=== PATIENT | male | born 1945 | race Caucasian/White ===

== ENCOUNTER → 2017-08-09 08:41 | Outpatient (CLI) | payer MEDICARE, OTHER, SELFPAY ==
[2017-08-09 12:20] LABS: Absolute Lymphocyte Count 1.43 X10^3/ul (0.83-4.51); Basophil# 0.01 X10^3/uL; Basophil% 0.2 % (0-1); Eosinophil# 0.16 X10^3/uL; Eosinophils% 2.6 % (0-5); Hematocrit 49.6 % (40-54); Hemoglobin 16.1 g/dl (13.0-16.5); Lymphocyte # 1.43 X10^3/ul (4.0); Lymphocyte % 23.4 % (19-41); Mean Corp Hgb Conc 32.5 g/gl (32-36); Mean Corpuscular Hgb 30.1 pg (27.0-32.0); Mean Corpuscular Volume 92.9 fL (80-94); Mean Platelet Vol. 11.2 fl (6.2-12.0); Monocyte# 0.47 X10^3/uL; Monocyte% 7.7 % (0-10); Neutrophil # 4.03 X10^3/uL (2.7-7.7); Neutrophil % 65.9 % (47-70); Platelet Count 231 K/mm3 (150-450); RBC Distribution Width CV 13.8 % (11.6-14.6); RBC Distribution Width SD 46.8 fl (35.1-43.9); Red Blood Count 5.34 M/mm3 (4.6-6.2); White Blood Count 6.1 K/mm3 (4.4-11.0)
[2017-08-09 12:31] LABS: POSITIVE DIFFERENTIAL NO; POSITIVE MORPHOLOGY NO
[2017-08-09 12:32] LABS: POSITIVE COUNT NO
[2017-08-09 12:39] LABS: Vitamin B12 350 pg/mL (211-911)
[2017-08-09 12:57] LABS: ALB/GLOB Ratio 0.8 RATIO (0.9-2.4); AST(SGOT) 15 U/L (15-37); Alanine Aminotransfer ALT/SGPT 20 U/L (16-61); Albumin, Serum 3.5 g/dL (3.2-5.0); Alkaline Phosphatase 84 U/L (45-117); Anion Gap 7 (5-15); BUN 10 mg/dL (7-18); BUN/Creat Ratio 9.5 RATIO (10-20); Calcium,Total 8.6 mg/dL (8.5-10.1); Chloride 103 mmol/L (98-107); Cholesterol 194 mg/dL (200); Creatinine, Serum 1.05 mg/dL (0.70-1.30); EST Glomerular Filtration Rate 74 mL/min (>60); Est Glom Filt Rate - Afr Amer 90 mL/min (>60); Globulin 4.2 g/dL (2.2-4.2); Glucose 94 mg/dL (74-106); High Density Lipoprotein 56 mg/dL; Potassium 4.1 mmol/L (3.5-5.1); Protein, Total 7.7 g/dL (6.4-8.2); Sodium Level 137 mmol/L (136-145); T4 Free Direct 1.16 ng/dL (0.76-1.46); Thyroid Stim Hormone (TSH) 2.73 uIU/mL (0.358-3.74); Triglycerides 107 mg/dL; Very Low Density Lipoprotein 21 mg/dL (5-40)
[2017-08-11 14:33] LABS: Acetylcholine Receptor Binding < 0.03 nmol/L (0.00-0.24)
== END ==
PROVIDERS: Visit Provider Family Medicine
DX: H53.2 Diplopia (principal); N40.0 Benign prostatic hyperplasia without lower urinary tract symptoms; E78.5 Hyperlipidemia, unspecified; E01.0 Iodine-deficiency related diffuse (endemic) goiter; R53.83 Other fatigue; R20.2 Paresthesia of skin; Z12.5 Encounter for screening for malignant neoplasm of prostate; Z51.81 Encounter for therapeutic drug level monitoring
CPT/HCPCS: 36415; 80053; 80061; 82607; 84153; 84238; 84439; 84443; 85025; G0103

== ENCOUNTER → 2018-09-27 07:58 | Outpatient (CLI) | payer MEDICARE, OTHER, SELFPAY ==
[2018-09-27 12:35] LABS: Absolute Lymphocyte Count 1.95 X10^3/ul (0.83-4.51); Absolute Neutrophil Count 3.5 X10^3/uL (2.0-7.7); Basophil# 0.02 X10^3/uL; Basophil% 0.3 % (0-1); Eosinophil# 0.17 X10^3/uL; Eosinophils% 2.7 % (0-5); Hematocrit 48.3 % (40-54); Hemoglobin 15.8 g/dl (13.0-16.5); Lymphocyte # 1.95 X10^3/ul (4.0); Lymphocyte % 31.4 % (19-41); Mean Corp Hgb Conc 32.7 g/gl (32-36); Mean Corpuscular Hgb 29.6 pg (27.0-32.0); Mean Corpuscular Volume 90.6 fL (80-94); Mean Platelet Vol. 10.3 fl (6.2-12.0); Monocyte# 0.53 X10^3/uL; Monocyte% 8.5 % (0-10); Neutrophil # 3.54 X10^3/uL (2.7-7.7); Neutrophil % 56.9 % (47-70); Platelet Count 274 K/mm3 (150-450); RBC Distribution Width SD 46.3 fl (35.1-43.9); Red Blood Count 5.33 M/mm3 (4.6-6.2); White Blood Count 6.2 K/mm3 (4.4-11.0)
[2018-09-27 12:42] LABS: POSITIVE COUNT NO; POSITIVE DIFFERENTIAL NO; POSITIVE MORPHOLOGY NO
[2018-09-27 13:08] LABS: Vitamin B12 1328 pg/mL (211-911)
[2018-09-27 13:13] LABS: ALB/GLOB Ratio 0.8 RATIO (0.9-2.4); AST(SGOT) 21 U/L (15-37); Alanine Aminotransfer ALT/SGPT 22 U/L (16-61); Albumin, Serum 3.6 g/dL (3.2-5.0); Alkaline Phosphatase 67 U/L (45-117); Anion Gap 5 (5-15); BUN 13 mg/dL (7-18); BUN/Creat Ratio 11.3 RATIO (10-20); Calcium,Total 8.6 mg/dL (8.5-10.1); Chloride 92 mmol/L (98-107); Cholesterol 173 mg/dL (200); Creatinine, Serum 1.15 mg/dL (0.70-1.30); EST Glomerular Filtration Rate 67 mL/min (>60); Est Glom Filt Rate - Afr Amer 81 mL/min (>60); Globulin 4.3 g/dL (2.2-4.2); Glucose 88 mg/dL (74-106); High Density Lipoprotein 60 mg/dL; PSA,Total - Annual Screen 3.62 ng/mL (0.00-4.00); Potassium 3.9 mmol/L (3.5-5.1); Protein, Total 7.9 g/dL (6.4-8.2); Sodium Level 128 mmol/L (136-145); Thyroid Stim Hormone (TSH) 2.17 uIU/mL (0.358-3.74); Triglycerides 85 mg/dL; Very Low Density Lipoprotein 17 mg/dL (5-40)
== END ==
PROVIDERS: Family Provider Family Medicine; PCP Family Medicine; Visit Provider Family Medicine
DX: I10 Essential (primary) hypertension (principal); Z12.5 Encounter for screening for malignant neoplasm of prostate; Z51.81 Encounter for therapeutic drug level monitoring; R53.83 Other fatigue; E78.5 Hyperlipidemia, unspecified
CPT/HCPCS: 36415; 80053; 80061; 82607; 84153; 84443; 85025; G0103

== ENCOUNTER → 2019-01-05 09:41 | Outpatient (CLI) | payer MEDICARE, OTHER, SELFPAY ==
[2019-01-05 09:05] VITALS: BMI 48.5
[2019-01-05 10:34] LABS: Anion Gap 6 (5-15); BUN 10 mg/dL (7-18); BUN/Creat Ratio 9.9 RATIO (10-20); Calcium,Total 9.1 mg/dL (8.5-10.1); Chloride 97 mmol/L (98-107); Creatinine, Serum 1.01 mg/dL (0.70-1.30); EST Glomerular Filtration Rate 77 mL/min (>60); Est Glom Filt Rate - Afr Amer 94 mL/min (>60); Glucose 92 mg/dL (74-106); Potassium 3.8 mmol/L (3.5-5.1); Sodium Level 134 mmol/L (136-145)
== END ==
PROVIDERS: Family Provider Family Medicine; PCP Family Medicine; Referring Provider Surgery; Visit Provider Surgery
DX: R89.9 Unspecified abnormal finding in specimens from other organs, systems and tissues (principal)
CPT/HCPCS: 36415; 80048

== ENCOUNTER → 2019-01-10 08:50 | Outpatient (CLI) | payer MEDICARE, OTHER, SELFPAY ==
[2019-01-05 09:05] VITALS: BMI 48.5
--- NOTE | 2019-01-10 08:52 | US_ITS ---
STUDY: ABDOMINAL ULTRASOUND - RIGHT UPPER QUADRANT REASON FOR VISIT: Male, 73 years old. Generalized abdominal pain TECHNIQUE: Ultrasound evaluation of the right upper quadrant was performed with real-time and static gay-scale imaging. TECHNICAL QUALITY: Limited. Examination limited due to obesity. COMPARISON: None. FINDINGS: Liver: The liver measures 19.5 cm. There is a heterogeneous echogenicity of the liver. The bile ducts are within normal limits. There is hepatic color flow. The direction of portal flow is hepatopetal. There is no demonstrated mass lesion. Gallbladder: Normal distended gallbladder. The gallbladder wall measures 1.6 mm. There is a negative sonographic Zapata's sign. There is no pericholecystic fluid. There are no gallstones. Common Bile Duct (C.B.D.): The common bile duct measures 3.8 mm. Pancreas: Normal size of the head, body and tail of the pancreas. There is increased echogenicity of the pancreas. There is no demonstrated pancreatic mass or cyst. Right Kidney: Normal size of the right kidney. The right kidney measures 12.8 x 5.3 x 5.6 cm. Normal renal cortex. The right cortex measures 2.1 cm. There is no demonstrated renal mass or cyst. There is no right hydronephrosis. US/Gallbladder IMPRESSION: Fatty liver, no discrete lesion Electronically Signed: Nguyễn Sharpe MD at 17:36 EDT , Service support ,
== END ==
PROVIDERS: Family Provider Family Medicine; PCP Family Medicine; Referring Provider Surgery; Visit Provider Surgery
DX: R10.9 Unspecified abdominal pain (principal)
CPT/HCPCS: 76705

== ENCOUNTER 2019-01-31 06:12 | Day surgery (SDC) | payer MEDICARE, OTHER, SELFPAY ==
[2019-01-05 09:05] VITALS: BMI 48.5
[2019-01-31] VITALS (13 sets, daily range): BP systolic 127–200; BP diastolic 79–173; PULSE 68–80; RESP 16; TEMP 36.2–36.6; O2SAT 93–100; BMI 48.7
--- NOTE | 2019-01-31 06:59 | PCM.HP.BLA ---
Problem List (1) Personal history of colonic polyps Status: Chronic (2) Abdominal pain Status: Acute Qualifiers: Abdominal location: epigastric History and Physical Date of Admission: 01/31/19 ADDENDUM by Td Kaur MD on 01/11/19 at 0905 Addendum entered and electronically signed by Td Kaur MD 01/11/19 09:05: GB U/S 01/10/19. No acute findings: [facility] [address] [address] Gallbladder MR#: [id number] Name: UMU CARDOZA CRep #:[id number] : 1945M 73 From: Al Sharpe MD PCP:Mariluz Sahu DO Status:REG CLI Study:Gallbladder Date of Exam:01/10/19 Exam#[id number] Ordering Dr: Td Kaur MD STUDY: ABDOMINAL ULTRASOUND - RIGHT UPPER QUADRANT REASON FOR VISIT: Male, 73 years old. Generalized abdominal pain TECHNIQUE: Ultrasound evaluation of the right upper quadrant was performed with real-time and static gay-scale imaging. TECHNICAL QUALITY: Limited. Examination limited due to obesity. COMPARISON: None. FINDINGS: Liver: The liver measures 19.5 cm. There is a heterogeneous echogenicity of the liver. The bile ducts are within normal limits. There is hepatic color flow. The direction of portal flow is hepatopetal. There is no demonstrated mass lesion. Gallbladder: Normal distended gallbladder. The gallbladder wall measures 1.6 mm. There is a negative sonographic Zapata's sign. There is no pericholecystic fluid. There are no gallstones. Common Bile Duct (C.B.D.): The common bile duct measures 3.8 mm. Pancreas: Normal size of the head, body and tail of the pancreas. There is increased echogenicity of the pancreas. There is no demonstrated pancreatic mass or cyst. Right Kidney: Normal size of the right kidney. The right kidney measures 12.8 x 5.3 x 5.6 cm. Normal renal cortex. The right cortex measures 2.1 cm. There is no demonstrated renal mass or cyst. There is no right hydronephrosis. US/Gallbladder IMPRESSION: Fatty liver, no discrete lesion Electronically Signed: Nguyễn Sharpe MD at 17:36 EDT , Service support , CC: Mariluz Sahu DO; Td Kaur MD ~ Vocal Music Instructor: Signed Intake Chief Complaint: abd pain, hx polyps Allergies Penicillins Allergy (Mild, Verified 01/05/19 09:06) rash Medications aspirin 81 mg tablet,delayed release 81 mg PO DAILY 01/05/19 [History Confirmed 01/05/19] losartan 50 mg-hydrochlorothiazide 12.5 mg tablet 1 tab PO DAILY 01/05/19 [History Confirmed 01/05/19] mecobalamin (vitamin B12) 1,000 mcg disintegrating tablet,sublingual 1,000 mcg SUBLINGUAL DAILY 01/05/19 [History Confirmed 01/05/19] Assessment & Plan Problems 1. Epigastric pain R10.13 2. Personal history of colonic polyps Z86.010 Plan - Td Kaur MD 73-year-old gentleman. Nondescript generalized epigastric pain with some radiation to his back. Etiology not clear. I recommend a gallbladder ultrasound and a esophagogastroduodenoscopy with possible biopsy or polypectomy. Personal history of colon polyps. Generalized epigastric abdominal pain. I recommend a colonoscopy with possible biopsy or polypectomy as indicated. The patient recently had laboratory September 2018 demonstrating hyponatremia and hypochloremia. I recommend a repeat BMP. This was obtained today and that laboratory is improved. The patient has had an opportunity to ask and have questions answered. I very much appreciate the kind opportunity of continue to assist with this medical care. We will schedule and proceed at his discretion. CC: Dr. Mariluz Kaur M.D., F.A.C.S. Orders Orders: Colonoscopy 01/05/19 Z86.010 EGD 01/05/19 R10.13 Basic Metabolic Profile (BMP) 01/05/19 R89.9 Gallbladder 01/10/19 R10.9 01/11/19 0905 <Electronically signed by Td Kaur MD> Date Td Kaur MD cc: Mariluz Sahu DO ~* Signed Intake Vital Signs 01/05/19 Height 5 ft 7 in 01/05/19 Weight: 310 lb 2 oz 01/05/19 Body Mass Index (BMI) 48.5 01/05/19 Blood Pressure 159/91 H 01/05/19 Blood Pressure Location Rt brachial 01/05/19 Respiratory Rate 18 01/05/19 Pulse Rate 81 01/05/19 Pulse Ox 96 Intake Visit Reasons: abd pain, change in bowel habits Chief Complaint: abd pain, hx polyps Shuttle Final Inspector Required: No Is patient in pain?: No Allergies Penicillins Allergy (Mild, Verified 01/05/19 09:06) rash Medications aspirin 81 mg tablet,delayed release 81 mg PO DAILY 01/05/19 [History Confirmed 01/05/19] losartan 50 mg-hydrochlorothiazide 12.5 mg tablet 1 tab PO DAILY 01/05/19 [History Confirmed 01/05/19] mecobalamin (vitamin B12) 1,000 mcg disintegrating tablet,sublingual 1,000 mcg SUBLINGUAL DAILY 01/05/19 [History Confirmed 01/05/19] [facility] Medical History (Updated 01/05/19 @ 18:00 by Td Kaur MD) Personal history of colonic polyps (Chronic) Abdominal pain (Acute) Cough (Acute) History of colon polyps (Acute) History of diverticulitis (Acute) History of diverticulosis (Acute) HTN (hypertension) (Chronic) Surgical History (Updated 01/05/19 @ 09:04 by Barby Baldwin) History of cataract extraction (Acute) History of colonoscopy (Acute ~2013) History of partial colectomy (Acute) Family History (Updated 01/05/19 @ 09:05 by Barby Baldwin) Father Hypertension Mother Hypertension Social History (Updated 01/05/19 @ 18:04 by Td Kaur MD) Smoking Status: Former smoker HPI HPI HPI: UMU CARDOZA, is a 73 M who presents to the office today for surgical consultation regarding epigastric generalized abdominal pain. A secondary problem includes a personal history of colon polyps. The patient is referred by Dr. Sahu and a written copy of my surgical consult recommendations will be returned to her. Patient has a personal history May 13, 2007 of my perform a sigmoid colectomy for him for diverticular disease and a villous adenoma. On November 23, 2008 I performed a follow-up colonoscopy demonstrating fragments of a tubular adenoma at the splenic flexure. His most recent colonoscopy was performed by myself on February 09, 2014. A sessile polyp was identified in the rectum. On resection this was a hyperplastic polyp. As of September 27, 2018 his sodium was 128 potassium 3.9 CO2 combining power is 92. TSH was 2.17. PSA was 3.62. BUN is 13 creatinine 1.15. Liver function tests normal except for total bilirubin of 1.1. White count 6.2 with a hemoglobin 15.8 hematocrit 48.3 and platelet count 2 74,000. Of the past 6 months he has had generalized epigastric abdominal pain that radiates to his back. He does not particularly associated with foods. It does not associate with any particular physical activity. He has not noticed any bright red blood per rectum or melena. He denies any known family history of colon cancer. He denies fever or chills or sweats or nausea or vomiting. The etiology to the epigastric generalized dull aching pain undetermined. He has not noted acute change in bowel habit occasion his stools are smaller in caliber. HPI HPI HPI: UMU CARDOZA, is a 73 M who presents to the office today for ROS General General: Yes fatigue; no weight change, appetite, colon cancer, breast cancer or weakness HEENT HEENT: No difficulty swallowing, eye injury, eye surgery, swollen glands or hoarseness Endo Endocrine: No thyroid disease, diabetes mellitus, thyroid cancer, Hair loss, heat intolerance or cold intolerance Cardio Cardiovascular: Yes high blood pressure; no murmur, pacemaker, heart disease, atrial fibrillation, heart attack, heart stent, palpitations, shortness of breat with exertion or chest pain Resp Respiratory: Yes shortness of breath, No sleep apnea, Yes cough, No COPD, No asthma, No emphysema, No wheezing Gastro Gastrointestinal: Yes abdominal pain, No nausea or vomiting, No diarrhea, No constipation, No blood in stool, No acid reflux, No hemorrhoids, No ulcers, No gallbladder problem, No black,tarry stools Jerry Hematologic: Yes blood thinners, No blood disorders, No bleeding, No anemia, No blood clots Neuro Neurologic: No weakness Exam Const General: cooperative, comfortable, no acute distress Nutritional Appearance: obese Orientation: alert, awake, oriented x3 HENMT Head: normal to inspection Chest Chest palpation & inspection: normal inspection of the chest Resp Effort & Inspection: normal respiratory effort Auscultation: clear to auscultation bilaterally Cardio Rate: regular rate Rhythm: regular rhythm Heart Sounds: no murmurs GI Palpation: soft Other: Normal bowel sounds. I am not able to detect any internal organs secondary to body habitus. He has a well-healed infraumbilical midline incision which is solid no evidence of any hernia. Large overhanging pannus. Other: No gross inguinal defects but difficult to examine Musc Cervical Spine: normal cervical lordosis Neuro Cognition: normal cognition Extrem General: no calf tenderness bilaterally Psych Affect: normal affect Assessment & Plan Problems 1. Epigastric pain R10.13 2. Personal history of colonic polyps Z86.010 Plan 73-year-old gentleman. Nondescript generalized epigastric pain with some radiation to his back. Etiology not clear. I recommend a gallbladder ultrasound and a esophagogastroduodenoscopy with possible biopsy or polypectomy. Personal history of colon polyps. Generalized epigastric abdominal pain. I recommend a colonoscopy with possible biopsy or polypectomy as indicated. The patient recently had laboratory September 2018 demonstrating hyponatremia and hypochloremia. I recommend a repeat BMP. This was obtained today and that laboratory is improved. The patient has had an opportunity to ask and have questions answered. I very much appreciate the kind opportunity of continue to assist with this medical care. We will schedule and proceed at his discretion. CC: Dr. Mariluz Kaur M.D., F.A.C.S. Orders Orders: Colonoscopy Today Z86.010 EGD Today R10.13 Basic Metabolic Profile (BMP) Today R89.9 Gallbladder Today R10.9 Coding Level of Care Code 01828 Diagnoses Epigastric pain R10.13 ??Abdominal location: epigastric Personal history of colonic polyps Z86.010 I have re-examined the patient. There are no clinical changes since date of exam.
[2019-01-31] MEDS: Lactated Ringers 1,000 ML 100 ML IV (07:05)
--- NOTE | 2019-01-31 07:30 | EGD_PTH ---
PATIENT: UMU CARDOZA LOC: EN U#:[id number] AGE/SX: 73/M ROOM: RE01/31/[address]: Dr. Td Kaur MD : 1945 BED: DIS: 01/31/2019 SPEC #: [id number] RECD: 01/31/19 09:30 STATUS: JANNY RICHA #: [id number] PAXTON: 01/31/19 07:[address]: Td Kaur DEPT: SURGICAL PATHOLOGY RECD BY: Luz Langford ENTERED: 01/31/19 10:43 SP TYPE: EGD BIOPSY OT DR: Dr. Mariluz Sahu, DO Tissues: A - Duodenum, NOS B - Gastric mucous membrane C - Esophagus, NOS D - COLON BIOPSY Procedures: Surgery Specimen Level IV HEADER OPERATION: Colonoscopy, EGD (MOD) PRE-OP DIAGNOSIS: Abdominal pain, history of polyps TISSUE SUBMITTED: A. Duodenal biopsy, B. Antrum biopsy for H. pylori and path, C. Distal esophagus biopsy, D. Random colon biopsies MICROSCOPIC DIAGNOSIS A. Duodenum, biopsy: Focal gastric metaplasia. B. Gastric antrum, biopsy: Mild chronic gastritis. Focal reactive fibrosis of lamina propria. See comment. C. Distal esophagus, biopsy: Gastroesophageal junctional mucosa with mild chronic and focal acute inflammation. Focal changes of reflux. D. Colon, random biopsy: No pathologic change. AM:linnette 02/01/19 COMMENT B. The results of immunohistochemistry for Helicobacter pylori will be reported separately ([id number]). Clinical correlation is suggested. MICROSCOPIC DESCRIPTION Slides are reviewed. GROSS DESCRIPTION A - Received in fixative is one container labeled with the patient's name and designated duodenal biopsy. The specimen consists of two irregular fragments of light lerner soft tissue that in aggregate measure 0.6 x 0.3 x 0.1 cm. The specimen is totally submitted in one cassette. B - Received in fixative is one container labeled with the patient's name and designated gastric antrum. The specimen consists of multiple irregular fragments of light lerner soft tissue that in aggregate measure 1 x 0.5 x 0.1 cm. The specimen is totally submitted in one cassette. C - Received in fixative is one container labeled with the patient's name and designated distal esophagus biopsy. The specimen consists of one irregular fragment of light lerner soft tissue that measures 0.3 x 0.2 x 0.1 cm. The specimen is totally submitted in one cassette. D - Received in fixative is one container labeled with the patient's name and designated random colon biopsy. The specimen consists of multiple irregular fragments of light lerner soft tissue that in aggregate measure 1.5 x 1 x 0.1 cm. The specimen is totally submitted in one cassette. / AM:linnette 01/31/19 TC:3 CPT: 31956 x4
--- NOTE | 2019-01-31 07:30 | IMM_PTH ---
PATIENT: UMU CARDOZA LOC: EN U#:[id number] AGE/SX: 73/M ROOM: RE01/31/[address]: Dr. Td Kaur MD : 1945 BED: DIS: 01/31/2019 SPEC #: [id number] RECD: 01/31/19 10:14 STATUS: JANNY REMahin #: [id number] PAXTON: 01/31/19 07:[address]: Td Kaur DEPT: IMMUNOHISTOCHEMISTRY RECD BY: Jeannette Hector ENTERED: 01/31/19 10:14 SP TYPE: IMMUNO OTHR DR: Dr. Mairluz Sahu, Tissues: B - Stomach, NOS Procedures: H Pylori (initial) PHYSICIAN & INSTITUTION [place] [id number] SPECIMEN INFORMATION: Tissue Source: B - Antrum biopsy Clinical Info: Abdomen pain, polyp history Specimen Number: [id number] CPT code: 14955 METHODOLOGY: Deparaffinized sections of prefer/formalin-fixed tissue or PAP/DQ stained slides are incubated with monoclonal/polyclonal antibodies/oligonucleotide probes. Localization is made via biotin free immunoperoxidase method. Appropriate controls are performed and reacted as expected. Results on target cell population are indicated in the following table: RESULTS: ANTIBODY / CLONE RESULT Block B H Pylori (polyclonal) negative These tests were developed and their performance characteristics determined by [facility]. They may not have been cleared or approved by the U.S. Food and Drug Administration. The FDA has determined that such clearance or approval is not necessary. INTERPRETATION: B. Antrum biopsy: Negative for Helicobacter pylori organisms. AM:linnette 02/01/19
--- NOTE | 2019-01-31 08:20 | OP.ENDO_ITS ---
01/31/2019 Mariluz Sahu [address] [facility] [place] [address] [place] [address] Re : Upper GI endoscopy procedure for Kody Pollardlure Dear Dr. Sahu This procedure was performed on Thursday, January 31, 2019. My impressions and recommendations are as follows: Impressions : - LA Grade A reflux esophagitis. Biopsied. - Z-line irregular, 41 cm from the incisors. - 1 cm hiatal hernia. - Gastritis. Biopsied. - Erythematous duodenopathy. Biopsied. Recommendations : - Discharge patient to home. - Resume previous diet. - Continue present medications. - Use Prilosec (omeprazole) 40 mg PO daily. I suspect the gastritis identified correlates with patient's complaint of pain and will treat with proton pump inhibitor My findings are described in the full procedure note, which is enclosed. If I can be of further assistance, please feel free to contact me at Doctor phone number(s): Work: . Sincerely, Td Kaur MD 01/31/2019 8:19:54 AM This report has been signed electronically.
--- NOTE | 2019-01-31 08:23 | OP.ENDO_ITS ---
01/31/2019 Mariluz Sahu [address] [place] [address] Re : Colonoscopy procedure for Kody Pollardlure Dear Dr. Sahu This procedure was performed on Thursday, January 31, 2019. My impressions and recommendations are as follows: Impressions : - Hemorrhoids found on perianal exam. - Diverticulosis in the sigmoid colon. Biopsied. - The examination was otherwise normal. Recommendations : - Discharge patient to home. - Resume previous diet. - Continue present medications. - Repeat colonoscopy in 5 years for surveillance. - Telephone my office for pathology results in 1 week. My findings are described in the full procedure note, which is enclosed. If I can be of further assistance, please feel free to contact me at Doctor phone number(s): Work: . Sincerely, Td Kaur MD 01/31/2019 8:22:41 AM This report has been signed electronically.
== END 2019-01-31 09:03 | disposition home or self-care (01) ==
LOC: EN 06:13 → AC 06:14
PROVIDERS: Family Provider Family Medicine; PCP Family Medicine; Referring Provider Family Medicine; Visit Provider Surgery
PROC: 0DJD8ZZ Inspection of Lower Intestinal Tract, Via Natural or Artificial Opening Endoscopic (ICD-10-PCS; CPT 45378; principal; 2019-01-31 07:25)
DX: K21.0 Gastro-esophageal reflux disease with esophagitis (principal); K29.50 Unspecified chronic gastritis without bleeding; K44.9 Diaphragmatic hernia without obstruction or gangrene; K22.8 Other specified diseases of esophagus; K31.89 Other diseases of stomach and duodenum; K64.9 Unspecified hemorrhoids; K57.30 Diverticulosis of large intestine without perforation or abscess without bleeding; R10.13 Epigastric pain; Z86.010 Personal history of colon polyps; E87.1 Hypo-osmolality and hyponatremia; I10 Essential (primary) hypertension; E87.8 Other disorders of electrolyte and fluid balance, not elsewhere classified; E66.9 Obesity, unspecified; Z68.42 Body mass index [BMI] 45.0-49.9, adult; Z79.82 Long term (current) use of aspirin; Z79.899 Other long term (current) drug therapy; Z87.891 Personal history of nicotine dependence
CPT/HCPCS: 43239; 45380; 88305; 88342; 99152; 99153; J7120

== ENCOUNTER → 2019-05-03 08:46 | Outpatient (CLI) | payer MEDICARE, OTHER, SELFPAY ==
[2019-01-31 06:50] VITALS: BMI 48.7
[2019-05-03 12:34] LABS: ALB/GLOB Ratio 0.8 RATIO (0.9-2.4); AST(SGOT) 19 U/L (15-37); Alanine Aminotransfer ALT/SGPT 24 U/L (16-61); Albumin, Serum 3.8 g/dL (3.2-5.0); Alkaline Phosphatase 83 U/L (45-117); Anion Gap 5 (5-15); BUN 13 mg/dL (7-18); BUN/Creat Ratio 11.3 RATIO (10-20); Calcium,Total 9.4 mg/dL (8.5-10.1); Chloride 99 mmol/L (98-107); Creatinine, Serum 1.15 mg/dL (0.70-1.30); EST Glomerular Filtration Rate 67 mL/min (>60); Est Glom Filt Rate - Afr Amer 80 mL/min (>60); Globulin 4.5 g/dL (2.2-4.2); Glucose 103 mg/dL (74-106); Potassium 4.4 mmol/L (3.5-5.1); Protein, Total 8.3 g/dL (6.4-8.2); Sodium Level 133 mmol/L (136-145)
== END ==
PROVIDERS: Family Provider Family Medicine; PCP Family Medicine; Referring Provider Family Medicine; Visit Provider Family Medicine
DX: Z51.81 Encounter for therapeutic drug level monitoring (principal)
CPT/HCPCS: 36415; 80053

== ENCOUNTER → 2019-07-04 08:21 | Outpatient (CLI) | payer MEDICARE, OTHER, SELFPAY ==
[2019-01-31 06:50] VITALS: BMI 48.7
[2019-07-04 13:21] LABS: BUN 19 mg/dL (7-18); BUN/Creat Ratio 13.4 RATIO (10-20); Calcium,Total 9.2 mg/dL (8.5-10.1); Chloride 101 mmol/L (98-107); Creatinine, Serum 1.42 mg/dL (0.70-1.30); EST Glomerular Filtration Rate 52 mL/min (>60); Est Glom Filt Rate - Afr Amer 63 mL/min (>60); Glucose 110 mg/dL (74-106); Potassium 4.8 mmol/L (3.5-5.1); Sodium Level 133 mmol/L (136-145)
[2019-07-04 13:22] LABS: Anion Gap 6 (5-15)
== END ==
PROVIDERS: PCP Family Medicine; Visit Provider Family Medicine
DX: I10 Essential (primary) hypertension (principal)
CPT/HCPCS: 80048

== ENCOUNTER → 2019-07-27 09:02 | Outpatient (CLI) | payer MEDICARE, OTHER, SELFPAY ==
[2019-01-31 06:50] VITALS: BMI 48.7
--- NOTE | 2019-07-27 09:05 | US_ITS ---
STUDY: RENAL ULTRASOUND - COMPLETE REASON FOR EXAM: Male, 74 years old. Chronic renal failure STAGE 3 TECHNIQUE: Ultrasound evaluation of the kidneys was performed with real-time and static sheehan-scale imaging. COMPARISON: None. FINDINGS: RIGHT KIDNEY: Normal location of the right kidney, which is normal in size. The right kidney measures 12.9 x 5.0 x 5.2 cm. There is a normal cortex of the right kidney. The renal cortex measures 1.5 cm. There is no right renal mass or cyst. There are no right renal calculi. There is no right hydronephrosis. DISTAL RIGHT URETER: There is non-visualization of the distal right ureter. There is no demonstrated right ureterovesical junction calculus. There is a visualized right ureteral jet. LEFT KIDNEY: Normal location of the left kidney, which is normal in size. The left kidney measures 12.8 x 4.6 x 4.6 cm. There is a normal cortex of the left kidney. The renal cortex measures 1.4 cm. There is no left renal mass or cyst. There are no left renal calculi. There is no left hydronephrosis. DISTAL LEFT URETER: There is non-visualization of the distal left ureter. There is no demonstrated left ureterovesical junction calculus. There is a visualized left ureteral jet. BLADDER: Bladder volume is 42 mL. There is a normal wall thickness of the distended urinary bladder. There is no demonstrated mass within the urinary bladder. There are no demonstrated bladder calculi. US/Kidney and Bladder IMPRESSION: Normal ultrasound of the kidneys and urinary bladder. Electronically Signed: Casper Dumas MD at 19:23 EST , Service support ,
== END ==
PROVIDERS: PCP Family Medicine; Referring Provider Internal Medicine; Visit Provider Internal Medicine
DX: N18.3 Chronic kidney disease, stage 3 (moderate) (principal)
CPT/HCPCS: 76770

== ENCOUNTER → 2019-08-10 08:01 | Outpatient (CLI) | payer MEDICARE, OTHER, SELFPAY ==
[2019-01-31 06:50] VITALS: BMI 48.7
[2019-08-10 12:21] LABS: Color, Urine Yellow (Yellow); Glucose, Dipstick Normal (Normal); Ketone-Dipstick Negative (Negative); Leukocyte Esterase-Dipstick Negative /ul (Negative); Nitrite-Dipstick Negative (Negative); Occult Blood-Urine Negative /ul (Negative); Protein-Dipstick 15 mg/dl (Negative); Specific Gravity, Urine 1.025 (1.002-1.030); Urine Bilirubin Dipstick Negative (Negative); Urine Clarity Clear (Clear); Urine Urobilinogen Normal (Normal)
[2019-08-10 12:32] LABS: Anion Gap 8 (5-15); BUN 17 mg/dL (7-18); BUN/Creat Ratio 12.9 RATIO (10-20); Calcium,Total 8.9 mg/dL (8.5-10.1); Chloride 98 mmol/L (98-107); Creatinine, Serum 1.32 mg/dL (0.70-1.30); EST Glomerular Filtration Rate 57 mL/min (>60); Est Glom Filt Rate - Afr Amer 69 mL/min (>60); Glucose 132 mg/dL (74-106); Phosphorus 1.5 mg/dL (2.5-4.9); Potassium 4.2 mmol/L (3.5-5.1); Sodium Level 131 mmol/L (136-145)
[2019-08-10 12:37] LABS: Vitamin D,25 Hydroxy 14.1 ng/mL
[2019-08-10 12:40] LABS: Protein, Urine (Random) 21.1 mg/dL (<11.9); Protein:Creat Ratio 79 mg/g CRE (0-200)
[2019-08-10 12:44] LABS: 24 Hour Urine Protein 191.1 mg/24HR (<150 MG/24HR); 24HR. UA Prot. Total Volume 2100 mL; Urine Protein (24 Hour) 9.1 mg/dL (<11.9)
[2019-08-10 12:46] LABS: Creat.Clear Total Volume 2100 mL; Creatinine Clearance 91 ml/min (100-200); Creatinine Serum Creat 1.3 mg/dL (0.8-1.3); Creatinine Urine 82.3 mg/dL (NO RANGE EST.); EST Glomerular Filtration Rate 57 mL/min (>60); Est Glom Filt Rate - Afr Amer 69 mL/min (>60)
[2019-08-10 12:55] LABS: PTHIN 46.6 pg/mL (18.4-80.1)
[2019-08-14 14:07] LABS: PROEL- A/G Ratio 1.1 (0.7-1.7); PROEL- Albumin 3.5 g/dL (2.9-4.4); PROEL- Alpha-1 Globulin 0.3 g/dL (0.0-0.4); PROEL- Alpha-2 Globulin 0.9 g/dL (0.4-1.0); PROEL- Gamma Globulin 1.1 g/dL (0.4-1.8); PROEL- Globulin, Total 3.2 g/dL (2.2-3.9); PROEL- TOTAL PROTEIN 6.7 g/dL (6.0-8.5); PROELU- Albumin, Urine 38.5 % (.); PROELU- Alpha-1-Globulin,Ur 2.1 % (.); PROELU- Beta Globulin, Ur 27.6 % (.); PROELU- Gamma Globulin, Ur 16.8 % (.); Total Protein, Ur 25.4 mg/dL (Not Estab.)
== END ==
PROVIDERS: PCP Family Medicine; Visit Provider Internal Medicine
DX: N18.3 Chronic kidney disease, stage 3 (moderate) (principal)
CPT/HCPCS: 36415; 80048; 81002; 81050; 82306; 82570; 82575; 83970; 84100; 84156; 84165; 84166

== ENCOUNTER → 2019-10-20 08:34 | Outpatient (CLI) | payer MEDICARE, OTHER, SELFPAY ==
[2019-01-31 06:50] VITALS: BMI 48.7
[2019-10-20 12:47] LABS: Absolute Lymphocyte Count 1.73 X10^3/uL (0.83-4.51); Absolute Neutrophil Count 5.2 X10^3/uL (2.0-7.7); Basophil# 0.03 X10^3/uL; Basophil% 0.4 % (0-1); Eosinophil# 0.11 X10^3/uL; Eosinophils% 1.4 % (0-5); Hematocrit 46.1 % (40-54); Hemoglobin 14.8 g/dL (13.0-16.5); Lymphocyte # 1.73 X10^3/ul (4.0); Lymphocyte % 22.4 % (19-41); Mean Corp Hgb Conc 32.1 g/dL (32-36); Mean Corpuscular Hgb 30.5 pg (27.0-32.0); Mean Corpuscular Volume 94.9 fL (80-94); Mean Platelet Vol. 10.5 fl (6.2-12.0); Monocyte# 0.56 X10^3/uL; Monocyte% 7.3 % (0-10); NRBC Flagged by Analyzer 0 % (0-5); Neutrophil # 5.22 X10^3/uL (2.7-7.7); Neutrophil % 67.7 % (47-70); Platelet Count 318 K/mm3 (150-450); RBC Distribution Width CV 13.1 % (11.6-14.6); RBC Distribution Width SD 45.9 fl (35.1-43.9); Red Blood Count 4.86 M/mm3 (4.6-6.2); White Blood Count 7.7 K/mm3 (4.4-11.0)
[2019-10-20 13:09] LABS: ALB/GLOB Ratio 0.8 RATIO (0.9-2.4); AST(SGOT) 18 U/L (15-37); Alanine Aminotransfer ALT/SGPT 22 U/L (16-61); Albumin, Serum 3.6 g/dL (3.2-5.0); Alkaline Phosphatase 68 U/L (45-117); Anion Gap 9 (5-15); BUN 18 mg/dL (7-18); BUN/Creat Ratio 12.5 RATIO (10-20); Calcium,Total 9.1 mg/dL (8.5-10.1); Chloride 98 mmol/L (98-107); Creatinine, Serum 1.44 mg/dL (0.70-1.30); EST Glomerular Filtration Rate 51 mL/min (>60); Est Glom Filt Rate - Afr Amer 62 mL/min (>60); Globulin 4.4 g/dL (2.2-4.2); Glucose 116 mg/dL (74-106); Potassium 4.8 mmol/L (3.5-5.1); Sodium Level 132 mmol/L (136-145)
== END ==
PROVIDERS: PCP Family Medicine; Visit Provider Family Medicine
DX: I11.0 Hypertensive heart disease with heart failure (principal); I50.9 Heart failure, unspecified
CPT/HCPCS: 36415; 80053; 83880; 85025

== ENCOUNTER → 2019-12-11 13:18 | Outpatient (CLI) | payer MEDICARE, OTHER, SELFPAY ==
[2019-01-31 06:50] VITALS: BMI 48.7
[2019-12-11 17:11] LABS: Basophil# 0.04 X10^3/uL; Basophil% 0.4 % (0-1); Eosinophil# 0.11 X10^3/uL; Hematocrit 34.1 % (40-54); Lymphocyte % 19.5 % (19-41); Mean Corp Hgb Conc 32.3 g/dL (32-36); Mean Corpuscular Hgb 31.2 pg (27.0-32.0); Mean Corpuscular Volume 96.6 fL (80-94); Mean Platelet Vol. 10.5 fl (6.2-12.0); Monocyte# 0.85 X10^3/uL; Monocyte% 7.5 % (0-10); NRBC Flagged by Analyzer 0 % (0-5); Neutrophil # 8.03 X10^3/uL (2.7-7.7); Neutrophil % 71.1 % (47-70); Platelet Count 284 K/mm3 (150-450); RBC Distribution Width CV 14.2 % (11.6-14.6); Red Blood Count 3.53 M/mm3 (4.6-6.2); White Blood Count 11.3 K/mm3 (4.4-11.0)
[2019-12-11 17:42] LABS: ALB/GLOB Ratio 0.9 RATIO (0.9-2.4); AST(SGOT) 16 U/L (15-37); Alanine Aminotransfer ALT/SGPT 22 U/L (16-61); Albumin, Serum 3.2 g/dL (3.2-5.0); Alkaline Phosphatase 50 U/L (45-117); Anion Gap 9 (5-15); BUN 36 mg/dL (7-18); BUN/Creat Ratio 23.2 RATIO (10-20); Calcium,Total 8.1 mg/dL (8.5-10.1); Chloride 98 mmol/L (98-107); Creatinine, Serum 1.55 mg/dL (0.70-1.30); EST Glomerular Filtration Rate 47 mL/min (>60); Est Glom Filt Rate - Afr Amer 57 mL/min (>60); Globulin 3.4 g/dL (2.2-4.2); Glucose 116 mg/dL (74-106); Protein, Total 6.6 g/dL (6.4-8.2); Sodium Level 130 mmol/L (136-145)
== END ==
PROVIDERS: PCP Family Medicine; Visit Provider Family Medicine
DX: I10 Essential (primary) hypertension (principal); N28.9 Disorder of kidney and ureter, unspecified
CPT/HCPCS: 36415; 80053; 85025

== ENCOUNTER → 2019-12-19 08:29 | Outpatient (CLI) | payer MEDICARE, OTHER, SELFPAY ==
[2019-01-31 06:50] VITALS: BMI 48.7
[2019-12-19 12:15] LABS: Absolute Lymphocyte Count 1.44 X10^3/uL (0.83-4.51); Absolute Neutrophil Count 4.9 X10^3/uL (2.0-7.7); Basophil# 0.04 X10^3/uL; Basophil% 0.6 % (0-1); Eosinophils% 1.4 % (0-5); Hematocrit 37.3 % (40-54); Hemoglobin 11.8 g/dL (13.0-16.5); Lymphocyte # 1.44 X10^3/ul (4.0); Lymphocyte % 20.4 % (19-41); Mean Corp Hgb Conc 31.6 g/dL (32-36); Mean Corpuscular Hgb 30.7 pg (27.0-32.0); Mean Corpuscular Volume 97.1 fL (80-94); Mean Platelet Vol. 10.6 fl (6.2-12.0); Monocyte# 0.51 X10^3/uL; Monocyte% 7.2 % (0-10); NRBC Flagged by Analyzer 0 % (0-5); Neutrophil # 4.91 X10^3/uL (2.7-7.7); Neutrophil % 69.7 % (47-70); Platelet Count 352 K/mm3 (150-450); RBC Distribution Width CV 14.1 % (11.6-14.6); RBC Distribution Width SD 49.9 fl (35.1-43.9); Red Blood Count 3.84 M/mm3 (4.6-6.2); White Blood Count 7.1 K/mm3 (4.4-11.0)
[2019-12-19 12:19] LABS: Anion Gap 4 (5-15); BUN 12 mg/dL (7-18); BUN/Creat Ratio 9.5 RATIO (10-20); Calcium,Total 8.7 mg/dL (8.5-10.1); Chloride 102 mmol/L (98-107); Creatinine, Serum 1.26 mg/dL (0.70-1.30); EST Glomerular Filtration Rate 60 mL/min (>60); Est Glom Filt Rate - Afr Amer 72 mL/min (>60); Glucose 100 mg/dL (74-106); Sodium Level 133 mmol/L (136-145)
== END ==
PROVIDERS: PCP Family Medicine; Visit Provider Family Medicine
DX: I10 Essential (primary) hypertension (principal); R42 Dizziness and giddiness
CPT/HCPCS: 36415; 80048; 85025

== ENCOUNTER → 2020-01-17 10:54 | Outpatient (CLI) | payer MEDICARE, OTHER, SELFPAY ==
[2019-01-31 06:50] VITALS: BMI 48.7
[2020-01-17 12:37] LABS: Absolute Lymphocyte Count 1.62 X10^3/uL (0.83-4.51); Absolute Neutrophil Count 4.2 X10^3/uL (2.0-7.7); Basophil# 0.03 X10^3/uL; Basophil% 0.5 % (0-1); Eosinophil# 0.15 X10^3/uL; Eosinophils% 2.3 % (0-5); Hematocrit 43.2 % (40-54); Hemoglobin 13.6 g/dL (13.0-16.5); Lymphocyte # 1.62 X10^3/ul (4.0); Lymphocyte % 24.4 % (19-41); Mean Corp Hgb Conc 31.5 g/dL (32-36); Mean Corpuscular Hgb 29.8 pg (27.0-32.0); Mean Corpuscular Volume 94.5 fL (80-94); Mean Platelet Vol. 10.4 fl (6.2-12.0); Monocyte# 0.61 X10^3/uL; Monocyte% 9.2 % (0-10); NRBC Flagged by Analyzer 0 % (0-5); Neutrophil # 4.22 X10^3/uL (2.7-7.7); Neutrophil % 63.3 % (47-70); Platelet Count 309 K/mm3 (150-450); RBC Distribution Width CV 13.1 % (11.6-14.6); RBC Distribution Width SD 44.9 fl (35.1-43.9); Red Blood Count 4.57 M/mm3 (4.6-6.2); White Blood Count 6.7 K/mm3 (4.4-11.0)
[2020-01-17 13:10] LABS: Anion Gap 7 (5-15); BUN 13 mg/dL (7-18); BUN/Creat Ratio 11.1 RATIO (10-20); Calcium,Total 8.7 mg/dL (8.5-10.1); Chloride 100 mmol/L (98-107); Creatinine, Serum 1.17 mg/dL (0.70-1.30); EST Glomerular Filtration Rate 65 mL/min (>60); Est Glom Filt Rate - Afr Amer 79 mL/min (>60); Glucose 96 mg/dL (74-106); Potassium 3.8 mmol/L (3.5-5.1); Sodium Level 133 mmol/L (136-145)
== END ==
PROVIDERS: PCP Family Medicine; Visit Provider Family Medicine
DX: N28.9 Disorder of kidney and ureter, unspecified (principal); I10 Essential (primary) hypertension; R42 Dizziness and giddiness
CPT/HCPCS: 36415; 80048; 85025

== ENCOUNTER → 2020-05-29 09:26 | Outpatient (CLI) | payer MEDICARE, SELFPAY ==
[2019-01-31 06:50] VITALS: BMI 48.7
[2020-05-29 12:49] LABS: Absolute Lymphocyte Count 1.22 X10^3/uL (0.83-4.51); Absolute Neutrophil Count 4.8 X10^3/uL (2.0-7.7); Basophil# 0.02 X10^3/uL; Basophil% 0.3 % (0-1); Eosinophil# 0.12 X10^3/uL; Eosinophils% 1.8 % (0-5); Hematocrit 49.1 % (40-54); Hemoglobin 15.3 g/dL (13.0-16.5); Lymphocyte # 1.22 X10^3/ul (4.0); Lymphocyte % 18.2 % (19-41); Mean Corp Hgb Conc 31.2 g/dL (32-36); Mean Corpuscular Hgb 27.8 pg (27.0-32.0); Mean Corpuscular Volume 89.1 fL (80-94); Mean Platelet Vol. 10.1 fl (6.2-12.0); Monocyte# 0.47 X10^3/uL; NRBC Flagged by Analyzer 0 % (0-5); Neutrophil # 4.83 X10^3/uL (2.7-7.7); Neutrophil % 72.1 % (47-70); Platelet Count 295 K/mm3 (150-450); RBC Distribution Width CV 14.7 % (11.6-14.6); RBC Distribution Width SD 48.9 fl (35.1-43.9); Red Blood Count 5.51 M/mm3 (4.6-6.2); White Blood Count 6.7 K/mm3 (4.4-11.0)
[2020-05-29 13:15] LABS: ALB/GLOB Ratio 0.9 RATIO (0.9-2.4); AST(SGOT) 14 U/L (15-37); Alanine Aminotransfer ALT/SGPT 17 U/L (16-61); Albumin, Serum 3.7 g/dL (3.2-5.0); Alkaline Phosphatase 73 U/L (45-117); Anion Gap 7 (5-15); BUN 14 mg/dL (7-18); BUN/Creat Ratio 11.8 RATIO (10-20); Calcium,Total 9.1 mg/dL (8.5-10.1); Chloride 96 mmol/L (98-107); Creatinine, Serum 1.19 mg/dL (0.70-1.30); EST Glomerular Filtration Rate 64 mL/min (>60); Est Glom Filt Rate - Afr Amer 77 mL/min (>60); Globulin 4.1 g/dL (2.2-4.2); Glucose 92 mg/dL (74-106); Iron 118 ug/dL (65-175); PSA,Total - Annual Screen 3.87 ng/mL (0.00-4.00); Potassium 4.5 mmol/L (3.5-5.1); Protein, Total 7.8 g/dL (6.4-8.2); Sodium Level 132 mmol/L (136-145)
== END ==
PROVIDERS: PCP Family Medicine; Visit Provider Family Medicine
DX: Z12.5 Encounter for screening for malignant neoplasm of prostate (principal); E55.9 Vitamin D deficiency, unspecified; N18.31 Chronic kidney disease, stage 3a; D63.1 Anemia in chronic kidney disease
CPT/HCPCS: 36415; 80053; 82306; 83540; 84153; 85025; G0103

== ENCOUNTER → 2020-09-19 13:41 | Outpatient (CLI) | payer MEDICARE, SELFPAY ==
[2019-01-31 06:50] VITALS: BMI 48.7
[2020-09-19 15:18] LABS: Erythrocyte Sedimentation Rate 6 mm/hr (0-20)
[2020-09-19 15:22] LABS: Absolute Lymphocyte Count 1.77 X10^3/uL (0.83-4.51); Absolute Neutrophil Count 4.6 X10^3/uL (2.0-7.7); Basophil# 0.03 X10^3/uL; Basophil% 0.4 % (0-1); Eosinophil# 0.16 X10^3/uL; Eosinophils% 2.2 % (0-5); Hematocrit 48.7 % (40-54); Hemoglobin 15.4 g/dL (13.0-16.5); Lymphocyte # 1.77 X10^3/ul (0.83-4.51); Lymphocyte % 24.5 % (19-41); Mean Corp Hgb Conc 31.6 g/dL (32-36); Mean Corpuscular Hgb 29.2 pg (27.0-32.0); Mean Corpuscular Volume 92.2 fL (80-94); Mean Platelet Vol. 10.4 fl (6.2-12.0); Monocyte% 8.3 % (0-10); NRBC Flagged by Analyzer 0 % (0-5); Neutrophil # 4.64 X10^3/uL (2.7-7.7); Neutrophil % 64.2 % (47-70); Platelet Count 307 K/mm3 (150-450); RBC Distribution Width CV 13.7 % (11.6-14.6); RBC Distribution Width SD 46.5 fl (35.1-43.9); Red Blood Count 5.28 M/mm3 (4.6-6.2); White Blood Count 7.2 K/mm3 (4.4-11.0)
[2020-09-19 15:40] LABS: Vitamin D,25 Hydroxy 47.8 ng/mL
[2020-09-19 15:43] LABS: ALB/GLOB Ratio 0.9 RATIO (0.9-2.4); AST(SGOT) 18 U/L (15-37); Alanine Aminotransfer ALT/SGPT 21 U/L (16-61); Albumin, Serum 3.5 g/dL (3.2-5.0); Alkaline Phosphatase 80 U/L (45-117); Anion Gap 3 (5-15); BUN 14 mg/dL (7-18); BUN/Creat Ratio 12.2 RATIO (10-20); Calcium,Total 8.5 mg/dL (8.5-10.1); Chloride 102 mmol/L (98-107); Creatinine, Serum 1.15 mg/dL (0.70-1.30); EST Glomerular Filtration Rate 66 mL/min (>60); Est Glom Filt Rate - Afr Amer 80 mL/min (>60); Free T3 2.5 pg/mL (2.18-3.98); Glucose 84 mg/dL (74-106); Iron 72 ug/dL (65-175); LDH 166 U/L (87-241); Potassium 4.3 mmol/L (3.5-5.1); Protein, Total 7.5 g/dL (6.4-8.2); Sodium Level 136 mmol/L (136-145); T4 Free Direct 1.17 ng/dL (0.76-1.46); Thyroid Stim Hormone (TSH) 2.41 uIU/mL (0.358-3.74); Uric Acid 3.6 mg/dL (3.5-7.2)
== END ==
PROVIDERS: PCP Family Medicine; Referring Provider Family Medicine; Visit Provider Family Medicine
DX: R53.83 Other fatigue (principal); L50.9 Urticaria, unspecified; E55.9 Vitamin D deficiency, unspecified; M25.50 Pain in unspecified joint; R17 Unspecified jaundice; E87.1 Hypo-osmolality and hyponatremia; D50.9 Iron deficiency anemia, unspecified
CPT/HCPCS: 36415; 80053; 82248; 82306; 83540; 83615; 84439; 84443; 84481; 84550; 85025; 85652; 86140

== ENCOUNTER 2020-10-01 22:00 | Observation (INO) | payer MEDICARE, SELFPAY ==
[2019-01-31 06:50] VITALS: BMI 48.7
[2020-10-01 22:02] VITALS: BP 178/91; PULSE 83; RESP 18; TEMP 36.1; O2SAT 97; BMI 47.0
--- NOTE | 2020-10-01 22:13 | EKG12_ITS ---
Test Reason : AM EKG Blood Pressure : / mmHG Vent. Rate : 076 BPM Atrial Rate : 076 BPM P-R Int : 218 ms QRS Dur : 090 ms QT Int : 384 ms P-R-T Axes : 046 076 062 degrees QTc Int : 432 ms Sinus rhythm with 1st degree A-V block Otherwise normal ECG When compared with ECG of 02-OCT-2020 00:50, MANUAL COMPARISON REQUIRED, DATA IS UNCONFIRMED Confirmed by SHABBIR BUCIO, DILLAN ([id number]), editorial cartoonist SHANNON AVINA ([id number]) on 10/02/2020 12:59:43 PM Referred By: LILLIAN Confirmed By:DILLAN SHEA MD
--- NOTE | 2020-10-01 22:13 | RAD_ITS ---
STUDY: X-RAY CHEST REASON FOR EXAM: Male, 75 years old. Chest pain TECHNIQUE: Single AP portable view of the chest. COMPARISON: None. FINDINGS: Mild prominence of interstitial markings throughout bilateral lung bases. No confluent airspace opacity. No pleural effusion or pneumothorax. Borderline cardiomegaly. Normal mediastinum and da. Normal visualized pulmonary arteries. Normal visualized aortic arch and descending thoracic aorta. There are diffuse degenerative changes of the visualized thoracic spine. Normal visualized ribs, clavicles, and shoulders. There is no demonstrated abnormality of the visualized soft tissue structures of the upper abdomen. RAD/Chest 1 View (Portable) IMPRESSION: Mild interstitial edema versus chronic interstitial change at the lung bases Electronically Signed: Son Nova MD at 2:34 EDT Tel , Service support ,
--- NOTE | 2020-10-01 22:14 | ED.RN ---
NO OLD EKGS IN MUES
[2020-10-01 22:21] LABS: Absolute Neutrophil Count 6.6 X10^3/uL (2.0-7.7); Basophil# 0.04 X10^3/uL; Basophil% 0.4 % (0-1); Eosinophil# 0.18 X10^3/uL; Eosinophils% 1.9 % (0-5); Hematocrit 48.4 % (40-54); Hemoglobin 15.5 g/dL (13.0-16.5); Lymphocyte % 22.8 % (19-41); Mean Corpuscular Volume 90.6 fL (80-94); Mean Platelet Vol. 9.6 fl (6.2-12.0); Monocyte# 0.61 X10^3/uL; Monocyte% 6.3 % (0-10); NRBC Flagged by Analyzer 0 % (0-5); Neutrophil # 6.58 X10^3/uL (2.7-7.7); Neutrophil % 68.3 % (47-70); Platelet Count 274 K/mm3 (150-450); RBC Distribution Width CV 13.5 % (11.6-14.6); RBC Distribution Width SD 45.2 fl (35.1-43.9); Red Blood Count 5.34 M/mm3 (4.6-6.2); White Blood Count 9.6 K/mm3 (4.4-11.0)
--- NOTE | 2020-10-01 22:35 | EDS_ITS ---
HPI History of Present Illness Chief Complaint: Chest Pain Informant: patient Onset/Context/Timing Onset: Today Activity at onset: gradual Quality: Positive for Pressure Location: Substernal Current Severity: Moderate Maximum Severity: Moderate Worsened By: Breathing Narrative Narrative: Patient presents with central chest pressure that started at 8:30 PM this evening. He does report some shortness of breath, worse with deep inspiration. Minimal cough. Patient states he was sitting at rest watching television when pain started. He has a history of hypertension but denies other risk factors. He has never had a stress test or cardiac cath. [facility] Medical History Cough History of colon polyps History of diverticulitis History of diverticulosis HTN (hypertension) Home Medications aspirin 81 mg tablet,delayed release 81 mg PO DAILY 01/05/19 [History Last Taken 01/28/19] mecobalamin (vitamin B12) 1,000 mcg disintegrating tablet,sublingual 1,000 mcg SUBLINGUAL DAILY 01/05/19 [History Last Taken 01/28/19] losartan 100 mg PO DAILY 01/31/19 [History Last Taken 01/31/19 05:00] metoprolol succinate 25 mg PO DAILY 01/31/19 [History Last Taken 01/31/19 05:00] omeprazole 0 mg PO DAILY #30 capsule. 01/31/19 [Rx Last Taken Unknown] Allergy/AdvReac Type Severity Reaction Status Date / Time Penicillins Allergy Mild rash Verified 10/01/20 22:05 Family History Father Hypertension Mother Hypertension Surgical History History of cataract extraction History of colonoscopy (~2013) History of partial colectomy Social History Smoking Status: Former smoker ROS ROS ED Constitutional Constitutional ED: Denies chills or fever(s) Eyes Eyes: Denies change in vision ENT ENT ED: Denies sore throat Cardiovascular Cardiovascular: Reports chest pain Respiratory/Chest Respiratory/Chest: Reports cough and dyspnea Gastrointestinal Gastrointestinal: Denies abdominal pain, diarrhea, nausea or vomiting Genitourinary Genitourinary ED: Denies dysuria Musculoskeletal Musculoskeletal: Reports back pain Integumentary Denies rash Neurologic Neurologic: Denies headache(s) or weakness Psychiatric Psychiatric: Denies anxiety or depression Endocrine Endocrinology: Denies polydipsia or polyuria Allergic/Immunologic Allergic/Immunologic ED: Denies urticaria EXAM Physical Exam Const Vital Signs: 10/01/20 22:02 10/01/20 22:39 10/01/20 22:41 Temperature 96.9 F L Temperature Source Temporal Pulse Rate 83 Respiratory Rate 18 Respiratory Effort Normal Respiratory Pattern Normal Blood Pressure 178/91 H Blood Pressure Mean 120 Pulse Ox 97 99 Oxygen Delivery Method Room Air Nasal Cannula Oxygen Flow Rate (L/min) 2 10/01/20 22:57 Temperature Temperature Source Pulse Rate 70 Respiratory Rate 18 Respiratory Effort Respiratory Pattern Blood Pressure 145/78 H Blood Pressure Mean 100 Pulse Ox 98 Oxygen Delivery Method Nasal Cannula Oxygen Flow Rate (L/min) 2 Positive well nourished and well developed General Appearance ED: well developed HEENT Reports normocephalic and head/scalp atraumatic Eyes PERRL and EOMs intact bilaterally Neck supple Chest Wall inspection of chest normal and palpation of chest normal Resp normal respiratory effort and clear to auscultation bilaterally Cardio regular rate and regular rhythm GI normal to inspection, nondistended, normoactive bowel sounds Palpation: soft Back/Spine no CVA tenderness Extremity normal to inspection Extremity Narrative: 2+ bilateral lower extremity edema, symmetric. No calf tenderness. General Extremety ED: Yes edema General Extremity: edema Neuro oriented x3 and no sensory deficits noted Sensorium / Orientation: alert Motor Exam: strength 5/5 throughout Psych mental status grossly normal Skin no rashes or lesions noted Heart Score History: Moderately Suspicious ECG: Normal Age: >/= 65 years Risk Factors: 1 or 2 Risk Factors Troponin: </= Normal Limit Score: 4 MDM MDM MDM Narrative Medical decision making narrative: Patient had taken 1 baby aspirin at home and was given 3 additional baby aspirin here. He was given 25 mcg of fentanyl. Lab Data Attestation: I reviewed the patient's lab results. Labs: Laboratory Results - last 24 hr 10/01/20 10/01/20 10/01/20 22:10 22:10 22:50 WBC 9.6 RBC 5.34 Hgb 15.5 Hct 48.4 MCV 90.6 MCH 29.0 MCHC 32.0 RDW Std Deviation 45.2 H RDW Coeff of Rhonda 13.5 Plt Count 274 MPV 9.6 Immature Gran % (Auto) 0.300 Neut % (Auto) 68.3 Lymph % (Auto) 22.8 [place] % (Auto) 6.3 Eos % (Auto) 1.9 Baso % (Auto) 0.4 Absolute Neuts (auto) 6.6 Absolute Lymphs (auto) 2.20 Nucleated RBC % 0 D-Dimer Quant (PE/DVT) 0.45 Sodium 132 L Potassium 4.4 Chloride 99 Carbon Dioxide 29.0 Anion Gap 4 L BUN 15 Creatinine 1.33 H Estim Creat Clear Calc 46.25 Est GFR (MDRD) Af Amer 68 Est GFR (MDRD) Non-Af 56 L BUN/Creatinine Ratio 11.3 Glucose 106 Calcium 9.0 Troponin I < 0.015 Radiography Chest X-Ray - ED: 1 View, Read by ED Physician and Chronic Changes EKG Initial EKG: Attestation: I personally reviewed and interpreted this EKG as follows: Interpretation: Sinus Rhythm (Sinus at [address] change.) Treatment and Re-Evaluation Comments:: Patient did have some episodes of dizziness/lightheadedness while in the emergency room. There was no significant change in his vital signs during this episode and no arrhythmias. Patient does report that his chest pain is improving at this time. I do feel the patient would benefit from observation overnight for cycling of cardiac enzymes and possible stress test. I will speak with the hospitalist. Discharge Plan Triage Chief Complaint: Chest Pain ED Provider: Bozena Spence Dx/Rx/DC Orders Clinical Impression: Chest pain Prescriptions: No Action mecobalamin (vitamin B12) 1,000 mcg tablet,disintegrating 1,000 mcg SUBLINGUAL DAILY RF: 0 aspirin [Adult Aspirin Regimen] 81 mg tablet,delayed release (DR/EC) 81 mg PO DAILY RF: 0 metoprolol succinate 25 MG tablet extended release 24 hr 25 mg PO DAILY RF: 0 losartan 100 MG tablet 100 mg PO DAILY RF: 0 omeprazole 40 MG capsule,delayed release(DR/EC) 0 mg PO DAILY Qty: 30 RF: 2 Primary Care Provider: Mariluz Sahu Referrals: Mariluz Sahu DO [Primary Care Provider] - Disposition Disposition: Acute Care Hospital [facility]
[2020-10-01 22:36] LABS: Anion Gap 4 (5-15); BUN 15 mg/dL (7-18); BUN/Creat Ratio 11.3 RATIO (10-20); Chloride 99 mmol/L (98-107); Creatinine, Serum 1.33 mg/dL (0.70-1.30); EST Glomerular Filtration Rate 56 mL/min (>60); Est Glom Filt Rate - Afr Amer 68 mL/min (>60); Estimated Creatinine Clearance 46.25 ml/min; Glucose 106 mg/dL (74-106); Potassium 4.4 mmol/L (3.5-5.1); Sodium Level 132 mmol/L (136-145)
[2020-10-01 22:39] VITALS: O2SAT 99
[2020-10-01] MEDS: fentaNYL 100 MCG/2 ML Ampul 25 MCG IV (22:51)
[2020-10-01] MEDS: Aspirin 81 MG TAB.CHEW 243 MG PO (22:51)
[2020-10-01 22:57] VITALS: BP 145/78; PULSE 70; RESP 18; O2SAT 98
[2020-10-01 23:15] LABS: D-Dimer Quantitative (DVT/PE) 0.45 FEU/ug/m (0.27-0.49)
[2020-10-02] VITALS (11 sets, daily range): BP systolic 140–181; BP diastolic 74–90; PULSE 72–88; RESP 16–18; TEMP 36.6–36.9; O2SAT 95–100; BMI 48.4
--- NOTE | 2020-10-02 00:19 | HP.PCM_ITS ---
Documented by User: KRYSTIAN Cordova 10/02/20 00:30 HPI - General General Date of Admission: 10/02/20 HPI Narrative UMU CARDOZA, is a 75 M who presents with chest pain and shortness of breath. Patient reports 7 out of 10 chest pain started about 8:00 at night while he was sitting in his chair watching TV. Pain radiates up his shoulders and into his neck. EKG shows normal sinus rhythm and troponins and D-dimer are both negative. Vital signs currently stable. Patient reports that he still cannot take a deep breath due to pain. Patient denies fever, chills, cough, nausea, vomiting, edema. Chest x-ray pending. [facility] Medical History Abdominal pain Cough History of colon polyps History of diverticulitis History of diverticulosis HTN (hypertension) Home Medications aspirin 81 mg tablet,delayed release 81 mg PO DAILY 01/05/19 [History Last Taken 10/01/20 18:30] mecobalamin (vitamin B12) 1,000 mcg disintegrating tablet,sublingual 1,000 mcg SUBLINGUAL DAILY 01/05/19 [History Last Taken 10/01/20 18:30] losartan [Cozaar] 100 mg PO DAILY 01/31/19 [History Last Taken 10/01/20 06:30] metoprolol succinate 25 mg PO DAILY 01/31/19 [History Last Taken 01/31/19 05:00] omeprazole 0 mg PO DAILY #30 capsule. 01/31/19 [Rx Last Taken 10/01/20 12:00] Allergy/AdvReac Type Severity Reaction Status Date / Time Penicillins Allergy Mild rash Verified 10/01/20 22:05 Family History Father Hypertension Mother Hypertension Surgical History History of cataract extraction History of colonoscopy (~2013) History of partial colectomy Social History (Updated 10/02/20 @ 00:55 by Leidy Nelson) household members: spouse housing: house number of children: 2 service: Yes current occupational status: retired Smoking Status: Former smoker ROS Constitutional Constitutional: Denies anorexia, chills, fatigue or fever(s) Cardiovascular Cardiovascular: Reports chest pain at rest, dyspnea, fatigue and lightheadedness; Denies edema or palpitations Respiratory/Chest Respiratory/Chest: Denies cough Gastrointestinal Gastrointestinal: Reports nausea; Denies abdominal pain, constipation, diarrhea or vomiting Genitourinary Genitourinary: Denies dysuria, hematuria or nocturia Musculoskeletal Musculoskeletal: Denies back pain, extremity pain or joint pain Integumentary Integumentary: Denies dry skin, rash or wounds Neurologic Neurologic: Denies abnormal gait, abnormal speech, confusion or dizziness Psychiatric Psychiatric: Denies anxiety or depression Endocrine Endocrinology: Denies change in body appearance Hematologic/Lymphatic Hematologic/Lymphatic: Denies easy bleeding or easy bruising Vital Signs Vital Signs Vital Signs: 10/01/20 22:02 10/01/20 22:39 10/01/20 22:41 Temperature 96.9 F L Temperature Source Temporal Pulse Rate 83 Respiratory Rate 18 Respiratory Effort Normal Respiratory Pattern Normal Blood Pressure 178/91 H Blood Pressure Mean 120 Pulse Ox 97 99 Oxygen Delivery Method Room Air Nasal Cannula Oxygen Flow Rate (L/min) 2 10/01/20 22:57 10/02/20 00:04 Temperature 97.8 F Temperature Source Oral Pulse Rate 70 74 Respiratory Rate 18 16 Respiratory Effort Respiratory Pattern Blood Pressure 145/78 H 140/74 H Blood Pressure Mean 100 96 Pulse Ox 98 100 Oxygen Delivery Method Nasal Cannula Nasal Cannula Oxygen Flow Rate (L/min) 2 2 Physical Exam Const alert and oriented x3 General Appearance: cooperative HEENT normocephalic and head/scalp atraumatic Eyes PERRL and EOMs intact bilaterally Neck supple, no JVD and thyroid normal General: trachea midline Lymph Lymphatic: no lymphadenopathy noted Resp normal respiratory effort and normal air movement Auscultation: diminished lung sounds Cardio regular rate, regular rhythm, S1 normal heart sound, S2 normal heart sound and peripheral pulses 2+ throughout GI normal to inspection, nondistended, normoactive bowel sounds, soft to palpation and non-tender Extremity normal capillary refill and no clubbing, cyanosis or edema General Extremity: no tenderness to palpation of joints or extremities Skin General Skin Exam: no breakdown and turgor normal Lesions: no lesions Rashes: no rashes Neuro CN's II-XII intact bilaterally Psych thought process normal, cooperative and affect normal Appearance: appropriate Lab / Micro Data Result Diagrams: 10/01/20 22:10 10/01/20 22:10 Labs: Laboratory Results - last 24 hr 10/01/20 10/01/20 10/01/20 22:10 22:10 22:50 WBC 9.6 RBC 5.34 Hgb 15.5 Hct 48.4 MCV 90.6 MCH 29.0 MCHC 32.0 RDW Std Deviation 45.2 H RDW Coeff of Rhonda 13.5 Plt Count 274 MPV 9.6 Immature Gran % (Auto) 0.300 Neut % (Auto) 68.3 Lymph % (Auto) 22.8 [place] % (Auto) 6.3 Eos % (Auto) 1.9 Baso % (Auto) 0.4 Absolute Neuts (auto) 6.6 Absolute Lymphs (auto) 2.20 Nucleated RBC % 0 D-Dimer Quant (PE/DVT) 0.45 Sodium 132 L Potassium 4.4 Chloride 99 Carbon Dioxide 29.0 Anion Gap 4 L BUN 15 Creatinine 1.33 H Estim Creat Clear Calc 46.25 Est GFR (MDRD) Af Amer 68 Est GFR (MDRD) Non-Af 56 L BUN/Creatinine Ratio 11.3 Glucose 106 Calcium 9.0 Troponin I < 0.015 Assessment & Plan Assessment/Plan (1) Chest pain: QUALIFIERS: Chest pain type: unspecified Qualified Code(s): R07.9 - Chest pain, unspecified (2) HTN (hypertension): QUALIFIERS: Hypertension type: essential hypertension Qualified Code(s): I10 - Essential (primary) hypertension (3) GERD (gastroesophageal reflux disease): QUALIFIERS: Esophagitis presence: without esophagitis Qualified Code(s): K21.9 - Gastro-esophageal reflux disease without esophagitis PLAN: 1. Chest pain -Admit to PCU for observation and cardiac monitoring -CBC and BMP in a.m. -N.p.o. for now for stress test in a.m. -Trend cardiac enzymes -O2 per protocol -Lipid profile in a.m. 2. Hypertension -Continue home medication regimen of metoprolol and losartan. -Vital signs per protocol, trend BP. 3. GERD -Continue omeprazole. DVT prophylaxis-not indicated, observation status This patient was seen by TIMA CordovaC under the supervision of Dr. Banks. Documented by User: Dr. Jayden Banks MD 10/02/20 02:26 HPI - General General Date of Admission: 10/02/20 [facility] Medical History Abdominal pain Cough History of colon polyps History of diverticulitis History of diverticulosis HTN (hypertension) Home Medications aspirin 81 mg tablet,delayed release 81 mg PO DAILY 01/05/19 [History Last Taken 10/01/20 18:30] mecobalamin (vitamin B12) 1,000 mcg disintegrating tablet,sublingual 1,000 mcg SUBLINGUAL DAILY 01/05/19 [History Last Taken 10/01/20 18:30] losartan [Cozaar] 100 mg PO DAILY 01/31/19 [History Last Taken 10/01/20 06:30] metoprolol succinate 25 mg PO DAILY 01/31/19 [History Last Taken 01/31/19 05:00] omeprazole 0 mg PO DAILY #30 capsule. 01/31/19 [Rx Last Taken 10/01/20 12:00] Allergy/AdvReac Type Severity Reaction Status Date / Time Penicillins Allergy Mild rash Verified 10/01/20 22:05 Family History Father Hypertension Mother Hypertension Surgical History History of cataract extraction History of colonoscopy (~2013) History of partial colectomy Social History (Updated 10/02/20 @ 00:55 by Leidy Nelson) household members: spouse housing: house number of children: 2 service: Yes current occupational status: retired Smoking Status: Former smoker Lab / Micro Data Result Diagrams: 10/01/20 22:10 10/01/20 22:10 Addendum Addendum: Patient was seen and examined. Agree with assessment and plan by Medina Gonzalez; nurse petitioner. Patient is a 47-year-old male with a significant history of CAD and Prinzmetal angina who presents emergency department with left-sided chest pain that started 2 days before presentation. The chest pain radiates to her left neck where it is more prominent. It also radiates to her left arm and left jaw. She described her chest pain as heaviness pressure and tightening. Initially the chest pain was intermittent but later on it became persistent. She took nitroglycerin at home and give her some relief. Also she was given morphine and nitroglycerin at the emergency department and it gave her some relief. She denies any aggravating factors to the pain. She reported that 7 years ago she had a coronary cath at a hospital. Because her vessels could not be very well visualized she was transferred to outside hospital where another cardiac cath was done. Reportedly at another hospital she was found to have a blockage but did not require any intervention. Also she was found to have vasospasms. Patient was seen and examined. I agree with assessment and plan by Medina wagner, nurse practitioner. In Summary, Patient is 75-year-old male with a significant history of hyp ertension who presents to the emergency department with persistent substernal chest pain that radiated to his back; shoulders; neck and bilateral arms where he had numbness. He described the other chest pain as a came in dull pressure which increased with breathing. The emergency department he was given fentanyl to help with the pain. Associated with symptoms is lightheadedness; nausea and shortness of breath. His pain started about an hour prior to presentation. At home he took 1 baby aspirin and was given 3 additional baby aspirins at the emergency department. His pain started was at home watching TV. Alert and oriented x3 Nontraumatic; normocephalic Lung clear to auscultate Heart sounds S1-S2. No murmur, gallop or rubs. Abdomen bowel sounds present soft, nontender nondistended Extremity without edema cyanosis or clubbing. Chest pain Place on a monitored bed at progressive care unit Actual CXR image was independently visualized. Chest x-ray shows some vascular congestion. However there is no previous chest x-ray to compare with. EKG independently interpreted showed sinus rhythm with first-degree AV block. ASA 81 mg p.o. daily ordered SL NTG 0.4 mg prn as needed for chest pain ordered Morphine as needed for pain ordered We will check lipid panel. Initial troponin was negative Serial cardiac enzymes ordered Stat EKG as needed for chest pain Stress test in the AM if the cardiac enzymes are negative. BNP ordered. DVT prophylaxis scd Visit Charges OBSV E&M: 37593 Initial observation care L3
[2020-10-02] MEDS: 0.9% Saline Lock 10 ML Syringe IV (01:26)
[2020-10-02] MEDS: 0.9% Normal Saline 1,000 ML 100 ML IV (01:26)
[2020-10-02 05:09] LABS: Absolute Lymphocyte Count 0.97 X10^3/uL (0.83-4.51); Basophil# 0.03 X10^3/uL; Basophil% 0.2 % (0-1); Eosinophil# 0.01 X10^3/uL; Eosinophils% 0.1 % (0-5); Hematocrit 47.5 % (40-54); Hemoglobin 15.1 g/dL (13.0-16.5); Lymphocyte # 0.97 X10^3/ul (0.83-4.51); Lymphocyte % 7.6 % (19-41); Mean Corp Hgb Conc 31.8 g/dL (32-36); Mean Corpuscular Hgb 28.4 pg (27.0-32.0); Mean Corpuscular Volume 89.3 fL (80-94); Mean Platelet Vol. 9.8 fl (6.2-12.0); Monocyte# 0.76 X10^3/uL; NRBC Flagged by Analyzer 0 % (0-5); Neutrophil # 10.95 X10^3/uL (2.7-7.7); Neutrophil % 85.8 % (47-70); Platelet Count 252 K/mm3 (150-450); RBC Distribution Width CV 13.5 % (11.6-14.6); RBC Distribution Width SD 44.4 fl (35.1-43.9); Red Blood Count 5.32 M/mm3 (4.6-6.2); White Blood Count 12.8 K/mm3 (4.4-11.0)
[2020-10-02 05:28] LABS: BNP,B-Type NATRIURETIC PEPTIDE 23.4 pg/mL (0-100)
[2020-10-02 05:32] LABS: Anion Gap 5 (5-15); BUN 14 mg/dL (7-18); BUN/Creat Ratio 14.4 RATIO (10-20); Calcium,Total 8.4 mg/dL (8.5-10.1); Chloride 99 mmol/L (98-107); Cholesterol 159 mg/dL (200); Creatinine, Serum 0.97 mg/dL (0.70-1.30); EST Glomerular Filtration Rate 80 mL/min (>60); Est Glom Filt Rate - Afr Amer 97 mL/min (>60); Estimated Creatinine Clearance 63.41 ml/min; Glucose 99 mg/dL (74-106); High Density Lipoprotein 59 mg/dL; Potassium 4.2 mmol/L (3.5-5.1); Sodium Level 131 mmol/L (136-145); Triglycerides 61 mg/dL; Very Low Density Lipoprotein 12 mg/dL (5-40)
--- NOTE | 2020-10-02 05:50 | EKG12_ITS ---
Test Reason : CP Blood Pressure : / mmHG Vent. Rate : 080 BPM Atrial Rate : 080 BPM P-R Int : 220 ms QRS Dur : 088 ms QT Int : 382 ms P-R-T Axes : 043 077 067 degrees QTc Int : 440 ms Sinus rhythm with 1st degree A-V block with Premature atrial complexes Otherwise normal ECG Confirmed by SHABBIR BUCIO, DILLAN ([id number]), web editor SHANNON AVINA ([id number]) on 10/03/2020 1:31:18 PM Referred By: BEVERLEY Confirmed By:DILLAN SHEA MD
--- NOTE | 2020-10-02 05:55 | EKG12_ITS ---
Test Reason : CP ADMISSION Blood Pressure : / mmHG Vent. Rate : 084 BPM Atrial Rate : 084 BPM P-R Int : 234 ms QRS Dur : 086 ms QT Int : 372 ms P-R-T Axes : 057 071 094 degrees QTc Int : 439 ms Sinus rhythm with 1st degree A-V block Otherwise normal ECG When compared with ECG of 01-OCT-2020 22:06, MANUAL COMPARISON REQUIRED, DATA IS UNCONFIRMED Confirmed by SHABBIR BUCIO, DILLAN ([id number]), editorial clerk SHANNON AVINA ([id number]) on 10/02/2020 1:00:37 PM Referred By: LILLIAN Confirmed By:DILLAN SHEA MD
[2020-10-02] MEDS: Aspirin 81 MG TAB.CHEW PO (06:18)
[2020-10-02] MEDS: Losartan Potassium 100 MG Tablet PO (06:18)
--- NOTE | 2020-10-02 09:57 | STRESSREP_ITS ---
Stress Test Report Date: 10-02-2020 Procedure: Exercise tolerance test/imaging study Indications: Pain Consent: Per the patient Procedure: The patient exercised on a Genaro protocol for 3 minutes and 30 seconds completing Stage I and 30 seconds of Stage II achieving a peak heart rate of 141 bpm (95% predicted maximal heart rate) with a peak blood pressure 192/86 mmHg and a peak MET capacity of 5 METs. The baseline ECG demonstrated normal sinus rhythm. The peak exercise ECG demonstrated somatic/motion artifact with no obvious ECG changes. There was an occasional PVC during exercise and recovery. The functional capacity was considered decreased. There was no complaint of chest discomfort during exercise or recovery. The examination was discontinued secondary to dyspnea. Impression: 1. Technically adequate (percent predicted maximal heart rate greater than 85%) exercise tolerance test 2. Peak exercise ECG with somatic/motion artifact with no obvious ECG changes 3. There was an occasional PVC during exercise and recovery 4. Nuclear images pending Myocardial perfusion imaging study: Technique: The patient was injected with 14.9 mCi of technetium 99m Cardiolite and subsequently rest SPECT Cardiolite nuclear imaging was obtained in the horizontal long, vertical long, and short axis views. The patient exercised on a Genaro protocol for 3 minutes and 30 seconds completing Stage I and 30 seconds of Stage II achieving a peak heart rate of 141 bpm (95% predicted maximal heart rate) with a peak blood pressure 192/86 mmHg and a peak MET capacity of 5 METs. The patient was injected with 45.0 mCi of technetium 99m Cardiolite and subsequently stress SPECT Cardiolite nuclear imaging was obtained in the horizontal long, vertical long, and short axis views. A gated Cardiolite study at peak stress was obtained. Interpretation: Rest and stress SPECT Cardiolite nuclear imaging status post realignment, normalization, and attenuation correction, demonstrates the appearance of relative uniform tracer uptake and myocardial perfusion appearing within normal limits. There is end systolic thickening and brightening. The gated Cardiolite study demonstrates myocardial thickening and inward wall motion. The reported LVEF is 71%. Impression: 1. Rest and stress SPECT Cardiolite nuclear imaging demonstrate relative uniform tracer uptake and myocardial perfusion appearing within normal limits. 2. The gated Cardiolite study reports an LVEF of 71%. This note was generated with [employer] software. It may contain incorrect words, spelling, and punctuation that were not noted in checking the note before signing.
--- NOTE | 2020-10-02 11:12 | PCM.DC ---
Discharge Instructions Diet Discharge Diet: No restrictions Activity Discharge Activity: Return to Normal Activity Dressing / Incision Call your doctor if you observe: Shortness of breath, Dizziness and Chest pain Follow Up Care Test Results: Test results from this visit will be discussed in further detail at your follow-up appointment, if applicable. Discharge Plan Admission Admit Date/Time: 10/02/20 00:18 Primary Reason for Your Visit: Chest pain Attending Provider: Clau Ramirez Primary Care Provider: Mariluz Sahu Discharge Orders/Prescriptions Prescriptions: New amlodipine 5 mg tablet 5 mg PO DAILY Qty: 30 RF: 0 Continued mecobalamin (vitamin B12) 1,000 mcg tablet,disintegrating 1,000 mcg SUBLINGUAL DAILY RF: 0 aspirin [Adult Aspirin Regimen] 81 mg tablet,delayed release (DR/EC) 81 mg PO DAILY RF: 0 losartan [Cozaar] 100 MG tablet 100 mg PO DAILY RF: 0 omeprazole 40 MG capsule,delayed release(DR/EC) 0 mg PO DAILY Qty: 30 RF: 2 losartan 25 mg Tablet 25 mg PO QHS RF: 0 Referrals / Follow Up: Mariluz Sahu DO [Primary Care Provider] - In 1 Week Disposition Disposition (needs filled in before D/C Order can be placed): Home, self care
--- NOTE | 2020-10-02 11:26 | DS.PCM_ITS ---
Documented by User: Daisy Gates NP, [employer] 10/02/20 11:29 Providers Date of Admission: 10/02/20 Date of Discharge: 10/02/20 Primary Care Physician: Dr. Mariluz Sahu DO Reason For Visit: CHEST PAIN Diagnosis Discharge Diagnosis (1) Chest pain: Status: Acute Code(s): R07.9 - Chest pain, unspecified Qualifiers: Chest pain type: unspecified Qualified Code(s): R07.9 - Chest pain, unspecified (2) HTN (hypertension): Status: Chronic Code(s): I10 - Essential (primary) hypertension Qualifiers: Hypertension type: essential hypertension Qualified Code(s): I10 - Essential (primary) hypertension (3) GERD (gastroesophageal reflux disease): Status: Acute Code(s): K21.9 - Gastro-esophageal reflux disease without esophagitis Qualifiers: Esophagitis presence: without esophagitis Qualified Code(s): K21.9 - Gastro-esophageal reflux disease without esophagitis Medications at Discharge Home Medications aspirin 81 mg tablet,delayed release 81 mg PO DAILY 01/05/19 mecobalamin (vitamin B12) 1,000 mcg disintegrating tablet,sublingual 1,000 mcg SUBLINGUAL DAILY 01/05/19 losartan [Cozaar] 100 mg PO DAILY 01/31/19 omeprazole 0 mg PO DAILY #30 capsule. 01/31/19 losartan 25 mg PO QHS 10/02/20 Hospital Course Operations None Procedures Stress test Summary of Care Provided Minutes Spent on Discharge: 35 Hospital Course: Patient is a 75-year-old male admitted 10/02/2020 due to chest pain. 1. Chest pain, ACS ruled out-troponin negative. EKG without ST-T changes. Patient underwent stress test which was negative for ischemia. 2. Hypertension-intermittently elevated during admission. Continue home losartan regimen. Amlodipine 5 mg daily added. Further blood pressure monitoring at home and follow-up with PCP. 3. GERD-continue PPI. Patient seen and examined prior to discharge. Physical assessment as noted below. Patient is stable for discharge with follow up recommendations as noted above. This patient was seen by KRYSTIAN West under the supervision of Dr. Ramirez. Physical Exam Const alert, oriented x3 and no apparent distress Orientation / Consciousness: awake, oriented to person, oriented to place and oriented to time HEENT normocephalic and moist oral mucous membranes Eyes PERRL, EOMs intact bilaterally and conjunctivae normal Neck no lymphadenopathy Resp normal respiratory effort and clear to auscultation bilaterally Cardio regular rate, regular rhythm and no murmurs Peripheral Pulses: pulses 2+ throughout GI normal to inspection, nondistended, normoactive bowel sounds, non-tender and n on-distended Extremity normal to inspection Skin no rashes or lesions noted Lesions: no lesions Rashes: no rashes Trauma: no lacerations or abrasions Neuro oriented x3 Sensorium / Orientation: awake and alert Psych affect normal ABG / Lab / Microbiology Data Result Diagrams: 10/02/20 04:40 10/02/20 04:40 Laboratory: Laboratory Results - last 24 hr 10/01/20 10/01/20 10/01/20 22:10 22:10 22:50 WBC 9.6 RBC 5.34 Hgb 15.5 Hct 48.4 MCV 90.6 MCH 29.0 MCHC 32.0 RDW Std Deviation 45.2 H RDW Coeff of Rhonad 13.5 Plt Count 274 MPV 9.6 Immature Gran % (Auto) 0.300 Neut % (Auto) 68.3 Lymph % (Auto) 22.8 [place] % (Auto) 6.3 Eos % (Auto) 1.9 Baso % (Auto) 0.4 Absolute Neuts (auto) 6.6 Absolute Lymphs (auto) 2.20 Nucleated RBC % 0 D-Dimer Quant (PE/DVT) 0.45 Sodium 132 L Potassium 4.4 Chloride 99 Carbon Dioxide 29.0 Anion Gap 4 L BUN 15 Creatinine 1.33 H Estim Creat Clear Calc 46.25 Est GFR (MDRD) Af Amer 68 Est GFR (MDRD) Non-Af 56 L BUN/Creatinine Ratio 11.3 Glucose 106 Calcium 9.0 Troponin I < 0.015 B-Natriuretic Peptide Triglycerides Cholesterol LDL Cholesterol VLDL Cholesterol HDL Cholesterol 10/02/20 10/02/20 10/02/20 01:30 04:40 04:40 WBC 12.8 H RBC 5.32 Hgb 15.1 Hct 47.5 MCV 89.3 MCH 28.4 MCHC 31.8 L RDW Std Deviation 44.4 H RDW Coeff of Rhonda 13.5 Plt Count 252 MPV 9.8 Immature Gran % (Auto) 0.300 Neut % (Auto) 85.8 H Lymph % (Auto) 7.6 L [place] % (Auto) 6.0 Eos % (Auto) 0.1 Baso % (Auto) 0.2 Absolute Neuts (auto) 11.0 H Absolute Lymphs (auto) 0.97 Nucleated RBC % 0 D-Dimer Quant (PE/DVT) Sodium 131 L Potassium 4.2 Chloride 99 Carbon Dioxide 27.0 Anion Gap 5 BUN 14 Creatinine 0.97 Estim Creat Clear Calc 63.41 Est GFR (MDRD) Af Amer 97 Est GFR (MDRD) Non-Af 80 BUN/Creatinine Ratio 14.4 Glucose 99 Calcium 8.4 L Troponin I < 0.015 < 0.015 B-Natriuretic Peptide Triglycerides 61 Cholesterol 159 LDL Cholesterol 88 VLDL Cholesterol 12 HDL Cholesterol 59 10/02/20 04:40 WBC RBC Hgb Hct MCV MCH MCHC RDW Std Deviation RDW Coeff of Rhonda Plt Count MPV Immature Gran % (Auto) Neut % (Auto) Lymph % (Auto) [place] % (Auto) Eos % (Auto) Baso % (Auto) Absolute Neuts (auto) Absolute Lymphs (auto) Nucleated RBC % D-Dimer Quant (PE/DVT) Sodium Potassium Chloride Carbon Dioxide Anion Gap BUN Creatinine Estim Creat Clear Calc Est GFR (MDRD) Af Amer Est GFR (MDRD) Non-Af BUN/Creatinine Ratio Glucose Calcium Troponin I B-Natriuretic Peptide 23.4 Triglycerides Cholesterol LDL Cholesterol VLDL Cholesterol HDL Cholesterol Radiography Diagnostic Testing: Radiology Impression Chest X-Ray 10/01/20 22:13 IMPRESSION: Mild interstitial edema versus chronic interstitial change at the lung bases Electronically Signed: Son Nova MD at 2:34 EDT Tel , Service support , D/C Instructions Discharge Diet: No restrictions Discharge Activity: Return to Normal Activity Call your doctor if you observe: Shortness of breath, Dizziness and Chest pain Meaningful Use Info Meaningful Use Diagnoses (Choose all that apply): None applicable Discharge Plan Admission Admit Date/Time: 10/02/20 00:18 Primary Reason for Your Visit: Chest pain Attending Provider: Clau Ramirez Primary Care Provider: Mariluz Sahu Instructions Additional Instructions / Restrictions: Patient Problems: Altered Health Status related to Hospitalization Patient Goals: *Optimal Level of Health *Keep Appointments *Medication Compliance *Remain Safe Discharge Orders/Prescriptions Prescriptions: Continued mecobalamin (vitamin B12) 1,000 mcg tablet,disintegrating 1,000 mcg SUBLINGUAL DAILY RF: 0 aspirin [Adult Aspirin Regimen] 81 mg tablet,delayed release (DR/EC) 81 mg PO DAILY RF: 0 losartan [Cozaar] 100 MG tablet 100 mg PO DAILY RF: 0 omeprazole 40 MG capsule,delayed release(DR/EC) 0 mg PO DAILY Qty: 30 RF: 2 losartan 25 mg Tablet 25 mg PO QHS RF: 0 Referrals / Follow Up: Mariluz Sahu DO [Primary Care Provider] - In 1 Week Disposition Disposition (needs filled in before D/C Order can be placed): Home, self care Documented by User: Dr. Clau Ramirez MD 10/04/20 13:10 Providers Date of Admission: 10/02/20 Reason For Visit: CHEST PAIN Medications at Discharge Home Medications aspirin 81 mg tablet,delayed release 81 mg PO DAILY 01/05/19 mecobalamin (vitamin B12) 1,000 mcg disintegrating tablet,sublingual 1,000 mcg SUBLINGUAL DAILY 01/05/19 losartan [Cozaar] 100 mg PO DAILY 01/31/19 omeprazole 0 mg PO DAILY #30 capsule. 01/31/19 losartan 25 mg PO QHS 10/02/20 ABG / Lab / Microbiology Data Result Diagrams: 10/02/20 04:40 10/02/20 04:40 Discharge Plan Admission Admit Date/Time: 10/02/20 00:18 Primary Reason for Your Visit: Chest pain Attending Provider: Clau Ramirez Primary Care Provider: Mariluz Sahu Instructions Additional Instructions / Restrictions: Patient Problems: Altered Health Status related to Hospitalization Patient Goals: *Optimal Level of Health *Keep Appointments *Medication Compliance *Remain Safe Discharge Orders/Prescriptions Prescriptions: Continued mecobalamin (vitamin B12) 1,000 mcg tablet,disintegrating 1,000 mcg SUBLINGUAL DAILY RF: 0 aspirin [Adult Aspirin Regimen] 81 mg tablet,delayed release (DR/EC) 81 mg PO DAILY RF: 0 losartan [Cozaar] 100 MG tablet 100 mg PO DAILY RF: 0 omeprazole 40 MG capsule,delayed release(DR/EC) 0 mg PO DAILY Qty: 30 RF: 2 losartan 25 mg Tablet 25 mg PO QHS RF: 0 Referrals / Follow Up: Mariluz Sahu DO [Primary Care Provider] - In 1 Week Disposition Disposition (needs filled in before D/C Order can be placed): Home, self care Addendum Addendum: This patient was seen in conjunction with Daisy Gates. I have independently interviewed and examined the patient and reviewed pertinent historical, laboratory, and other data. I have reviewed her note and concur with her documentation 75-year-old male with past medical history of hypertension, GERD who comes in with complaints of chest pain that was described as 7 out of 10 that happened while she was watching TV. Chest pain radiated to his shoulders. His admitting EKG, troponins and D-dimer were unremarkable. He was admitted to the telemetry floor. Acute ACS was ruled out. He underwent stress test that was negative. Patient was seen and examined the day of discharge, he denied any new complaints. He will be followed up with his primary care doctor. Physical Exam: Vitals: Gen: Comfortable, not pale, not jaundiced CVS:HS I +II, regular, no murmurs RESP: CTA GI: BS present and normal, soft, nontender, no palpable organs EXT:No edema Visit Charges OBSV E&M: 88608 Observation care discharge
--- NOTE | 2020-10-02 15:06 | PHA.DC.MR ---
Pharmacy Service has performed discharge medication reconciliation for this patient. The patient's discharge medication list was reviewed for discrepancies and discrepancies were resolved. Home Medications aspirin 81 mg tablet,delayed release 81 mg PO DAILY 01/05/19 mecobalamin (vitamin B12) 1,000 mcg disintegrating tablet,sublingual 1,000 mcg SUBLINGUAL DAILY 01/05/19 losartan [Cozaar] 100 mg PO DAILY 01/31/19 omeprazole 0 mg PO DAILY #30 capsule. 01/31/19 losartan 25 mg PO QHS 10/02/20
== END 2020-10-02 11:14 | disposition home or self-care (01) ==
LOC: ED 10-02 00:02 → PCU 10-02 01:16
PROVIDERS: Nurse Practitioner Family; Admitting Provider Hospitalist; Emergency Provider Emergency Medicine; PCP Family Medicine; Visit Provider Internal Medicine
DX: R07.89 Other chest pain (principal); R06.02 Shortness of breath; I10 Essential (primary) hypertension; R42 Dizziness and giddiness; I25.10 Atherosclerotic heart disease of native coronary artery without angina pectoris; R20.0 Anesthesia of skin; R11.0 Nausea; I44.0 Atrioventricular block, first degree; K21.9 Gastro-esophageal reflux disease without esophagitis; Z87.19 Personal history of other diseases of the digestive system; Z79.899 Other long term (current) drug therapy; Z79.82 Long term (current) use of aspirin; Z87.891 Personal history of nicotine dependence
CPT/HCPCS: 36415; 71045; 78452; 80048; 80061; 83880; 84484; 85025; 85379; 93005; 93017; 96361; 96374; 99218; 99284; A9500; J7030; A4216; G0378

== ENCOUNTER 2021-06-20 09:46 | Outpatient (CLI) | payer MEDICARE, SELFPAY ==
--- NOTE | 2021-06-20 09:58 | US_ITS ---
STUDY: PAROTID ULTRASOUND REASON FOR EXAM: Male, 75 years old. LT PAROTID SWELLING TECHNIQUE: Sonographic evaluation of the parotid glands COMPARISON: None. FINDINGS: The right parotid gland measures 4.4 x 2.9 x 1.37 m and contains a physiologic lymph node measuring 1.3 x 1.1 x 0.6 cm. Left parotid gland measures 5.0 x 3.6 x 1.7 cm, also containing physiologic lymph node measuring 1.1 x 1.2 x 0.8 cm Right submandibular gland measures 3.3 x 2.7 x 1.5 cm, left measures 3.2 x 2.6 x 1.1 cm US/Head/Neck Soft Tissue IMPRESSION: No suspicious sonographic findings Electronically Signed: Nguyễn Sharpe MD at 12:36 EST ,
== END 2021-06-20 23:59 | disposition short-term general hospital (02) ==
LOC: US 09:52
PROVIDERS: PCP Family Medicine; Referring Provider Family Medicine; Visit Provider Family Medicine
DX: R60.0 Localized edema (principal)
CPT/HCPCS: 76536

== ENCOUNTER → 2022-01-08 | Outpatient (CLI) | payer MEDICARE, SELFPAY ==
[2022-01-08 10:18] LABS: Absolute Lymphocyte Count 1.68 X10^3/uL (0.83-4.51); Absolute Neutrophil Count 4.4 X10^3/uL (2.0-7.7); Basophil# 0.03 X10^3/uL; Basophil% 0.4 % (0-1); Eosinophil# 0.14 X10^3/uL; Hematocrit 47.5 % (40-54); Lymphocyte # 1.68 X10^3/ul (0.83-4.51); Lymphocyte % 24.3 % (19-41); Mean Corp Hgb Conc 33.7 g/dL (32-36); Mean Corpuscular Hgb 30.8 pg (27.0-32.0); Mean Corpuscular Volume 91.3 fL (80-94); Mean Platelet Vol. 9.8 fl (6.2-12.0); Monocyte# 0.62 X10^3/uL; NRBC Flagged by Analyzer 0 % (0-5); Neutrophil # 4.41 X10^3/uL (2.7-7.7); Neutrophil % 63.7 % (47-70); Platelet Count 262 K/mm3 (150-450); RBC Distribution Width CV 13.6 % (11.6-14.6); RBC Distribution Width SD 45.9 fl (35.1-43.9); White Blood Count 6.9 K/mm3 (4.4-11.0)
[2022-01-08 11:20] LABS: ALB/GLOB Ratio 0.7 RATIO (0.9-2.4); AST(SGOT) 15 U/L (15-37); Alanine Aminotransfer ALT/SGPT 19 U/L (16-61); Albumin, Serum 3.3 g/dL (3.2-5.0); Alkaline Phosphatase 80 U/L (45-117); Anion Gap 6 (5-15); BUN 13 mg/dL (7-18); BUN/Creat Ratio 12.5 RATIO (10-20); Calcium,Total 8.5 mg/dL (8.5-10.1); Chloride 99 mmol/L (98-107); Cholesterol 178 mg/dL (200); Creatinine, Serum 1.04 mg/dL (0.70-1.30); EST Glomerular Filtration Rate 74 mL/min (>60); Est Glom Filt Rate - Afr Amer 90 mL/min (>60); Free T3 2.7 pg/mL (2.18-3.98); Globulin 4.5 g/dL (2.2-4.2); Glucose 93 mg/dL (74-106); High Density Lipoprotein 61 mg/dL; PSA,Total - Annual Screen 3.78 ng/mL (0.00-4.00); Potassium 4.1 mmol/L (3.5-5.1); Protein, Total 7.8 g/dL (6.4-8.2); Sodium Level 133 mmol/L (136-145); T4 Free Direct 1.19 ng/dL (0.76-1.46); Thyroid Stim Hormone (TSH) 2.52 uIU/mL (0.358-3.74); Triglycerides 102 mg/dL; Very Low Density Lipoprotein 20 mg/dL (5-40)
== END | disposition home or self-care (01) ==
LOC: MTLAB 09:21
PROVIDERS: PCP Family Medicine; Referring Provider Family Medicine; Visit Provider Family Medicine
DX: Z12.5 Encounter for screening for malignant neoplasm of prostate (principal); E78.5 Hyperlipidemia, unspecified; R53.83 Other fatigue; Z51.81 Encounter for therapeutic drug level monitoring
CPT/HCPCS: 36415; 80053; 80061; 84153; 84439; 84443; 84481; 85025; G0103

== ENCOUNTER → 2022-04-30 | Outpatient (CLI) | payer MEDICARE, SELFPAY ==
--- NOTE | 2022-04-30 11:45 | RAD_ITS ---
EXAM: XR CERVICAL SPINE, 6 OR MORE VIEWS CLINICAL INDICATION: NECK PAIN Technologist Notes neck pain along right side of neck/head TECHNIQUE: Frontal, lateral, oblique and flexion/extension views of the cervical spine. This report was created using [employer] report Fuzmo technology. COMPARISON: None. FINDINGS: VERTEBRAE: Unremarkable. Preserved vertebral body height. No acute fracture. No spondylolisthesis. Preservation of the normal cervical lordosis. No significant facet arthropathy. DISC SPACES: Unremarkable. Disc spaces are maintained. SOFT TISSUES: Unremarkable. No prevertebral soft tissue widening. LUNG APICES: Clear. RAD/Cerv Spine Obl/Flex/Ext Comp IMPRESSION: No evidence of acute fracture or spondylolisthesis. Electronically Signed: Rajinder Stuart MD at 18:28 EST Reading Location ID and State: [facility] / [place] , Service support ,
== END | disposition home or self-care (01) ==
LOC: MTRAD 11:44
PROVIDERS: PCP Family Medicine; Referring Provider Family Medicine; Visit Provider Family Medicine
DX: M54.2 Cervicalgia (principal)
CPT/HCPCS: 72052

== ENCOUNTER → 2022-08-07 | Outpatient (CLI) | payer MEDICARE, SELFPAY ==
--- NOTE | 2022-08-07 07:11 | CT_ITS ---
STUDY: CTA HEAD AND NECK WITH CONTRAST REASON FOR EXAM: Male, 77 years old. NUMB LT CHEEK RADIATION DOSAGE (If Supplied By Facility): CTDIvol = ( 28.57 ) mGy, DLP = ( 1576.51 ) mGycm TECHNIQUE: CT angiography was performed with a multi-detector CT scanner. Data acquisition was obtained from the skull base through the vertex following intravenous administration of IV 100mL Isovue-370. MIP images were reconstructed from the axial data set. Post-processing of the angiographic images was performed, with multiplanar reformation and 3D reconstruction. Individualized dose optimization techniques were used for this CT. COMPARISON: No relevant priors. FINDINGS: Normal bilateral petrous carotid arteries. Normal right cavernous carotid artery with a normal supraclinoid bifurcation. Normal left cavernous carotid artery with a normal supraclinoid bifurcation. There is hypoplastic development of the right A1 segment of the anterior cerebral arteries with an atretic but intact artery. Normal left A1 segments of the anterior cerebral artery. Normal intact anterior communicating artery (ACOM). Normal bilateral A2 segments of the anterior cerebral arteries. Normal right M1 and M2 segments of the middle cerebral arteries, with a normal M1 bifurcation. Normal left M1 and M2 segments of the middle cerebral arteries, with a normal M1 bifurcation. Normal right posterior communicating artery (PCOM). Normal left posterior communicating artery (PCOM). There is a small atretic right vertebral artery with a dominant left vertebral artery. Normal basilar artery with a normal basilar bifurcation. The visualized bilateral superior cerebellar (SCA) arteries are normal. Normal bilateral P1, P2 and visualized P3 segments of the posterior cerebral arteries. There is no demonstrated aneurysm of the [place] of [place]. There is no demonstrated abnormality of the visualized brain. AORTIC ARCH: Normal visualized aortic arch. Normal origins of the brachiocephalic, left common carotid, and left subclavian arteries. RIGHT CAROTID ARTERIES: Normal right common carotid artery (CCA). There is mild atherosclerotic plaque formation with minimal narrowing of the right carotid bulb. Normal origin of the right internal carotid (ICA) artery without a hemodynamically significant stenosis. Normal visualized cervical portion of the right internal carotid artery. Normal origin of the right external carotid artery (ECA). LEFT CAROTID ARTERIES: Normal left common carotid artery (CCA). There is mild atherosclerotic plaque formation with minimal narrowing of the left carotid bulb. Normal origin of the left internal carotid (ICA) artery without a hemodynamically significant stenosis. Normal visualized cervical portion of the left internal carotid artery. Normal origin of the left external carotid artery (ECA). VERTEBRAL ARTERIES: There is enhancement within the bilateral vertebral arteries with a small right vertebral artery, and a dominant left vertebral artery. No suspicious enhancing lesion, no airway narrowing or deviation. Thyroid gland and lung apices are clear. Degenerative bony changes noted throughout the cervical spine. The right maxillary sinus is opacified CT/CTA Head AND Neck W/ Contrast IMPRESSION: No CTA evidence of occlusive disease within the brain. No significant stenosis, aneurysm or vascular malformation noted. Mild calcified plaque in both common carotid artery bulge but no significant stenosis noted. No ICA stenosis. Small right vertebral artery, no evidence of vertebral artery stenosis or dissection Hypoplastic right A1, likely congenital Electronically Signed: Nguyễn Sharpe MD at 10:26 EDT ,
[2022-08-07 07:40] LABS: CREATININE FINGERSTICK 1.3 mg/dL (0.70-1.30)
== END | disposition home or self-care (01) ==
LOC: CT 07:09
PROVIDERS: PCP Family Medicine; Referring Provider Family Medicine; Visit Provider Family Medicine
DX: R51.9 Headache, unspecified (principal); R20.2 Paresthesia of skin; H53.8 Other visual disturbances
CPT/HCPCS: 70496; 70498; Q9967

== ENCOUNTER → 2022-08-11 | Outpatient (CLI) | payer MEDICARE, SELFPAY ==
[2022-08-11 09:39] LABS: Erythrocyte Sedimentation Rate 13 mm/hr (0-20)
[2022-08-11 09:41] LABS: Hematocrit 48.2 % (40-54); Hemoglobin 15.7 g/dL (13.0-16.5); Mean Corp Hgb Conc 32.6 g/dL (32-36); Mean Corpuscular Hgb 29.9 pg (27.0-32.0); Mean Corpuscular Volume 91.8 fL (80-94); Mean Platelet Vol. 10.4 fl (6.2-12.0); Platelet Count 248 K/mm3 (150-450); RBC Distribution Width CV 13.2 % (11.6-14.6); RBC Distribution Width SD 44.9 fl (35.1-43.9); Red Blood Count 5.25 M/mm3 (4.6-6.2); White Blood Count 5.7 K/mm3 (4.4-11.0)
== END | disposition home or self-care (01) ==
PROVIDERS: PCP Family Medicine; Referring Provider Ophthalmology; Visit Provider Ophthalmology
DX: R51.9 Headache, unspecified (principal); M31.6 Other giant cell arteritis; H53.2 Diplopia
CPT/HCPCS: 36415; 85027; 85652; 86140

== ENCOUNTER → 2022-09-15 | Outpatient (CLI) | payer MEDICARE, SELFPAY | END | disposition home or self-care (01) | LOC: SL 19:37 | PROVIDERS: PCP Family Medicine; Referring Provider Family Medicine; Visit Provider Family Medicine | DX: G47.33 Obstructive sleep apnea (adult) (pediatric) (principal); E66.01 Morbid (severe) obesity due to excess calories; I10 Essential (primary) hypertension | CPT/HCPCS: 95811 ==

== ENCOUNTER → 2022-10-06 | Outpatient (CLI) | payer MEDICARE, SELFPAY | END | disposition home or self-care (01) | LOC: SL 10:28 | PROVIDERS: PCP Family Medicine; Visit Provider Family Medicine | DX: Z00.00 Encounter for general adult medical examination without abnormal findings (principal) ==

== ENCOUNTER → 2023-01-12 | Outpatient (CLI) | payer MEDICARE, SELFPAY ==
[2023-01-12 07:20] LABS: Absolute Lymphocyte Count 1.74 X10^3/uL (0.83-4.51); Absolute Neutrophil Count 3.9 X10^3/uL (2.0-7.7); Basophil# 0.04 X10^3/uL; Basophil% 0.6 % (0-1); Eosinophil# 0.15 X10^3/uL; Eosinophils% 2.3 % (0-5); Hematocrit 48.6 % (40-54); Hemoglobin 15.8 g/dL (13.0-16.5); Lymphocyte # 1.74 X10^3/ul (0.83-4.51); Lymphocyte % 27.1 % (19-41); Mean Corp Hgb Conc 32.5 g/dL (32-36); Mean Corpuscular Hgb 30.2 pg (27.0-32.0); Mean Corpuscular Volume 92.7 fL (80-94); Mean Platelet Vol. 10.2 fl (6.2-12.0); Monocyte% 9.3 % (0-10); NRBC Flagged by Analyzer 0 % (0-5); Neutrophil # 3.87 X10^3/uL (2.7-7.7); Neutrophil % 60.4 % (47-70); Platelet Count 241 K/mm3 (150-450); RBC Distribution Width CV 13.6 % (11.6-14.6); RBC Distribution Width SD 46.5 fl (35.1-43.9); Red Blood Count 5.24 M/mm3 (4.6-6.2); White Blood Count 6.4 K/mm3 (4.4-11.0)
[2023-01-12 08:23] LABS: ALB/GLOB Ratio 0.8 RATIO (0.9-2.4); AST(SGOT) 17 U/L (15-37); Alanine Aminotransfer ALT/SGPT 15 U/L (16-61); Albumin, Serum 3.4 g/dL (3.2-5.0); Alkaline Phosphatase 85 U/L (45-117); Anion Gap 4 (5-15); BUN 12 mg/dL (7-18); Calcium,Total 8.6 mg/dL (8.5-10.1); Chloride 99 mmol/L (98-107); Cholesterol 176 mg/dL (200); Creatinine, Serum 1.09 mg/dL (0.70-1.30); EST Glomerular Filtration Rate 70 mL/min (>60); Est Glom Filt Rate - Afr Amer 85 mL/min (>60); Glucose 92 mg/dL (74-106); High Density Lipoprotein 51 mg/dL; PSA,Total - Annual Screen 3.23 ng/mL (0.00-4.00); Potassium 4.2 mmol/L (3.5-5.1); Protein, Total 7.4 g/dL (6.4-8.2); Sodium Level 133 mmol/L (136-145); Triglycerides 120 mg/dL; Very Low Density Lipoprotein 24 mg/dL (5-40)
== END | disposition home or self-care (01) ==
LOC: LAB 06:05
PROVIDERS: PCP Family Medicine; Referring Provider Family Medicine; Visit Provider Family Medicine
DX: Z12.5 Encounter for screening for malignant neoplasm of prostate (principal); Z51.81 Encounter for therapeutic drug level monitoring; E78.5 Hyperlipidemia, unspecified
CPT/HCPCS: 36415; 80053; 80061; 84153; 85025; G0103

== ENCOUNTER → 2023-09-09 | Outpatient (CLI) | payer MEDICARE, SELFPAY ==
[2023-09-09 12:27] LABS: Absolute Lymphocyte Count 1.47 X10^3/uL (0.83-4.51); Absolute Neutrophil Count 4.1 X10^3/uL (2.0-7.7); Basophil# 0.03 X10^3/uL; Basophil% 0.5 % (0-1); Eosinophil# 0.15 X10^3/uL; Eosinophils% 2.4 % (0-5); Hematocrit 48.5 % (40-54); Hemoglobin 15.4 g/dL (13.0-16.5); Lymphocyte # 1.47 X10^3/ul (0.83-4.51); Lymphocyte % 23.5 % (19-41); Mean Corp Hgb Conc 31.8 g/dL (32-36); Mean Corpuscular Hgb 29.2 pg (27.0-32.0); Mean Platelet Vol. 10.8 fl (6.2-12.0); Monocyte# 0.53 X10^3/uL; Monocyte% 8.5 % (0-10); NRBC Flagged by Analyzer 0 % (0-5); Neutrophil # 4.05 X10^3/uL (2.7-7.7); Neutrophil % 64.8 % (47-70); Platelet Count 244 K/mm3 (150-450); RBC Distribution Width CV 13.8 % (11.6-14.6); Red Blood Count 5.27 M/mm3 (4.6-6.2); White Blood Count 6.3 K/mm3 (4.4-11.0)
[2023-09-09 12:36] LABS: ALB/GLOB Ratio 0.8 RATIO (0.9-2.4); AST(SGOT) 17 U/L (15-37); Alanine Aminotransfer ALT/SGPT 17 U/L (16-61); Albumin, Serum 3.4 g/dL (3.2-5.0); Alkaline Phosphatase 84 U/L (45-117); Anion Gap 3 (5-15); BUN 16 mg/dL (7-18); BUN/Creat Ratio 13.6 RATIO (10-20); Calcium,Total 9.2 mg/dL (8.5-10.1); Chloride 103 mmol/L (98-107); Creatinine, Serum 1.18 mg/dL (0.70-1.30); EST Glomerular Filtration Rate 64 mL/min (>60); Est Glom Filt Rate - Afr Amer 77 mL/min (>60); Glucose 105 mg/dL (74-106); Potassium 4.4 mmol/L (3.5-5.1); Protein, Total 7.4 g/dL (6.4-8.2); Sodium Level 134 mmol/L (136-145)
[2023-09-15 13:07] LABS: Testosterone, Free 11.68 ng/dL (5.00-21.00); Testosterone, Total 508 ng/dL (264-916)
== END | disposition home or self-care (01) ==
LOC: BFHLAB 09:35
PROVIDERS: PCP Family Medicine; Referring Provider Family Medicine; Visit Provider Family Medicine
DX: Z51.81 Encounter for therapeutic drug level monitoring (principal); I10 Essential (primary) hypertension; E34.9 Endocrine disorder, unspecified
CPT/HCPCS: 36415; 80053; 84402; 84403; 85025

== ENCOUNTER 2023-10-19 08:29 | Day surgery (SDC) | payer MEDICARE, SELFPAY ==
[2023-10-19] VITALS (7 sets, daily range): BP systolic 89–152; BP diastolic 55–90; PULSE 67–73; RESP 16–18; TEMP 36.2–37.2; O2SAT 94–98; BMI 47.2
[2023-10-19] MEDS: Lactated Ringers 1,000 ML 15 ML IV (09:13)
--- NOTE | 2023-10-19 10:21 | PCM.HP.BLA ---
History and Physical Date of Admission: 10/19/23 Allergies sulfamethoxazole [From Bactrim] Allergy (Intermediate, Verified 09/27/23 14:10) Rashtrimethoprim [From Bactrim] Allergy (Intermediate, Verified 09/27/23 14:10) RashPenicillins Allergy (Mild, Verified 09/27/23 14:10) rash Medications aspirin 81 mg tablet,delayed release (Adult Aspirin Regimen) 81 mg PO DAILY 01/05/19 [History Confirmed 09/27/23] mecobalamin (vitamin B12) 1,000 mcg disintegrating tablet,sublingual 1,000 mcg sublingual DAILY 01/05/19 [History Confirmed 09/27/23] losartan 25 mg tablet 25 mg PO QHS blood pressure 10/02/20 [History Confirmed 09/27/23] carvedilol 6.25 mg tablet 6.25 mg PO BID 09/27/23 [History Confirmed 09/27/23] cholecalciferol (vitamin D3) 125 mcg (5,000 unit) capsule 125 mcg PO QWEEK 09/27/23 [History Confirmed 09/27/23] loratadine 10 mg tablet 10 mg PO DAILY 09/27/23 [History Confirmed 09/27/23] losartan 100 mg tablet (Cozaar) 100 mg PO .AM 09/27/23 [History Confirmed 09/27/23] PFSH Medical History (Updated 09/27/23 @ 14:03 by Janell Blackwood) Abdominal pain Chest pain Cough GERD (gastroesophageal reflux disease) History of colon polyps History of diverticulitis History of diverticulosis HTN (hypertension) Personal history of colonic polyps Sleep apnea Surgical History (Updated 09/27/23 @ 14:03 by Janell Blackwood) History of back surgery History of cataract extraction History of colonoscopy (~2013) History of partial colectomy Family History (Updated 09/27/23 @ 14:05 by Janell Blackwood) Father Hypertension Stomach ulcerMother HypertensionBrother Cancer SpineBrother Diabetes ArthritisGrandfather Heart disease CVA (cerebral vascular accident)Daughter Multiple sclerosis Social History (Updated 10/02/20 @ 00:55 by Leidy Nelson) household members: spouse housing: house number of children: 2 current occupational status: retired Smoking Status: Former smoker alcohol intake: current alcohol intake frequency: a few times a week substance use type: does not use HPI HPI HPI: 78-year-old gentleman is referred by Dr. Mariluz Arceo for recommendations pursuing surveillance colonoscopy. Written compromise surgical recommendations will return to her. It is of note that the patient's previous had colon surgery for diverticulitis and a villous adenoma in 1991. He had a tubular adenoma November 2008 and he had a rectal polyp January 2014. I assisted him with his most recent colonoscopy January 2019 and we performed an EGD at that time as well. Findings included mild reflux esophagitis with a very small hiatal hernia. Mild gastritis. Focal gastric metaplasia of the duodenum. H. pylori was negative. The patient had diverticulosis identified. Random colonic biopsies were normal. He has had a previous history of colon polyps. Among his other medications he is on omeprazole. There is no family history of colon cancer. Patient patient's been doing well. Denies any abdominal pain. Very minimal reflux but he states that his omeprazole helps with that 40 mg daily. No bright red blood per rectum or melena. He notes that he is overweight. This does cause some dyspnea on exertion. Feels that his weights been relatively stable. ROS General General: Yes fatigue; No weight change, appetite, colon cancer, breast cancer or weakness HEENT HEENT: Yes eye surgery; No difficulty swallowing, eye injury, swollen glands or hoarseness Endo Endocrine: No thyroid disease, diabetes mellitus, thyroid cancer, Hair loss, heat intolerance or cold intolerance Skin Skin: No rash or changing moles Breast Breast: No left breast lump, right breast lump, nipple discharge, breast pain, abnormal mammogram, abnormal US or breast enlargement Musc Musculoskeletal: Yes rheumatoid arthritis; No back problems, arthritis, gout or joint pain Cardio Cardiovascular: Yes high blood pressure; No murmur, pacemaker, heart disease, atrial fibrillation, heart attack, heart stent, palpitations, shortness of breat with exertion or chest pain Psych Psychiatric: No depression, anxiety or hearing voices Resp Respiratory: Yes shortness of breath, Yes sleep apnea, Yes cough, No COPD, No asthma, No emphysema and No wheezing Gastro Gastrointestinal: No abdominal pain, No nausea or vomiting, No diarrhea, No constipation, No blood in stool, Yes acid reflux, Yes hemorrhoids, No ulcers, No gallbladder problem and No black,tarry stools Jerry Hematologic: No blood thinners, No blood disorders, No bleeding, No anemia and No blood clots Additional Details: Baby aspirin daily Neuro Neurologic: No system reviewed and no additional complaints, except as documented, No as per HPI, No abnormal gait, No abnormal hearing, No abnormal movements, No abnormal speech, No behavioral changes, No burning sensations, No confusion, No convulsions, No disequilibrium, No dizziness, No localized weakness, No frequent falls, No headache(s), No lack of coordination, No loss of vision, No memory loss, Yes numbness, No other visual disturbances, No radicular pain, No restless legs, No sensory deficit, No syncope, Yes tingling, No tremor(s), No weakness and No other Exam Const General: cooperative, healthy appearing and comfortable [facility] Head: normal to inspection Eyes General: appearance normal, both eyes and all related structures Neck Neck: normal visual inspection Chest Chest palpation & inspection: normal inspection of the chest Resp Effort & Inspection: normal respiratory effort Auscultation: clear to auscultation bilaterally Cardio Rate: regular rate Rhythm: regular rhythm GI Inspection: normal to inspection Palpation: soft and no hepatosplenomegaly Other: Abdomen is overweight, cannot determine any internal organs. No focal tenderness. Musc Cervical Spine: normal cervical lordosis Skin General: no rashes or lesions noted Neuro General: patient alert, patient awake and patient oriented x3 Extrem Other: None pitting swelling bilateral lower extremities Psych Appearance: grossly normal Assessment and Plan Assessment and Plan (1) Personal history of colonic polyps: Status: Chronic (2) GERD (gastroesophageal reflux disease): Status: Acute Qualifiers: Esophagitis presence: without esophagitis Qualified Code(s): K21.9 - Gastro-esophageal reflux disease without esophagitis Plan: Because of the patient's history of the intestinal metaplasia noted on duodenal biopsy I do recommend to him a esophagogastroduodenoscopy. Perhaps consider a a gastric mapping type of biopsy procedure. This would include duodenum and antrum greater lesser curves and body greater lesser curves and cardia and esophagus. Recommend to him a colonoscopy with possible biopsy or polypectomy as well. Personal history of colon polyps. Previous scopes January 2019. He has had an opportunity to ask and have questions answered. We will schedule procedure at his discretion. I very much appreciate the ongoing option of assisting with his surgical care. He is aware that I will be tentatively retiring December 22, 2023. Copy: Dr. Mariluz Kaur M.D., [place]. I have examined the patient and the H&P has been reviewed. There are no clinical changes since date of exam. Td Kaur M.D., [place].Kirsten.Ella.S.
--- NOTE | 2023-10-19 10:45 | IMM_PTH ---
PATIENT: UMU CARDOZA LOC: EN U#:[id number] AGE/SX: 78/M ROOM: RE10/19/[address]: Dr. Td Kaur MD : 1945 BED: DIS: 10/19/2023 SPEC #: [id number] RECD: 10/19/23 14:17 STATUS: JANNY REQ #: [id number] PAXTON: 10/19/23 10:[address]: Td Kaur DEPT: IMMUNOHISTOCHEMISTRY RECD BY: Maximiliano Carpio ENTERED: 10/19/23 14:17 SP TYPE: IMMUNO OTHR DR: Dr. Mariluz Sahu DO Tissues: B - Gastric mucous membrane C - COLON BIOPSY Procedures: H Pylori (initial) CK20 (add) CK7 (add) KI-67 (add) P53 (add) Pankeratin (initial) CDX2 (add) MOC-31 (add) PHYSICIAN & INSTITUTION [place] [id number] SPECIMEN INFORMATION: Tissue Source: B- Gastric antrum biopsy, C- Antral mass biopsy Clinical Info: Personal history of colonic polyps, GERD Specimen Number: [id number], C CPT code: 23225a9,25242b6 METHODOLOGY: Deparaffinized sections of prefer/formalin-fixed tissue or PAP/DQ stained slides are incubated with monoclonal/polyclonal antibodies/oligonucleotide probes. Localization is made via biotin free immunoperoxidase method. Appropriate controls are performed and reacted as expected. Results on target cell population are indicated in the following table: RESULTS: ANTIBODY / CLONE RESULT Block B H Pylori (polyclonal) negative Block C AE1-3 (AE1/AE3/PCK26) positive CK7 (OV-TL12/30) negative CK20 (KS20.8) positive MOC-31 (4561) positive CDX2 (IRE2348B) negative P53 (DO-7) negative, null pattern Ki-67 (30-9) positive, low These tests were developed and their performance characteristics determined by [facility]. They may not have been cleared or approved by the U.S. Food and Drug Administration. The FDA has determined that such clearance or approval is not necessary. The above immunohistochemical/dualISH markers are ordered and reviewed by the Pathologist. INTERPRETATION: B. Gastric antrum, biopsy: Negative for Helicobacter pylori organisms. C. Gastric antrum mass, biopsy: No evidence of malignancy. AM/mr 10/21/23
--- NOTE | 2023-10-19 10:45 | COLBX_PTH ---
PATIENT: UMU CARDOZA LOC: EN U#:[id number] AGE/SX: 78/M ROOM: RE10/19/[address]: Dr. Td Kaur MD : 1945 BED: DIS: 10/19/2023 SPEC #: [id number] RECD: 10/19/23 12:46 STATUS: JANNY RICHA #: [id number] PAXTON: 10/19/23 10:[address]: Td Kaur DEPT: SURGICAL PATHOLOGY RECD BY: Luz Langford ENTERED: 10/19/23 13:24 SP TYPE: COLON BX OTHR DR: Dr. Mariluz Sahu, DO Tissues: A - Duodenum, NOS B - Gastric mucous membrane C - COLON BIOPSY D - Stomach, NOS E - Stomach, NOS F - Stomach, NOS G - Esophagus, NOS Procedures: Special Stain Group I Surgery Specimen Level IV Alcian Blue/PAS (control) HEADER OPERATION: Colonoscopy, EGD with biopsies, polypectomy and hemostasis clip PRE-OP DIAGNOSIS: Personal history of colonic polyps, GERD TISSUE SUBMITTED: A- Duodenum biopsy, B- Antrum biopsy, C- Antral mass hot snare and biopsy, D- Lesser curvature biopsy, E- Greater curvature biopsy, F- Greater curvature body biopsy, G- Distal esophagus biopsy MICROSCOPIC DIAGNOSIS A. Duodenum, biopsy: Focal gastric metaplasia. B. Gastric antrum, biopsy: Minimal chronic inflammation. See comment. C. Gastric antrum mass, biopsy: Polypoid fragment of gastric mucosa with mild hyperplasia. No evidence of malignancy. See comment. D. Stomach, lesser curvature, biopsy: Chronic gastritis. E. Stomach, greater curvature, biopsy: Mild chronic inflammation. F. Stomach, greater curvature, biopsy: Chronic gastiritis. G. Distal esophagus, biopsy: Gastroesophageal junction mucosa with mild chronic inflammation. No evidence of goblet cell metaplasia. See comment. EDGAR/ 10/20/2023 COMMENT B. The results of immunohistochemistry for Helicobacter pylori will be reported separately ([id number]). C. Immunohistochemistry ([id number]) supports the above diagnosis. G. Alcian blue/PAS stain with matched control supports the above diagnosis. MICROSCOPIC DESCRIPTION Slides are reviewed. GROSS DESCRIPTION A. Received in fixative is one container labeled with the patient's name and designated Duodenum biopsy. The specimen consists of two irregular fragments of light lerner soft tissue that in aggregate measure 0.6 x 0.6 x 0.1 cm. The specimen is totally submitted in one cassette. B. Received in fixative is one container labeled with the patient's name and designated Antrum biopsy. The specimen consists of one irregular fragment of light lerner soft tissue that measures 0.3 x 0.2 x 0.1 cm. The specimen is totally submitted in one cassette. C. Received in fixative is one container labeled with the patient's name and designated Antral mass biopsy. The specimen consists of one irregular fragment of light lerner soft tissue that measures 0.2 x 0.2 x 0.1 cm. The specimen is totally submitted in one cassette. D. Received in fixative is one container labeled with the patient's name and designated Lesser curvature biopsy. The specimen consists of one irregular fragment of light lerner soft tissue that measures 0.2 x 0.2 x 0.1 cm. The specimen is totally submitted in one cassette. E. Received in fixative is one container labeled with the patient's name and designated Greater curvature biopsy. The specimen consists of one irregular fragment of light lerner soft tissue that measures 0.3 x 0.2 x 0.1 cm. The specimen is totally submitted in one cassette. F. Received in fixative is one container labeled with the patient's name and designated Greater curvature body biopsy. The specimen consists of multiple irregular fragments of light lerner soft tissue that in aggregate measure 0.7 x 0.5 x 0.1 cm. The specimen is totally submitted in one cassette. G. Received in fixative is one container labeled with the patient's name and designated Distal esophagus biopsy. The specimen consists of two irregular fragments of light lerner soft tissue that in aggregate measure 0.6 x 0.6 x 0.1 cm. The specimen is totally submitted in one cassette. EDGAR/ 10/19/2023 TC:3 CPT:60863u1,36188
--- NOTE | 2023-10-19 12:32 | OP.CCLET_ITS ---
10/19/2023 Mariluz Sahu [address] [place] [address] Re : Upper GI endoscopy procedure for Kody Saucedo Dear Dr. Sahu This procedure was performed on Thursday, October 19, 2023. My impressions and recommendations are as follows: Impressions : - LA Grade A reflux esophagitis with no bleeding. Biopsied. - Erythematous mucosa in the stomach. - Erythematous mucosa in the antrum. Biopsied. 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 Hot snare resected with clips x 2 . Erythematous mucosa in the greater curvature. Biopsied. - Erythematous mucosa in the lesser curvature. Biopsied. - Erythematous mucosa in the greater curvature of the gastric body. Biopsied. - Erythematous duodenopathy. Biopsied. Recommendations : - Discharge patient to home. - Resume previous diet. - Continue present medications. - Telephone my office for pathology results in 1 week. My findings are described in the full procedure note, which is enclosed. If I can be of further assistance, please feel free to contact me at Doctor phone number(s): Work: . Sincerely, Td Kaur MD 10/19/2023 12:31:53 PM This report has been signed electronically.
--- NOTE | 2023-10-19 12:32 | OP.EGD_ITS ---
Patient Name: Kody Saucedo Procedure Date: 10/19/2023 11:33 AM Date of : 1945 Age: 78 Procedure: Upper GI endoscopy Indications: Suspected reflux esophagitis Providers: Td Kaur MD Medicines: See the Anesthesia note for documentation of the administered medications Complications: No immediate complications. Procedure: Pre-Anesthesia Assessment: - Prior to the procedure, a History and Physical was performed, and patient medications and allergies were reviewed. The patient's tolerance of previous anesthesia was also reviewed. The risks and benefits of the procedure and the sedation options and risks were discussed with the patient. All questions were answered, and informed consent was obtained. Prior Anticoagulants: The patient has taken no anticoagulant or antiplatelet agents. ASA Grade Assessment: III - A patient with severe systemic disease. After reviewing the risks and benefits, the patient was deemed in satisfactory condition to undergo the procedure. After obtaining informed consent, the endoscope was passed under direct vision. Throughout the procedure, the patient's blood pressure, pulse, and oxygen saturations were monitored continuously. The gastroscope was introduced through the mouth, and advanced to the second part of duodenum. The upper GI endoscopy was performed with moderate difficulty due to abnormal anatomy. The patient tolerated the procedure well. Scope In: 11:46:52 AM Scope Out: 12:05:13 PM Total Procedure Duration Time 0 hours 18 minutes 21 seconds Findings: LA Grade A (one or more mucosal breaks less than 5 mm, not extending between tops of 2 mucosal folds) esophagitis with no bleeding was found 41 cm from the incisors. Biopsies were taken with a cold forceps for histology. Diffuse moderately erythematous mucosa without bleeding was found in the entire examined stomach. Diffuse moderately erythematous mucosa without bleeding was found in the gastric antrum. Biopsies were taken with a cold forceps for histology. A small, sessile mass with no bleeding and no stigmata of recent bleeding was found in the gastric antrum. This mass was removed with a hot snare. Resection and retrieval were complete. To prevent bleeding post-intervention, two hemostatic clips were successfully placed. There was no bleeding at the end of the procedure. Diffuse moderately erythematous mucosa without bleeding was found on the greater curvature of the stomach. Biopsies were taken with a cold forceps for histology. Diffuse moderately erythematous mucosa without bleeding was found on the lesser curvature of the stomach. Biopsies were taken with a cold forceps for histology. Diffuse moderately erythematous mucosa without bleeding was found on the greater curvature of the gastric body. Biopsies were taken with a cold forceps for histology. Diffuse mildly erythematous mucosa without active bleeding and with no stigmata of bleeding was found in the duodenal bulb. Biopsies were taken with a cold forceps for histology. Impression: - LA Grade A reflux esophagitis with no bleeding. Biopsied. - Erythematous mucosa in the stomach. - Erythematous mucosa in the antrum. Biopsied. 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 Hot snare resected with clips x 2 . Erythematous mucosa in the greater curvature. Biopsied. - Erythematous mucosa in the lesser curvature. Biopsied. - Erythematous mucosa in the greater curvature of the gastric body. Biopsied. - Erythematous duodenopathy. Biopsied. Recommendation: - Discharge patient to home. - Resume previous diet. - Continue present medications. - Telephone my office for pathology results in 1 week. Procedure Code(s): --- Professional --- 88762, Esophagogastroduodenoscopy, flexible, transoral; with removal of tumor(s), polyp(s), or other lesion(s) by snare technique Diagnosis Code(s): --- Professional --- K21.00, Gastro-esophageal reflux disease with esophagitis, without bleeding K31.89, Other diseases of stomach and duodenum D49.0, Neoplasm of unspecified behavior of digestive system K31.7, Polyp of stomach and duodenum CPT copyright 2021 [employer]. All rights reserved. The codes documented in this report are preliminary and upon medical biller/coder review may be revised to meet current compliance requirements. Td Kaur MD 10/19/2023 12:31:53 PM This report has been signed electronically. Number of Addenda: 0 Note Initiated On: 10/19/2023 11:33 AM
--- NOTE | 2023-10-19 12:35 | OP.COLON_ITS ---
Patient Name: Kody Saucedo Procedure Date: 10/19/2023 12:06 PM Date of : 1945 Age: 78 Procedure: Colonoscopy Indications: High risk colon cancer surveillance: Personal history of colonic polyps Providers: Td Kaur MD Medicines: See the Anesthesia note for documentation of the administered medications Patient Profile: Last Colonoscopy: 2018. Complications: No immediate complications. Procedure: Pre-Anesthesia Assessment: - Prior to the procedure, a History and Physical was performed, and patient medications and allergies were reviewed. The patient's tolerance of previous anesthesia was also reviewed. The risks and benefits of the procedure and the sedation options and risks were discussed with the patient. All questions were answered, and informed consent was obtained. Prior Anticoagulants: The patient has taken no anticoagulant or antiplatelet agents. ASA Grade Assessment: III - A patient with severe systemic disease. After reviewing the risks and benefits, the patient was deemed in satisfactory condition to undergo the procedure. After I obtained informed consent, the scope was passed under direct vision. Throughout the procedure, the patient's blood pressure, pulse, and oxygen saturations were monitored continuously. The colonoscope was introduced through the anus and advanced to the cecum, identified by appendiceal orifice and ileocecal valve. The colonoscopy was performed without difficulty. The patient tolerated the procedure well. The quality of the bowel preparation was fair. The ileocecal valve and the appendiceal orifice were photographed. Scope In: 12:08:07 PM Scope Withdrawal Time 0 hours 8 minutes 9 seconds Scope Out: 12:19:37 PM Total Procedure Duration Time 0 hours 11 minutes 30 seconds Findings: The digital rectal exam findings include non-thrombosed external hemorrhoids, non-thrombosed internal hemorrhoids and internal hemorrhoids that prolapse with straining, but spontaneously regress to the resting position (Grade II). Multiple diverticula were found in the sigmoid colon and descending colon. The exam was otherwise without abnormality. Impression: - Preparation of the colon was fair. - Non-thrombosed external hemorrhoids, non-thrombosed internal hemorrhoids and internal hemorrhoids that prolapse with straining, but spontaneously regress to the resting position (Grade II) found on digital rectal exam. - Diverticulosis in the sigmoid colon and in the descending colon. - The examination was otherwise normal. - No specimens collected. Recommendation: - Discharge patient to home. - Resume previous diet. - Continue present medications. - Repeat colonoscopy in 5 years for surveillance. Procedure Code(s): --- Professional --- 99278, Colonoscopy, flexible; diagnostic, including collection of specimen(s) by brushing or washing, when performed (separate procedure) Diagnosis Code(s): --- Professional --- Z86.010, Personal history of colonic polyps K64.1, Second degree hemorrhoids K64.4, Residual hemorrhoidal skin tags K57.30, Diverticulosis of large intestine without perforation or abscess without bleeding CPT copyright 2021 [employer]. All rights reserved. The codes documented in this report are preliminary and upon puttier review may be revised to meet current compliance requirements. Td Kaur MD 10/19/2023 12:34:49 PM This report has been signed electronically. Number of Addenda: 0 Note Initiated On: 10/19/2023 12:06 PM
--- NOTE | 2023-10-19 12:35 | OP.CCLET_ITS ---
10/19/2023 Mariluz Sahu [address] [place] [address] Re : Colonoscopy procedure for Kody Saucedo Dear Dr. Sahu This procedure was performed on Thursday, October 19, 2023. My impressions and recommendations are as follows: Impressions : - Preparation of the colon was fair. - Non-thrombosed external hemorrhoids, non-thrombosed internal hemorrhoids and internal hemorrhoids that prolapse with straining, but spontaneously regress to the resting position (Grade II) found on digital rectal exam. - Diverticulosis in the sigmoid colon and in the descending colon. - The examination was otherwise normal. - No specimens collected. Recommendations : - Discharge patient to home. - Resume previous diet. - Continue present medications. - Repeat colonoscopy in 5 years for surveillance. My findings are described in the full procedure note, which is enclosed. If I can be of further assistance, please feel free to contact me at Doctor phone number(s): Work: . Sincerely, Td Kaur MD 10/19/2023 12:34:49 PM This report has been signed electronically.
== END 2023-10-19 13:00 | disposition home or self-care (01) ==
LOC: EN 09:46 → AC 10:06
PROVIDERS: PCP Family Medicine; Referring Provider Family Medicine; Visit Provider Surgery
PROC: 0DJD8ZZ Inspection of Lower Intestinal Tract, Via Natural or Artificial Opening Endoscopic (ICD-10-PCS; CPT 45378; principal; 2023-10-19 10:40)
DX: Z12.11 Encounter for screening for malignant neoplasm of colon (principal); K64.4 Residual hemorrhoidal skin tags; Z86.010 Personal history of colon polyps; K57.30 Diverticulosis of large intestine without perforation or abscess without bleeding; E66.3 Overweight; I10 Essential (primary) hypertension; K21.00 Gastro-esophageal reflux disease with esophagitis, without bleeding; Z87.891 Personal history of nicotine dependence; K64.1 Second degree hemorrhoids; K31.A0 Gastric intestinal metaplasia, unspecified; K29.50 Unspecified chronic gastritis without bleeding; Z87.19 Personal history of other diseases of the digestive system; K31.7 Polyp of stomach and duodenum; Z79.899 Other long term (current) drug therapy
CPT/HCPCS: G0105; 43239; 81002; 88305; 88312; 88341; 88342; J7120; J2405

== ENCOUNTER → 2024-01-14 | Outpatient (CLI) | payer MEDICARE, SELFPAY ==
[2024-01-14 10:32] LABS: Absolute Lymphocyte Count 1.07 X10^3/uL (0.83-4.51); Absolute Neutrophil Count 5.6 X10^3/uL (2.0-7.7); Basophil# 0.03 X10^3/uL; Basophil% 0.4 % (0-1); Eosinophil# 0.08 X10^3/uL; Eosinophils% 1.1 % (0-5); Hematocrit 46.8 % (40-54); Hemoglobin 15.1 g/dL (13.0-16.5); Lymphocyte # 1.07 X10^3/ul (0.83-4.51); Lymphocyte % 14.7 % (19-41); Mean Corp Hgb Conc 32.3 g/dL (32-36); Mean Corpuscular Hgb 29.5 pg (27.0-32.0); Mean Corpuscular Volume 91.4 fL (80-94); Mean Platelet Vol. 10.4 fl (6.2-12.0); Monocyte# 0.44 X10^3/uL; NRBC Flagged by Analyzer 0 % (0-5); Neutrophil # 5.64 X10^3/uL (2.7-7.7); Neutrophil % 77.5 % (47-70); Platelet Count 225 K/mm3 (150-450); RBC Distribution Width CV 13.9 % (11.6-14.6); RBC Distribution Width SD 47.1 fl (35.1-43.9); Red Blood Count 5.12 M/mm3 (4.6-6.2); White Blood Count 7.3 K/mm3 (4.4-11.0)
[2024-01-14 11:16] LABS: ALB/GLOB Ratio 0.9 RATIO (0.9-2.4); AST(SGOT) 124 U/L (15-37); Alanine Aminotransfer ALT/SGPT 67 U/L (16-61); Albumin, Serum 3.3 g/dL (3.2-5.0); Alkaline Phosphatase 91 U/L (45-117); Anion Gap 8 (5-15); BUN 13 mg/dL (7-18); BUN/Creat Ratio 11.5 RATIO (10-20); Calcium,Total 8.5 mg/dL (8.5-10.1); Chloride 98 mmol/L (98-107); Cholesterol 169 mg/dL (200); Creatinine, Serum 1.13 mg/dL (0.70-1.30); EST Glomerular Filtration Rate 67 mL/min (>60); Est Glom Filt Rate - Afr Amer 81 mL/min (>60); Free T3 2.4 pg/mL (2.18-3.98); Globulin 3.8 g/dL (2.2-4.2); Glucose 110 mg/dL (74-106); High Density Lipoprotein 50 mg/dL; PSA,Total - Annual Screen 3.44 ng/mL (0.00-4.00); Potassium 4.2 mmol/L (3.5-5.1); Protein, Total 7.1 g/dL (6.4-8.2); Sodium Level 131 mmol/L (136-145); T4 Free Direct 1.23 ng/dL (0.76-1.46); Triglycerides 93 mg/dL; Very Low Density Lipoprotein 19 mg/dL (5-40)
[2024-01-14 11:34] LABS: Hepatitis C Antibody Non-Reactive (Nonreactive); Vitamin B12 1287 pg/mL (211-911); Vitamin D,25 Hydroxy 38.1 ng/mL
[2024-01-14 14:43] LABS: Hemoglobin A1c 5.5 % (3.8-5.6)
== END | disposition home or self-care (01) ==
LOC: MTLAB 07:19
PROVIDERS: PCP Family Medicine; Referring Provider Family Medicine; Visit Provider Family Medicine
DX: E03.9 Hypothyroidism, unspecified (principal); E11.9 Type 2 diabetes mellitus without complications; I10 Essential (primary) hypertension; E55.9 Vitamin D deficiency, unspecified; E78.5 Hyperlipidemia, unspecified; Z51.81 Encounter for therapeutic drug level monitoring; Z12.5 Encounter for screening for malignant neoplasm of prostate
CPT/HCPCS: 36415; 80053; 80061; 82306; 82607; 83036; 84153; 84439; 84443; 84481; 85025; 86709; 86803; G0103

== ENCOUNTER → 2024-02-11 | Outpatient (CLI) | payer MEDICARE, SELFPAY ==
--- NOTE | 2024-02-11 06:59 | US_ITS ---
STUDY: ABDOMINAL ULTRASOUND - RIGHT UPPER QUADRANT REASON FOR VISIT: Male, 78 years old Abnormal levels of other serum enzymes TECHNIQUE: Ultrasound evaluation of the right upper quadrant was performed with real-time and static gay-scale imaging. TECHNICAL QUALITY: Limited. Examination limited due to obesity. COMPARISON: None. FINDINGS: Liver: The liver measures 14.5 cm. There is increased echogenicity consistent with fatty infiltration. The bile ducts are within normal limits. There is hepatic color flow. The direction of portal flow is hepatopetal. There is no demonstrated mass lesion. Gallbladder: Normal distended gallbladder. The gallbladder wall measures 3.2 mm. There is a negative sonographic Zapata''s sign. There is no pericholecystic fluid. There are multiple echogenic structures within the gallbladder, consistent with multiple gallstones. Common Bile Duct (C.B.D.): The common bile duct measures 4 mm. Pancreas: There is nonvisualization of the pancreas due to overlying bowel gas. Right Kidney: Normal size of the right kidney. The right kidney measures 12.8 cm x 5.2 cm x 4.4 cm. Normal renal cortex. The right cortex measures 1.6 cm. There is no demonstrated renal mass or cyst. There is no right hydronephrosis. US/Abdomen Limited IMPRESSION: Fatty infiltration of the liver. Multiple gallstones. Electronically Signed: Rafita Butts MD at 10:45 EDT ,
== END | disposition home or self-care (01) ==
LOC: US 06:59
PROVIDERS: PCP Family Medicine; Referring Provider Family Medicine; Visit Provider Family Medicine
DX: R74.8 Abnormal levels of other serum enzymes (principal)
CPT/HCPCS: 76705

== ENCOUNTER → 2024-02-18 | Outpatient (CLI) | payer MEDICARE, SELFPAY ==
[2024-02-18 11:45] LABS: AST(SGOT) 12 U/L (15-37); Alanine Aminotransfer ALT/SGPT 14 U/L (16-61); Albumin, Serum 3.6 g/dL (3.2-5.0); Alkaline Phosphatase 86 U/L (45-117); Anion Gap 7 (5-15); BUN 14 mg/dL (7-18); BUN/Creat Ratio 10.2 RATIO (10-20); Bilirubin, Direct 0.24 mg/dL (0.00-0.30); Calcium,Total 9.3 mg/dL (8.5-10.1); Chloride 101 mmol/L (98-107); Creatinine, Serum 1.37 mg/dL (0.70-1.30); EST Glomerular Filtration Rate 54 mL/min (>60); Est Glom Filt Rate - Afr Amer 65 mL/min (>60); Globulin 4.1 g/dL (2.2-4.2); Glucose 98 mg/dL (74-106); Potassium 4.1 mmol/L (3.5-5.1); Protein, Total 7.7 g/dL (6.4-8.2); Sodium Level 134 mmol/L (136-145)
[2024-02-19 08:12] LABS: GGTP 72 IU/L (0-65)
== END | disposition home or self-care (01) ==
LOC: MTLAB 07:12
PROVIDERS: PCP Family Medicine; Referring Provider Family Medicine; Visit Provider Family Medicine
DX: R74.8 Abnormal levels of other serum enzymes (principal); E87.1 Hypo-osmolality and hyponatremia; Z51.81 Encounter for therapeutic drug level monitoring
CPT/HCPCS: 36415; 80048; 80076; 82977

== ENCOUNTER → 2024-03-03 | Outpatient (CLI) | payer MEDICARE, SELFPAY ==
[2024-03-03 10:35] LABS: ALB/GLOB Ratio 0.9 RATIO (0.9-2.4); AST(SGOT) 12 U/L (15-37); Alanine Aminotransfer ALT/SGPT 14 U/L (16-61); Albumin, Serum 3.6 g/dL (3.2-5.0); Alkaline Phosphatase 83 U/L (45-117); Anion Gap 6 (5-15); BUN 13 mg/dL (7-18); BUN/Creat Ratio 11.1 RATIO (10-20); Calcium,Total 9.3 mg/dL (8.5-10.1); Chloride 102 mmol/L (98-107); Creatinine, Serum 1.17 mg/dL (0.70-1.30); EST Glomerular Filtration Rate 64 mL/min (>60); Est Glom Filt Rate - Afr Amer 78 mL/min (>60); Globulin 3.9 g/dL (2.2-4.2); Glucose 101 mg/dL (74-106); Potassium 4.1 mmol/L (3.5-5.1); Protein, Total 7.5 g/dL (6.4-8.2); Sodium Level 136 mmol/L (136-145)
[2024-03-04 08:19] LABS: GGTP 45 IU/L (0-65)
== END | disposition home or self-care (01) ==
LOC: MTLAB 07:04
PROVIDERS: PCP Family Medicine; Referring Provider Family Medicine; Visit Provider Family Medicine
DX: R74.8 Abnormal levels of other serum enzymes (principal)
CPT/HCPCS: 36415; 80053; 82977

== ENCOUNTER → 2024-03-23 | Outpatient (CLI) | payer MEDICARE, SELFPAY ==
[2024-03-23 14:42] LABS: Absolute Lymphocyte Count 0.65 X10^3/uL (0.83-4.51); Absolute Neutrophil Count 12.3 X10^3/uL (2.0-7.7); Basophil# 0.01 X10^3/uL; Basophil% 0.1 % (0-1); Eosinophil# 0.03 X10^3/uL; Eosinophils% 0.2 % (0-5); Hematocrit 47.2 % (40-54); Hemoglobin 15.3 g/dL (13.0-16.5); Lymphocyte # 0.65 X10^3/ul (0.83-4.51); Lymphocyte % 4.8 % (19-41); Mean Corp Hgb Conc 32.4 g/dL (32-36); Mean Corpuscular Hgb 29.5 pg (27.0-32.0); Mean Corpuscular Volume 90.9 fL (80-94); Mean Platelet Vol. 10.1 fl (6.2-12.0); Monocyte# 0.47 X10^3/uL; Monocyte% 3.5 % (0-10); NRBC Flagged by Analyzer 0 % (0-5); Neutrophil # 12.33 X10^3/uL (2.7-7.7); Neutrophil % 90.8 % (47-70); Platelet Count 249 K/mm3 (150-450); RBC Distribution Width CV 13.9 % (11.6-14.6); RBC Distribution Width SD 46.4 fl (35.1-43.9); Red Blood Count 5.19 M/mm3 (4.6-6.2); White Blood Count 13.6 K/mm3 (4.4-11.0)
[2024-03-23 15:42] LABS: ALB/GLOB Ratio 0.8 RATIO (0.9-2.4); AST(SGOT) 95 U/L (15-37); Alanine Aminotransfer ALT/SGPT 124 U/L (16-61); Albumin, Serum 3.2 g/dL (3.2-5.0); Alkaline Phosphatase 125 U/L (45-117); Anion Gap 4 (5-15); BUN 15 mg/dL (7-18); BUN/Creat Ratio 11.2 RATIO (10-20); Calcium,Total 8.9 mg/dL (8.5-10.1); Chloride 99 mmol/L (98-107); Creatinine, Serum 1.34 mg/dL (0.70-1.30); EST Glomerular Filtration Rate 55 mL/min (>60); Est Glom Filt Rate - Afr Amer 67 mL/min (>60); Globulin 3.8 g/dL (2.2-4.2); Glucose 109 mg/dL (74-106); Lactic Acid 1.3 mmol/L (0.4-1.9); Potassium 4.4 mmol/L (3.5-5.1); Sodium Level 134 mmol/L (136-145); Troponin-I HS 5 pg/mL (3.0-78.0)
== END | disposition home or self-care (01) ==
LOC: BFHLAB 13:43
PROVIDERS: PCP Family Medicine; Referring Provider Family Medicine; Visit Provider Family Medicine
DX: R53.83 Other fatigue (principal); R10.9 Unspecified abdominal pain; R61 Generalized hyperhidrosis
CPT/HCPCS: 36415; 80053; 83605; 84484; 85025

== ENCOUNTER → 2024-03-24 | Outpatient (CLI) | payer MEDICARE, SELFPAY ==
--- NOTE | 2024-03-24 10:45 | CT_ITS ---
STUDY: CT ABDOMEN AND PELVIS WITH CONTRAST REASON FOR EXAM: Male, 78 years old. ABDOMINAL PAIN DIVERTICULITIS. History of prior partial colectomy. RADIATION DOSAGE (If Supplied By Facility): CTDIvol = ( 17.06 ) mGy, DLP = ( 1350.74 ) mGycm TECHNIQUE: Transaxial images were obtained from the dome of the diaphragm to the symphysis pubis without oral contrast. IV 100mL Isovue-300 was administered. Sagittal and coronal images were reconstructed. Individualized dose optimization techniques were used for this CT. COMPARISON: None. FINDINGS: The visualized lung bases are unremarkable. Coronary artery calcification. There is decreased attenuation of the liver consistent with steatosis. Questionable small gallstones. Normal spleen. There is diffuse enlargement of the pancreas with susan-pancreatic edema suggesting acute pancreatitis. Normal bilateral adrenal glands. Normal right kidney. Normal left kidney. There is evidence of a left anterior pararenal space inflammatory changes most likely secondary to the pancreatitis. Nonspecific bilateral perinephric stranding. Normal visualized stomach. Normal small intestine. Normal colon. The appendix is visualized and appears normal. There is atherosclerotic calcification of the abdominal aorta, without a demonstrated aneurysm. Normal inferior vena cava. Normal retroperitoneum. The bladder is empty. Diffuse bladder wall thickening. Prostatic enlargement with central prostatic calcification. Normal abdominal wall. There are diffuse degenerative changes of the visualized lumbar spine. Minimal anterior listhesis of L5 on S1 without spondylolysis. CT/Abdomen/Pelvis W IV Cont ONLY IMPRESSION: Findings in keeping with noncomplicated acute pancreatitis. Fatty infiltration of the liver. Findings suggestive of small gallstones. Electronically Signed: Rafita Butts MD at 11:14 EDT ,
== END | disposition home or self-care (01) ==
LOC: CT 10:43
PROVIDERS: PCP Family Medicine; Referring Provider Family Medicine; Visit Provider Family Medicine
DX: R10.9 Unspecified abdominal pain (principal); K57.92 Diverticulitis of intestine, part unspecified, without perforation or abscess without bleeding
CPT/HCPCS: 74177; Q9967

== ENCOUNTER 2024-09-30 16:35 | Emergency (ER) | payer MEDICARE, SELFPAY ==
[2024-09-30 16:35] VITALS: BP 196/109; PULSE 62; RESP 20; TEMP 36.1; O2SAT 97; BMI 45.6
--- NOTE | 2024-09-30 16:45 | US_ITS ---
PROCEDURE: ABDOMEN LIMITED 09/30/2024 REASON FOR EXAM: PAIN TECHNIQUE: Complete abdominal ultrasound sheehan-scale images with color doppler. PATIENT PREPARATION: Per protocol FINDINGS: Liver: Diffusely echogenic suggesting fatty infiltration. Gallbladder: There are echogenic gallstones. A sonographic Zapata sign is present. Common bile duct: Nonvisualized . Pancreas: Obscured by bowel gas. Kidneys: The right kidney measures 12.3 cm. No calculi or hydronephrosis. Peritoneal Findings: No ascites identified. US/Abdomen Limited IMPRESSION: Cholelithiasis and positive sonographic Zapata's sign, concerning for acute cho lecystitis. Hepatic steatosis. No focal lesion. Reading Location: [facility]
--- NOTE | 2024-09-30 16:47 | ED.VIS.GI ---
HPI HPI - GI History of Present Illness Chief Complaint: Abd Pain Informant: patient and spouse/S.O. Narrative Narrative: Sudden pain across his upper abdomen 45 minutes ago. Last eaten snacks and junk food at 2:30 PM. No fevers. No nausea or vomiting. No urinary symptoms. No diarrhea. He states similar presentation with pancreatitis this past March. He stopped drinking alcohol since then. We had total 4 drinks since then. He also was reported he did have small gallstones that possibly could have led to symptoms. However states no ERCP was performed. Abdominal surgeries include a partial colectomy in his 30s for diverticulitis. Prior similar symptoms: Yes [facility] Medical History (Updated 09/30/24 @ 20:[address] Santosh Sorensen, DO) Pancreatitis BPH (benign prostatic hyperplasia) Sleep apnea GERD (gastroesophageal reflux disease) Chest pain Personal history of colonic polyps Abdominal pain History of colon polyps History of diverticulosis History of diverticulitis Cough HTN (hypertension) Home Medications ?Medication ?Instructions ?Recorded ?Last Taken ?Type aspirin 81 mg tablet,delayed 81 mg PO DAILY 01/05/19 09/29/24 History release (Adult Aspirin Regimen) mecobalamin (vitamin B12) 1,000 1,000 mcg sublingual DAILY 01/05/19 09/29/24 History mcg disintegrating tablet,sublingual losartan 25 mg tablet 25 mg PO QHS blood pressure 10/02/20 09/29/24 History carvedilol 6.25 mg tablet 6.25 mg PO BID 09/27/23 09/30/24 History cholecalciferol (vitamin D3) 125 125 mcg PO QWEEK 09/27/23 09/27/24 History mcg (5,000 unit) capsule loratadine 10 mg tablet 10 mg PO DAILY 09/27/23 09/30/24 History losartan 100 mg tablet (Cozaar) 100 mg PO DAILY 09/27/23 09/30/24 History omeprazole 40 mg capsule,delayed 40 mg PO DAILY 09/30/24 09/30/24 History release tamsulosin 0.4 mg capsule 0.4 mg PO DAILY 09/30/24 09/29/24 History Allergy/AdvReac Type Severity Reaction Status Date / Time sulfamethoxazole (From Allergy Intermediate Rash Verified 09/30/24 16:35 Bactrim) trimethoprim (From Bactrim) Allergy Intermediate Rash Verified 09/30/24 16:35 Penicillins Allergy Mild rash Verified 09/30/24 16:35 Family History Father Hypertension Stomach ulcer Mother Hypertension Brother Cancer Spine Brother Diabetes Arthritis Grandfather Heart disease CVA (cerebral vascular accident) Daughter Multiple sclerosis Surgical History History of back surgery History of colonoscopy (~2013) History of partial colectomy History of cataract extraction Social History household members: spouse housing: house number of children: 2 current occupational status: retired Smoking Status: Former smoker alcohol intake: current alcohol intake frequency: a few times a week substance use type: does not use ROS ROS ED Constitutional Constitutional ED: Denies chills, fever(s) or sweats ENT ENT ED: Denies sore throat Cardiovascular Cardiovascular: Denies chest pain, leg edema, palpitations or racing heartbeat Respiratory/Chest Respiratory/Chest: Denies cough, dyspnea or dyspnea on exertion Gastrointestinal Gastrointestinal: Reports abdominal pain; Denies diarrhea, nausea or vomiting Genitourinary Genitourinary ED: Denies dysuria, hematuria or urinary frequency Musculoskeletal Musculoskeletal: Denies back pain, extremity pain or neck pain Integumentary Denies rash or wounds Neurologic Neurologic: Denies headache(s), paresthesias or weakness EXAM Physical Exam Const Vital Signs: 09/30/24 16:35 09/30/24 18:09 09/30/24 19:23 Temperature 97 F L Temperature Source Temporal Pulse Rate 62 78 61 Respiratory Rate 20 H 18 18 Blood Pressure 196/109 H 171/78 H 189/78 H Blood Pressure Mean 138 109 115 Pulse Ox 97 92 98 Oxygen Delivery Method Room Air Room Air Room Air Positive well nourished and well developed General Appearance ED: well developed and NAD HEENT Reports moist mucous membranes normocephalic and atraumatic Eyes General Eye ED: Yes normal appearance of both eyes Neck full ROM Chest Wall Chest: Negative for tenderness Resp normal respiratory effort and normal air movement Effort and Inspection: symmetric chest movement; Negative for respiratory distress Cardio regular rate, regular rhythm and no murmurs Peripheral Pulses: pulses 2+ throughout GI normal to inspection, nondistended, normoactive bowel sounds GI Narrative: Tender across the upper abdomen. No guarding or rebound. Palpation: Negative for guarding or rebound tenderness present Extremity normal to inspection General Extremety ED: Negative for edema or tenderness General Extremity: Negative for edema Neuro oriented x3 and no sensory deficits noted Sensorium / Orientation: awake and alert Skin no rashes or lesions noted and no wounds MDM MDM MDM Narrative Medical decision making narrative: Interventions / MDM: Differential diagnosis: Acute pancreatitis, transaminitis, choledocholithiasis Diagnosis considered but do not suspect: N/A My EKG interpretation: N/A Imaging independently reviewed and interpreted by myself: Abdominal ultrasound: Gallstones noted, no visualization of common bile duct. External documents reviewed: March 2024 CT acute pancreatitis with small gallstones. January 2024 gallbladder ultrasound multiple gallstones common bile duct 4 mm. Test considered but not ordered:N/A ED course: Sudden pain cross upper abdomen similar to pancreatitis in the past. He declines any pain medicines. IV established start fluids. Will check abdominal labs, will check right upper quadrant ultrasound for evaluation of his common bile duct. 1734: Per nursing patient changes mind on pain medications. Will order morphine and Zofran. White count returned 9.3 hemoglobin 15. 1834: Lipase greater than 3000 and liver enzymes direct bili 0.88 AST of 85. Reviewing from his labs from March 23 obtain outpatient from his PCP there was total bili of 2 with slight elevation of AST and ALT. He reported there was suspicion for possible choledocholithiasis at that time. He was treated with 10-day course of antibiotics. He was not referred to any specialist afterwards. Gallstones seen on ultrasound no reported common bile duct size on my review. He had a common bile duct 4 mm January 2024 from an ultrasound. With lab findings and history, I am concerned of pancreatitis with choledocholithiasis. Currently we do not have gastroenterology available or specialist for possible ERCP. will plan for transfer. Pain controlled at this time. 1914: Final read from radiology multiple gallstones reported sonographic Zapata sign stating concerns for cholecystitis. There is no thickening of gallbladder wall or pericholecystic fluid. Allergic penicillin and Bactrim, I will cover with cefepime. 2009: I did discuss with [facility] transfer line. They are updated on his concerns. Patient is accepted to hospitalist service. Re-evaluation: stable Disposition discussed with patient/family/significant other: Patient and significant other Case discussed with consulting clinician: [facility] This note was generated with [employer] dictation software. It may contain incorrect words, spelling, and punctuation that were not noted in checking the note before signing. Lab Data Attestation: I reviewed the patient's lab results. Labs: Laboratory Results - last 24 hr 09/30/24 09/30/24 16:51 18:00 WBC 9.3 RBC 5.02 Hgb 15.0 Hct 44.0 MCV 87.6 MCH 29.9 MCHC 34.1 RDW Std Deviation 42.5 RDW Coeff of Rhonda 13.2 Plt Count 239 MPV 9.9 Immature Gran % (Auto) 0.300 Neut % (Auto) 77.8 H Lymph % (Auto) 13.5 L [place] % (Auto) 6.3 Eos % (Auto) 1.7 Baso % (Auto) 0.4 Absolute Neuts (auto) 7.3 Absolute Lymphs (auto) 1.26 Nucleated RBC % 0 Sodium 135 Potassium 3.7 Chloride 103 Carbon Dioxide 22.7 Anion Gap 10 BUN 14 Creatinine 0.93 Estim Creat Clear Calc 86.99 Est GFR (MDRD) Non-Af 84 BUN/Creatinine Ratio 15.3 Glucose 130 H Calcium 8.4 Total Bilirubin 1.43 H Direct Bilirubin 0.88 H AST 85 H ALT 46 Alkaline Phosphatase 116 Total Protein 6.5 Albumin 3.6 Globulin 2.9 Lipase > 3000 H Radiography Diagnostic Testing: Clinical Impression(s) from Imaging Studies Abdomen Ultrasound 09/30/24 16:45 IMPRESSION: Cholelithiasis and positive sonographic Zapata's sign, concerning for acute cholecystitis. Hepatic steatosis. No focal lesion. Reading [facility] Triage Chief Complaint: Abd Pain ED Provider: Santosh Sorensen Dx/Rx/DC Orders Clinical Impression: Acute pancreatitis, Choledocholithiasis, Abdominal pain, Transaminitis Prescriptions: No Action mecobalamin (vitamin B12) 1,000 mcg tablet,disintegrating 1,000 mcg SUBLINGUAL DAILY aspirin [Adult Aspirin Regimen] 81 mg tablet,delayed release (DR/EC) 81 mg PO DAILY carvedilol 6.25 mg tablet 6.25 mg PO BID Rx Instructions: must administer with a meal/food cholecalciferol (vitamin D3) 125 mcg (5,000 unit) capsule 125 mcg PO QWEEK loratadine 10 mg tablet 10 mg PO DAILY losartan [Cozaar] 100 mg tablet 100 mg PO DAILY Rx Instructions: 100MG AM WITH 25MG PM losartan 25 mg Tablet 25 mg PO QHS omeprazole 40 mg capsule,delayed release(DR/EC) 40 mg PO DAILY tamsulosin 0.4 mg capsule 0.4 mg PO DAILY Primary Care Provider: Mariluz Sahu Referrals: Mariluz Sahu DO [Primary Care Provider] - Print Language: Polish Disposition Disposition: DC/Tx to Another Type of HCF
[2024-09-30] MEDS: 0.9% Normal Saline (1000mL) 1,000 ML 125 ML IV ×2 (17:02→20:48)
[2024-09-30 17:06] LABS: Absolute Lymphocyte Count 1.26 X10^3/uL (0.83-4.51); Absolute Neutrophil Count 7.3 X10^3/uL (2.0-7.7); Basophil# 0.04 X10^3/uL; Basophil% 0.4 % (0-1); Eosinophil# 0.16 X10^3/uL; Eosinophils% 1.7 % (0-5); Lymphocyte # 1.26 X10^3/ul (0.83-4.51); Lymphocyte % 13.5 % (19-41); Mean Corp Hgb Conc 34.1 g/dL (32-36); Mean Corpuscular Hgb 29.9 pg (27.0-32.0); Mean Corpuscular Volume 87.6 fL (80-94); Mean Platelet Vol. 9.9 fl (6.2-12.0); Monocyte# 0.59 X10^3/uL; Monocyte% 6.3 % (0-10); NRBC Flagged by Analyzer 0 % (0-5); Neutrophil # 7.26 X10^3/uL (2.7-7.7); Neutrophil % 77.8 % (47-70); Platelet Count 239 K/mm3 (150-450); RBC Distribution Width CV 13.2 % (11.6-14.6); RBC Distribution Width SD 42.5 fl (35.1-43.9); Red Blood Count 5.02 M/mm3 (4.6-6.2); White Blood Count 9.3 K/mm3 (4.4-11.0)
[2024-09-30] MEDS: Ondansetron 4 MG/2 ML Vial IV (17:40)
[2024-09-30] MEDS: Morphine 4 MG/ML Syringe IV (17:40)
[2024-09-30 18:09] VITALS: BP 171/78; PULSE 78; RESP 18; O2SAT 92
[2024-09-30 18:20] LABS: AST(SGOT) 85 U/L (<=37); Alanine Aminotransfer ALT/SGPT 46 U/L (<=46); Albumin, Serum 3.6 g/dL (3.4-4.8); Alkaline Phosphatase 116 U/L (40-129); Anion Gap 10 (5-15); BUN 14 mg/dL (4-19); BUN/Creat Ratio 15.3 RATIO (10-20); Bilirubin, Direct 0.88 mg/dL (0.00-0.30); Calcium,Total 8.4 mg/dL (7.6-11.0); Carbon Dioxide 22.7 mmol/L (21.0-32.0); Chloride 103 mmol/L (98-108); Creatinine, Serum 0.93 mg/dL (0.70-1.20); EST Glomerular Filtration Rate 84 (>60); Estimated Creatinine Clearance 86.99 ml/min (50-250); Globulin 2.9 g/dL (2.2-4.2); Glucose 130 mg/dL (70-99); Potassium 3.7 mmol/L (3.3-5.1); Protein, Total 6.5 g/dL (5.9-8.4); Sodium Level 135 mmol/L (133-145); Total Bilirubin 1.43 mg/dL (0.00-1.30)
[2024-09-30 18:32] LABS: Lipase > 3000 U/L (13-75)
[2024-09-30 19:23] VITALS: BP 189/78; PULSE 61; RESP 18; O2SAT 98
[2024-09-30] MEDS: Cefepime HCl 2 GM in 0.9% Normal Saline (100mL MB+) 100 ML IV (19:44)
[2024-09-30 20:36] VITALS: BP 175/78; PULSE 61; RESP 16; O2SAT 96
[2024-09-30 22:00] VITALS: BP 138/108; PULSE 59; RESP 16; O2SAT 97
[2024-09-30 23:11] VITALS: BP 187/78; PULSE 65; RESP 16; TEMP 36.1; O2SAT 97
== END 2024-09-30 23:28 | disposition other institution (70) ==
PROVIDERS: Emergency Provider Emergency Medicine; PCP Family Medicine; Visit Provider Emergency Medicine
DX: K85.90 Acute pancreatitis without necrosis or infection, unspecified (principal); K80.70 Calculus of gallbladder and bile duct without cholecystitis without obstruction; I10 Essential (primary) hypertension; G47.30 Sleep apnea, unspecified; K21.9 Gastro-esophageal reflux disease without esophagitis; Z87.891 Personal history of nicotine dependence; Z79.82 Long term (current) use of aspirin; Z79.899 Other long term (current) drug therapy
CPT/HCPCS: 76705; 80048; 80076; 83690; 85025; 96365; 96375; 96376; 99284; A4216; J2405

== ENCOUNTER → 2024-11-22 | Outpatient (CLI) | payer MEDICARE, SELFPAY ==
[2024-11-22 13:28] LABS: Hematocrit 42.9 % (40-54); Hemoglobin 14.2 g/dL (13.0-16.5); Immature Granulocytes Count 0.020 X10^3/uL (0.0-0.0); Mean Corp Hgb Conc 33.1 g/dL (32-36); Mean Corpuscular Volume 88.6 fL (80-94); Mean Platelet Vol. 9.9 fl (6.2-12.0); NRBC Flagged by Analyzer 0 % (0-5); Platelet Count 257 K/mm3 (150-450); RBC Distribution Width CV 13.7 % (11.6-14.6); RBC Distribution Width SD 44.7 fl (35.1-43.9); Red Blood Count 4.84 M/mm3 (4.6-6.2); White Blood Count 5.5 K/mm3 (4.4-11.0)
[2024-11-22 14:04] LABS: Free T3 2.6 pg/mL (2.18-3.98); Magnesium 2.1 mg/dL (1.5-2.2)
[2024-11-22 14:05] LABS: AST(SGOT) 14 U/L (<=37); Alanine Aminotransfer ALT/SGPT < 5 U/L (<=46); Albumin, Serum 3.9 g/dL (3.4-4.8); Alkaline Phosphatase 98 U/L (40-129); Anion Gap 11 (5-15); BUN 11 mg/dL (4-19); BUN/Creat Ratio 10.8 RATIO (10-20); Calcium,Total 9.2 mg/dL (7.6-11.0); Carbon Dioxide 24.5 mmol/L (21.0-32.0); Chloride 99 mmol/L (98-108); Globulin 3.1 g/dL (2.2-4.2); Glucose 102 mg/dL (70-99); Potassium 4.2 mmol/L (3.3-5.1)
== END | disposition home or self-care (01) ==
LOC: LAB 12:29
PROVIDERS: PCP Family Medicine; Referring Provider Family Medicine; Visit Provider Family Medicine
DX: I10 Essential (primary) hypertension (principal); R42 Dizziness and giddiness; R53.83 Other fatigue; Z51.81 Encounter for therapeutic drug level monitoring
CPT/HCPCS: 36415; 80053; 83735; 84439; 84443; 84481; 85025

== ENCOUNTER → 2025-01-16 | Outpatient (CLI) | payer MEDICARE, SELFPAY ==
--- OUTSIDE RECORDS SUMMARY | 2025-01-16 07:10 | XMS RPT_ITS | CCD ---
Author Organization [facility] CliniSyhi Care Team Providers Care Residential Solar Consultant Name Role Phone Unavailable Primary Care Provider Unavailabl e Luis Alberto DO, Mariluz A Primary Care Provider [phone] MALYS, MARILUZ A Primary Care Unavailable KAUR KELLY Referring Unavailable KOTAYS, MARILUZ A Primary Care Unavailable KAUR KELLY Referring Unavailable DUSTY HOOKS Referring Unavailable KAUR KELLY Attending Unavailable MALYS, MARILUZ A Primary Care Unavailable BRUCE, KAUR Referring Unavailable KAUR KELLY Attending Unavailable MICHELLE GONCALVES Attending Unavailable Dr. Mariluz Sahu DO Primary Care Provider Dr. Santosh Sorensen DO Emergency Provider [phone] Luis Alberto DO, Mariluz A Primary Care Provider SANTOSH CERVANTES Referring Unavailable MALYS, MARILUZ A Primary Care Unavailable ALEJANDRO TRAVIS Admitting Unavaila ABDOULAYE Laird Attending Unavailable RACHEL MCKNIGHT Unavailable MALYS, MARIULZ A Primary Care Unavailable SOCRATES SUBRAMANIAN Attending Unavail able GARRETT GRIFFITHS Referring Unavailable MALYS, MARILUZ A Primary Care Unavailable Dr. Santosh Sorensen DO Attending Provider Luis Alberto FAN, Dr. Mcgraw Attending Provider [phone] Dr. Mariluz Sahu DO Referring Provider Malys, Mariluz Referring Unavailable Malys, Mariluz Primary Care Unavailable Malys, Mariluz Attending Unavailable Malys, Mariluz Primary Care Unavailable Santosh Sorensen Attending Unavailable Malys, Mariluz Primary Care Unavailable Malys, Mariluz Referring Unavailable Malys, Mariluz Attending Unavailable Malys, Mariluz Primary Care Unavailable Malys, Mariluz Referring Unavailable Malys, Mariluz Attending Unavailable Malys, Mariluz Referring Unavailable Malys, Mariluz Attending Unavailable Malys, Mariluz Primary Care Unavailable Malys, Mariluz Primary Care Unavailable Malys, Mariluz Referring Unavailable Malys, Mariluz Attending Unavailable Malys, Mariluz Referring Unavailable Malys, Mariluz Attending Unavailable Malys, Mariluz Primary Care Unavailable Malys, Mariluz Referring Unavailable Malys, Mariluz Attending Unavailable Malys, Mariluz Primary Care Unavailable Allergies Allergy Classification Reported Allergen(s) Allergy Type Date of Onset Reaction(s) Facility (9 sources) Penicillins; Translations: [PENICILLINS] Allergy to substance 05-03-20 [facility] (4 sources) Penicillins Propensity to adverse reactions 05-03-20 [facility] Work Phone: (7 sources) Sulfonamides (Antibiotic); Translations: [SULFA (SULFONAMIDE ANTIBIOTICS)] Drug Allergy 02-06-20 [facility] (2 sources) Sulfamethoxazole Drug Allergy 10-01-19 [facility] (2 sources) Trimethoprim Drug Allergy 10-01-19 [facility] (1 source) Penicillins Propensity to adverse reactions 05-03-20 [facility] Work Phone: (1 source) Penicillins Drug allergy (disorder) 10-01-[address] [facility] (1 source) Sulfamethoxazole Drug Allergy 10-01-[address] [facility] (1 source) Trimethoprim Drug Allergy 10-01-[address] [facility] Medications Current Medications Medication Drug Class(es) Dates Sig (Normalized) Sig (Original) amLODIPine 10 mg oral tablet (1 source) Dihydropyridine Calcium Channel Josias Start: 10-06-2024 End: 11-05-2024 take 1 tablet by mouth once daily amLODIPine (NORVASC) 10 mg tablet Take 1 tablet by mouth once daily. Patient should start on October 06, 2024. 30 tablet 10/06/2024 11/05/2024 Active aspirin 81 mg delayed release oral tablet (12 sources) Platelet Aggregation Inhibitor, Nonsteroidal Anti-inflammatory Drug Start: 01-05-2019 take 1 tablet by mouth once daily Aspirin (Adult Aspirin Regimen) 81 mg tablet,delayed release (DR/EC) Active 81 mg PO DAILY January 05, 2019 12:00am Comment on above: Take 81 mg by mouth once daily. benoxinate hydrochloride 4 mg/ml / fluorescein sodium 2.5 mg/ml ophthalmic solution (2 sources) Diagnostic Dye Start: 02-05-2023 End: 02-16-2023 fluorescein-christine xinate 0.25-0.4 % 1 Drop (FLURESS) carvedilol 6.25 mg oral tablet (7 sources) alpha-Adrenergic Josias, beta-Adrenergic Josias Start: 09-27-2023 take 1 tablet by mouth twice daily at mealtime Carvedilol 6.25 mg tablet Active 6.25 mg PO TWICE A DAY September 27, 2023 12:00am must administer with a meal/food Start: 11-16-2022 take 1 tablet by juanjose th every twelve hours carvedilol (COREG) 6.25 mg tablet Take 1 tablet by mouth every 12 (twelve) hours. 11/16/2022 Active Comment on above: Take 1 tablet by juanjose th every 12 (twelve) hours. cholecalciferol 0.125 mg oral capsule (2 sources) Vitamin D Start: 09-27-19 take 1 capsule by mouth every week Cholecalciferol (Vitamin D3) 125 mcg (5,000 unit) capsule Active 125 ug PO EVERY WEEK September 27, 2023 12:00am cholecalciferol, vitamin D3, (VITAMIN D3 ORAL) (5 sources) cholecalciferol, vitamin D3, (VITAMIN D3 ORAL) Take by mouth. 5000 mcg Active cholecalciferol, vitamin D3, (VITAMIN D3 ORAL) Take by mouth. 5000 mcg 0 Active Comment on above: Take by mouth. 5000 mcg iv contrast (will be provided with radiology test) (2 sources) Start: 02-05-2023 End: 02-06-2023 iv contrast (will be provided with radiology test) Indications: Other localized visual field defect, bilateral , Diplopia , Exophoria MRI Orbits Inject, intravenously, once for 1 dose. No IV access, insert saline lock prior to the beginning of sedation, infusion, injection of imaging exam. Discontinue saline lock post exam. If Pt. has a central line or IVAD, may access for administration according to line specific nursing protocol. Once exam is complete flush line and de-access according to line specific nursing protocol in the MR contrast administration guidelines link. 1 Each 0 02/05/2023 02/06/2023 Active Start: 02-05-2023 End: 02-06-2023 inject 1 dose intravenously once iv contrast (will be provided with radiology test) Indications: Other localized visual field defect, bilateral , Diplopia , Exophoria MRI Brain Inject, intravenously, once for 1 dose.No IV access, insert saline lock prior to beginning of sedation, infusion, injection of imaging exam.Discontinue saline lock post exam. If Pt. has a central line or IVAD, may access for administration according to line specific nursing protocol.Once exam is complete flush line and de-access according to line specific nursing protocol in the MR contrast administration guidelines link 1 Each 0 02/05/2023 02/06/2023 Active Comment on above: MRI Orbits Inject, i ntravenously, once for 1 dose. No IV access, insert saline lock prior to the beginning of sedation, infusion, injection of imaging exam. Discontinue saline lock post exam. If Pt. has a central line or IVAD, may access for administration according to line specific nursing protocol. Once exam is complete flush line and de-access according to line specific nursing protocol in the MR contrast administration guidelines link. MRI Brain Inject, in travenously, once for 1 dose.No IV access, insert saline lock prior to beginning of sedation, infusion, injection of imaging exam.Discontinue saline lock post exam. If Pt. has a central line or IVAD, may access for administration according to line specific nursing protocol.Once exam is complete flush line and de-access according to line specific nursing protocol in the MR contrast administration guidelines link loratadine 10 mg oral tablet (7 sources) Start: 3 take 1 tablet by mouth once daily Loratadine 10 mg tablet Active 10 mg PO DAILY September 27, 2023 12:00am Comment on above: Take 1 tablet by juanjose th every afternoon. losartan potassium 25 mg oral tablet (20 sources) Angiotensin 2 Receptor Josias Start: 1 take 1 tablet by mouth at bedtime Losartan 25 mg Tablet Active 25 mg PO AT BEDTIME October 02, 2020 12:00am blood pressure Start: 01-31-2019 End: 09-27-2023 Losartan (Cozaar) 100 mg tab let Active 100 mg PO DAILY September 27, 2023 2:10pm 100MG AM WITH 25MG PM Comment on above: Take 100 mg by mouth once daily. mecobalamin 1 mg sublingual tablet (7 sources) Start: 9 Mecobalamin (Vitamin B12) 1,000 mcg tablet,disintegratin g Active 1000 ug SL DAILY January 05, 2019 12:00am omeprazole 40 mg delayed release oral capsule (14 sources) Proton Pump Inhibitor Start: 5 take 1 capsule by mouth once daily Omeprazole 40 mg capsule,delayed release(DR/EC) Active 40 mg PO DAILY September 30, 2024 12:00am Start: 01-31-2019 End: 09-27-2023 Omeprazole 40 MG capsule,del ayed release(DR/EC) Discontinued 0 mg PO DAILY 30 January 31, 2019 12:00am September 27, 2023 2:11pm Comment on above: Take 1 capsule by [facility] every afternoon. proparacaine hydrochloride 5 mg/ml ophthalmic solution (2 sources) Local Anesthetic Start: 3 End: 3 proparacaine 0.5 % 1 Drop (ALCAINE) salicylic acid 0.4 mg/mg medicated patch (5 sources) Salicylic Acid ( DR CHAHAL'S CLEAR AWAY) 40 % ptmd Apply to affected area as directed. Active Comment on above: Apply to affected ar ea as directed. tamsulosin hydrochloride 0.4 mg oral capsule (2 sources) alpha-Adrenergic Josias Start: 5 take 1 capsule by mouth once daily Tamsulosin 0.4 mg capsule Active 0.4 mg PO DAILY September 30, 2024 12:00am vitamin b12 5 mg extended release oral tablet (5 sources) Vitamin B12 cyanocobalamin, vitamin B-12, 5,000 mcg TbIE Take by mouth. 100 mcg Active Comment on above: Take by mouth. 100 m cg Completed/Discontinued Medications Medication Drug Class(es) Dates Sig (Normalized) Sig (Original) phenylephrine hydrochloride 25 mg/ml ophthalmic solution (1 source) alpha-1 Adrenergic Agonist Start: 02-05-2023 End: 02-05-2023 PHENYLephrine 2.5 % 1 Drop (AK-DILATE, ISABEL-SYNEPHRINE) tropicamide 10 mg/ml ophthalmic solution (1 source) Anticholinergic Start: 02-05-2023 End: 02-05-2023 tropicamide 1 % 1 Drop (MYDRIACYL) Problems Active Problems Problem Classification Problem Date Documented Date Episodic/Chronic Abdominal pain (11 sources) Abdominal pain; Translations: [Unspecified abdominal pain] Onset: 10-01-2024 10-02-2020 Episodic Biliary tract disease (3 sources) Common bile duct calculus; Translations: [Calculus of bile duct without cholangitis or cholecystitis without obstruction] Onset: 10-01-2024 09-30-2024 Episodic Blindness and vision defects (8 sources) Diplopia; Translations: [Diplopia] Onset: 03-10-2023 02-05-2023 Episodic Diverticulosis and diverticulitis (5 sources) Diverticulosis of colon; Translations: [Diverticulosis of large intestine without perforation or abscess without bleeding] Onset: 05-13-2007 05-13-2007 Chronic Esophageal disorders (8 sources) Gastroesophageal reflux disease; Translations: [Gastro-esophageal reflux disease without esophagitis] Onset: 10-01-2024 10-02-2020 Chronic Essential hypertension (9 sources) Hypertensive disorder; Translations: [Essential (primary) hypertension] Onset: 10-01-2024 10-02-2020 Chronic Fluid and electrolyte disorders (1 source) Hyponatremia; Translations: [Hypo-osmolality and hyponatremia] Onset: 10-01-2024 10-01-2024 Episodic Hyperplasia of prostate (1 source) Benign prostatic hyperplasia; Translations: [Benign prostatic hyperplasia without lower urinary tract symptoms] Onset: 10-01-2024 10-01-2024 Chronic Nausea and vomiting (1 source) Nausea; Translations: [Nausea] Onset: 10-01-2024 10-01-2024 Episodic Nonspecific chest pain (7 sources) Chest pain; Translations: [Chest pain, unspecified] 10-02-2020 Episodic Other and unspecified benign neoplasm (12 sources) History of polyp of colon; Translations: [Personal history of colonic polyps] Onset: 11-20-2008 10-01-2020 Episodic Other eye disorders (3 sources) Exophoria; Translations: [Exophoria] 02-05-2023 Episodic Other eye disorders (1 source) Exophoria; Translations: [Exophoria] Onset: 03-10-2023 Episodic Other liver diseases (2 sources) Enzyme level - finding; Translations: [Elevated transaminase measurement] 09-30-2024 Episodic Other nutritional; endocrine; and metabolic disorders (1 source) Hyperbilirubinemia; Translations: [Other disorders of bilirubin metabolism] Onset: 10-01-2024 10-01-2024 Chronic Other nutritional; endocrine; and metabolic disorders (1 source) Morbid obesity; Translations: [Morbid (severe) obesity due to excess calories] Onset: 10-01-2024 10-01-2024 Chronic Other nutritional; endocrine; and metabolic disorders (1 source) Body mass index 40+ - severely obese; Translations: [Obesity, Class III, BMI 40-49.9 (morbid obesity)] Onset: 10-02-2024 10-02-2024 Chronic Pancreatic disorders (not diabetes) (4 sources) Acute pancreatitis; Translations: [Acute pancreatitis without necrosis or infection, unspecified] Onset: 10-01-2024 09-30-2024 Episodic Residual codes; unclassified (1 source) Acquired absence of other specified parts of digestive tract; Translations: [Status post laparoscopic cholecystectomy] Onset: 10-23-2024 Episodic Thyroid disorders (1 source) Hypothyroidism, unspecified; Translations: [Hypothyroidism, unspecified] Onset: 02-01-2024 Chronic Past or Other Problems Problem Classification Problem Date Documented Da te Episodic/Chronic Hemorrhoids (5 sources) External hemorrhoids; Translations: [Residual hemorrhoidal skin tags] Onset: 11-23-2008 11-23-2008 Episodic Malaise and fatigue (1 source) Other fatigue; Translations: [Other fatigue] Onset: 04-11-2024 Episodic Other and unspecified benign neoplasm (5 sources) Benign neoplasm of colon; Translations: [Benign neoplasm of colon, unspecified] Onset: 05-13-2007 05-13-2007 Episodic Other gastrointestinal disorders (5 sources) Other specified symptoms and signs involving the digestive system and abdomen; Translations: [Other symptoms involving digestive system] Onset: 05-03-2007 05-03-2007 Episodic Other liver diseases (1 source) Abnormal levels of other serum enzymes; Translations: [Abnormal levels of other serum enzymes] Onset: 03-28-2024 Episodic Results Test Name Value Interpretation Reference Range Facility Absolute lymphocyte countOrd ered By: Mariluz Sahu on 11-22-2024 Lymphocytes Auto (Unsp spec) [#/Vol] 1.54 10*3/uL 0.83-4.[address] [facility] Absolute neutrophil countOrd ered By: Mariluz Sahu on 11-22-2024 Neutrophils (Bld) [#/Vol] 3.3 10*3/uL 2.0-7.[address] [facility] Anion gap in Serum or Plasma Ordered By: Mariluz Luis Alberto on 11-22-2024 Anion gap [Moles/Vol] 11 mmol/L 5-15 [facility] Automated lymphocyte count a s percentage of total leukocytesOrdered By: Mariluz Sahu on 11-22-2024 Lymphocytes/100 WBC Auto (Unsp spec) 27.9 % 19- [facility] BUN/creatinine ratioOrdered By: Mariluz Sahu on 11-22-2024 Urea nitrogen/Creatinine [Mass ratio] 10.8 mg/mg 10-[address] [facility] Basophil percentageOrdered B y: Mariluzbrenna Sahu on 11-22-2024 Basophils/100 WBC (Bld) 0.5 % 0-[address] [facility] Bilirubin, totalOrdered By: Mariluz Kotamercedes on 11-22-2024 Bilirubin [Mass/Vol] 1.22 mg/dL 0.00-1.30 [facility] CBC W/Diff, Automatedon Absolute Lymph 1.54 X10 3/uL Normal 0.83-4.[address] [facility] Comment on above: Performed By: #### L [id number], [id number], L500.4050, L501.9520, L506.0400, L100.0100 #### [facility] [address] [place], [address] Absolute Neut 3.3 X10 3/uL Normal 2.0-7.[address] [facility] Comment on above: Performed By: #### L [id number], L501.5200, L500.4050, L501.9520, L506.0400, L100.0100 #### [facility] [address] [place], [address] Basophils/100 WBC (Bld) 0.5 % Normal 0-[address] [facility] Comment on above: Performed By: #### L [id number], L501.5200, L500.4050, L501.9520, L506.0400, L100.0100 #### [facility] [address] [place], [address] Eosinophils/100 WBC (Bld) 3.1 % Normal 0-[address] [facility] Comment on above: Performed By: #### L [id number], L501.5200, L500.4050, L501.9520, L506.0400, L100.0100 #### [facility] [address] [place], [address] Erythrocyte distribution width (RBC) [Ratio] 13.7 % Normal 11.6-14.[address] [facility] Comment on above: Performed By: #### L [id number], [id number], L500.4050, L501.9520, L506.0400, L100.0100 #### [facility] [address] [place], [address] Hematocrit (Bld) [Volume fraction] 42.9 % Normal 40-[address] [facility] Comment on above: Performed By: #### L [id number], L501.5200, L500.4050, L501.9520, L506.0400, L100.0100 #### [facility] [address] [place], [address] Hemoglobin (Bld) [Mass/Vol] 14.2 g/dL Normal 13.0-16.[address] [facility] Comment on above: Performed By: #### L 501.04428, L501.5200, L500.4050, L501.9520, L506.0400, L100.0100 #### [facility] [address] [place], [address] IG% 0.400 Normal 0.0-0.[address] [facility] Comment on above: Result Comment: IG% - Immature Granulocytes (promyelocytes, myelocytes and metamyelocytes) > 1% indicates that a LEFT SHIFT is Present. Performed By: #### L 501.03046, L501.5200, L500.4050, L501.9520, L506.0400, L100.0100 #### [facility] [address] [place], [address] Lymphocytes/100 WBC (Bld) 27.9 % Normal 19-[address] [facility] Comment on above: Performed By: #### L 501.29774, L501.5200, L500.4050, L501.9520, L506.0400, L100.0100 #### [facility] [address] [place], [address] MCH (RBC) [Entitic mass] 29.3 pg Normal 27.0-32.[address] [facility] Comment on above: Performed By: #### L [id number], L501.5200, L500.4050, L501.9520, L506.0400, L100.0100 #### [facility] [address] [place], [address] MCHC (RBC) [Mass/Vol] 33.1 g/dL Normal 32-36 [facility] Comment on above: Performed By: #### L 501.35342, L501.5200, L500.4050, L501.9520, L506.0400, L100.0100 #### [facility] [address] [place], [address] MCV (RBC) [Entitic vol] 88.6 fL Normal 80-[address] [facility] Comment on above: Performed By: #### L [id number], L501.5200, L500.4050, L501.9520, L506.0400, L100.0100 #### [facility] [address] [place], [address] Monocytes/100 WBC (Bld) 9.2 % Normal 0-[address] [facility] Comment on above: Performed By: #### L 501.82127, L501.5200, L500.4050, L501.9520, L506.0400, L100.0100 #### [facility] [address] [place], [address] Neutrophils/100 WBC (Bld) 58.9 % Normal 47-[address] [facility] Comment on above: Performed By: #### L 501.90728, L501.5200, L500.4050, L501.9520, L506.0400, L100.0100 #### [facility] [address] [place], [address] Nucleated RBC (Bld) [#/Vol] 0 10*3/uL Normal 0-[address] [facility] Comment on above: Performed By: #### L 501.94636, L501.5200, L500.4050, L501.9520, L506.0400, L100.0100 #### [facility] [address] [place], [address] Platelet mean volume (Bld) [Entitic vol] 9.9 fL Normal 6.2-12.[address] [facility] Comment on above: Performed By: #### L 501.62063, L501.5200, L500.4050, L501.9520, L506.0400, L100.0100 #### [facility] [address] [place], [address] Platelets (Bld) [#/Vol] 257 10*3/uL Normal 150-[address] [facility] Comment on above: Performed By: #### L [id number], L501.5200, L500.4050, L501.9520, L506.0400, L100.0100 #### [facility] [address] [place], [address] RBC (Bld) [#/Vol] 4.84 10*6/uL Normal 4.6-6.2 [facility] Comment on above: Performed By: #### L 501.25316, L501.5200, L500.4050, L501.9520, L506.0400, L100.0100 #### [facility] [address] [place], [address] RDW SD 44.7 fl High 35.1-43.[address] [facility] Comment on above: Performed By: #### L 501.14852, L501.5200, L500.4050, L501.9520, L506.0400, L100.0100 #### [facility] [address] [place], [address] WBC (Bld) [#/Vol] 5.5 10*3/uL Normal 4.4-11.0 [facility] Comment on above: Performed By: #### L 501.21334, L501.5200, L500.4050, L501.9520, L506.0400, L100.0100 #### [facility] [address] [place], [address] Carbon dioxide, total [Moles /volume] in Central venous bloodOrdered By: Mariluz Sahu on 11-22-2024 CO2 [Moles/Vol] 24.5 mmol/L 21.0-32.[address] [facility] Chloride assayOrdered By: Carmen Sahu on 11-22-2024 Chloride [Moles/Vol] 99 mmol/L 98-108 [facility] Metabolic Prof ilon 11-22-2024 Albumin [Mass/Vol] 3.9 g/dL Normal 3.4-4.8 [facility] Comment on above: Performed By: #### L 501.90514, L501.5200, L500.4050, L501.9520, L506.0400, L100.0100 #### [facility] [address] [place], [address] Albumin/Globulin [Mass ratio] 1.3 {ratio} Normal 0.9-2.[address] [facility] Comment on above: Performed By: #### L 501.75308, L501.5200, L500.4050, L501.9520, L506.0400, L100.0100 #### [facility] [address] [place], [address] ALK PHOS 98 U/L Normal 40-[address] [facility] Comment on above: Performed By: #### L 501.41759, L501.5200, L500.4050, L501.9520, L506.0400, L100.0100 #### [facility] [address] [place], [address] ALT [Catalytic activity/Vol] U/L Normal <=[address] [facility] Comment on above: Performed By: #### L 501.75739, L501.5200, L500.4050, L501.9520, L506.0400, L100.0100 #### [facility] [address] [place], [address] AST [Catalytic activity/Vol] 14 U/L Normal <=[address] [facility] Comment on above: Performed By: #### L 501.11114, L501.5200, L500.4050, L501.9520, L506.0400, L100.0100 #### [facility] [address] [place], [address] Bilirubin [Mass/Vol] 1.22 mg/dL Normal 0.00-1.30 [facility] Comment on above: Performed By: #### L 501.77088, L501.5200, L500.4050, L501.9520, L506.0400, L100.0100 #### [facility] [address] [place], [address] BUN/CRE 10.8 RATIO Normal 10-[address] [facility] Comment on above: Performed By: #### L 501.51429, L501.5200, L500.4050, L501.9520, L506.0400, L100.0100 #### [facility] [address] [place], [address] Calcium [Mass/Vol] 9.2 mg/dL Normal 7.6-11.0 [facility] Comment on above: Performed By: #### L [id number], L501.5200, L500.4050, L501.9520, L506.0400, L100.0100 #### [facility] [address] [place], [address] Chloride [Moles/Vol] 99 mmol/L Normal 98-108 [facility] Comment on above: Performed By: #### L 501.35568, L501.5200, L500.4050, L501.9520, L506.0400, L100.0100 #### [facility] [address] [place], [address] CO2 [Moles/Vol] 24.5 mmol/L Normal 21.0-32.[address] [facility] Comment on above: Performed By: #### L 501.68773, L501.5200, L500.4050, L501.9520, L506.0400, L100.0100 #### [facility] [address] [place], [address] Creatinine [Mass/Vol] 1.03 mg/dL Normal 0.70-1.20 [facility] Comment on above: Performed By: #### L 501.07084, L501.5200, L500.4050, L501.9520, L506.0400, L100.0100 #### [facility] [address] [place], [address] GAP 11 Normal 5-[address] [facility] Comment on above: Performed By: #### L 501.43464, L501.5200, L500.4050, L501.9520, L506.0400, L100.0100 #### [facility] [address] [place], [address] GFR/1.73 sq M.predicted among non-blacks MDRD (S/P/Bld) [Vol rate/Area] 75 mL/min/{1.73_m2} Normal >[address] [facility] Comment on above: Result Comment: mL/m in/1.73m2 CKD-EPI Creatinine Equation (2020) Performed By: #### L 501.15186, L501.5200, L500.4050, L501.9520, L506.0400, L100.0100 #### [facility] [address] [place], [address] Globulin (S) [Mass/Vol] 3.1 g/dL Normal 2.2-4.[address] [facility] Comment on above: Performed By: #### L 501.30328, L501.5200, L500.4050, L501.9520, L506.0400, L100.0100 #### [facility] [address] [place], [address] Glucose [Mass/Vol] 102 mg/dL High 70-99 [facility] Comment on above: Performed By: #### L 501.38154, L501.5200, L500.4050, L501.9520, L506.0400, L100.0100 #### [facility] [address] [place], [address] Potassium [Moles/Vol] 4.2 mmol/L Normal 3.3-5.1 [facility] Comment on above: Performed By: #### L 501.10001, L501.5200, L500.4050, L501.9520, L506.0400, L100.0100 #### [facility] [address] [place], [address] Sodium [Moles/Vol] 134 mmol/L Normal 133-145 [facility] Comment on above: Performed By: #### L 501.90843, L501.5200, L500.4050, L501.9520, L506.0400, L100.0100 #### [facility] [address] [place], [address] T PROT 7.0 g/dL Normal 5.9-8.[address] [facility] Comment on above: Performed By: #### L 501.82292, L501.5200, L500.4050, L501.9520, L506.0400, L100.0100 #### [facility] [address] [place], [address] Urea nitrogen [Mass/Vol] 11 mg/dL Normal 4-[address] [facility] Comment on above: Performed By: #### L 501.35730, L501.5200, L500.4050, L501.9520, L506.0400, L100.0100 #### [facility] [address] [place], [address] Eosinophil percentageOrdered By: Mariluz Sahu on 11-22-2024 Eosinophils/100 WBC (Bld) 3.1 % 0-[address] [facility] Erythrocyte distribution wid th ratioOrdered By: Mariluz Sahu on 11-22-2024 Erythrocyte distribution width (RBC) [Ratio] 13.7 % 11.6-14.[address] [facility] Erythrocyte distribution wid th standard deviationOrdered By: Mariluz Sahu on 11-22-2024 Erythrocyte distribution width (RBC) [Ratio] 44.7 fl High 35.1-43.[address] [facility] Free T3on 11-22-2024 Free T3 [Mass/Vol] 2.6 pg/mL Normal 2.18-3.98 [facility] Comment on above: Performed By: #### L 501.68027, L501.5200, L500.4050, L501.9520, L506.0400, L100.0100 #### [facility] [place], [address] Free Q9Eizxbir By: Mariluz fiore on 11-22-2024 Free T3 [Mass/Vol] 2.6 pg/mL 2.18-3.98 [facility] Glomerular filtration rate ( GFR) estimation/1.73 sq m using serum, plasma, or whole bOrdered By: Mariluz Sahu on 11-22-2024 GFR/1.73 sq M.predicted among non-blacks MDRD (S/P/Bld) [Vol rate/Area] 75 mL/min/{1.73_m2} >[address] [facility] Comment on above: mL/min/1.73m2 CKD-EP I Creatinine Equation (2020) Hematocrit Auto (Bld) [Volum e fraction]Ordered By: Mariluz Sahu on 11-22-2024 Hematocrit (Bld) [Volume fraction] 42.9 % 40-[address] [facility] Hemoglobin measurementOrdere d By: Mariluz Sahu on 11-22-2024 Hemoglobin (Bld) [Mass/Vol] 14.2 g/dL 13.0-16.[address] [facility] Immature granulocytes/100 WB C Auto (Bld)Ordered By: Mariluz Sahu on 11-22-2024 Immature granulocytes/100 WBC (Bld) 0.400 % 0.0-0.[address] [facility] Comment on above: IG% - Immature Granu locytes (promyelocytes, myelocytes and metamyelocytes) > 1% indicates that a LEFT SHIFT is Present. Laboratory - Chemistry and C hemistry - challengeOrdered By: Mariluz Sahu on 11-22-2024 AST [Catalytic activity/Vol] 14 U/L <[address] [facility] MCV (mean corpuscular volume ) determinationOrdered By: Mariluz Sahu on 11-22-2024 MCV (RBC) [Entitic vol] 88.6 fL 80-[address] [facility] Magnesiumon 11-22-2024 Magnesium [Mass/Vol] 2.1 mg/dL Normal 1.5-2.2 [facility] Comment on above: Performed By: #### L 501.14842, L501.5200, L500.4050, L501.9520, L506.0400, L100.0100 #### [facility] [address] [place], [address] Magnesium measurement (mass/ volume)Ordered By: Mariluz Sahu on 11-22-2024 Magnesium (Unsp spec) [Mass/Vol] 2.1 mg/dL 1.5-2.[address] [facility] Mean corpuscular hemoglobin (MCH) determinationOrdered By: Mariluz Sahu on 11-22-2024 MCH (RBC) [Entitic mass] 29.3 pg 27.0-32.[address] [facility] Mean corpuscular hemoglobin concentration (MCHC) determinationOrdered By: Mariluz Sahu on 11-22-2024 MCHC (RBC) [Mass/Vol] 33.1 g/dL 32-36 [facility] Mean platelet volume determi nationOrdered By: Mariluz Sahu on 11-22-2024 Platelet mean volume (Bld) [Entitic vol] 9.9 fL 6.2-12.[address] [facility] Monocyte percentageOrdered B y: Mariluz Sahu on 11-22-2024 Monocytes/100 WBC (Bld) 9.2 % 0-[address] [facility] Neutrophil percentageOrdered By: Mariluz Sahu on 11-22-2024 Neutrophils/100 WBC (Bld) 58.9 % 47-[address] [facility] Nucleated red blood cell per centageOrdered By: Mariluz Sahu on 11-22-2024 Nucleated RBC/100 WBC (Bld) [Ratio] 0 % 0-[address] [facility] Platelet countOrdered By: Carmen Sahu on 11-22-2024 Platelets (Bld) [#/Vol] 257 10*3/uL 150-[address] [facility] Potassium measurement (mass/ volume)Ordered By: Mariluz Sahu on 11-22-2024 Potassium (Unsp spec) [Mass/Vol] 4.2 mmol/L 3.3-5.[address] [facility] RBC Auto (Bld) [#/Vol]Ordere d By: Mariluz Sahu on 11-22-2024 RBC (Bld) [#/Vol] 4.84 10*6/uL 4.6-6.2 [facility] Serum creatinine measurement (mass/volume)Ordered By: Mariluz Sahu on 11-22-2024 Creatinine [Mass/Vol] 1.03 mg/dL 0.70-1.20 [facility] Serum globulin measurementOr dered By: Mariluz Sahu on 11-22-2024 Globulin (S) [Mass/Vol] 3.1 g/dL 2.2-4.[address] [facility] Serum glucose measurement (m ass/volume)Ordered By: Mariluz Sahu on 11-22-2024 Glucose [Mass/Vol] 102 mg/dL High 70-99 [facility] Serum or plasma alanine dickey otransferase (ALT) measurementOrdered By: Mariluz Sahu on 11-22-2024 ALT [Catalytic activity/Vol] U/L <[address] [facility] Serum or plasma albumin yessenia urement (mass/volume)Ordered By: Mariluz Sahu on 11-22-2024 Albumin [Mass/Vol] 3.9 g/dL 3.4-4.8 [facility] Serum or plasma albumin/glob ulin mass ratioOrdered By: Mariluz Sahu on 11-22-2024 Albumin/Globulin [Mass ratio] 1.3 {ratio} 0.9-2.[address] [facility] Serum or plasma alkaline sadie sphatase measurementOrdered By: Mariluz Sahu on 11-22-2024 ALP [Catalytic activity/Vol] 98 U/L 40-[address] [facility] Serum or plasma calcium yessenia urement (mass/volume)Ordered By: Mariluz Sahu on 11-22-2024 Calcium [Mass/Vol] 9.2 mg/dL 7.6-11.0 [facility] Serum or plasma urea nitroge n measurement (mass/volume)Ordered By: Mariluz Sahu on 11-22-2024 Urea nitrogen [Mass/Vol] 11 mg/dL 4-[address] [facility] Sodium levelOrdered By: Mariluz Sahu on 11-22-2024 Sodium [Moles/Vol] 134 mmol/L 133-145 [facility] T4 Free Directon 07-02-2025 T4 FREE DIRECT 1.40 ng/dL Normal 0.76-1.[address] [facility] Comment on above: Performed By: #### L 501.45576, L501.5200, L500.4050, L501.9520, L506.0400, L100.0100 #### [facility] [address] [place], [place], [id number] T4 freeOrdered By: Mariluz fiore on 11-22-2024 Free T4 [Mass/Vol] 1.40 ng/dL 0.76-1.46 [facility] TSH DL <= 0.005 mIU/L QnOrde red By: Mariluz Sahu on 11-22-2024 TSH Qn 2.310 uIU/mL 0.300-4.[address] [facility] Thyroid Stim Hormone (TSH)on 11-22-2024 TSH 2.310 uIU/mL Normal 0.300-4.[address] [facility] Comment on above: Performed By: #### L 501.17570, L501.5200, L500.4050, L501.9520, L506.0400, L100.0100 #### [facility] [address] [place], [place], [id number] Total proteinOrdered By: Jeannette Sahu on 11-22-2024 Protein [Mass/Vol] 7.0 g/dL 5.9-8.4 [facility] White blood cell (WBC) count Ordered By: Mariluz Sahu on 11-22-2024 WBC (Bld) [#/Vol] 5.5 10*3/uL 4.4-11.0 [facility] CNOVon 10-23-2024 CNOV Office Visit (AGGENS 3) -- UMU SALCIDO ([id number]) 1945 M Date Time Provider Department 10/23/24 2:00 PM [facility] ACC [id number] During your visit today, we recorded the following information about you: Adri Lugo APRN.CNP 10/23/2024 1:53 PM Signed This Team Access Model visit is a phone encounter. It required patient-provider interaction for the medical decision making as documented below. Notation of pt consent to encounter via telephone: verbal Name of all people present during telemedicine encounter and their role: June Salcido-patient; Gonzalo Lugo [employer]CH[employer] CC or reason for telephone encounter: post operative follow up Relevant history, background and/or results: Acute gallstone pancreatitis s/p lap mookie and IOC on 10/[address] Agustin Garza FINAL DIAGNOSIS A. Gallbladder, cholecystectomy: - Cholelithiasis. - Cholesterolosis Assessment: recovering as expected Plan and next steps: follow up prn Total time spent on medical discussion: 13 minutes [id number] 5-10 minutes 12672 11-20 minutes [id number] 21-30 minutes If >30 minutes use two codes to cover time (45 minutes = 63209 + 26303). I have communicated my name and active licensure. The patient's identity and physical location were verified at the time of this visit. Either the patient or their legal technical sales representative has been informed of the risks and benefits of -- and alternatives to -- treatment through a remote evaluation and consents to proceed with the evaluation remotely. Allergies As of Date: 10/23/2024 Noted Allergy Reaction PENICILLINS 05/03/2007 4 - Hives SULFA (SULFONAMIDE ANTIBIOTICS) 02/05/2023 2 - Rash Date Reviewed: 10/23/2024 Reviewed by: Adri Lugo APRN.G[employer] MERCHANDISER - Fully Assessed Primary Visit Diagnosis:Status post laparoscopic cholecystectomy [Z90.49] Prescriptions as of 10/23/2024 - amLODIPine (NORVASC) 10 mg tablet Take 1 tablet by mouth once daily. Patient should start on October 06, 2024. - carvedilol (COREG) 6.25 mg tablet Take 1 tablet by mouth every 12 (twelve) hours. - loratadine (CLARITIN) 10 mg tablet Take 1 tablet by mouth every afternoon. - omeprazole (PRILOSEC) 40 mg capsule Take 1 capsule by mouth every afternoon. - cyanocobalamin, vitamin B-12, 5,000 mcg TbIE Take by mouth. 100 mcg - cholecalciferol, vitamin D3, (VITAMIN D3 ORAL) Take by mouth. 5000 mcg - Salicylic Acid (DR CHAHAL'S CLEAR AWAY) 40 % ptmd Apply to affected area as directed. - losartan 100 mg tablet Take 100 mg by mouth once daily. - aspirin, enteric coated 81 mg EC tablet Take 81 mg by mouth once daily. Problem List As Of Date 10/23/2024 Noted Resolved GI SYSTEM SYMPTOMS NEC [R19.8] 05/03/2007 POLYP COLON [D12.6] 05/13/2007 DIVERTICULA (NO DIVERTICULITIS) COLON - NO HE*05/13/2007 PERSONAL HISTORY OF COLONIC POLYPS [Z86.0100] 11/20/2008 HEMORRHOIDS EXTERNAL [K64.4] 11/23/2008 Choledocholithiasis [K80.50] 10/01/2024 Abdominal pain [R10.9] 10/01/2024 Nausea [R11.0] 10/01/2024 Hyperbilirubinemia [E80.6] 10/01/2024 HTN (hypertension) [I10] 10/01/2024 Hyponatremia [E87.1] 10/01/2024 BPH (benign prostatic hyperplasia) [N40.0] 10/01/2024 GERD (gastroesophageal reflux disease) [K21.9] 10/01/2024 Morbid obesity (HCC) [E66.01] 10/01/2024 Acute biliary pancreatitis without infection or*10/01/2024 Obesity, Class III, BMI >= 40 [E66.813] 10/02/2024 S/P laparoscopic cholecystectomy [Z90.49] 10/04/2024 Disposition: Return if symptoms worsen or fail to improve. Follow-up and Disposition History for Encounter Date Provider Department Center 10/23/2024 [id number] CARE SURGERY*AGGENS3 [facility] Encounter Status:Closed by ADRI LUGO on 10/23/24 Normal [facility] CBC panel Auto (Bld)on 10-05 Erythrocyte distribution width (RBC) [Ratio] 14.1 % Normal 11.5-15.0 [facility] Comment on above: Order Comment: Speci men Type: BLOOD SPECIMENOrdering Facility: [facility] Address: [address] [place] [address] Performed By: #### 5 8410-2 ####[facility] LABORATORYCLIA [id number] [address] OF [facility] Hematocrit (Bld) [Volume fraction] 43.4 % Normal 39.0-51.0 [facility] Comment on above: Order Comment: Speci men Type: BLOOD SPECIMENOrdering Facility: [facility] Address: [address] [place] [address] Performed By: #### 5 8410-2 ####[facility] LABORATORYCLIA [id number] [address] [place] Hemoglobin (Bld) [Mass/Vol] 14.3 g/dL Normal 13.0-17.0 [facility] Comment on above: Order Comment: Speci men Type: BLOOD SPECIMENOrdering Facility: [facility] Address: [address] [place] [address] Performed By: #### 5 8410-2 ####[facility] LABORATORYCLIA [id number] [address] [place] MCH (RBC) [Entitic mass] 30.0 pg Normal 26.0-34.0 [facility] Comment on above: Order Comment: Speci men Type: BLOOD SPECIMENOrdering Facility: [facility] Address: [address] [place] [address] Performed By: #### 5 8410-2 ####[facility] LABORATORYCLIA [id number] [address] [place] MCHC (RBC) [Mass/Vol] 32.9 g/dL Normal 30.5-36.0 [facility] Comment on above: Order Comment: Speci men Type: BLOOD SPECIMENOrdering Facility: [facility] Address: [address] [place] [address] Performed By: #### 5 8410-2 ####[facility] LABORATORYCLIA [id number] [address] OF [facility] MCV (RBC) [Entitic vol] 91.0 fL Normal 80.0-100.0 [facility] Comment on above: Order Comment: Speci men Type: BLOOD SPECIMENOrdering Facility: [facility] Address: [address] [place] [address] Performed By: #### 5 8410-2 ####[facility] LABORATORYCLIA [id number] [address] OF [place] Nucleated RBC (Bld) [#/Vol] 10*3/uL Normal <0.01 [facility] Comment on above: Order Comment: Speci men Type: BLOOD SPECIMENOrdering Facility: [facility] Address: [address] [place] [address] Performed By: #### 5 8410-2 ####[facility] LABORATORYCLIA [id number] [address] Platelet mean volume (Bld) [Entitic vol] 10.3 fL Normal 9.0-12.7 [facility] Comment on above: Order Comment: Speci men Type: BLOOD SPECIMENOrdering Facility: [facility] Address: [address] [place] [address] Performed By: #### 5 8410-2 ####[facility] LABORATORYCLIA [id number] [address] Platelets (Bld) [#/Vol] 228 10*3/uL Normal 150-400 [facility] Comment on above: Order Comment: Speci men Type: BLOOD SPECIMENOrdering Facility: [facility] Address: [address] [place] [address] Performed By: #### 5 8410-2 ####[facility] LABORATORYCLIA [id number] [address] [place] RBC (Bld) [#/Vol] 4.77 10*6/uL Normal 4.20-6.00 [facility] Comment on above: Order Comment: Speci men Type: BLOOD SPECIMENOrdering Facility: [facility] Address: [address] [place] [address] Performed By: #### 5 8410-2 ####[facility] LABORATORYCLIA [id number] [place] [address] [facility] WBC (Bld) [#/Vol] 7.36 10*3/uL Normal 3.70-11.00 [facility] Comment on above: Order Comment: Speci men Type: BLOOD SPECIMENOrdering Facility: [facility] Address: [address] [place] [address] Performed By: #### 5 8410-2 ####[facility] LABORATORYCLIA [id number] [place] [address] [facility] CNDSon 10-05-2024 CNDS HNO ID: [id number] Author: ABDOULAYE ZHOU MD Service: General Internal Medicine Author Type: Physician Type: Discharge Summary Filed: 10/05/2024 16:14 Note Text: DISCHARGE SUMMARY PATIENT NAME: Umu Salcido ADMISSION DATE: 10/01/2024 DISCHARGE DATE: 10/05/2024 ATTENDING PHYSICIAN: No att. providers found Code Status: Prior Highest Readmission Risk Score: 11 The 30 day readmissions risk score is derived from an internally validated risk model which evaluates patient level characteristics, utilization history, medication orders and lab results up until the day of discharge. Patients with a score of 39 or above are considered highest risk for readmission. Specific patient level drivers will be listed at the bottom of the summary. CONSULTING TEAMS DURING HOSPITALIZATION: None Treatment Team: Primary Service: ARRON MOODY REASON FOR HOSPITALIZATION: Abd pain FINAL DIAGNOSIS: Acute gallstone pancreatitis s/p lap choley and IOC on 10/03 Choldcholithasis s/p ERCP on 10/04 with sphincterotomy and 12mm balloon stone extraction HTN Active Hospital Problems Diagnosis POA S/P laparoscopic cholecystectomy Unknown Obesity, Class III, BMI >= 40 Unknown Abdominal pain Yes Nausea Yes Hyperbilirubinemia Yes HTN (hypertension) Yes Hyponatremia Yes BPH (benign prostatic hyperplasia) Yes GERD (gastroesophageal reflux disease) Yes Morbid obesity (HCC) Yes Acute biliary pancreatitis without infection or necrosis (HCC) Unknown Resolved Hospital Problems No resolved problems to display. OPERATIONS DURING HOSPITALIZATION: None PROCEDURES DURING HOSPITALIZATION: No procedures performed HOSPITAL COURSE: Patient is a very pleasant 79 yo male presented to the hospital complaints of abd pain patient was tx from [facility] for concerns for gallstone pancreatitis and choldcholithasis. Once patient episode of pancreatitis improved patient had lap choley with IOC which was positive on 10/03. Patient had ERCP on 10/04 with sphincterotomy and 12mm balloon stone extraction. Patient tolerated both procedures well. Patient was found to have uncontrolled bp therefore amlodipine was added to patients regimen. Patient was stable at the time of discharge. Transitions of Care Critical Issues: NEW BASELINE FOR PATIENT: na LABS AND PROCEDURES PENDING AT DISCHARGE: No pending results. PATIENT CONDITION AT DISCHARGE: Stable DISCHARGE DISPOSITION: Home with Self Prison with Self Care Discharge Physical Exam: VITAL SIGNS: BP 163/93 Pulse 63 Temp 36.4 ?C (97.6 ?F) Resp 18 Ht 171.5 cm (5' 7.5) Wt 130.7 kg (288 lb 2.3 oz) SpO2 94% BMI 44.46 kg/m? GENERAL: Alert, no distress, cooperative LUNGS: Lungs clear to auscultation, Good diaphragmatic excursion CARDIAC: Normal S1 and S2; no rubs, murmurs, or gallops ABDOMEN: Abdomen soft, non-tender, BS normal, No masses or organomegaly EXTREMITIES: Extremities normal, no deformities, edema, clubbing or skin discoloration. Good capillary refill. NEURO: Gait normal. Reflexes normal and symmetric. Sensation grossly intact INFORMATION PROVIDED TO PATIENT: na WOUND/SURGICAL SITE CARE: None DIET: Resume pre-hospital diet ACTIVITY: Resume pre-hospital activity ALLERGIES Allergen Reactions Penicillins Hives Sulfa (Sulfonamide * Rash DISCHARGE MEDICATION: Medication List START taking these medications amLODIPine 10 mg tablet Commonly known as: NORVASC Take 1 tablet by mouth once daily. Patient should start on October 06, 2024. Start taking on: October 06, 2024 CONTINUE taking these medications aspirin, enteric coated 81 mg EC tablet Commonly known as: ASPIRIN, ENTERIC COATED carvedilol 6.25 mg tablet Commonly known as: COREG cyanocobalamin (vitamin B-12) 5,[address] CHAHAL'S CLEAR AWAY Ptmd Generic drug: salicylic acid loratadine 10 mg tablet Commonly known as: CLARITIN losartan 100 mg tablet Commonly known as: COZAAR omeprazole 40 mg capsule Commonly known as: PriLOSEC VITAMIN D3 ORAL Where to Get Your Medications These medications were sent to [id number] [place] [address] - [address] [facility] - [phone] [address] [facility] [address] amLODIPine 10 mg tablet FUTURE APPOINTMENTS: Follow Up with PCP: Mariluz Sahu, The patient's risk for 30-day readmission is determined using the following contributing factors: Predictive Model Details 11% (Low) Factor Value Calculated 10/05/2024 05:21 16% Hospital [facility] [place] [facility] [facility] READMISSION RISK Model -13% Admissions (365d) 1 -10% [facility] 9% Admission Provider Speciality ADMITTING -7% Kiya Parrish 5 -6% ED visits (365d) 0 -6% Admissions (90d) 1 -6% Observations (365d) 0 -4% Admissions (60d) 1 -4% ED Encounter No Plan of care discussed with Provider, RN, Patient I have performed the cuoe-wu-[id number] and relevant services for a total of >30 minutes. SIGNATU (more content not included)... Normal [facility] Comprehensive metabolic 2000 panelon 10-05-2024 Albumin [Mass/Vol] 3.5 g/dL Low 3.9-4.9 [facility] Comment on above: Order Comment: Specagustin atkinson Type: BLOOD SPECIMENOrdering Facility: [facility] Address: [address] [place] [address] Performed By: #### 2 4323-8 ####[facility] LABORATORYCLIA [id number] [address] STATES OF [facility] ALP [Catalytic activity/Vol] 244 U/L High 38-113 [facility] Comment on above: Order Comment: Speci china Type: BLOOD SPECIMENOrdering Facility: [facility] Address: [address] [place] [address] Performed By: #### 2 4323-8 ####[facility] LABORATORYCLIA [id number] [address] [place] ALT With P-5'-P [Catalytic activity/Vol] 114 U/L High 10-54 [facility] Comment on above: Order Comment: Speci men Type: BLOOD SPECIMENOrdering Facility: [facility] Address: [address] [place] [address] Performed By: #### 2 4323-8 ####[facility] LABORATORYCLIA [id number] [place] [address] [place] Anion gap [Moles/Vol] 10 mmol/L Normal 8-15 [facility] Comment on above: Order Comment: Speci men Type: BLOOD SPECIMENOrdering Facility: [facility] Address: [address] [place] [address] Performed By: #### 2 4323-8 ####[facility] LABORATORYCLIA [id number] [address] [place] AST With P-5'-P [Catalytic activity/Vol] 67 U/L High 14-40 [facility] Comment on above: Order Comment: Speci men Type: BLOOD SPECIMENOrdering Facility: [facility] Address: [address] [place] [address] Performed By: #### 2 4323-8 ####[facility] LABORATORYCLIA [id number] [address] [place] Bilirubin [Mass/Vol] 1.5 mg/dL High 0.2-1.3 [facility] Comment on above: Order Comment: Speci men Type: BLOOD SPECIMENOrdering Facility: [facility] Address: [address] [place] [address] Performed By: #### 2 4323-8 ####[facility] LABORATORYCLIA [id number] [address] [place] Calcium [Mass/Vol] 8.6 mg/dL Normal 8.5-10.2 [facility] Comment on above: Order Comment: Speci men Type: BLOOD SPECIMENOrdering Facility: [facility] Address: [address] [place] [address] Performed By: #### 2 4323-8 ####[facility] LABORATORYCLIA [id number] [address] [place] Chloride [Moles/Vol] 99 mmol/L Normal 98-107 [facility] Comment on above: Order Comment: Speci men Type: BLOOD SPECIMENOrdering Facility: [facility] Address: [address] [place] [address] Performed By: #### 2 4323-8 ####[facility] LABORATORYCLIA [id number] [address] STATES OF [facility] CO2 [Moles/Vol] 28 mmol/L Normal 22-30 [facility] Comment on above: Order Comment: Speci men Type: BLOOD SPECIMENOrdering Facility: [facility] Address: [address] [place] [address] Performed By: #### 2 4323-8 ####[facility] CARMELCLIA [id number] [address] Creatinine [Mass/Vol] 0.85 mg/dL Normal 0.73-1.22 [facility] Comment on above: Order Comment: Speci men Type: BLOOD SPECIMENOrdering Facility: [facility] Address: [address] [place] [address] Performed By: #### 2 4323-8 ####[facility] LABORATORYCLIA [id number] [address] Creatinine and Glomerular filtration rate.predicted panel (S/P/Bld) 89 mL/min/1.73m??? Normal >=60 [facility] Comment on above: Order Comment: Speci men Type: BLOOD SPECIMENOrdering Facility: [facility] Address: [address] [place] [address] Result Comment: Yoana mated Glomerular Filtration Rate (eGFR) is calculated using the 2020 CKD-EPI creatinine equation. This equation utilizes serum creatinine, sex, and age as parameters. The creatinine assay has traceable calibration to isotope dilution-mass spectrometry. Refer to KDIGO guidelines for clinical interpretation. In patients with unstable renal function, e.g. those with acute kidney injury, the eGFR may not accurately reflect actual GFR. Performed By: #### 2 4323-8 ####[facility] LABORATORYCLIA [id number] [place] [address] [place] Glucose [Mass/Vol] 89 mg/dL Normal 74-99 [facility] Comment on above: Order Comment: Ashli atkinson Type: BLOOD SPECIMENOrdering Facility: [facility] Address: [address] [place] [address] Result Comment: The [place] Diabetes Association (ADA) provides guidance for cutoff values for fasting glucose and random glucose. The ADA defines fasting as no caloric intake for at least 8 hours. Fasting plasma glucose results between 100 to 125 mg/dL indicate increased risk for diabetes (prediabetes). Fasting plasma glucose results greater than or equal to 126 mg/dL meet the criteria for diagnosis of diabetes. In the absence of unequivocal hyperglycemia, results should be confirmed by repeat testing. In a patient with classic symptoms of hyperglycemia or hyperglycemic crisis, random plasma glucose results greater than or equal to 200 mg/dL meet the criteria for diagnosis of diabetes. Reference: Standards of Medical Care in Diabetes 2016, [place] Diabetes Association. Diabetes Care. 2016.39(Suppl 1). Performed By: #### 2 4323-8 ####[facility] LABORATORYCLIA [id number] [place] [address] [place] Potassium [Moles/Vol] 4.0 mmol/L Normal 3.7-5.1 [facility] Comment on above: Order Comment: Ashli atkinson Type: BLOOD SPECIMENOrdering Facility: [facility] Address: [address] [place] [address] Performed By: #### 2 4323-8 ####[facility] LABORATORYCLIA [id number] [place] [address] [place] Protein [Mass/Vol] 6.7 g/dL Normal 6.3-8.0 [facility] Comment on above: Order Comment: Ashli atkinson Type: BLOOD SPECIMENOrdering Facility: [facility] Address: [address] [place] [address] Performed By: #### 2 4323-8 ####[facility] LABORATORYCLIA [id number] [place] [address] [place] Sodium [Moles/Vol] 137 mmol/L Normal 136-144 [facility] Comment on above: Order Comment: Speci men Type: BLOOD SPECIMENOrdering Facility: [facility] Address: [address] [place] [address] Performed By: #### 2 4323-8 ####[facility] LABORATORYCLIA [id number] [place] [id number] [place] [facility] Urea nitrogen [Mass/Vol] 12 mg/dL Normal 9-24 [facility] Comment on above: Order Comment: Speci men Type: BLOOD SPECIMENOrdering Facility: [facility] Address: [address] [place] [address] Performed By: #### 2 4323-8 ####[facility] LABORATORYCLIA [id number] [place] [id number] [place] ANES POSTPROC EVALon 025 ANES POSTPROC EVAL HNO ID: [id number] Author: TIFFANY HERNANDEZ MD, PhD Service: Anesthesiology Author Type: Anesthesiologist Type: Anesthesia Postprocedure Evaluation Filed: 10/04/2024 16:09 Note Text: POST ANESTHESIA EVALUATION NOTE : 1945 Procedure Summary Date: 10/04/24 Room / Location: [facility] Anesthesia Start: 1117 Anesthesia Stop: 1208 Procedure: ERCP Diagnosis: Scheduled Providers: Socrates Subramanian MD Responsible Provider: Tiffany Hernandez MD, PhD Anesthesia Type: general ASA Status: 3 Anesthesia Type: general Airway Type: ETT Last Vitals Vitals Value Taken Time BP 168/86 10/04/24 1220 Temp 36.2 ?C (97.2 ?F) 10/04/24 1220 HR SpO2 76 10/04/24 1203 Resp 13 10/04/24 1220 SpO2 96 % 10/04/24 1220 Post Anesthesia Patient Status Other Remarks: From report and review of flowsheets, pt had an uneventful recovery course in PACU.. Anesthesia Observations No Documentation SIGNATURE: Tiffany Hernandez MD, PhD PATIENT NAME: Umu Salcido DATE: October 04, 2024 TIME: 4:07 PM CSN: [id number] Normal [facility] ANES PRE-OPon 10-04-2024 ANES PRE-OP HNO ID: [id number] Author: TIFFANY HERNANDEZ MD, PhD Service: Anesthesiology Author Type: Anesthesiologist Type: Anesthesia Preprocedure Evaluation Filed: 10/04/2024 16:06 Note Text: ANESTHESIOLOGY DAY OF SURGERY NOTE : 1945 Procedure Information Anesthesia Start Date/Time: 10/04/24 1117 Scheduled providers: Socrates Subramanian MD Procedure: ERCP Location: [facility] Estimated body mass index is 44.91 kg/m? as calculated from the following: Height as of this encounter: 171.5 cm (5' 7.5). Weight as of this encounter: 132 kg (291 lb 0.1 oz). Most recent hematocrit and potassium results: Hematocrit 42.8 10/04/2024 Potassium 4.4 10/04/2024 Relevant Problems CARDIO (+) HEMORRHOIDS EXTERNAL (+) HTN (hypertension) GI (+) GERD (gastroesophageal reflux disease) NEURO-PSYCH (+) PERSONAL HISTORY OF COLONIC POLYPS I - PHYSICAL EVALUATION AIRWAY Patient intubated: No. Tracheostomy tube not present Mallampati: II. TM distance: >3 FB. Neck ROM: full ROM without neurological symptoms. Mouth opening: adequate. Short neck: no. Thick neck: yes Donohue present: no Microretrognathia/Micronag thia/Recessed Chin: No DENTAL Dental findings: teeth intact. II - ANESTHESIA PLAN ASA Score: 3 NPO Status: adequate Beta Josias Monitoring Plan Monitoring plan: standard ASA. Post Procedure Analgesic Plan Postoperative analgesic plan: multimodal analgesia. Informed Consent Anesthetic risks, benefits, alternatives, personnel and consent discussed: yes. Patient / Responsible Democrat agrees to proceed: yes Patient / Surrogate agrees to blood products: Yes Potential Anesthesia issues that may suggest increased risk of complications or contraindication to planned procedure: none. No vitals data found for the desired time range. Facility-Administered Medications as of 10/04/2024 Medication Dose Route Frequency - [COMPLETED] indomethacin 100 mg suppository (INDOCIN) 100 mg RECTAL ONCE - amLODIPine 5 mg tab(s) (NORVASC) 5 mg ORAL DAILY - acetaminophen 1,000 mg tab(s) (TYLENOL) 1,000 mg ORAL q 6 H - iv contrast (radiology procedure) INTRAVENOUS DIRECTED PRN And - [] enteric contrast (radiology procedure) ORAL DIRECTED PRN - HYDROmorphone (PF) 0.5 mg injection (DILAUDID) 0.5 mg INTRAVENOUS q 4 H PRN - hydrALAZINE 10 mg injection (APRESOLINE) 10 mg INTRAVENOUS q 6 H PRN - [COMPLETED] phosphorus 250 mg tab(s) (K PHOS NEUTRAL) 250 mg ORAL TID after MEALS - aluminum-magnesium hydroxide-simethicone 200-200-20 mg/5 mL 30 mL 30 mL ORAL q 6 H PRN - ondansetron (PF) 4 mg injection (ZOFRAN) 4 mg INTRAVENOUS q 6 H PRN - prochlorperazine 5 mg injection (COMPAZINE) 5 mg INTRAVENOUS q 6 H PRN - oxyCODONE IR 5 mg tab(s) (ROXICODONE) 5 mg ORAL q 4 H PRN - NaCl 0.9% iv flush bag 20 mL INTRAVENOUS PRN - lactated ringers iv infusion 75 mL/hr INTRAVENOUS CONTINUOUS - aspirin, enteric coated 81 mg tab(s) 81 mg ORAL DAILY - carvedilol 6.25 mg tab(s) (COREG) 6.25 mg ORAL BID w MEALS - losartan 100 mg tab(s) (COZAAR) 100 mg ORAL DAILY - pantoprazole DR 40 mg tab(s) (PROTONIX) 40 mg ORAL DAILY (6 AM) Outpatient Medications as of 10/04/2024 Medication Sig - carvedilol (COREG) 6.25 mg tablet Take 1 tablet by mouth every 12 (twelve) hours. - loratadine (CLARITIN) 10 mg tablet Take 1 tablet by mouth every afternoon. - omeprazole (PRILOSEC) 40 mg capsule Take 1 capsule by mouth every afternoon. - cyanocobalamin, vitamin B-12, 5,000 mcg TbIE Take by mouth. 100 mcg - cholecalciferol, vitamin D3, (VITAMIN D3 ORAL) Take by mouth. 5000 mcg - losartan 100 mg tablet Take 100 mg by mouth once daily. - aspirin, enteric coated 81 mg EC tablet Take 81 mg by mouth once daily. - Salicylic Acid (DR CHAHAL'S CLEAR AWAY) 40 % ptmd Apply to affected area as directed. I have interviewed and examined the patient. I have reviewed the medical record and/or the pre-anesthesia evaluation, pertinent labs, and test results. This contains updated information obtained within 48 hours of Surgery/Procedure. SIGNATURE: Tiffany Hernandez MD, PhD PATIENT NAME: Umu Salcido DATE: October 04, 2024 TIME: 4:04 PM CSN: [id number] Normal [facility] CBC panel Auto (Bld)on 10-04 Erythrocyte distribution width (RBC) [Ratio] 13.6 % Normal 11.5-15.0 [facility] Comment on above: Order Comment: Speci men Type: BLOOD SPECIMENOrdering Facility: [facility] Address: [address] [place] [address] Performed By: #### 5 8410-2 ####[facility] LABORATORYCLIA [id number] [address] Hematocrit (Bld) [Volume fraction] 42.8 % Normal 39.0-51.0 [facility] Comment on above: Order Comment: Speci men Type: BLOOD SPECIMENOrdering Facility: [facility] Address: [address] [place] [address] Performed By: #### 5 8410-2 ####[facility] LABORATORYCLIA [id number] [address] STATES OF [facility] Hemoglobin (Bld) [Mass/Vol] 14.2 g/dL Normal 13.0-17.0 [facility] Comment on above: Order Comment: Speci men Type: BLOOD SPECIMENOrdering Facility: [facility] Address: [address] [place] [address] Performed By: #### 5 8410-2 ####[facility] LABORATORYCLIA [id number] [address] [place] MCH (RBC) [Entitic mass] 30.1 pg Normal 26.0-34.0 [facility] Comment on above: Order Comment: Speci men Type: BLOOD SPECIMENOrdering Facility: [facility] Address: [address] [place] [address] Performed By: #### 5 8410-2 ####[facility] LABORATORYCLIA [id number] [address] STATES [facility] MCHC (RBC) [Mass/Vol] 33.2 g/dL Normal 30.5-36.0 [facility] Comment on above: Order Comment: Speci men Type: BLOOD SPECIMENOrdering Facility: [facility] Address: [address] [place] [address] Performed By: #### 5 8410-2 ####[facility] LABORATORYCLIA [id number] [address] [place] MCV (RBC) [Entitic vol] 90.7 fL Normal 80.0-100.0 [facility] Comment on above: Order Comment: Speci men Type: BLOOD SPECIMENOrdering Facility: [facility] Address: [address] [place] [address] Performed By: #### 5 8410-2 ####[facility] LABORATORYCLIA [id number] [address] [place] Nucleated RBC (Bld) [#/Vol] 10*3/uL Normal <0.01 [facility] Comment on above: Order Comment: Speci men Type: BLOOD SPECIMENOrdering Facility: [facility] Address: [address] [place] [address] Performed By: #### 5 8410-2 ####[facility] LABORATORYCLIA [id number] [address] [place] Platelet mean volume (Bld) [Entitic vol] 10.7 fL Normal 9.0-12.7 [facility] Comment on above: Order Comment: Speci men Type: BLOOD SPECIMENOrdering Facility: [facility] Address: [address] [place] [address] Performed By: #### 5 8410-2 ####[facility] LABORATORYCLIA [id number] [place] [address] [place] Platelets (Bld) [#/Vol] 194 10*3/uL Normal 150-400 [facility] Comment on above: Order Comment: Speci men Type: BLOOD SPECIMENOrdering Facility: [facility] Address: [address] [place] [address] Performed By: #### 5 8410-2 ####[facility] LABORATORYCLIA [id number] [place] [address] [facility] RBC (Bld) [#/Vol] 4.72 10*6/uL Normal 4.20-6.00 [facility] Comment on above: Order Comment: Speci men Type: BLOOD SPECIMENOrdering Facility: [facility] Address: [address] [place] [address] Performed By: #### 5 8410-2 ####[facility] LABORATORYCLIA [id number] [place] [id number] [facility] WBC (Bld) [#/Vol] 8.54 10*3/uL Normal 3.70-11.00 [facility] Comment on above: Order Comment: Speci men Type: BLOOD SPECIMENOrdering Facility: [facility] Address: [address] [place] [address] Performed By: #### 5 8410-2 ####[facility] LABORATORYCLIA [id number] [place] [id number] [facility] CONSULT PROGon 10-04-2024 CONSULT PROG HNO ID: [id number] Author: ADRI LUGO APRN.GRAIN MERCHANDISER Service: General Surgery Author Type: Nurse Practitioner Type: Consult Progress Note Filed: 10/04/2024 17:22 Note Text: Emergency General Surgery Progress Note SERVICE DATE: October 04, 2024 Emergency General Surgery Service Pager: For questions or concerns Mon-Fri 6a-5p please page [phone]. After 5pm and on Weekends and Holidays, please page [phone] if in ICU or [phone] if on RNF. SUBJECTIVE: HPI: 79 yr-old male with past medical history of pancreatitis,GERD, Diverticulosis, HTN, hemorrhoids, sigmoid colectomy, appendectomy (1991) who was admitted with diffuse abdominal pain, workup consistent with gallstone pancreatitis. Pt states that he had similar pain back in March when he was diagnosed with pancreatitis by his PCP, but this time pain was worse. Labs and imaging obtained confirmed acute interstitial pancreatitis. LFTs were also found to be elevated and RUQ US showed gallstones and sludge. Pt was evaluated by GI believed pancreatitis to be d/t gallstones and recommended surgery consult. On 10/05/2024 Mr. Salcido underwent a laparoscopic cholecystectomy with IOC performed by Sr. Agustin Garza with noted CBD stones distally on the cholangiogram therefore Gastroenterology was consulted for ERCP. POD 1: mr. Salcido reports feeling well and denies any abdominal pain/discomfort. Denies nausea/vomiting. Awaiting ERCP this morning. Tolerating diet DIET REGULAR OBJECTIVE: Vitals: Temp (24hrs), Av.3 ?C (97.4 ?F), Min:36.2 ?C (97.2 ?F), Max:36.7 ?C (98 ?F) BP 183/107 Pulse 63 Temp 36.2 ?C (97.2 ?F) Resp 13 Ht 171.5 cm (5' 7.5) Wt 132 kg (291 lb 0.1 oz) SpO2 95% BMI 44.91 kg/m? O2 Therapy: Room Air IANDO: Date 10/03/24 07 - 10/04/24 0659 10/04/24 07 - 10/05/24 0659 Shift 3188-4775 6232-1671 4156-8771 24 Hour Total 0356-5667 3585-5974 2944-1924 24 Hour Total INTAKE IV 1200 1200 200 200 Volume (mL) (lactated ringers iv infusion) 1200 1200 Volume (mL) (lactated ringers iv infusion) 200 200 Shift Total 1200 1200 200 200 OUTPUT Shift Total Weight (kg) 131.1 131.1 132 132 132 132 132 132 MEDICATIONS Current Facility-Administered Medications Medication Dose Route Frequency amLODIPine 5 mg tab(s) (NORVASC) 5 mg ORAL DAILY acetaminophen 1,000 mg tab(s) (TYLENOL) 1,000 mg ORAL q 6 H iv contrast (radiology procedure) INTRAVENOUS DIRECTED PRN HYDROmorphone (PF) 0.5 mg injection (DILAUDID) 0.5 mg INTRAVENOUS q 4 H PRN hydrALAZINE 10 mg injection (APRESOLINE) 10 mg INTRAVENOUS q 6 H PRN aluminum-magnesium hydroxide-simethicone 200-200-20 mg/5 mL 30 mL 30 mL ORAL q 6 H PRN ondansetron (PF) 4 mg injection (ZOFRAN) 4 mg INTRAVENOUS q 6 H PRN prochlorperazine 5 mg injection (COMPAZINE) 5 mg INTRAVENOUS q 6 H PRN oxyCODONE IR 5 mg tab(s) (ROXICODONE) 5 mg ORAL q 4 H PRN NaCl 0.9% iv flush bag 20 mL INTRAVENOUS PRN lactated ringers iv infusion 75 mL/hr INTRAVENOUS CONTINUOUS aspirin, enteric coated 81 mg tab(s) 81 mg ORAL DAILY carvedilol 6.25 mg tab(s) (COREG) 6.25 mg ORAL BID w MEALS losartan 100 mg tab(s) (COZAAR) 100 mg ORAL DAILY pantoprazole [address] 40 mg tab(s) (PROTONIX) 40 mg ORAL DAILY (6 AM) Labs: Recent Labs 10/04/24 0454 10/03/24 0538 10/02/24 0253 NA 135* 132* 136 K 4.4 3.8 4.0 CHLOR 98 101 102 CO2 25 23 24 BUN 11 10 8* CREAT 0.87 0.81 0.77 GLUC 96 88 89 ANION 12 8 10 CA 8.8 8.6 9.1 MG -- -- 1.8 P -- -- 2.5* ALB 3.5* 3.4* 3.5* AST 144* 29 69* ALT 143* 66* 112* ALKPHOS 269* 130* 145* TBILI 3.4* 1.2 1.5* WBC 8.54 7.68 7.63 HB 14.2 14.1 14.7 HCT 42.8 43.5 45.4 PLT 194 203 188 Physical Exam: GENERAL: No distress, Alert NEURO: AANDOx3, CN II-XII grossly intact HEENT: normocephalic, atraumatic LUNGS: Unlabored breathing, equal chest rise bilaterally CARDIAC: Regular rate, warm and well perfused distal extremities ABDOMEN: Obese, soft, non-distended, lap sites x4 C/D/I with skin glue, no erythema, minimal ecchymosis EXTREMITIES: JI, No deformities, No edema SKIN: Skin color, texture, turgor normal, No rashes or lesions ASSESSMENT AND PLAN: Assessment Active Hospital Problems Diagnosis Date Noted Obesity, Class III, 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 - NPO/IVF -scheduled for ERCP today with GI team -diet as per GI recs (okay per surgery) following procedure - Pain/nausea control prn - PPI - Monitor labs in am - LFTs down trendin (more content not included)... Normal [facility] Comprehensive metabolic 2000 panelon 10-04-2024 Albumin [Mass/Vol] 3.5 g/dL Low 3.9-4.9 [facility] Comment on above: Order Comment: Speci men Type: BLOOD SPECIMENOrdering Facility: [facility] Address: [address] [place] [address] Performed By: #### 2 4323-8 ####[facility] LABORATORYCLIA [id number] [address] [place] ALP [Catalytic activity/Vol] 269 U/L High 38-113 [facility] Comment on above: Order Comment: Speci men Type: BLOOD SPECIMENOrdering Facility: [facility] Address: [address] [place] [address] Performed By: #### 2 4323-8 ####[facility] LABORATORYCLIA [id number] [place] [address] [place] ALT With P-5'-P [Catalytic activity/Vol] 143 U/L High 10-54 [facility] Comment on above: Order Comment: Speci men Type: BLOOD SPECIMENOrdering Facility: [facility] Address: [address] [place] [address] Performed By: #### 2 4323-8 ####[facility] LABORATORYCLIA [id number] [address] [place] Anion gap [Moles/Vol] 12 mmol/L Normal 8-15 [facility] Comment on above: Order Comment: Speci men Type: BLOOD SPECIMENOrdering Facility: [facility] Address: [address] [place] [address] Performed By: #### 2 4323-8 ####[facility] LABORATORYCLIA [id number] [place] [address] [place] AST With P-5'-P [Catalytic activity/Vol] 144 U/L High 14-40 [facility] Comment on above: Order Comment: Speci men Type: BLOOD SPECIMENOrdering Facility: [facility] Address: [address] [place] [address] Performed By: #### 2 4323-8 ####[facility] LABORATORYCLIA [id number] [place] [address] [place] Bilirubin [Mass/Vol] 3.4 mg/dL High 0.2-1.3 [facility] Comment on above: Order Comment: Speci men Type: BLOOD SPECIMENOrdering Facility: [facility] Address: [address] [place] [address] Performed By: #### 2 4323-8 ####[facility] LABORATORYCLIA [id number] [place] [address] [place] Calcium [Mass/Vol] 8.8 mg/dL Normal 8.5-10.2 [facility] Comment on above: Order Comment: Speci men Type: BLOOD SPECIMENOrdering Facility: [facility] Address: [address] [place] [address] Performed By: #### 2 4323-8 ####[facility] LABORATORYCLIA [id number] [place] [address] [place] Chloride [Moles/Vol] 98 mmol/L Normal 98-107 [facility] Comment on above: Order Comment: Speci men Type: BLOOD SPECIMENOrdering Facility: [facility] Address: [address] [place] [address] Performed By: #### 2 4323-8 ####[facility] LABORATORYCLIA [id number] [place] [address] [place] CO2 [Moles/Vol] 25 mmol/L Normal 22-30 [facility] Comment on above: Order Comment: Speci china Type: BLOOD SPECIMENOrdering Facility: [facility] Address: [address] [place] [address] Performed By: #### 2 4323-8 ####[facility] LABORATORYCLIA [id number] [address] [place] Creatinine [Mass/Vol] 0.87 mg/dL Normal 0.73-1.22 [facility] Comment on above: Order Comment: Speci china Type: BLOOD SPECIMENOrdering Facility: [facility] Address: [address] [place] [address] Performed By: #### 2 4323-8 ####[facility] LABORATORYCLIA [id number] [address] Creatinine and Glomerular filtration rate.predicted panel (S/P/Bld) 89 mL/min/1.73m??? Normal >=60 [facility] Comment on above: Order Comment: [facility] Type: BLOOD SPECIMENOrdering Facility: [facility] Address: [address] [place] [address] Result Comment: Yoana mated Glomerular Filtration Rate (eGFR) is calculated using the 2020 CKD-EPI creatinine equation. This equation utilizes serum creatinine, sex, and age as parameters. The creatinine assay has traceable calibration to isotope dilution-mass spectrometry. Refer to KDIGO guidelines for clinical interpretation. In patients with unstable renal function, e.g. those with acute kidney injury, the eGFR may not accurately reflect actual GFR. Performed By: #### 2 4323-8 ####[facility] LABORATORYCLIA [id number] [address] [place] Glucose [Mass/Vol] 96 mg/dL Normal 74-99 [facility] Comment on above: Order Comment: [facility] Type: BLOOD SPECIMENOrdering Facility: [facility] Address: [address] [place] [address] Result Comment: The [place] [employer] (ADA) provides guidance for cutoff values for fasting glucose and random glucose. The ADA defines fasting as no caloric intake for at least 8 hours. Fasting plasma glucose results between 100 to 125 mg/dL indicate increased risk for diabetes (prediabetes). Fasting plasma glucose results greater than or equal to 126 mg/dL meet the criteria for diagnosis of diabetes. In the absence of unequivocal hyperglycemia, results should be confirmed by repeat testing. In a patient with classic symptoms of hyperglycemia or hyperglycemic crisis, random plasma glucose results greater than or equal to 200 mg/dL meet the criteria for diagnosis of diabetes. Reference: Standards of Medical Care in Diabetes 2016, [employer]. Diabetes Care. 2016.39(Suppl 1). Performed By: #### 2 4323-8 ####[facility] LABORATORYCLIA [id number] [place] [address] [place] Potassium [Moles/Vol] 4.4 mmol/L Normal 3.7-5.1 [facility] Comment on above: Order Comment: Speci men Type: BLOOD SPECIMENOrdering Facility: [facility] Address: [address] [place] [address] Performed By: #### 2 4323-8 ####[facility] LABORATORYCLIA [id number] [place] [address] [place] Protein [Mass/Vol] 6.4 g/dL Normal 6.3-8.0 [facility] Comment on above: Order Comment: Speci men Type: BLOOD SPECIMENOrdering Facility: [facility] Address: [address] [place] [address] Performed By: #### 2 4323-8 ####[facility] LABORATORYCLIA [id number] [place] [address] [place] Sodium [Moles/Vol] 135 mmol/L Low 136-144 [facility] Comment on above: Order Comment: Speci men Type: BLOOD SPECIMENOrdering Facility: [facility] Address: [address] [place] [address] Performed By: #### 2 4323-8 ####[facility] LABORATORYCLIA [id number] [place] [address] [place] Urea nitrogen [Mass/Vol] 11 mg/dL Normal 9-24 [facility] Comment on above: Order Comment: Speci men Type: BLOOD SPECIMENOrdering Facility: [facility] Address: [address] [place] [address] Performed By: #### 2 4323-8 ####[facility] LABORATORYCLIA [id number] [place] [address] [place] OPERATIVE NOon 10-04-2024 OPERATIVE NO HNO ID: [id number] Author: SOCRATES SUBRAMANIAN MD Service: Gastroenterology Author Type: Physician Type: Operative Report Filed: 10/04/2024 11:58 Note Text: OPERATIVE/PROCEDURE REPORT LOG ID: [id number] Surgery/Procedure Date: 10/04/2024 Incision/Procedure Start Time: 11:37 AM Incision Close/Procedure End Time: 11:52 AM Surgeon(s)/Proceduralist(s ) and Seaming Inspector(s): SOCRATES SUBRAMANIAN MD No Additional Staff Procedure(s): Endoscopic Retrograde Cholangiopancreatography (ERCP) with sphincterotomy 12 mm balloon stone extraction Anesthesia: General Brief History: positive IOC Procedure Details: The patient was placed in the prone position on the fluoroscopy table. A bite block was placed and medications administered as above. The Olympus side-viewing duodenoscope was introduced into the oropharynx and we intubated the esophagus with ease. We proceeded down to the second part of the duodenum. The ampulla was visualized and appeared normal with no evidence of papillitis or trauma. We were able to obtain access to the common bile duct (CBD) using a short-wire Dreamtome and wire-guided cannulation. Contrast injection confirmed placement fluoroscopically. I personally interpreted all fluoroscopy images. A sphincterotomy was performed and no immediate complications were noted. We then used a 9/12mm extraction balloon to sweep the CBD. . Occlusion cholangiogram was clear at the end of the case. The scope was then withdrawn and the patient tolerated the procedure well. The patient was given Indomethacin 100mg per rectum, at the end of the case. Pre-Op/Pre-Procedure Diagnosis: CBD STONES Post-Op/Post-Procedure Diagnosis: Cbd stones removed Specimens: none EBL: None Complications: None Recommendations:regular diet preop meds Keep NPO for next 4 hours. If no symptoms, then start on full liquid diet and can advance to regular diet the next day Infuse Lactated Ringer's @ 150 ml/ hour x 8 hours If the patient experiences abdominal pain, please check lipase and inform the endoscopist as they may be at risk for post-ERCP pancreatitis. I/primary surgeon/proceduralist performed the procedure with assistance. SOCRATES SUBRAMANIAN MD SIGNATURE: SOCRATES SUBRAMANIAN MD PATIENT NAME: Umu Salcido DATE: October 04, 2024 TIME: 11:55 AM PAGER/CONTACT #: [phone] Normal [facility] XR ERCP READ ONLYon 10-05-19 XR ERCP READ ONLY * * *Final Report* * * DATE OF EXAM: Oct 04 2024 12:20PM [facility] [id number] - XR ERCP READ ONLY / PROCEDURE REASON: ERCP * * * * Physician Interpretation * * * * EXAM TITLE: XR ERCP READ ONLY DATE: 10/03/2024 INDICATION: ERCP films COMPARISON: None. A single film shows endoscope in the second portion of duodenum with guidewire presumably within the common bile duct. Small amount of residual contrast is seen within a portion of the biliary tree. 24.1 seconds of fluoroscopic time utilized. IMPRESSION: Limited single view from ERCP as described. Web Administrator: SUZANNE Transcribe Date/Time: Oct 04 2024 1:07P Dictated by : HILDA OLSEN MD This examination was interpreted and the report reviewed and electronically signed by: HILDA OLSEN MD on Oct 04 2024 1:08PM EST [id number] Normal [facility] ANES POSTPROC EVALon 025 ANES POSTPROC EVAL HNO ID: [id number] Author: KRISTY DURBIN MD Service: Anesthesiology Author Type: Anesthesiologist Type: Anesthesia Postprocedure Evaluation Filed: 10/03/2024 11:21 Note Text: POST ANESTHESIA EVALUATION NOTE : 1945 Procedure Summary Date: 10/03/24 Room / Location: NE OR / NE OR Anesthesia Start: 833 Anesthesia Stop: 1044 Procedure: LAPAROSCOPIC CHOLECYSTECTOMY WITH GRAMS (Abdomen) Diagnosis: Acute biliary pancreatitis without infection or necrosis (HCC) (Acute biliary pancreatitis without infection or necrosis (HCC) [K85.10]) Surgeons: Shraddha Garza MD Responsible Provider: Kristy Durbin MD Anesthesia Type: general ASA Status: 3 Anesthesia Type: general Airway Type: ETT Last Vitals Vitals Value Taken Time BP 164/86 10/03/24 1115 Temp 36 ?C (96.8 ?F) 10/03/24 1045 Pulse 68 10/03/24 1120 Resp 17 10/03/24 1120 SpO2 99 % 10/03/24 1120 Vitals shown include unfiled device data. Post Anesthesia Patient Status Anticipated Disposition: inpatient floor planned admission. Neurological Status: aware and responsive. Pulmonary Status: breathing comfortably on supplemental oxygen Airway Control: returned to baseline unsupported. Cardiovascular Status: stable. Pain Management: clinically adequate Postoperative Hydration: acceptable. Intraoperative Events: no significant anesthesia events Post Operative Nausea/Vomiting Status: no significant post operative nausea or vomiting Recommendation: further care per PACU/ICU/floor team. Anesthesia Observations No Documentation SIGNATURE: Kristy Durbin MD PATIENT NAME: Umu Salcido DATE: October 03, 2024 TIME: 11:21 AM CSN: [id number] [facility] ANES PRE-OPon 10-03-2024 ANES PRE-OP HNO ID: [id number] Author: KRISTY DURBIN MD Service: Anesthesiology Author Type: Anesthesiologist Type: Anesthesia Preprocedure Evaluation Filed: 10/03/2024 07:40 Note Text: ANESTHESIOLOGY DAY OF SURGERY NOTE : 1945 Procedure Information Date/Time: 10/03/24829 Procedure: LAPAROSCOPIC CHOLECYSTECTOMY WITH GRAMS (Abdomen) Location: NE OR / NE OR Surgeons: Shraddha Garza MD Estimated body mass index is 44.6 kg/m? as calculated from the following: Height as of this encounter: 171.5 cm (5' 7.5). Weight as of this encounter: 131.1 kg (289 lb 0.4 oz). Most recent hematocrit and potassium results: Hematocrit 43.5 10/03/2024 Potassium 3.8 10/03/2024 Relevant Problems CARDIO (+) HEMORRHOIDS EXTERNAL (+) HTN (hypertension) GI (+) GERD (gastroesophageal reflux disease) NEURO-PSYCH (+) PERSONAL HISTORY OF COLONIC POLYPS - HTN on losartan and coreg - did not take today I - PHYSICAL EVALUATION AIRWAY Patient intubated: No. Tracheostomy tube not present Mallampati: III. TM distance: >3 FB. Neck ROM: full ROM without neurological symptoms. Mouth opening: adequate. Short neck: no. Thick neck: no DENTAL Dental findings: missing tooth/teeth. Dentures, upper: complete. II - ANESTHESIA PLAN ASA Score: 3 Anesthetic Plan: general Airway type: ETT The patient is not a current smoker. NPO Status: adequate Beta Josias Monitoring Plan Monitoring plan: standard ASA. Post Procedure Analgesic Plan Postoperative analgesic plan: parenteral or oral opioids and multimodal analgesia. Informed Consent Anesthetic risks, benefits, alternatives, personnel and consent discussed: yes. Patient / Responsible Democrat agrees to proceed: yes Patient / Surrogate agrees to blood products: Yes Potential Anesthesia issues that may suggest increased risk of complications or contraindication to planned procedure: none. Vitals Value Taken Time BP 190/101 10/03/24 0734 Pulse 66 10/03/24 0657 Resp 18 10/03/24 0730 Temp 36.4 ?C (97.5 ?F) 10/03/24 0730 SpO2 96 % 10/03/24 0733 Vitals shown include unfiled device data. Facility-Administered Medications as of 10/03/2024 Medication Dose Route Frequency [Transfer Hold] HYDROmorphone (PF) 0.5 mg injection (DILAUDID) 0.5 mg INTRAVENOUS q 4 H PRN [Transfer Hold] hydrALAZINE 10 mg injection (APRESOLINE) 10 mg INTRAVENOUS q 6 H PRN [COMPLETED] phosphorus 250 mg tab(s) (K PHOS NEUTRAL) 250 mg ORAL TID after MEALS [Transfer Hold] acetaminophen 650 mg tab(s) (TYLENOL) 650 mg ORAL q 4 H PRN [Transfer Hold] aluminum-magnesium hydroxide-simethicone 200-200-20 mg/5 mL 30 mL 30 mL ORAL q 6 H PRN [Transfer Hold] ondansetron (PF) 4 mg injection (ZOFRAN) 4 mg INTRAVENOUS q 6 H PRN [Transfer Hold] prochlorperazine 5 mg injection (COMPAZINE) 5 mg INTRAVENOUS q 6 H PRN [Transfer Hold] oxyCODONE IR 5 mg tab(s) (ROXICODONE) 5 mg ORAL q 4 H PRN [Transfer Hold] NaCl 0.9% iv flush bag 20 mL INTRAVENOUS PRN [Transfer Hold] lactated ringers iv infusion 75 mL/hr INTRAVENOUS CONTINUOUS [Transfer Hold] iv contrast (radiology procedure) INTRAVENOUS DIRECTED PRN And [] enteric contrast (radiology procedure) ORAL DIRECTED PRN [Transfer Hold] aspirin, enteric coated 81 mg tab(s) 81 mg ORAL DAILY [Transfer Hold] carvedilol 6.25 mg tab(s) (COREG) 6.25 mg ORAL BID w MEALS [Transfer Hold] losartan 100 mg tab(s) (COZAAR) 100 mg ORAL DAILY [Transfer Hold] pantoprazole DR 40 mg tab(s) (PROTONIX) 40 mg ORAL DAILY (6 AM) Outpatient Medications as of 10/03/2024 Medication Sig carvedilol (COREG) 6.25 mg tablet Take 1 tablet by mouth every 12 (twelve) hours. loratadine (CLARITIN) 10 mg tablet Take 1 tablet by mouth every afternoon. omeprazole (PRILOSEC) 40 mg capsule Take 1 capsule by mouth every afternoon. cyanocobalamin, vitamin B-12, 5,000 mcg TbIE Take by mouth. 100 mcg cholecalciferol, vitamin D3, (VITAMIN D3 ORAL) Take by mouth. 5000 mcg losartan 100 mg tablet Take 100 mg by mouth once daily. aspirin, enteric coated 81 mg EC tablet Take 81 mg by mouth once daily. Salicylic Acid (DR CHAHAL'S CLEAR AWAY) 40 % ptmd Apply to affected area as directed. I have interviewed and examined the patient. I have reviewed the medical record and/or the pre-anesthesia evaluation, pertinent labs, and test results. This contains updated information obtained within 48 hours of Surgery/Procedure. SIGNATURE: Kristy Durbin MD PATIENT NAME: Umu Salcido DATE: October 03, 2024 TIME: 7:39 AM CSN: [id number] Normal [facility] CBC panel Auto (Bld)on 10-03 Erythrocyte distribution width (RBC) [Ratio] 13.5 % Normal 11.5-15.0 [facility] Comment on above: Order Comment: Speci men Type: BLOOD SPECIMENOrdering Facility: [facility] Address: [address] [place] [address] Performed By: #### 5 8410-2 ####[facility] LABORATORYCLIA [id number] [place] [address] [place] Hematocrit (Bld) [Volume fraction] 43.5 % Normal 39.0-51.0 [facility] Comment on above: Order Comment: Speci men Type: BLOOD SPECIMENOrdering Facility: [facility] Address: [address] [place] [address] Performed By: #### 5 8410-2 ####[facility] LABORATORYCLIA [id number] [address] STATES OF [facility] Hemoglobin (Bld) [Mass/Vol] 14.1 g/dL Normal 13.0-17.0 [facility] Comment on above: Order Comment: Speci men Type: BLOOD SPECIMENOrdering Facility: [facility] Address: [address] [place] [address] Performed By: #### 5 8410-2 ####[facility] LABORATORYCLIA [id number] [address] [place] MCH (RBC) [Entitic mass] 29.3 pg Normal 26.0-34.0 [facility] Comment on above: Order Comment: Speci men Type: BLOOD SPECIMENOrdering Facility: [facility] Address: [address] [place] [address] Performed By: #### 5 8410-2 ####[facility] LABORATORYCLIA [id number] [address] [place] MCHC (RBC) [Mass/Vol] 32.4 g/dL Normal 30.5-36.0 [facility] Comment on above: Order Comment: Speci men Type: BLOOD SPECIMENOrdering Facility: [facility] Address: [address] [place] [address] Performed By: #### 5 8410-2 ####[facility] LABORATORYCLIA [id number] [place] [address] [place] MCV (RBC) [Entitic vol] 90.4 fL Normal 80.0-100.0 [facility] Comment on above: Order Comment: Speci men Type: BLOOD SPECIMENOrdering Facility: [facility] Address: [address] [place] [address] Performed By: #### 5 8410-2 ####[facility] LABORATORYCLIA [id number] [place] [address] [place] Nucleated RBC (Bld) [#/Vol] 10*3/uL Normal <0.01 [facility] Comment on above: Order Comment: Speci men Type: BLOOD SPECIMENOrdering Facility: [facility] Address: [address] [place] [address] Performed By: #### 5 8410-2 ####[facility] LABORATORYCLIA [id number] [place] [address] [place] Platelet mean volume (Bld) [Entitic vol] 10.2 fL Normal 9.0-12.7 [facility] Comment on above: Order Comment: Speci men Type: BLOOD SPECIMENOrdering Facility: [facility] Address: [address] [place] [address] Performed By: #### 5 8410-2 ####[facility] LABORATORYCLIA [id number] [address] [place] Platelets (Bld) [#/Vol] 203 10*3/uL Normal 150-400 [facility] Comment on above: Order Comment: Speci men Type: BLOOD SPECIMENOrdering Facility: [facility] Address: [address] [place] [address] Performed By: #### 5 8410-2 ####[facility] LABORATORYCLIA [id number] [place] [address] [place] RBC (Bld) [#/Vol] 4.81 10*6/uL Normal 4.20-6.00 [facility] Comment on above: Order Comment: Speci men Type: BLOOD SPECIMENOrdering Facility: [facility] Address: [address] [place] [address] Performed By: #### 5 8410-2 ####[facility] LABORATORYCLIA [id number] [address] [place] WBC (Bld) [#/Vol] 7.68 10*3/uL Normal 3.70-11.00 [facility] Comment on above: Order Comment: Speci men Type: BLOOD SPECIMENOrdering Facility: [facility] Address: [address] [place] [address] Performed By: #### 5 8410-2 ####[facility] LABORATORYCLIA [id number] [place] [address] [place] CONSULT PROGon 10-03-2024 CONSULT PROG HNO ID: [id number] Author: SAMIRA BRUMFIELD APRN.GRAIN MERCHANDISER Service: General Surgery Author Type: Nurse Practitioner Type: Consult Progress Note Filed: 10/03/2024 12:43 Note Text: Emergency General Surgery Progress Note SERVICE DATE: October 03, 2024 Emergency General Surgery Service Pager: For questions or concerns Mon-Fri 6a-5p please page [phone]. After 5pm and on Weekends and Holidays, please page [phone] if in ICU or [phone] if on RNF. SUBJECTIVE: HPI: 79 yr-old male with past medical history of pancreatitis,GERD, Diverticulosis, HTN, hemorrhoids, sigmoid colectomy, appendectomy (1991) who was admitted with diffuse abdominal pain, workup consistent with gallstone pancreatitis. Pt states that he had similar pain back in March when he was diagnosed with pancreatitis by his PCP, but this time pain was worse. Labs and imaging obtained confirmed acute interstitial pancreatitis. LFTs were also found to be elevated and RUQ US showed gallstones and sludge. Pt was evaluated by GI believed pancreatitis to be d/t gallstones and recommended surgery consult. This morning, Mr. Salcido seen in pre-op. Denies fever or chills. Feels ready for surgery. Tolerating diet DIET NPO OBJECTIVE: Vitals: Temp (24hrs), Av.6 ?C (97.9 ?F), Min:36.4 ?C (97.5 ?F), Max:36.7 ?C (98.1 ?F) BP 156/74 Pulse 60 Temp 36.7 ?C (98 ?F) Resp 17 Ht 171.5 cm (5' 7.5) Wt 132 kg (291 lb 0.1 oz) SpO2 94% BMI 44.91 kg/m? O2 Therapy: Room Air IANDO: MEDICATIONS Current Facility-Administered Medications Medication Dose Route Frequency HYDROmorphone (PF) 0.5 mg injection (DILAUDID) 0.5 mg INTRAVENOUS q 4 H PRN hydrALAZINE 10 mg injection (APRESOLINE) 10 mg INTRAVENOUS q 6 H PRN acetaminophen 650 mg tab(s) (TYLENOL) 650 mg ORAL q 4 H PRN aluminum-magnesium hydroxide-simethicone 200-200-20 mg/5 mL 30 mL 30 mL ORAL q 6 H PRN ondansetron (PF) 4 mg injection (ZOFRAN) 4 mg INTRAVENOUS q 6 H PRN prochlorperazine 5 mg injection (COMPAZINE) 5 mg INTRAVENOUS q 6 H PRN oxyCODONE IR 5 mg tab(s) (ROXICODONE) 5 mg ORAL q 4 H PRN NaCl 0.9% iv flush bag 20 mL INTRAVENOUS PRN lactated ringers iv infusion 75 mL/hr INTRAVENOUS CONTINUOUS iv contrast (radiology procedure) INTRAVENOUS DIRECTED PRN aspirin, enteric coated 81 mg tab(s) 81 mg ORAL DAILY carvedilol 6.25 mg tab(s) (COREG) 6.25 mg ORAL BID w MEALS losartan 100 mg tab(s) (COZAAR) 100 mg ORAL DAILY pantoprazole [address] 40 mg tab(s) (PROTONIX) 40 mg ORAL DAILY (6 AM) Labs: Recent Labs 10/03/24 0538 10/02/24 0253 10/01/24 0554 10/01/24 0315 NA 132* 136 -- 135* K 3.8 4.0 < > -- CHLOR 101 102 -- 102 CO2 23 24 -- 23 BUN 10 8* -- 13 CREAT 0.81 0.77 -- 0.80 GLUC 88 89 -- 141* ANION 8 10 -- 10 CA 8.6 9.1 -- 8.6 MG -- 1.8 -- 1.9 P -- 2.5* -- -- ALB 3.4* 3.5* < > 3.5* AST 29 69* < > -- ALT 66* 112* < > -- ALKPHOS 130* 145* < > -- TBILI 1.2 1.5* < > 1.9* WBC 7.68 7.63 -- 7.35 HB 14.1 14.7 -- 14.5 HCT 43.5 45.4 -- 44.3 PLT 203 188 -- 233 < > = values in this interval not displayed. Physical Exam: GENERAL: No distress, Alert NEURO: AANDOx3, CN II-XII grossly intact HEENT: normocephalic, atraumatic LUNGS: Unlabored breathing, equal chest rise bilaterally CARDIAC: Regular rate, warm and well perfused distal extremities ABDOMEN: Obese, soft, non-distended. 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 - NPO/IVF - Pain/nausea control - PPI - Monitor labs - LFTs down trending. Medical management per primary team Surgery today, laparoscopic cholecystectomy with IOC. Addendum: - Concern for CBD stone during IOC. - GI consulted for possible ERCP. SIGNATURE: Samira Brumfield APRN.CNP PATIENT NAME: Umu Salcido DATE: October 03, 2024 TIME: 0607 Pager: [phone] Emergency General Surgery Service Pager: For questions or concerns Mon-Fri 6a-5p please page [phone]. After 5pm and on Weekends and Holidays, please page [phone] if in ICU or [phone] if on RNF. ADDENDUM: Portions of this note were copied and updated including ROS, PFSH, and PE so as to provide important historical information essential in contributing to medical decision making today. Normal [facility] Comprehensive metabolic 2000 panelon 10-03-2024 Albumin [Mass/Vol] 3.4 g/dL Low 3.9-4.9 [facility] Comment on above: Order Comment: Speci men Type: BLOOD SPECIMENOrdering Facility: [facility] Address: [address] [place] [address] Performed By: #### 2 4323-8 ####[facility] LABORATORYCLIA [id number] [address] [place] ALP [Catalytic activity/Vol] 130 U/L High 38-113 [facility] Comment on above: Order Comment: Speci men Type: BLOOD SPECIMENOrdering Facility: [facility] Address: [address] [place] [address] Performed By: #### 2 4323-8 ####[facility] LABORATORYCLIA [id number] [address] [place] ALT With P-5'-P [Catalytic activity/Vol] 66 U/L High 10-54 [facility] Comment on above: Order Comment: Speci men Type: BLOOD SPECIMENOrdering Facility: [facility] Address: [address] [place] [address] Performed By: #### 2 4323-8 ####[facility] LABORATORYCLIA [id number] [address] OF [facility] Anion gap [Moles/Vol] 8 mmol/L Normal 8-15 [facility] Comment on above: Order Comment: Speci men Type: BLOOD SPECIMENOrdering Facility: [facility] Address: [address] [place] [address] Performed By: #### 2 4323-8 ####[facility] LABORATORYCLIA [id number] [address] [place] AST With P-5'-P [Catalytic activity/Vol] 29 U/L Normal 14-40 [facility] Comment on above: Order Comment: Speci men Type: BLOOD SPECIMENOrdering Facility: [facility] Address: [address] [place] [address] Performed By: #### 2 4323-8 ####[facility] LABORATORYCLIA [id number] [address] [place] Bilirubin [Mass/Vol] 1.2 mg/dL Normal 0.2-1.3 [facility] Comment on above: Order Comment: Speci men Type: BLOOD SPECIMENOrdering Facility: [facility] Address: [address] [place] [address] Performed By: #### 2 4323-8 ####[facility] LABORATORYCLIA [id number] [place] [address] [place] Calcium [Mass/Vol] 8.6 mg/dL Normal 8.5-10.2 [facility] Comment on above: Order Comment: Speci men Type: BLOOD SPECIMENOrdering Facility: [facility] Address: [address] [place] [address] Performed By: #### 2 4323-8 ####[facility] LABORATORYCLIA [id number] [place] [address] [place] Chloride [Moles/Vol] 101 mmol/L Normal 98-107 [facility] Comment on above: Order Comment: Speci men Type: BLOOD SPECIMENOrdering Facility: [facility] Address: [address] [place] [address] Performed By: #### 2 4323-8 ####[facility] LABORATORYCLIA [id number] [place] [address] [place] CO2 [Moles/Vol] 23 mmol/L Normal 22-30 [facility] Comment on above: Order Comment: Speci men Type: BLOOD SPECIMENOrdering Facility: [facility] Address: [address] [place] [address] Performed By: #### 2 4323-8 ####[facility] LABORATORYCLIA [id number] [place] [address] [place] Creatinine [Mass/Vol] 0.81 mg/dL Normal 0.73-1.22 [facility] Comment on above: Order Comment: Speci men Type: BLOOD SPECIMENOrdering Facility: [facility] Address: [address] [place] [address] Performed By: #### 2 4323-8 ####[facility] LABORATORYCLIA [id number] [address] [place] Creatinine and Glomerular filtration rate.predicted panel (S/P/Bld) 91 mL/min/1.73m??? Normal >=60 [facility] Comment on above: Order Comment: Ashli atkinson Type: BLOOD SPECIMENOrdering Facility: [facility] Address: [address] [place] [address] Result Comment: Yoana mated Glomerular Filtration Rate (eGFR) is calculated using the 2020 CKD-EPI creatinine equation. This equation utilizes serum creatinine, sex, and age as parameters. The creatinine assay has traceable calibration to isotope dilution-mass spectrometry. Refer to KDIGO guidelines for clinical interpretation. In patients with unstable renal function, e.g. those with acute kidney injury, the eGFR may not accurately reflect actual GFR. Performed By: #### 2 4323-8 ####[facility] LABORATORYCLIA [id number] [place] [address] [place] Glucose [Mass/Vol] 88 mg/dL Normal 74-99 [facility] Comment on above: Order Comment: Ashli atkinson Type: BLOOD SPECIMENOrdering Facility: [facility] Address: [address] [place] [address] Result Comment: The [place] Diabetes Association (ADA) provides guidance for cutoff values for fasting glucose and random glucose. The ADA defines fasting as no caloric intake for at least 8 hours. Fasting plasma glucose results between 100 to 125 mg/dL indicate increased risk for diabetes (prediabetes). Fasting plasma glucose results greater than or equal to 126 mg/dL meet the criteria for diagnosis of diabetes. In the absence of unequivocal hyperglycemia, results should be confirmed by repeat testing. In a patient with classic symptoms of hyperglycemia or hyperglycemic crisis, random plasma glucose results greater than or equal to 200 mg/dL meet the criteria for diagnosis of diabetes. Reference: Standards of Medical Care in Diabetes 2016, [place] Diabetes Association. Diabetes Care. 2016.39(Suppl 1). Performed By: #### 2 4323-8 ####[facility] LABORATORYCLIA [id number] [place] [address] [place] Potassium [Moles/Vol] 3.8 mmol/L Normal 3.7-5.1 [facility] Comment on above: Order Comment: Ashli atkinson Type: BLOOD SPECIMENOrdering Facility: [facility] Address: [address] [place] [address] Performed By: #### 2 4323-8 ####[facility] LABORATORYCLIA [id number] [address] Protein [Mass/Vol] 6.2 g/dL Low 6.3-8.0 [facility] Comment on above: Order Comment: Speci men Type: BLOOD SPECIMENOrdering Facility: [facility] Address: [address] [place] [address] Performed By: #### 2 4323-8 ####[facility] LABORATORYCLIA [id number] [address] OF [facility] Sodium [Moles/Vol] 132 mmol/L Low 136-144 [facility] Comment on above: Order Comment: Speci men Type: BLOOD SPECIMENOrdering Facility: [facility] Address: [address] [place] [address] Performed By: #### 2 4323-8 ####[facility] LABORATORYCLIA [id number] [address] Urea nitrogen [Mass/Vol] 10 mg/dL Normal 9-24 [facility] Comment on above: Order Comment: Speci men Type: BLOOD SPECIMENOrdering Facility: [facility] Address: [address] [place] [address] Performed By: #### 2 4323-8 ####[facility] LABORATORYCLIA [id number] [address] OF [facility] OPERATIVE NOon 10-03-2024 OPERATIVE NO HNO ID: [id number] Author: SHRADDHA GARZA MD Service: General Surgery Author Type: Resident Type: Operative Report Filed: 10/03/2024 13:45 Note Text: -- Attestation signed by Shraddha Garza MD at 10/03/2024 1:45 PM Attending Note I evaluated the patient and personally participated in the buchanan components. I agree with the resident's findings and plan as documented and have discussed the case and management of the patient's care with the resident. I was present and scrubbed for entirety of procedure Signature: Shraddha Garza MD Date: 10/03/2024 Time: 1:44 PM -- OPERATIVE/PROCEDURE REPORT LOG ID: [id number] SURGERY/PROCEDURE DATE: 10/03/2024 INCISION/PROCEDURE START TIME: 9:12 AM INCISION CLOSE/PROCEDURE END TIME: 10:31 AM SURGEON(S)/PROCEDURALIST(S ) AND SEXUAL ASSAULT COUNSELOR(S): Surgeons and Role: * Shraddha Garza MD - Primary * Adiel Jara MD - Resident - Assisting No Additional Staff SURGERY/PROCEDURE(S): Procedure(s) (LRB): LAPAROSCOPIC CHOLECYSTECTOMY WITH GRAMS (N/A) ANESTHESIA: General OPERATIVE INDICATIONS: This is a 79 year old year old who presented to the hospital with generalized abdominal pain and ifndings of gallstone pancreatitis. After discussion of benefits, risks, and alternatives, the patient consented for surgery. OPERATIVE FINDINGS: Normal appearing gallbladder Cholelithiasis SURGERY/PROCEDURE DETAILS: A surgical huddle was completed with the treatment team, which included confirmation of the surgical site, procedure, and antibiotic administration. After induction of General anesthesia, the patient was prepped and draped in a sterile fashion. The patient was given below antibiotics intravenously. A Huber catheter was not placed. The abdomen was prepped with a single use applicator of ChloraPrep which was allowed to dry for three minutes and draped after allowing the prep solution to dry. A time out was performed, again identifying the patient and the procedure. The skin at the midline superior to the umblicus wasanesthetized with 2-3 mL of 0.25% bupivicaine with epinephrine. A small incision was made. Sterling clamps were placed on either side of the midline and the linea alba was incised with a 15 blade. The peritoneum was opened under direct vision, and a 12-mm trocar was placed. After injection of local, small incisions were made and three 5 mm ports were placed under direct vision in the upper midline to the right of the falciform ligament, the right midclavicular line at the lower edge of the liver, and the right anterior axillary line. The abdomen was inspected. The gallbladder was normal. The gallbladder was placed on superior and lateral traction using graspers placed at the fundus and on Ifeanyi's pouch to expose the triangle of Calot. The gallbladder was normal in appearance. The peritoneum over the cystic duct and artery was opened, and the peritoneal dissection was carried over the lower lateral and medial sides of thegallbladder bed. The cystic duct and cystic artery were freed from fat. They were circumferentially dissected free to obtain the critical view of the liver bed. The cystic duct was cleared of surrounding lymphatics and nerves and clipped near its junction with the gallbladder. An intraoperative cholangiogram was performed under fluoroscopy with contrast injected via the cystic duct. and Stones were present in the common bile duct and were found distally only. The cystic duct and cystic artery were clipped twice proximally and once distally with a 5 mm clip hot mill tin roller. The gallbladder was removed from the liver bed with cautery dissection. Bleeding during the procedure was minimal. The gallbladder was placed in a catch bag introduced through the umbilical port and removed from the abdomen. At this point, the gallbladder fell out of the bag spilling some stones, but these were retrieved. The liver bed was inspected again. Hemostasis was excellent. No bile leak was observed. The clips were seen to be secure. The liver and upper abdomen were irrigated with normal saline, and the saline was suctioned out. The fascia at the 12mm port was closed with absorbable figure of eight #0 sutures. The port sites were injected with local and the skin closed with subcuticular 4-0 absorbable suture. Skin glue was then applied to all incisions. The patient was awakened and returned to the recovery area in good condition. PRE-OP/PRE-PROCEDURE DIAGNOSIS: Pre-Op Diagnosis Codes: * Acute biliary pancreatitis without infection or necrosis (HCC) [K85.10] POST-OP/POST-PROCEDURE DIAGNOSIS: Post-Op Diagnosis Codes: * Acute biliary pancreatitis without infection or necrosis (HCC) [K85.10] Choledocholithiasis Antibiotics: Current Anti-Infective Meds (From admission, onward) (more content not included)... Normal [facility] Pathology biopsy report Allen (Tiss)on 10-03-2024 AP DISCLAIMER Normal [facility] Comment on above: Order Comment: Specagustin atkinson Type: TISSUE SPECIMENOrdering Facility: [facility] Address: [address] [place] [address] Result Comment: Vee caputo Developed Test (LDT) Disclaimer: Performance characteristics of immunohistochemical, immunofluorescent, and chromogenic in-situ hybridization tests have been determined by the performing laboratory within [facility]'s [facility] Pathology and Laboratory Medicine Department ([facility], [place], [facility], [facility], [facility], [facility], [facility], or [facility]) in a manner consistent with CLIA requirements. One or more of these tests may not have been cleared or approved by the FDA. [facility] is regulated under CLIA as qualified to perform high-complexity testing. These tests are used for clinical purposes. These should not be regarded as investigational or for research. Positive and negative controls stain appropriately. Performed By: #### 6 6121-5 ####[facility] HOSPITALIA [id number] [place] [address] [place] CASE REPORT Normal [facility] Comment on above: Order Comment: Ashli atiknson Type: TISSUE SPECIMENOrdering Facility: [facility] Address: [address] [place] [address] Result Comment: Surg ica Pathology Report Case: [id number] Authorizing Provider: Shraddha Garza MD Collected: 10/03/2024 10:11 AM Ordering Location: [place] [facility] Received: 10/03/2024 12:39 PM Pathologist: Silvana Vilchis DO Specimen: Gallbladder Performed By: #### 6 6121-5 ####[facility] LABORATORYCLIA [id number] [place] [address] [place] CLINICAL HISTORY Normal [facility] Comment on above: Order Comment: Speci china Type: TISSUE SPECIMENOrdering Facility: [facility] Address: [address] [place] [address] Result Comment: Pre- op diagnosis: Acute biliary pancreatitis without infection or necrosis (HCC) [K85.10] Performed By: #### 6 6121-5 ####[facility] LABORATORYCLIA [id number] [address] FINAL DIAGNOSIS Normal [facility] Comment on above: Order Comment: Ashli atkinson Type: TISSUE SPECIMENOrdering Facility: [facility] Address: [address] [place] [address] Result Comment: A. G allbladder, cholecystectomy: - Cholelithiasis. - Cholesterolosis. at 1336 EDT Performed By: #### 6 6121-5 ####[facility] LABORATORYCLIA [id number] [address] FINAL PERFORMING LAB Normal [facility] Comment on above: Order Comment: Ashli atkinson Type: TISSUE SPECIMENOrdering Facility: [facility] Address: [address] [place] [address] Result Comment: Diag nostic interpretation performed at: [facility], [address] [address] CLIA# [id number] Student Assistance Counselor: Colt Sanchez MD Performed By: #### 6 6121-5 ####[facility] LABORATORYCLIA [id number] [address] GROSS DESCRIPTION A. Gallbladder Normal [facility] Comment on above: Order Comment: Ashli atkinson Type: TISSUE SPECIMENOrdering Facility: [facility] Address: [address] [place] [address] Result Comment: Rece ived in formalin labeled gallbladder is a gallbladder measuring 7.5 x 2.5 x 1.5 cm. The serosal aspect is opaque with abundant attached adipose tissue. A defect is not present. The lumen contains bile. The wall of the gallbladder averages 0.2 cm in thickness. Calculi are present and appear yellow-green in color and range in size from 0.5-1.5 cm in greatest dimension. A calculus is impacted in the cystic duct. The mucosa is bile-stained with yellow fatty streaks, more prominent along the summit of the mucosal ridges. Manager Inspection sections are submitted in one cassette. Gross examination performed at [facility], [address] [place] [address] [facility] October 04, 2024 11:59 AM Performed By: #### 6 6121-5 ####[facility] LABORATORYCLIA [id number] [address] [place] XR CHOLANGIOGRAM INTRAOPon 0 10-03-2024 XR CHOLANGIOGRAM INTRAOP * * *Final Report* * * DATE OF EXAM: Oct 03 2024 10:40AM AKO [id number] - XR CHOLANGIOGRAM INTRAOP / PROCEDURE REASON: LAP MOOKIE * * * * Physician Interpretation * * * * EXAMINATION: XR CHOLANGIOGRAM INTRAOP HISTORY: LAP MOOKIE TECHNIQUE: XR CHOLANGIOGRAM INTRAOP 13 intraoperative fluoroscopic images of the abdomen COMPARISON: CT abdomen and pelvis 10/01/2024 RESULT: See impression IMPRESSION: 13intraoperative fluoroscopic images obtained during intraoperative cholangiogram after cholecystectomy Please see operative report for full details of the procedure. Total fluoroscopic time: 20 seconds Cumulative dose: 13.223 mGy Web Administrator: [facility] Transcribe Date/Time: Oct 03 2024 3:12P Dictated by : ESTHER ALVARADO MD This examination was interpreted and the report reviewed and electronically signed by: ESTHER ALVARADO MD on Oct 03 2024 3:13PM EST [id number] Normal [facility] CBC panel Auto (Bld)on 10-02 Erythrocyte distribution width (RBC) [Ratio] 13.5 % Normal 11.5-15.0 [facility] Comment on above: Order Comment: Speci men Type: BLOOD SPECIMENOrdering Facility: [facility] Address: [facility] [place] [address] Performed By: #### 5 8410-2 ####[facility] LABORATORYCLIA [id number] [address] [place] Hematocrit (Bld) [Volume fraction] 45.4 % Normal 39.0-51.0 [facility] Comment on above: Order Comment: Speci men Type: BLOOD SPECIMENOrdering Facility: [facility] Address: [address] [place] [address] Performed By: #### 5 8410-2 ####[facility] LABORATORYCLIA [id number] [address] Hemoglobin (Bld) [Mass/Vol] 14.7 g/dL Normal 13.0-17.0 [facility] Comment on above: Order Comment: Speci men Type: BLOOD SPECIMENOrdering Facility: [facility] Address: [address] [place] [address] Performed By: #### 5 8410-2 ####[facility] LABORATORYCLIA [id number] [address] OF [facility] MCH (RBC) [Entitic mass] 29.6 pg Normal 26.0-34.0 [facility] Comment on above: Order Comment: Speci men Type: BLOOD SPECIMENOrdering Facility: [facility] Address: [address] [place] [address] Performed By: #### 5 8410-2 ####[facility] LABORATORYCLIA [id number] [address] STATES [facility] MCHC (RBC) [Mass/Vol] 32.4 g/dL Normal 30.5-36.0 [facility] Comment on above: Order Comment: Speci men Type: BLOOD SPECIMENOrdering Facility: [facility] Address: [address] [place] [address] Performed By: #### 5 8410-2 ####[facility] LABORATORYCLIA [id number] [address] [place] [facility] MCV (RBC) [Entitic vol] 91.5 fL Normal 80.0-100.0 [facility] Comment on above: Order Comment: Speci men Type: BLOOD SPECIMENOrdering Facility: [facility] Address: [address] [place] [address] Performed By: #### 5 8410-2 ####[facility] LABORATORYCLIA [id number] [place] [address] [place] Nucleated RBC (Bld) [#/Vol] 10*3/uL Normal <0.01 [facility] Comment on above: Order Comment: Speci men Type: BLOOD SPECIMENOrdering Facility: [facility] Address: [address] [place] [address] Performed By: #### 5 8410-2 ####[facility] LABORATORYCLIA [id number] [place] [address] [place] Platelet mean volume (Bld) [Entitic vol] 9.9 fL Normal 9.0-12.7 [facility] Comment on above: Order Comment: Speci men Type: BLOOD SPECIMENOrdering Facility: [facility] Address: [address] [place] [address] Performed By: #### 5 8410-2 ####[facility] LABORATORYCLIA [id number] [place] [address] [place] Platelets (Bld) [#/Vol] 188 10*3/uL Normal 150-400 [facility] Comment on above: Order Comment: Speci men Type: BLOOD SPECIMENOrdering Facility: [facility] Address: [address] [place] [address] Performed By: #### 5 8410-2 ####[facility] LABORATORYCLIA [id number] [place] [address] [place] RBC (Bld) [#/Vol] 4.96 10*6/uL Normal 4.20-6.00 [facility] Comment on above: Order Comment: Speci men Type: BLOOD SPECIMENOrdering Facility: [facility] Address: [address] [place] [address] Performed By: #### 5 8410-2 ####[facility] LABORATORYCLIA [id number] [place] [address] [place] WBC (Bld) [#/Vol] 7.63 10*3/uL Normal 3.70-11.00 [facility] Comment on above: Order Comment: Speci men Type: BLOOD SPECIMENOrdering Facility: [facility] Address: [address] [place] [address] Performed By: #### 5 8410-2 ####[facility] LABORATORYCLIA [id number] [place] [address] [place] CONSULT PROGon 10-02-2024 CONSULT PROG HNO ID: [id number] Author: SAMIRA BRUMFIELD APRN.GRAIN MERCHANDISER Service: General Surgery Author Type: Nurse Practitioner Type: Consult Progress Note Filed: 10/02/2024 12:17 Note Text: Emergency General Surgery Progress Note SERVICE DATE: October 02, 2024 Emergency General Surgery Service Pager: For questions or concerns Mon-Fri 6a-5p please page [phone]. After 5pm and on Weekends and Holidays, please page [phone] if in ICU or [phone] if on RNF. SUBJECTIVE: HPI: 79 yr-old male with past medical history of pancreatitis,GERD, Diverticulosis, HTN, hemorrhoids, sigmoid colectomy, appendectomy (1991) who was admitted with diffuse abdominal pain, workup consistent with gallstone pancreatitis. Pt states that he had similar pain back in March when he was diagnosed with pancreatitis by his PCP, but this time pain was worse. Labs and imaging obtained confirmed acute interstitial pancreatitis. LFTs were also found to be elevated and RUQ US showed gallstones and sludge. Pt was evaluated by GI believed pancreatitis to be d/t gallstones and recommended surgery consult. This morning, Mr. Salcido reports no abdominal pain, no nausea. Denies fever or chills. Tolerating diet DIET NPO OBJECTIVE: Vitals: Temp (24hrs), Av.6 ?C (97.8 ?F), Min:36.4 ?C (97.5 ?F), Max:36.8 ?C (98.2 ?F) BP 136/111 Pulse 64 Temp 36.7 ?C (98 ?F) (Oral) Resp 18 Ht 171.5 cm (5' 7.5) Wt 132 kg (291 lb 0.1 oz) SpO2 96% BMI 44.91 kg/m? O2 Therapy: Room Air IANDO: MEDICATIONS Current Facility-Administered Medications Medication Dose Route Frequency acetaminophen 650 mg tab(s) (TYLENOL) 650 mg ORAL q 4 H PRN aluminum-magnesium hydroxide-simethicone 200-200-20 mg/5 mL 30 mL 30 mL ORAL q 6 H PRN ondansetron (PF) 4 mg injection (ZOFRAN) 4 mg INTRAVENOUS q 6 H PRN prochlorperazine 5 mg injection (COMPAZINE) 5 mg INTRAVENOUS q 6 H PRN oxyCODONE IR 5 mg tab(s) (ROXICODONE) 5 mg ORAL q 4 H PRN HYDROmorphone 0.5 mg injection (DILAUDID) 0.5 mg INTRAVENOUS q 4 H PRN NaCl 0.9% iv flush bag 20 mL INTRAVENOUS PRN lactated ringers iv infusion 125 mL/hr INTRAVENOUS CONTINUOUS iv contrast (radiology procedure) INTRAVENOUS DIRECTED PRN aspirin, enteric coated 81 mg tab(s) 81 mg ORAL DAILY carvedilol 6.25 mg tab(s) (COREG) 6.25 mg ORAL BID w MEALS losartan 100 mg tab(s) (COZAAR) 100 mg ORAL DAILY pantoprazole DR 40 mg tab(s) (PROTONIX) 40 mg ORAL DAILY (6 AM) Labs: Recent Labs 10/02/24 0253 10/01/24 0554 10/01/24 0315 NA 136 -- 135* K 4.0 4.1 -- CHLOR 102 -- 102 CO2 24 -- 23 BUN 8* -- 13 CREAT 0.77 -- 0.80 GLUC 89 -- 141* ANION 10 -- 10 CA 9.1 -- 8.6 MG 1.8 -- 1.9 P 2.5* -- -- ALB 3.5* 3.5* 3.5* AST 69* 223* 218* -- ALT 112* 167* 167* -- ALKPHOS 145* 158* 152* -- TBILI 1.5* 1.6* 1.9* WBC 7.63 -- 7.35 HB 14.7 -- 14.5 HCT 45.4 -- 44.3 PLT 188 -- 233 Physical Exam: GENERAL: No distress, Alert NEURO: AANDOx3, CN II-XII grossly intact HEENT: normocephalic, atraumatic LUNGS: Unlabored breathing, equal chest rise bilaterally CARDIAC: Regular rate, warm and well perfused distal extremities ABDOMEN: Obese, soft, non-distended. EXTREMITIES: JI, No deformities, No edema SKIN: Skin color, texture, turgor normal, No rashes or lesions ASSESSMENT AND PLAN: Assessment Active Hospital Problems Diagnosis Date Noted Abdominal pain 10/01/2024 Nausea 10/01/2024 Hyperbilirubinemia 10/01/2024 HTN (hypertension) 10/01/2024 Hyponatremia 10/01/2024 BPH (benign prostatic hyperplasia) 10/01/2024 GERD (gastroesophageal reflux disease) 10/01/2024 Morbid obesity (HCC) 10/01/2024 Acute biliary pancreatitis without infection or necrosis (HCC) 10/01/2024 Hospital Course/Operations/Procedur es: 10/02/2024 Procedure(s): LAPAROSCOPIC CHOLECYSTECTOMY WITH GRAMS Assessment/Plan: 79 yr-old male with gallstone pancreatitis. - Regular diet - NPO after MN - Pain/nausea control - PPI - Monitor labs - LFTs elevated Medical management per primary team Surgery 10/03, laparoscopic cholecystectomy with IOC. SIGNATURE: Samira Brumfield APRN.CNP PATIENT NAME: Umu Salcido DATE: October 02, 2024 TIME: 0614 Pager: [phone] Emergency General Surgery Service Pager: For questions or concerns Mon-Fri 6a-5p please page [phone]. After 5pm and on Weekends and Holidays, please page [phone] if in ICU or [phone] if on RNF. Normal [facility] Comprehensive metabolic 2000 panelon 10-02-2024 Albumin [Mass/Vol] 3.5 g/dL Low 3.9-4.9 [facility] Comment on above: Order Comment: Speci men Type: BLOOD SPECIMENOrdering Facility: [facility] Address: [address] [place] [address] Performed By: #### 2 4323-8, 74018-1, 2776-05 ####[facility] LABORATORYCLIA [id number] [place] [address] [place] ALP [Catalytic activity/Vol] 145 U/L High 38-113 [facility] Comment on above: Order Comment: Speci men Type: BLOOD SPECIMENOrdering Facility: [facility] Address: [address] [place] [address] Performed By: #### 2 4323-8, 71315-5, 7-1 ####[facility] LABORATORYCLIA [id number] [place] [address] [place] ALT With P-5'-P [Catalytic activity/Vol] 112 U/L High 10-54 [facility] Comment on above: Order Comment: Speci men Type: BLOOD SPECIMENOrdering Facility: [facility] Address: [address] [place] [address] Performed By: #### 2 4323-8, , 2776-05 ####[facility] LABORATORYCLIA [id number] [address] OF [facility] Anion gap [Moles/Vol] 10 mmol/L Normal 8-15 [facility] Comment on above: Order Comment: Speci men Type: BLOOD SPECIMENOrdering Facility: [facility] Address: [address] [place] [address] Performed By: #### 2 4323-8, , 2776-05 ####[facility] LABORATORYCLIA [id number] [address] AST With P-5'-P [Catalytic activity/Vol] 69 U/L High 14-40 [facility] Comment on above: Order Comment: Speci men Type: BLOOD SPECIMENOrdering Facility: [facility] Address: [address] [place] [address] Performed By: #### 2 4323-8, , 2776-05 ####[facility] LABORATORYCLIA [id number] [address] STATES OF [facility] Bilirubin [Mass/Vol] 1.5 mg/dL High 0.2-1.3 [facility] Comment on above: Order Comment: Speci men Type: BLOOD SPECIMENOrdering Facility: [facility] Address: [address] [place] [address] Performed By: #### 2 4323-8, , 2776-05 ####[facility] LABORATORYCLIA [id number] [address] STATES OF [facility] Calcium [Mass/Vol] 9.1 mg/dL Normal 8.5-10.2 [facility] Comment on above: Order Comment: Speci men Type: BLOOD SPECIMENOrdering Facility: [facility] Address: [address] [place] [address] Performed By: #### 2 4323-8, , 2776-05 ####[facility] LABORATORYCLIA [id number] [place] [address] [place] Chloride [Moles/Vol] 102 mmol/L Normal 98-107 [facility] Comment on above: Order Comment: Speci men Type: BLOOD SPECIMENOrdering Facility: [facility] Address: [address] [place] [address] Performed By: #### 2 4323-8, , 2776-05 ####[facility] LABORATORYCLIA [id number] [place] [address] [place] CO2 [Moles/Vol] 24 mmol/L Normal 22-30 [facility] Comment on above: Order Comment: Speci men Type: BLOOD SPECIMENOrdering Facility: [facility] Address: [address] [place] [address] Performed By: #### 2 4323-8, , 2776-05 ####[facility] LABORATORYCLIA [id number] [place] [address] [place] Creatinine [Mass/Vol] 0.77 mg/dL Normal 0.73-1.22 [facility] Comment on above: Order Comment: Speci men Type: BLOOD SPECIMENOrdering Facility: [facility] Address: [address] [place] [address] Performed By: #### 2 4323-8, , 2776-05 ####[facility] LABORATORYCLIA [id number] [address] Creatinine and Glomerular filtration rate.predicted panel (S/P/Bld) 92 mL/min/1.73m??? Normal >=60 [facility] Comment on above: Order Comment: Speci men Type: BLOOD SPECIMENOrdering Facility: [facility] Address: [address] [place] [address] Result Comment: Yoana mated Glomerular Filtration Rate (eGFR) is calculated using the 202 CKD-EPI creatinine equation. This equation utilizes serum creatinine, sex, and age as parameters. The creatinine assay has traceable calibration to isotope dilution-mass spectrometry. Refer to KDIGO guidelines for clinical interpretation. In patients with unstable renal function, e.g. those with acute kidney injury, the eGFR may not accurately reflect actual GFR. Performed By: #### 2 4323-8, , 2776-05 ####[facility] CARMELCLIA [id number] [place] [id number] [place] Glucose [Mass/Vol] 89 mg/dL Normal 74-99 [facility] Comment on above: Order Comment: Ashli atkinson Type: BLOOD SPECIMENOrdering Facility: [facility] Address: [address] [place] [address] Result Comment: The [place] Diabetes Association (ADA) provides guidance for cutoff values for fasting glucose and random glucose. The ADA defines fasting as no caloric intake for at least 8 hours. Fasting plasma glucose results between 100 to 125 mg/dL indicate increased risk for diabetes (prediabetes). Fasting plasma glucose results greater than or equal to 126 mg/dL meet the criteria for diagnosis of diabetes. In the absence of unequivocal hyperglycemia, results should be confirmed by repeat testing. In a patient with classic symptoms of hyperglycemia or hyperglycemic crisis, random plasma glucose results greater than or equal to 200 mg/dL meet the criteria for diagnosis of diabetes. Reference: Standards of Medical Care in Diabetes 2016, [place] Diabetes Association. Diabetes Care. 2016.39(Suppl 1). Performed By: #### 2 4323-8, , 2776-05 ####[facility]ITAL[facility] [id number] [place] [address] [place] Potassium [Moles/Vol] 4.0 mmol/L Normal 3.7-5.1 [facility] Comment on above: Order Comment: Ashli atkinson Type: BLOOD SPECIMENOrdering Facility: [facility] Address: [address] [place] [address] Performed By: #### 2 4323-8, 18526-1, 2776-05 ####[facility] LABORATORYCLIA [id number] [place] [address] [place] Protein [Mass/Vol] 6.5 g/dL Normal 6.3-8.0 [facility] Comment on above: Order Comment: Speci men Type: BLOOD SPECIMENOrdering Facility: [facility] Address: [address] [place] [address] Performed By: #### 2 4323-8, 53008-1, 2777-1 ####[facility] LABORATORYCLIA [id number] [place] [id number] [place] Sodium [Moles/Vol] 136 mmol/L Normal 136-144 [facility] Comment on above: Order Comment: Speci men Type: BLOOD SPECIMENOrdering Facility: [facility] Address: [address] [place] [address] Performed By: #### 2 4323-8, 19478-7, 2777-1 ####[facility] LABORATORYCLIA [id number] [place] [address] [place] Urea nitrogen [Mass/Vol] 8 mg/dL Low 9-24 [facility] Comment on above: Order Comment: Speci men Type: BLOOD SPECIMENOrdering Facility: [facility] Address: [address] [place] [address] Performed By: #### 2 4323-8, 85163-4, 2777-1 ####[facility] LABORATORYCLIA [id number] [place] [address] [place] IgG SerPl-mCncon 10-02-2024 IgG [Mass/Vol] 1109 mg/dL Normal 700-1600 [facility] Comment on above: Order Comment: Speci men Type: BLOOD SPECIMENOrdering Facility: [facility] Address: [address] [place] [address] Performed By: #### 2 465-3 ####[facility] LABCLIA [id number] [address] [address] [place] Magnesium SerPl-mCncon 10-02 Magnesium [Mass/Vol] 1.8 mg/dL Normal 1.7-2.3 [facility] Comment on above: Order Comment: Speci men Type: BLOOD SPECIMENOrdering Facility: [facility] Address: [address] [place], [place] [address] Performed By: #### 2 4323-8, 92227-9, 1 ####[facility] LABORATORYCLIA [id number] [place] [address] [facility] Phosphate SerPl-mCncon 10-02 Phosphate [Mass/Vol] 2.5 mg/dL Low 2.7-4.8 [facility] Comment on above: Order Comment: Speci men Type: BLOOD SPECIMENOrdering Facility: [facility] Address: [address] [place], [place] [address] Performed By: #### 2 4323-8, , 2771 ####[facility] LABORATORYCLIA [id number] [place] [address] [facility] ALLIED HEALTHon 10-01-2024 ALLIED HEALTH HNO ID: [id number] Author: ARLYN FUNES RT(Willy) Service: Radiology Author Type: Technologist Type: Allied Health Filed: 10/01/2024 07:40 Note Text: Radiology Service Progress Note DATE OF SERVICE: October 01, 2024 TIME: 7:40 AM PATIENT IDENTITY VERIFICATION COMPLETED USING TWO (2) STANDARD IDENTIFIERS: Name and Date of confirmed by patient verbally and Name and Date of confirmed by identification band. FALL SCREENING: Has the patient had 2 falls in the last year or 1 fall with injury or currently using an Ambulatory Assistive Device (Walker, Cane, Wheelchair, Crutches, etc.)? Inpatient: Screened on floor PATIENT GENDER DATA: Assigned male at PATIENT RELEVANT IMPLANT DATA REVIEWED: Not Applicable PATIENT PRESENTS WITH AN IMPLANTABLE OR ATTACHED BLACK MILL OPERATOR: No ALLERGIES: Reviewed and unchanged CONTRAST ALLERGY: NO. EXAM: CT -CONTRAST INDUCED NEPHROPATHY RISK FACTORS: Patient age > 60 years CREATININE: Creatinine Date Value Ref Range Status 10/01/2024 0.80 0.73 - 1.22 mg/dL Final Estimated Glomerular Filtration Rate Date Value Ref Range Status 10/01/2024 91 >=60 mL/min/1.73m? Final Comment: Estimated Glomerular Filtration Rate (eGFR) is calculated using the 2020 CKD-EPI creatinine equation. This equation utilizes serum creatinine, sex, and age as parameters. The creatinine assay has traceable calibration to isotope dilution-mass spectrometry. Refer to KDIGO guidelines for clinical interpretation. In patients with unstable renal function, e.g. those with acute kidney injury, the eGFR may not accurately reflect actual GFR. P.O.C.T. RESULTS: POC done: Yes, See Lab Tab October 01, 2024 TREATMENT: N/A and No Hydration needed. PERIPHERAL IV DATA: Inpatient - refer to [facility] documentation RADIOLOGY DEPARTMENT: CT; Exam(s) Completed: Abdomen/Pelvis SIGNATURE: Arlyn Funes, RT(R) PATIENT NAME: Umu Salcido DATE: October 01, 2024 TIME: 7:40 AM Normal [facility] ALP SerPl-cCncon 10-01-2024 ALP [Catalytic activity/Vol] 152 U/L High 38-113 [facility] Comment on above: Order Comment: Speci men Type: BLOOD SPECIMENOrdering Facility: [facility] Address: [address] [place] [address] Performed By: #### 6 768-6, 1742-6, K1, 65809-7, 1919-8, 0-3 ####[facility] LABORATORYCLIA [id number] [address] OF [facility] ALT SerPl-cCncon 10-01-2024 ALT With P-5'-P [Catalytic activity/Vol] 167 U/L High 10-54 [facility] Comment on above: Order Comment: Speci men Type: BLOOD SPECIMENOrdering Facility: [facility] Address: [address] [place] [address] Performed By: #### 6 768-6, 1742-6, K1, 29765-7, 1920-8, 3040-3 ####[facility] LABORATORYCLIA [id number] [address] OF [facility] AST [Catalytic activity/Vol] on 10-01-2024 AST With P-5'-P [Catalytic activity/Vol] 218 U/L High 14-40 [facility] Comment on above: Order Comment: Speci men Type: BLOOD SPECIMENOrdering Facility: [facility] Address: [address] [place] [address] Performed By: #### 6 768-6, 1742-6, K1, 56330-4, 1920-8, 3040-3 ####[facility] LABORATORYCLIA [id number] [address] [place] CBC panel Auto (Bld)on 10-01 Erythrocyte distribution width (RBC) [Ratio] 13.3 % Normal 11.5-15.0 [facility] Comment on above: Order Comment: Speci men Type: BLOOD SPECIMENOrdering Facility: [facility] Address: [address] [place] [address] Performed By: #### 5 8410-2 ####[facility] LABORATORYCLIA [id number] [address] [place] Hematocrit (Bld) [Volume fraction] 44.3 % Normal 39.0-51.0 [facility] Comment on above: Order Comment: Speci men Type: BLOOD SPECIMENOrdering Facility: [facility] Address: [address] [place] [address] Performed By: #### 5 8410-2 ####[facility] LABORATORYCLIA [id number] [address] [place] Hemoglobin (Bld) [Mass/Vol] 14.5 g/dL Normal 13.0-17.0 [facility] Comment on above: Order Comment: Speci men Type: BLOOD SPECIMENOrdering Facility: [facility] Address: [address] [place] [address] Performed By: #### 5 8410-2 ####[facility] LABORATORYCLIA [id number] [address] [place] MCH (RBC) [Entitic mass] 29.9 pg Normal 26.0-34.0 [facility] Comment on above: Order Comment: Speci men Type: BLOOD SPECIMENOrdering Facility: [facility] Address: [address] [place] [address] Performed By: #### 5 8410-2 ####[facility] LABORATORYCLIA [id number] [address] STATES [facility] MCHC (RBC) [Mass/Vol] 32.7 g/dL Normal 30.5-36.0 [facility] Comment on above: Order Comment: Speci men Type: BLOOD SPECIMENOrdering Facility: [facility] Address: [address] [place] [address] Performed By: #### 5 8410-2 ####[facility] LABORATORYCLIA [id number] [address] [place] MCV (RBC) [Entitic vol] 91.3 fL Normal 80.0-100.0 [facility] Comment on above: Order Comment: Speci men Type: BLOOD SPECIMENOrdering Facility: [facility] Address: [address] [place] [address] Performed By: #### 5 8410-2 ####[facility] LABORATORYCLIA [id number] [address] Nucleated RBC (Bld) [#/Vol] 10*3/uL Normal <0.01 [facility] Comment on above: Order Comment: Speci men Type: BLOOD SPECIMENOrdering Facility: [facility] Address: [address] [place] [address] Performed By: #### 5 8410-2 ####[facility] LABORATORYCLIA [id number] [address] Platelet mean volume (Bld) [Entitic vol] 11.4 fL Normal 9.0-12.7 [facility] Comment on above: Order Comment: Speci men Type: BLOOD SPECIMENOrdering Facility: [facility] Address: [address] [place] [address] Performed By: #### 5 8410-2 ####[facility] LABORATORYCLIA [id number] [address] [place] Platelets (Bld) [#/Vol] 233 10*3/uL Normal 150-400 [facility] Comment on above: Order Comment: Speci men Type: BLOOD SPECIMENOrdering Facility: [facility] Address: [address] [place] [address] Performed By: #### 5 8410-2 ####[facility] LABORATORYCLIA [id number] [place] [id number] [facility] RBC (Bld) [#/Vol] 4.85 10*6/uL Normal 4.20-6.00 [facility] Comment on above: Order Comment: Jaradi men Type: BLOOD SPECIMENOrdering Facility: [facility] Address: [address] [place] [address] Performed By: #### 5 8410-2 ####[facility] LABORATORYCLIA [id number] [address] WBC (Bld) [#/Vol] 7.35 10*3/uL Normal 3.70-11.00 [facility] Comment on above: Order Comment: Ashli china Type: BLOOD SPECIMENOrdering Facility: [facility] Address: [address] [place] [address] Performed By: #### 5 8410-2 ####[facility] LABORATORYCLIA [id number] [address] CONSULTon 10-01-2024 CONSULT HNO ID: [id number] Author: SHRADDHA GARZA MD Service: General Surgery Author Type: Resident Type: Consults Filed: 10/02/2024 22:06 Note Text: -- Attestation signed by Shraddha Garza MD at 10/02/2024 10:06 PM Attending Note I evaluated the patient and personally participated in the buchanan components. I agree with the resident's findings and plan as documented and have discussed the case and management of the patient's care with the resident. Patient with second episode of biliary pancreatitis, was not admitted for previous episode last year. Surgery discussed with patient, planned for tomorrow. Planning for intraoperative cholangiogram. Patient agreeable-- NPO/IVF at midnight. Am labs Signature: Shraddha Garza MD Date: 10/02/2024 Time: 10:05 PM -- CONSULT: [facility] Surgery Service SERVICE DATE: 10/01/2024 SERVICE TIME: 2:30 PM REASON FOR CONSULT: Gallstone pancreatitis Subjective 79 year old male presented with past medical history of pancreatitis,GERD, Diverticulosis, HTN, hemorrhoids, sigmoid colectomy, appendectomy (1991) who is currently admitted for suspected gallstone pancreatitis for which egs is consulted. Pt currently admitted for pancreatitis after experiencing diffuse abd pain that started yesterday. Pt states that he had similar pain back in March when he was diagnosed with pancreatitis by his PCP, but this time pain was worse. Labs and imaging obtained confirmed acute interstitial pancreatitis. LFTs were also found to be elevated and RUQ US showed gallstones and sludge. Pt was evaluated by GI believed pancreatitis to be d/t gallstones and recommended surgery consult. Pt currently not having any pain, just mild tenderness to palpation. States that he used to be a heavy drinker several years ago but has only drank a couple times a month for the past 3-4 years. Last drink was a beer 6 days ago. Pt is a former smoker (quit 30 yrs ago). Denies any current n/v/diarrhea. FUNCTIONAL STATUS: Independent PAST MEDICAL HISTORY Diagnosis Date Benign neoplasm of colon Diverticulosis of colon (without mention of hemorrhage) Essential hypertension, benign External hemorrhoids without mention of complication Personal history of colonic polyps PAST SURGICAL HISTORY Procedure Laterality Date COLONOSCOPY FLX DX W/COLLJ SPEC WHEN PFRMD 02-09-14 COLONOSCOPY W/BIOPSY SINGLE/MULTIPLE 11/23/08 Small splenic flexure polyp/diverticulosis COLSC FLX W/RMVL OF TUMOR POLYP LESION SNARE TQ 12/21/07 Diverticulosis and distal sigmoid polyp PAST SURGICAL HISTORY OF 1991 Sigmoid colectomy AND appendectomy VASECTOMY UNI/BI SPX W/POSTOP SEMEN EXAMS FAMILY HISTORY Problem Relation Age of Onset Macular Degen Sister Cancer Brother lungs Cancer Paternal Grandmother 90 unknown Social History Tobacco Use Smoking status: Former Current packs/day: 0.00 Types: Cigarettes Quit date: 11/28/1982 Years since quittin.8 Smokeless tobacco: Never Substance Use Topics Alcohol use: Yes Alcohol/week: 2.0 standard drinks of alcohol Types: 2 Cans of Beer (12oz) per week Drug use: No carvedilol (COREG) 6.25 mg tablet, Take 1 tablet by mouth every 12 (twelve) hours., Disp: , Rfl: , Taking loratadine (CLARITIN) 10 mg tablet, Take 1 tablet by mouth every afternoon., Disp: , Rfl: , Taking omeprazole (PRILOSEC) 40 mg capsule, Take 1 capsule by mouth every afternoon., Disp: , Rfl: , Taking cyanocobalamin, vitamin B-12, 5,000 mcg TbIE, Take by mouth. 100 mcg, Disp: , Rfl: , Taking cholecalciferol, vitamin D3, (VITAMIN D3 ORAL), Take by mouth. 5000 mcg, Disp: , Rfl: , Taking losartan 100 mg tablet, Take 100 mg by mouth once daily., Disp: , Rfl: , Taking aspirin, enteric coated 81 mg EC tablet, Take 81 mg by mouth once daily., Disp: , Rfl: , Taking Salicylic Acid (DR CHAHAL'S CLEAR AWAY) 40 % ptmd, Apply to affected area as directed., Disp: , Rfl: Current Facility-Administered Medications Medication Dose Route Frequency acetaminophen 650 mg tab(s) (TYLENOL) 650 mg ORAL q 4 H PRN aluminum-magnesium hydroxide-simethicone 200-200-20 mg/5 mL 30 mL 30 mL ORAL q 6 H PRN ondansetron (PF) 4 mg injection (ZOFRAN) 4 mg INTRAVENOUS q 6 H PRN prochlorperazine 5 mg injection (COMPAZINE) 5 mg INTRAVENOUS q 6 H PRN oxyCODONE IR 5 mg tab(s) (ROXICODONE) 5 mg ORAL q 4 H PRN HYDROmorphone 0.5 mg injection (DILAUDID) 0.5 mg INTRAVENOUS q 4 H PRN NaCl 0.9% iv flush bag 20 mL INTRAVENOUS PRN lactated ringers iv infusion 125 mL/hr INTRAVENOUS CONTINUOUS iv contrast (radiology procedure) INTRAVENOUS DIRECTED PRN And enteric contrast (radiology procedure) ORAL DIRECTED PRN aspirin, enteric coated 81 mg tab(s) 81 mg ORAL DAILY carvedilol 6.25 mg tab(s) (COREG) 6.25 mg ORAL BID w MEALS losartan 100 mg tab(s) (CO (more content not included)... Normal [facility] CONSULT HNO ID: [id number] Author: JUNIOR NEVAREZ MD Service: Gastroenterology Author Type: Physician Type: Consults Filed: 10/01/2024 13:11 Note Text: INITIAL CONSULT GASTROENTEROLOGY SERVICE DATE: 10/01/2024 SERVICE TIME: 1:06 PM Consulting Service: Gastroenterology Chief Complaint: abdominal pain Opinion/advice regarding: pancreatitis Subjective HPI: This is a 79 year old male who presents with sudden onset generalized abdominal pain. He has a history of diverticulitis s/p partial colectomy ~30 years ago. In March, he developed abdominal pain and was told by his PCP he had pancreatitis, but he was not admitted for this and no referrals to GI or surgery were made. Yesterday, while watching TV, he developed sudden onset generalized abdominal pain with no radiating, nausea or vomiting. No changes in bowel habits or fevers. Workup showed a lipase of 1,623, ALT of 167, AST of 223, TB of 1.6. Imaging showed features of acute interstitial pancreatitis with trace pericholecystic fluid and cholelithiasis. He is currently feeling better with no residual pain. PAST MEDICAL HISTORY Diagnosis Date Benign neoplasm of colon Diverticulosis of colon (without mention of hemorrhage) Essential hypertension, benign External hemorrhoids without mention of complication Personal history of colonic polyps PAST SURGICAL HISTORY Procedure Laterality Date COLONOSCOPY FLX DX W/COLLJ SPEC WHEN PFRMD 02-09-14 COLONOSCOPY W/BIOPSY SINGLE/MULTIPLE 11/23/08 Small splenic flexure polyp/diverticulosis COLSC FLX W/RMVL OF TUMOR POLYP LESION SNARE TQ 05/13/07 Diverticulosis and distal sigmoid polyp PAST SURGICAL HISTORY OF 1991 Sigmoid colectomy AND appendectomy VASECTOMY UNI/BI SPX W/POSTOP SEMEN EXAMS FAMILY HISTORY Problem Relation Age of Onset Macular Degen Sister Cancer Brother lungs Cancer Paternal Grandmother 90 unknown Social History Tobacco Use Smoking status: Former Current packs/day: 0.00 Types: Cigarettes Quit date: 11/28/1982 Years since quittin.8 Smokeless tobacco: Never Substance Use Topics Alcohol use: Yes Alcohol/week: 2.0 standard drinks of alcohol Types: 2 Cans of Beer (12oz) per week Drug use: No MEDICATIONS: Prior to Admission Medications: carvedilol (COREG) 6.25 mg tabletTake 1 tablet by mouth every 12 (twelve) hours.Disp: Rfl: loratadine (CLARITIN) 10 mg tabletTake 1 tablet by mouth every afternoon.Disp: Rfl: omeprazole (PRILOSEC) 40 mg capsuleTake 1 capsule by mouth every afternoon.Disp: Rfl: cyanocobalamin, vitamin B-12, 5,000 mcg TbIETake by mouth. 100 mcgDisp: Rfl: cholecalciferol, vitamin D3, (VITAMIN D3 ORAL)Take by mouth. 5000 mcgDisp: Rfl: losartan 100 mg tabletTake 100 mg by mouth once daily.Disp: Rfl: aspirin, enteric coated 81 mg EC tabletTake 81 mg by mouth once daily.Disp: Rfl: Salicylic Acid (DR CHAHAL'S CLEAR AWAY) 40 % ptmdApply to affected area as directed.Disp: Rfl: Current Facility-Administered Medications Medication Dose Route Frequency acetaminophen 650 mg tab(s) (TYLENOL) 650 mg ORAL q 4 H PRN aluminum-magnesium hydroxide-simethicone 200-200-20 mg/5 mL 30 mL 30 mL ORAL q 6 H PRN ondansetron (PF) 4 mg injection (ZOFRAN) 4 mg INTRAVENOUS q 6 H PRN prochlorperazine 5 mg injection (COMPAZINE) 5 mg INTRAVENOUS q 6 H PRN oxyCODONE IR 5 mg tab(s) (ROXICODONE) 5 mg ORAL q 4 H PRN HYDROmorphone 0.5 mg injection (DILAUDID) 0.5 mg INTRAVENOUS q 4 H PRN NaCl 0.9% iv flush bag 20 mL INTRAVENOUS PRN lactated ringers iv infusion 125 mL/hr INTRAVENOUS CONTINUOUS iv contrast (radiology procedure) INTRAVENOUS DIRECTED PRN And enteric contrast (radiology procedure) ORAL DIRECTED PRN aspirin, enteric coated 81 mg tab(s) 81 mg ORAL DAILY carvedilol 6.25 mg tab(s) (COREG) 6.25 mg ORAL BID w MEALS losartan 100 mg tab(s) (COZAAR) 100 mg ORAL DAILY pantoprazole DR 40 mg tab(s) (PROTONIX) 40 mg ORAL DAILY (6 AM) ALLERGIES Allergen Reactions Penicillins Hives Sulfa (Sulfonamide * Rash GI SPECIFIC REVIEW OF SYSTEMS: Negative for nausea, vomitting Negative for decreased appetite Negative for change in weight No alteration in bowel habits OTHER ROS: GENERAL: No weight loss, malaise or fevers RESPIRATORY: Negative for cough, hemoptysis, wheezing, COPD, dyspnea or shortness of breath CARDIOVASCULAR: Negative for chest pain, leg swelling, hypertension, CHF or palpitations MUSCULOSKELETAL: Negative for joint pain or swelling, back pain or muscle pain SKIN: Negative for lesions, rash, and itching HEMATOLOGY/LYMPHOLOGY: Negative for prolonged bleeding, bruising easily or swollen nodes NEURO: No history of headaches, syncope, paralysis, seizures or tremors Objective PHYSICAL EXAM: BP 179/88 Pulse 72 Temp 36.4 ?C (97.5 ?F) (Oral) Resp 20 Ht 171.5 cm (5' 7.5) Wt 131.7 kg (290 lb 5.5 oz) SpO2 97% BMI 44.80 kg/m? GENERAL- AAO x 3, no distress HEENT: Moist mucus membranes, no miller (more content not included)... Normal [facility] CT ABD/PEL W IVCONon 025 CT ABD/PEL W IVCON * * *Final Report* * * DATE OF EXAM: Oct 01 2024 7:41AM [facility] 0530 - CT ABD/PEL W IVCON / PROCEDURE REASON: Abdominal pain, acute, nonlocalized * * * * Physician Interpretation * * * * EXAMINATION: CT ABDOMEN AND PELVIS WITH IV CONTRAST CLINICAL HISTORY: Abdominal pain TECHNIQUE: CT of the abdomen and pelvis was performed using standard technique, scanning from just above the dome of the diaphragm to the symphysis pubis. MQ: CTAP_3 Contrast: IV: 100 ml of Omnipaque 350 : ml of CT Radiation dose: Integrated Dose-length product (DLP) for this visit = 1247 mGy*cm. CT Dose Reduction Employed: Automated exposure control(AEC) and iterative recon COMPARISON: None. RESULT: Liver: No mass. Biliary: No bile duct dilation. Trace pericholecystic fluid. Gallbladder is otherwise unremarkable. Spleen: No mass. No splenomegaly. Pancreas: No pancreatic mass or pancreatic duct dilatation. Mild fluid/edema surrounding the pancreas suggestive of pancreatitis. No findings to suggest pancreatic necrosis. No discrete peripancreatic fluid collections. Adrenals: No mass. Kidneys: No mass, calculus or hydronephrosis. GI tract: No dilation or wall thickening. No inflammatory changes in the pericecal region to suggest acute appendicitis per Lymph nodes: No abdominal or pelvic lymphadenopathy. Mesentery/Peritoneum: No ascites or mass. Retroperitoneum: No mass. 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 - Celiac and SMA: Patent without stenosis. - Portal venous system (SMV, splenic vein, portal vein and branches): Patent. - Hepatic veins: Incompletely opacified, likely due to early phase of enhancement. Pelvis: No mass, ascites or fluid collection. Bladder is unremarkable. Bones/Soft Tissues: Degenerative changes in the spine. Lower thorax: Calcified granuloma in the right middle lobe Localizer images: No additional findings. IMPRESSION: Findings suggestive of acute interstitial pancreatitis. 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 Trace pericholecystic fluid. This is a nonspecific finding. If there is clinical concern for gallbladder disease could consider further evaluation with right upper quadrant ultrasound. Web Administrator: SUZANNE Transcribe Date/Time: Oct 01 2024 7:53A Dictated by : CORRINE RICHTER MD This examination was interpreted and the report reviewed and electronically signed by: CORRINE RICHTER MD on Oct 01 2024 8:00AM EST [id number] Normal [facility] Comprehensive metabolic 2000 panelon 10-01-2024 Albumin [Mass/Vol] 3.5 g/dL Low 3.9-4.9 [facility] Comment on above: Order Comment: Speci men Type: BLOOD SPECIMENOrdering Facility: [facility] Address: [address] [place], [place] [address] Performed By: #### 2 4323-8, 20235-0, DBIL ####[facility] LABORATORYCLIA [id number] [place] [address] [place] ALP [Catalytic activity/Vol] Normal [facility] Comment on above: Order Comment: Speci men Type: BLOOD SPECIMENOrdering Facility: [facility] Address: [address] [place] [address] Result Comment: Unab le to assay due to interference from hemolysis. Suggest reorder as clinically indicated. Performed By: #### 2 4323-8, 19247-3, DBIL ####[facility] LABORATORYCLIA [id number] [address] STATES OF [facility] ALT With P-5'-P [Catalytic activity/Vol] Normal [facility] Comment on above: Order Comment: Speci men Type: BLOOD SPECIMENOrdering Facility: [facility] Address: [address] [place] [address] Result Comment: Unab le to assay due to interference from hemolysis. Suggest reorder as clinically indicated. Performed By: #### 2 4323-8, , DBIL ####[facility] LABORATORYCLIA [id number] [address] Anion gap [Moles/Vol] 10 mmol/L Normal 8-15 [facility] Comment on above: Order Comment: Speci men Type: BLOOD SPECIMENOrdering Facility: [facility] Address: [address] [place] [address] Performed By: #### 2 4323-8, , DBIL ####[facility] LABORATORYCLIA [id number] [address] [place] AST With P-5'-P [Catalytic activity/Vol] Normal [facility] Comment on above: Order Comment: Speci men Type: BLOOD SPECIMENOrdering Facility: [facility] Address: [address] [place] [address] Result Comment: Unab le to assay due to interference from hemolysis. Suggest reorder as clinically indicated. Performed By: #### 2 4323-8, 73972-2, DBIL ####[facility] LABORATORYCLIA [id number] [address] [place] Bilirubin [Mass/Vol] 1.9 mg/dL High 0.2-1.3 [facility] Comment on above: Order Comment: Speci men Type: BLOOD SPECIMENOrdering Facility: [facility] Address: [address] [place] [address] Performed By: #### 2 432-8, , DBIL ####[facility] LABORATORYCLIA [id number] [place] [address] [place] Calcium [Mass/Vol] 8.6 mg/dL Normal 8.5-10.2 [facility] Comment on above: Order Comment: Speci men Type: BLOOD SPECIMENOrdering Facility: [facility] Address: [address] [place] [address] Performed By: #### 2 4328, , DBIL ####[facility] LABORATORYCLIA [id number] [place] [address] [place] Chloride [Moles/Vol] 102 mmol/L Normal 98-107 [facility] Comment on above: Order Comment: Speci men Type: BLOOD SPECIMENOrdering Facility: [facility] Address: [address] [place] [address] Performed By: #### 2 8, , DBIL ####[facility] LABORATORYCLIA [id number] [place] [address] [place] CO2 [Moles/Vol] 23 mmol/L Normal 22-30 [facility] Comment on above: Order Comment: Speci men Type: BLOOD SPECIMENOrdering Facility: [facility] Address: [address] [place] [address] Performed By: #### 2 4322-8, , DBIL ####[facility]ORATORYCLIA [id number] [place] [address] [place] Creatinine [Mass/Vol] 0.80 mg/dL Normal 0.73-1.22 [facility] Comment on above: Order Comment: Speci men Type: BLOOD SPECIMENOrdering Facility: [facility] Address: [address] [place] [address] Performed By: #### 2 4323-8, 99464-6, DBIL ####[facility] CARMELCLIA [id number] [address] STATES OF [facility] Creatinine and Glomerular filtration rate.predicted panel (S/P/Bld) 91 mL/min/1.73m??? Normal >=60 [facility] Comment on above: Order Comment: Ashli atkinson Type: BLOOD SPECIMENOrdering Facility: [facility] Address: [address] [place] [address] Result Comment: Yoana mated Glomerular Filtration Rate (eGFR) is calculated using the 2020 CKD-EPI creatinine equation. This equation utilizes serum creatinine, sex, and age as parameters. The creatinine assay has traceable calibration to isotope dilution-mass spectrometry. Refer to KDIGO guidelines for clinical interpretation. In patients with unstable renal function, e.g. those with acute kidney injury, the eGFR may not accurately reflect actual GFR. Performed By: #### 2 4323-8, 14017-5, DBIL ####[facility]PITALIA [id number] [place] [address] [place] Glucose [Mass/Vol] 141 mg/dL High 74-99 [facility] Comment on above: Order Comment: Ashli atkinson Type: BLOOD SPECIMENOrdering Facility: [facility] Address: [address] [place] [address] Result Comment: The [place] Diabetes Association (ADA) provides guidance for cutoff values for fasting glucose and random glucose. The ADA defines fasting as no caloric intake for at least 8 hours. Fasting plasma glucose results between 100 to 125 mg/dL indicate increased risk for diabetes (prediabetes). Fasting plasma glucose results greater than or equal to 126 mg/dL meet the criteria for diagnosis of diabetes. In the absence of unequivocal hyperglycemia, results should be confirmed by repeat testing. In a patient with classic symptoms of hyperglycemia or hyperglycemic crisis, random plasma glucose results greater than or equal to 200 mg/dL meet the criteria for diagnosis of diabetes. Reference: Standards of Medical Care in Diabetes 2016, [place] Diabetes Association. Diabetes Care. 2016.39(Suppl 1). Performed By: #### 2 4323-8, 82478-5, DBIL ####[facility] LABORATORYCLIA [id number] [place] [address] [place] Potassium [Moles/Vol] Normal [facility] Comment on above: Order Comment: Speci men Type: BLOOD SPECIMENOrdering Facility: [facility] Address: [address] [place] [address] Result Comment: Unab le to assay due to interference from hemolysis. Suggest reorder as clinically indicated. Performed By: #### 2 4323-8, , DBIL ####[facility] LABORATORYCLIA [id number] [place] [address] [place] Protein [Mass/Vol] 6.6 g/dL Normal 6.3-8.0 [facility] Comment on above: Order Comment: Speci men Type: BLOOD SPECIMENOrdering Facility: [facility] Address: [address] [place] [address] Performed By: #### 2 4323-8, , DBIL ####[facility] LABORATORYCLIA [id number] [place] [address] [place] Sodium [Moles/Vol] 135 mmol/L Low 136-144 [facility] Comment on above: Order Comment: Speci men Type: BLOOD SPECIMENOrdering Facility: [facility] Address: [address] [place] [address] Performed By: #### 2 4323-8, , DBIL ####[facility] LABORATORYCLIA [id number] [place] [address] [place] Urea nitrogen [Mass/Vol] 13 mg/dL Normal 9-24 [facility] Comment on above: Order Comment: Speci men Type: BLOOD SPECIMENOrdering Facility: [facility] Address: [address] [place] [address] Performed By: #### 2 4323-8, , DBIL ####[facility] LABORATORYCLIA [id number] [place] [address] [place] DIRECT BILIRUBIN BLOODon Bilirubin.conjugated [Mass/Vol] 0.2 mg/dL Normal <0.3 [facility] Comment on above: Order Comment: Speci men Type: BLOOD SPECIMENOrdering Facility: [facility] Address: [address], [place] [address] Result Comment: Resu lts may be falsely decreased due to interference from hemolysis. Suggest reorder as clinically indicated. Performed By: #### 2 4323-8, 38989-6, DBIL ####[facility] LABORATORYCLIA [id number] [place] [address] [place] HISTORY PHYSICALon HISTORY PHYSICAL HNO ID: [id number] Author: ALEJANDRO TRAVIS MD Service: Hospital Medicine Author Type: Physician Type: H&P Filed: 10/01/2024 05:06 Note Text: DEPARTMENT OF HOSPITAL MEDICINE HISTORY AND PHYSICAL EXAM SERVICE DATE: 10/01/2024 SERVICE TIME: 2:07 AM Primary Care Physician: Mariluz Sahu, DO NIGHT AND WEEKEND COVERAGE: From 7am - 7pm, please call Sound After 7pm, please call cross cover pager #[phone] Subjective CHIEF COMPLAINT: abdl pain HPI: This is a 79 year old male who is transfer fr [facility] for reported concern for potential choledocholithiasis and pancreatitis. Complains of acute RUQ abdl pain radiating to LUQ, associated with nausea w/o vomiting. Denies cp or shortness of breath. BP 160s/70s, HR 60s, RR 18, afebrile, 96% spo2 on RA. Cbc wnl, Na 135, glucose 141, alb 3.5, tbil 1.9, dbil 1.9. PAST MEDICAL HISTORY Diagnosis Date Benign neoplasm of colon Diverticulosis of colon (without mention of hemorrhage) Essential hypertension, benign External hemorrhoids without mention of complication Personal history of colonic polyps PAST SURGICAL HISTORY Procedure Laterality Date COLONOSCOPY FLX DX W/COLLJ SPEC WHEN PFRMD 02-09-14 COLONOSCOPY W/BIOPSY SINGLE/MULTIPLE 11/23/08 Small splenic flexure polyp/diverticulosis COLSC FLX W/RMVL OF TUMOR POLYP LESION SNARE TQ 05/13/07 Diverticulosis and distal sigmoid polyp PAST SURGICAL HISTORY OF 1991 Sigmoid colectomy AND appendectomy VASECTOMY UNI/BI SPX W/POSTOP SEMEN EXAMS FAMILY HISTORY Problem Relation Age of Onset Macular Degen Sister Cancer Brother lungs Cancer Paternal Grandmother 90 unknown Social History Tobacco Use Smoking status: Former Current packs/day: 0.00 Types: Cigarettes Quit date: 11/28/1982 Years since quittin.8 Smokeless tobacco: Never Substance Use Topics Alcohol use: Yes Alcohol/week: 2.0 standard drinks of alcohol Types: 2 Cans of Beer (12oz) per week Drug use: No MEDICATIONS: Meds Reviewed carvedilol (COREG) 6.25 mg tablet, Take 1 tablet by mouth every 12 (twelve) hours., Disp: , Rfl: , Taking loratadine (CLARITIN) 10 mg tablet, Take 1 tablet by mouth every afternoon., Disp: , Rfl: , Taking omeprazole (PRILOSEC) 40 mg capsule, Take 1 capsule by mouth every afternoon., Disp: , Rfl: , Taking cyanocobalamin, vitamin B-12, 5,000 mcg TbIE, Take by mouth. 100 mcg, Disp: , Rfl: , Taking cholecalciferol, vitamin D3, (VITAMIN D3 ORAL), Take by mouth. 5000 mcg, Disp: , Rfl: , Taking losartan 100 mg tablet, Take 100 mg by mouth once daily., Disp: , Rfl: , Taking aspirin, enteric coated 81 mg EC tablet, Take 81 mg by mouth once daily., Disp: , Rfl: , Taking Salicylic Acid (DR TANS CLEAR AWAY) 40 % ptmd, Apply to affected area as directed., Disp: , Rfl: ALLERGIES Allergen Reactions Penicillins Hives Sulfa (Sulfonamide * Rash REVIEW OF SYSTEM: GENERAL: No weight loss, malaise or fevers HEENT: Negative for frequent or significant headaches, No changes in hearing or vision, no nose bleeds or other nasal problems NECK: Negative for lumps, goiter, pain and significant neck swelling RESPIRATORY: Negative for cough, hemoptysis, wheezing, or shortness of breath CARDIOVASCULAR: Negative for chest pain, leg swelling, or palpitations GI: Positive for abdl pain and nausea : No history of dysuria, frequency or incontinence MUSCULOSKELETAL: Negative for joint pain or swelling, back pain or muscle pain SKIN: Negative for lesions, rash, and itching PSYCH: Negative for sleep disturbance, depression or anxiety NEURO: No headaches, new speech impediment or new one sided weakness or numbness Objective PHYSICAL EXAM: BP 165/75 Pulse 63 Temp (Src) 97.7 (Oral) Resp 18 Ht 5' 7.5 (1.72m) Wt 290 lb 5.5 oz (131.7kg) SpO2 96% BMI 44.78 kg/(m2). O2 Therapy: Room Air Physical Exam Performed: GENERAL: Alert, oriented x 3, no distress, cooperative SKIN: Skin color, texture, turgor normal. No rashes or lesions. HEAD/SINUSES: No significant findings EYES/EARS/NOSE: PERRLA, EOMI. External ears normal, canals clear. Nares normal, septum midline. OROPHARYNX: Lips, mucosa, and tongue normal. Teeth and gums normal. Oropharynx normal. NECK: No jugulovenous distention, No carotid bruits, Carotid pulse normal contour, Supple LUNGS: Lungs clear to auscultation, Good diaphragmatic excursion CARDIAC: Normal S1 and S2; no rubs, murmurs, or gallops ABDOMEN: Abdomen soft, mild RUQ tenderness EXTREMITIES: Extremities normal, no deformities, edema, clubbing or skin discoloration. Good capillary refill., No ulcers NEURO: Gait normal. Reflexes normal and symmetric. Sensation grossly intact, Cranial nerves II-XII intact The remainder of the physical exam is noncontributory. Lines, Drains, and Airways None Reviewed lines and needs to be continued: REASONS: Intravenous fluids, electrolyte replacement DATA: Diagnostic tests reviewed for today's visit: Most rec (more content not included)... Normal [facility] Hepatic function 2000 panelo n 10-01-2024 Albumin [Mass/Vol] 3.5 g/dL Low 3.9-4.9 [facility] Comment on above: Order Comment: Ashli atkinson Type: BLOOD SPECIMENOrdering Facility: [facility] Address: [address] [place] [address] Performed By: #### 6 768-6, 1742-6, K1, 48952-7, 1920-8, 3040-3 ####[facility] LABORATORYCLIA [id number] [place] [address] [place] ALP [Catalytic activity/Vol] 158 U/L High 38-113 [facility] Comment on above: Order Comment: Ashli atkinson Type: BLOOD SPECIMENOrdering Facility: [facility] Address: [address] [place] [address] Performed By: #### 6 768-6, 1742-6, K1, 34187-6, 8, 3039-3 ####[facility] LABORATORYCLIA [id number] [place], [place] [id number] [place] [address] [place] With P-5'-P [Catalytic activity/Vol] 223 U/L High 14-40 [facility] Comment on above: Order Comment: Speci men Type: BLOOD SPECIMENOrdering Facility: [facility] Address: [address] [place], [place] [address] Performed By: #### 6 768-6, 1742-6, K1, 55795-0, 1919-12, 3 ####[facility] LABORATORYCLIA [id number] [address] [place] Bilirubin [Mass/Vol] 1.6 mg/dL High 0.2-1.3 [facility] Comment on above: Order Comment: Speci men Type: BLOOD SPECIMENOrdering Facility: [facility] Address: [address] [place] [address] Performed By: #### 6 768-6, 1742-6, K1, 33031-2, 1919-12, 3 ####[facility] LABORATORYCLIA [id number] [address] [place] Bilirubin.conjugated [Mass/Vol] 0.6 mg/dL High <0.3 [facility] Comment on above: Order Comment: Speci men Type: BLOOD SPECIMENOrdering Facility: [facility] Address: [address] [place], [place] [address] Performed By: #### 6 768-6, 1742-6, K1, 02639-6, 1919-12, 3 ####[facility] LABORATORYCLIA [id number] [address] [place] Protein [Mass/Vol] 6.6 g/dL Normal 6.3-8.0 [facility] Comment on above: Order Comment: Speci men Type: BLOOD SPECIMENOrdering Facility: [facility] Address: [address] [place] [address] [place] [id number] Performed By: #### 6 768-6, 1742-6, K1, 25325-7, 1919-12, 3 ####[facility] LABORATORYCLIA [id number] [place] [address] [place] Lipase SerPl-cCncon 10-02-19 Lipase [Catalytic activity/Vol] 1623 U/L High 16-61 [facility] Comment on above: Order Comment: Speci men Type: BLOOD SPECIMENOrdering Facility: [facility] Address: [address] [place] [address] Performed By: #### 6 768-6, 1742-6, K1, 20136-1, 1919-12, 3 ####[facility] LABORATORYCLIA [id number] [address] [place] Magnesium SerPl-mCncon 10-01 Magnesium [Mass/Vol] 1.9 mg/dL Normal 1.7-2.3 [facility] Comment on above: Order Comment: Speci men Type: BLOOD SPECIMENOrdering Facility: [facility] Address: [address] [place] [address] Performed By: #### 2 4323-8, 97829-7, DBIL ####[facility] LABORATORYCLIA [id number] [place] [address] [place] POTASSIUMon 10-01-2024 Potassium [Moles/Vol] 4.1 mmol/L Normal 3.7-5.1 [facility] Comment on above: Order Comment: Speci men Type: BLOOD SPECIMENOrdering Facility: [facility] Address: [address] [place] [address] Performed By: #### 6 768-6, 1742-6, K1, 93014-9, 1919-12, 3 ####[facility] LABORATORYCLIA [id number] [place] [id number] [place] US ABD RIGHT UPPER QUADRANTo n 10-01-2024 US ABD RIGHT UPPER QUADRANT * * *Final Report* * * DATE OF EXAM: Oct 01 2024 8:00AM [facility] 1032 - US ABD RIGHT UPPER QUADRANT / PROCEDURE REASON: Abn liver function tests (LFTs) * * * * Physician Interpretation * * * * EXAMINATION: RIGHT UPPER QUADRANT ULTRASOUND CLINICAL HISTORY: Abnormal liver function tests TECHNIQUE: Sonography of the right upper quadrant was performed. Images were obtained and stored in a permanent archive. MQ: URUQ_2 COMPARISON: CT abdomen and pelvis 10/01/2024 RESULT: Limitations: Overlying bowel gas and patient body habitus. Pancreas: Not visualized due to overlying bowel gas. Liver: Echotexture: Normal, homogeneous. Echogenicity: Normal Surface contour: Smooth Lesions: None. Biliary: No intrahepatic biliary duct dilation. CBD: 0.4 cm at the hilum. Gallbladder: Normal caliber -Contents: Cholelithiasis and sludge present -Wall: Normal -Other: No pericholecystic fluid. Right Kidney: No hydronephrosis. Ascites: None. Spleen: Suboptimally visualized due to overlying bowel gas. The length of the spleen is 8.7 cm. There are no splenic lesions. IMPRESSION: Sludge and stones in the gallbladder. The pancreas could not be visualized due to overlying bowel gas. Web Administrator: [facility] Transcribe Date/Time: Oct 01 2024 8:16A Dictated by : CORRINE RICHTER MD This examination was interpreted and the report reviewed and electronically signed by: CORRINE RICHTER MD on Oct 01 2024 8:18AM EST [id number] Normal [facility] US ABD SPLEEN -NBon 10-02-19 25 US ABD SPLEEN -NB * * *Final Report* * * DATE OF EXAM: Oct 01 2024 8:00AM [facility] 1232 - US ABD SPLEEN -NB / PROCEDURE REASON: Abn liver function tests (LFTs) * * * * Physician Interpretation * * * * EXAMINATION: RIGHT UPPER QUADRANT ULTRASOUND CLINICAL HISTORY: Abnormal liver function tests TECHNIQUE: Sonography of the right upper quadrant was performed. Images were obtained and stored in a permanent archive. MQ: URUQ_2 COMPARISON: CT abdomen and pelvis 10/01/2024 RESULT: Limitations: Overlying bowel gas and patient body habitus. Pancreas: Not visualized due to overlying bowel gas. Liver: Echotexture: Normal, homogeneous. Echogenicity: Normal Surface contour: Smooth Lesions: None. Biliary: No intrahepatic biliary duct dilation. CBD: 0.4 cm at the hilum. Gallbladder: Normal caliber -Contents: Cholelithiasis and sludge present -Wall: Normal -Other: No pericholecystic fluid. Right Kidney: No hydronephrosis. Ascites: None. Spleen: Suboptimally visualized due to overlying bowel gas. The length of the spleen is 8.7 cm. There are no splenic lesions. IMPRESSION: Sludge and stones in the gallbladder. The pancreas could not be visualized due to overlying bowel gas. Web Administrator: [facility] Transcribe Date/Time: Oct 01 2024 8:16A Dictated by : CORRINE RICHTER MD This examination was interpreted and the report reviewed and electronically signed by: CORRINE RICHTER MD on Oct 01 2024 8:18AM EST [id number] Normal [facility] Abdomen Limitedon 09-30-2024 Abdomen Limited [facility] Imaging Services [address] [place] [address] [id number] Abdomen Limited MR#: [id number] Acct: [id number] Name: UMU SALCIDO Rep #: [id number] : 1945 M 79 From: Howard sandoval MD PCP: Dr. Mariluz Sahu DO Status: REG ER Study: Abdomen Limited Date of Exam: 09/30/24 Exam# [id number] Ordering Dr: Santosh Sorensen DO PROCEDURE: ABDOMEN LIMITED 09/30/2024 REASON FOR EXAM: PAIN TECHNIQUE: Complete abdominal ultrasound sheehan-scale images with color doppler. PATIENT PREPARATION: Per protocol FINDINGS: Liver: Diffusely echogenic suggesting fatty infiltration. Gallbladder: There are echogenic gallstones. A sonographic Zapata sign is present. Common bile duct: Nonvisualized . Pancreas: Obscured by bowel gas. Kidneys: The right kidney measures 12.3 cm. No calculi or hydronephrosis. Peritoneal Findings: No ascites identified. US/Abdomen Limited IMPRESSION: Cholelithiasis and positive sonographic Zapata's sign, concerning for acute cholecystitis. Hepatic steatosis. No focal lesion. Reading Location: [facility] CC: Dr. Mariluz Sahu DO; Dr. Santosh Sorensen DO Web Administrator: Signed Normal [facility] Absolute lymphocyte countOrd ered By: Santosh Sorensen on 09-30-2024 Lymphocytes Auto (Unsp spec) [#/Vol] 1.26 10*3/uL 0.83-4.[address] [facility] Absolute neutrophil countOrd ered By: Santosh Sorensen on 09-30-2024 Neutrophils (Bld) [#/Vol] 7.3 10*3/uL 2.0-7.[address] [facility] Anion gap in Serum or Plasma Ordered By: Santosh Sorensen on 09-30-2024 Anion gap [Moles/Vol] 10 mmol/L 10-05 [facility] Automated lymphocyte count a s percentage of total leukocytesOrdered By: Santosh Sorensen on 09-30-2024 Lymphocytes/100 WBC Auto (Unsp spec) 13.5 % Low [facility] BUN/creatinine ratioOrdered By: Santosh Sorensen on 09-30-2024 Urea nitrogen/Creatinine [Mass ratio] 15.3 mg/mg 03-[address] [facility] Basic Metabolic Profile (BMP )on 09-30-2024 BUN/CRE 15.3 RATIO Normal 03-[address] [facility] Comment on above: Performed By: #### L 500.2500, L500.3400, L100.0100, L501.2450 #### [facility] [address] [place], [address] ECRCL 86.99 ml/min Normal 50-[address] [facility] Comment on above: Performed By: #### L 500.2500, L500.3400, L100.0100, L501.2450 #### [facility] [address] [place], [address] GAP 10 Normal -[address] [facility] Comment on above: Performed By: #### L 500.2500, L500.3400, L100.0100, L501.2450 #### [facility] [address] [place], [address] Potassium [Moles/Vol] 3.7 mmol/L Normal 3.3-5.1 [facility] Comment on above: Performed By: #### L 500.2500, L500.3400, L100.0100, L501.2450 #### [facility] [address] [place], [address] Basophil percentageOrdered B y: Santosh Sorensen on 09-30-2024 Basophils/100 WBC (Bld) 0.4 % [address] [facility] Bilirubin directOrdered By: Santosh Sorensen on 09-30-2024 Bilirubin.direct [Mass/Vol] 0.88 mg/dL High 0.00-0.[address] [facility] Comment on above: Performed By: #### L 500.2500, L500.3400, L100.0100, L501.2450 #### [facility] [address] [place], [address] Bilirubin, totalOrdered By: Santosh Sorensen on 09-30-2024 Bilirubin [Mass/Vol] 1.43 mg/dL High 0.00-1.30 [facility] Comment on above: Performed By: #### L 500.2500, L500.3400, L100.0100, L501.2450 #### [facility] [address] [place], [address] CBC W/Diff, Automatedon 09-21 Absolute Lymph 1.26 X10 3/uL Normal 0.83-4.[address] [facility] Comment on above: Performed By: #### L 500.2500, L500.3400, L100.0100, L501.2450 #### [facility] [address] [place], [address] Absolute Neut 7.3 X10 3/uL Normal 2.0-7.[address] [facility] Comment on above: Performed By: #### L 500.2500, L500.3400, L100.0100, L501.2450 #### [facility] [address] [place], [address] Basophils/100 WBC (Bld) 0.4 % Normal 0-[address] [facility] Comment on above: Performed By: #### L 500.2500, L500.3400, L100.0100, L501.2450 #### [facility] [address] [place], [address] Eosinophils/100 WBC (Bld) 1.7 % Normal 0-[address] [facility] Comment on above: Performed By: #### L 500.2500, L500.3400, L100.0100, L501.2450 #### [facility] [address] [place], [address] Erythrocyte distribution width (RBC) [Ratio] 13.2 % Normal 11.6-14.[address] [facility] Comment on above: Performed By: #### L 500.2500, L500.3400, L100.0100, L501.2450 #### [facility] [address] [place], [address] Hematocrit (Bld) [Volume fraction] 44.0 % Normal 40-[address] [facility] Comment on above: Performed By: #### L 500.2500, L500.3400, L100.0100, L501.2450 #### [facility] [address] [place], [address] Hemoglobin (Bld) [Mass/Vol] 15.0 g/dL Normal 13.0-16.[address] [facility] Comment on above: Performed By: #### L 500.2500, L500.3400, L100.0100, L501.2450 #### [facility] [address] [place], [address] IG% 0.300 Normal 0.0-0.[address] [facility] Comment on above: Result Comment: IG% - Immature Granulocytes (promyelocytes, myelocytes and metamyelocytes) > 1% indicates that a LEFT SHIFT is Present. Performed By: #### L 500.2500, L500.3400, L100.0100, L501.2450 #### [facility] [address] [place], [address] Lymphocytes/100 WBC (Bld) 13.5 % Low 19-[address] [facility] Comment on above: Performed By: #### L 500.2500, L500.3400, L100.0100, L501.2450 #### [facility] [address] [place], [address] MCH (RBC) [Entitic mass] 29.9 pg Normal 27.0-32.[address] [facility] Comment on above: Performed By: #### L 500.2500, L500.3400, L100.0100, L501.2450 #### [facility] [address] [place], [address] MCHC (RBC) [Mass/Vol] 34.1 g/dL Normal 32-36 [facility] Comment on above: Performed By: #### L 500.2500, L500.3400, L100.0100, L501.2450 #### [facility] [address] [place], [address] MCV (RBC) [Entitic vol] 87.6 fL Normal 80-[address] [facility] Comment on above: Performed By: #### L 500.2500, L500.3400, L100.0100, L501.2450 #### [facility] [address] [place], [address] Monocytes/100 WBC (Bld) 6.3 % Normal 0-[address] [facility] Comment on above: Performed By: #### L 500.2500, L500.3400, L100.0100, L501.2450 #### [facility] [address] [place], [address] Neutrophils/100 WBC (Bld) 77.8 % High 47-[address] [facility] Comment on above: Performed By: #### L 500.2500, L500.3400, L100.0100, L501.2450 #### [facility] [address] [place], [address] Nucleated RBC (Bld) [#/Vol] 0 10*3/uL Normal 0-[address] [facility] Comment on above: Performed By: #### L 500.2500, L500.3400, L100.0100, L501.2450 #### [facility] [address] [place], [address] Platelet mean volume (Bld) [Entitic vol] 9.9 fL Normal 6.2-12.[address] [facility] Comment on above: Performed By: #### L 500.2500, L500.3400, L100.0100, L501.2450 #### [facility] [address] [place], [address] Platelets (Bld) [#/Vol] 239 10*3/uL Normal 150-[address] [facility] Comment on above: Performed By: #### L 500.2500, L500.3400, L100.0100, L501.2450 #### [facility] [address] [place], [address] RBC (Bld) [#/Vol] 5.02 10*6/uL Normal 4.6-6.2 [facility] Comment on above: Performed By: #### L 500.2500, L500.3400, L100.0100, L501.2450 #### [facility] [address] [place], [address] RDW SD 42.5 fl Normal 35.1-43.[address] [facility] Comment on above: Performed By: #### L 500.2500, L500.3400, L100.0100, L501.2450 #### [facility] [address] [place], [address] WBC (Bld) [#/Vol] 9.3 10*3/uL Normal 4.4-11.0 [facility] Comment on above: Performed By: #### L 500.2500, L500.3400, L100.0100, L501.2450 #### [facility] [address] [place], [address] Carbon dioxide, total [Moles /volume] in Central venous bloodOrdered By: Santosh Sorensen on 09-30-2024 CO2 [Moles/Vol] 22.7 mmol/L Normal 21.0-32.[address] [facility] Comment on above: Performed By: #### L 500.2500, L500.3400, L100.0100, L501.2450 #### [facility] [address] [place], [address] Chloride assayOrdered By: Virgil Sorensen on 09-30-2024 Chloride [Moles/Vol] 103 mmol/L Normal 98-108 [facility] Comment on above: Performed By: #### L 500.2500, L500.3400, L100.0100, L501.2450 #### [facility] [address] [place], [address] Emergency Department Summary on 09-30-2024 Emergency Department Summary [facility] Medical Records Department [address] [place] [address] Emergency Department Summary 09/30/24 MR#: [id number] Acct: [id number] Name: UMU SALCIDO Rep #: [id number] : 1945 79 From: Santosh Huerta PCP: Dr. Mariluz Sahu, DO Status:DEP ER Location: ED HPI HPI - GI History of Present Illness Chief Complaint: Abd Pain Informant: patient and spouse/S.O. Narrative Narrative: Sudden pain across his upper abdomen 45 minutes ago. Last eaten snacks and junk food at 2:30 PM. No fevers. No nausea or vomiting. No urinary symptoms. No diarrhea. He states similar presentation with pancreatitis this past March. He stopped drinking alcohol since then. We had total 4 drinks since then. He also was reported he did have small gallstones that possibly could have led to symptoms. However states no ERCP was performed. Abdominal surgeries include a partial colectomy in his 30s for diverticulitis. Prior similar symptoms: Yes PFSH PFSH Medical History (Updated 09/30/24 @ 20:[address] Santosh Sorensen, DO) Pancreatitis BPH (benign prostatic hyperplasia) Sleep apnea GERD (gastroesophageal reflux disease) Chest pain Personal history of colonic polyps Abdominal pain History of colon polyps History of diverticulosis History of diverticulitis Cough HTN (hypertension) Home Medications ???Medication ???Instructions ???Recorded ???Last Taken ???Type aspirin 81 mg tablet,delayed 81 mg PO DAILY 01/05/19 09/29/24 H istory release (Adult Aspirin Regimen) mecobalamin (vitamin B12) 1,000 1,000 mcg sublingual DAILY 9 09/29/24 History mcg disintegrating tablet,sublingual losartan 25 mg tablet 25 mg PO QHS blood pressure 09/29/24 History carvedilol 6.25 mg tablet 6.25 mg PO BID 09/27/23 09/30/24 H istory cholecalciferol (vitamin D3) 125 125 mcg PO QWEEK 09/27/23 09/27/24 History mcg (5,000 unit) capsule loratadine 10 mg tablet 10 mg PO DAILY 09/27/23 09/30/24 H istory losartan 100 mg tablet (Cozaar) 100 mg PO DAILY 09/27/23 09/30/24 History omeprazole 40 mg capsule,delayed 40 mg PO DAILY 09/30/24 09/30/24 H istory release tamsulosin 0.4 mg capsule 0.4 mg PO DAILY 09/30/24 09/29/24 History Allergy/AdvReac Type Severity Reaction Status Date / Time sulfamethoxazole (From Allergy Intermediate Rash Verified 09/30/24 16:35 Bactrim) trimethoprim (From Bactrim) Allergy Intermediate Rash Verified 09/30/24 16:35 Penicillins Allergy Mild rash Verified 09/30/24 16:35 Family History Father Hypertension Stomach ulcer Mother Hypertension Brother Cancer Spine Brother Diabetes Arthritis Grandfather Heart disease CVA (cerebral vascular accident) Daughter Multiple sclerosis Surgical History History of back surgery History of colonoscopy ( 2013) History of partial colectomy History of cataract extraction Social History household members: spouse housing: house number of children: 2 current occupational status: retired Smoking Status: Former smoker alcohol intake: current alcohol intake frequency: a few times a week substance use type: does not use ROS ROS ED Constitutional Constitutional ED: Denies chills, fever(s) or sweats ENT ENT ED: Denies sore throat Cardiovascular Cardiovascular: Denies chest pain, leg edema, palpitations or racing heartbeat Respiratory/Chest Respiratory/Chest: Denies cough, dyspnea or dyspnea on exertion Gastrointestinal Gastrointestinal: Reports abdominal pain; Denies diarrhea, nausea or vomiting Genitourinary Genitourinary ED: Denies dysuria, hematuria or urinary frequency Musculoskeletal Musculoskeletal: Denies back pain, extremity pain or neck pain Integumentary Denies rash or wounds Neurologic Neurologic: Denies headache(s), paresthesias or weakness EXAM Physical Exam Const Vital Signs: 09/30/24 16:35 09/30/24 18:09 09/30/24 19:23 Temperature 97 F L Temperature Source Temporal Pulse Rate 62 78 61 Respiratory Rate 20 H 18 18 Blood Pressure 196/109 H 171/78 H 189/78 H Blood Pressure Mean 138 109 115 Pulse Ox 97 92 98 Oxygen Delivery Method Room Air Room Air Room Air Positive well nourished and well developed General Appearance ED: well developed and NAD HEENT Reports moist mucous membranes normocephalic and atraumatic Eyes General Eye ED: Yes normal appearance of both eyes Neck full ROM Chest Wall Chest: Negative for tenderness Resp normal respiratory effort and normal air movement Effort and Inspection: symmetric chest movement; Negative for respiratory distress Cardio regular rate, regular rhythm and no murmurs Periph (more content not included)... Normal [facility] Eosinophil percentageOrdered By: Santosh Sorensen on 09-30-2024 Eosinophils/100 WBC (Bld) 1.7 % 0-[address] [facility] Erythrocyte distribution wid th ratioOrdered By: Santosh Sorensen on 09-30-2024 Erythrocyte distribution width (RBC) [Ratio] 13.2 % 11.6-14.[address] [facility] Erythrocyte distribution wid th standard deviationOrdered By: Santosh Sorensen on 09-30-2024 Erythrocyte distribution width (RBC) [Ratio] 42.5 fl 35.1-43.[address] [facility] Glomerular filtration rate ( GFR) estimation/1.73 sq m using serum, plasma, or whole bOrdered By: Santosh Sorensen on 09-30-2024 GFR/1.73 sq M.predicted among non-blacks MDRD (S/P/Bld) [Vol rate/Area] 84 mL/min/{1.73_m2} Normal >[address] [facility] Comment on above: mL/min/1.73m2 CKD-EP I Creatinine Equation (2020) Result Comment: mL/m in/1.73m2 CKD-EPI Creatinine Equation (2020) Performed By: #### L 500.2500, L500.3400, L100.0100, L501.2450 #### [facility] [address] [place], [place] [address], [address] Hematocrit Auto (Bld) [Volum e fraction]Ordered By: Santosh Sorensen on 09-30-2024 Hematocrit (Bld) [Volume fraction] 44.0 % 40-[address] [facility] Hemoglobin measurementOrdere d By: Santosh Sorensen on 09-30-2024 Hemoglobin (Bld) [Mass/Vol] 15.0 g/dL 13.0-16.[address] [facility] Immature granulocytes/100 WB C Auto (Bld)Ordered By: Santosh Sorensen on 09-30-2024 Immature granulocytes/100 WBC (Bld) 0.300 % 0.0-0.[address] [facility] Comment on above: IG% - Immature Granu locytes (promyelocytes, myelocytes and metamyelocytes) > 1% indicates that a LEFT SHIFT is Present. Lipase measurementOrdered By : Santosh Sorensen on 09-30-2024 Lipase [Catalytic activity/Vol] U/L High 13-[address] [facility] Comment on above: Please note:LIPASE r evised reference range effective 22. New Lipase methodology. Expected to produce lower values than the previous assay method. NEW Reference Range: 13 - 75 U/L Result Comment: David mike note: LIPASE revised reference range effective 22. New Lipase methodology. Expected to produce lower values than the previous assay method. NEW Reference Range: 13 - 75 U/L Performed By: #### L 500.2500, L500.3400, L100.0100, L501.2450 #### [facility] [address] [place], [address] Liver Profileon 09-30-2024 ALK PHOS 116 U/L Normal 40-[address] [facility] Comment on above: Performed By: #### L 500.2500, L500.3400, L100.0100, L501.2450 #### [facility] [address] [place], [address] T PROT 6.5 g/dL Normal 5.9-8.[address] [facility] Comment on above: Performed By: #### L 500.2500, L500.3400, L100.0100, L501.2450 #### [facility] [address] [place], [address] Liver ProfileOrdered By: Sudhakar Sorensen on 09-30-2024 AST [Catalytic activity/Vol] 85 U/L High <=[address] [facility] Comment on above: Performed By: #### L 500.2500, L500.3400, L100.0100, L501.2450 #### [facility] [address] [place], [address] MCV (mean corpuscular volume ) determinationOrdered By: Santosh Sorensen on 09-30-2024 MCV (RBC) [Entitic vol] 87.6 fL 80-[address] [facility] Mean corpuscular hemoglobin (MCH) determinationOrdered By: Santosh Sorensen on 09-30-2024 MCH (RBC) [Entitic mass] 29.9 pg 27.0-32.[address] [facility] Mean corpuscular hemoglobin concentration (MCHC) determinationOrdered By: Santosh Sorensen on 09-30-2024 MCHC (RBC) [Mass/Vol] 34.1 g/dL 32-36 [facility] Mean platelet volume determi nationOrdered By: Santosh Sorensen on 09-30-2024 Platelet mean volume (Bld) [Entitic vol] 9.9 fL 6.2-12.[address] [facility] Monocyte percentageOrdered B y: Santosh Sorensen on 09-30-2024 Monocytes/100 WBC (Bld) 6.3 % 0-[address] [facility] Neutrophil percentageOrdered By: Santosh Sorensen on 09-30-2024 Neutrophils/100 WBC (Bld) 77.8 % High 47-[address] [facility] Nucleated red blood cell per centageOrdered By: Santosh Sorensen on 09-30-2024 Nucleated RBC/100 WBC (Bld) [Ratio] 0 % 0-[address] [facility] Platelet countOrdered By: Virgil Sorensen on 09-30-2024 Platelets (Bld) [#/Vol] 239 10*3/uL 150-[address] [facility] Potassium measurement (mass/ volume)Ordered By: Santosh Sorensen on 09-30-2024 Potassium (Unsp spec) [Mass/Vol] 3.7 mmol/L 3.3-5.[address] [facility] RBC Auto (Bld) [#/Vol]Ordere d By: Santosh Sorensen on 09-30-2024 RBC (Bld) [#/Vol] 5.02 10*6/uL 4.6-6.2 [facility] Serum creatinine measurement (mass/volume)Ordered By: Santosh Sorensen on 09-30-2024 Creatinine [Mass/Vol] 0.93 mg/dL Normal 0.70-1.20 [facility] Comment on above: Performed By: #### L 500.2500, L500.3400, L100.0100, L501.2450 #### [facility] [address] [place], [place], [id number] Serum globulin measurementOr dered By: Santosh Sorensen on 09-30-2024 Globulin (S) [Mass/Vol] 2.9 g/dL Normal 2.2-4.[address] [facility] Comment on above: Performed By: #### L 500.2500, L500.3400, L100.0100, L501.2450 #### [facility] [address] [place], [address] Serum glucose measurement (m ass/volume)Ordered By: Santosh Sorensen on 09-30-2024 Glucose [Mass/Vol] 130 mg/dL High 70-99 [facility] Comment on above: Performed By: #### L 500.2500, L500.3400, L100.0100, L501.2450 #### [facility] [address] [place], [address] Serum or plasma alanine dickey otransferase (ALT) measurementOrdered By: Santosh Sorensen on 09-30-2024 ALT [Catalytic activity/Vol] 46 U/L Normal <=[address] [facility] Comment on above: Performed By: #### L 500.2500, L500.3400, L100.0100, L501.2450 #### [facility] [address] [place], [address] Serum or plasma albumin yessenia urement (mass/volume)Ordered By: Santosh Sorensen on 09-30-2024 Albumin [Mass/Vol] 3.6 g/dL Normal 3.4-4.8 [facility] Comment on above: Performed By: #### L 500.2500, L500.3400, L100.0100, L501.2450 #### [facility] [address] [place], [address] Serum or plasma alkaline sadie sphatase measurementOrdered By: Santosh Sorensen on 09-30-2024 ALP [Catalytic activity/Vol] 116 U/L 40-[address] [facility] Serum or plasma calcium yessenia urement (mass/volume)Ordered By: Santosh Sorensen on 09-30-2024 Calcium [Mass/Vol] 8.4 mg/dL Normal 7.6-11.0 [facility] Comment on above: Performed By: #### L 500.2500, L500.3400, L100.0100, L501.2450 #### [facility] [address] [place], [address] Serum or plasma urea nitroge n measurement (mass/volume)Ordered By: Santosh Sorensen on 09-30-2024 Urea nitrogen [Mass/Vol] 14 mg/dL Normal 4-[address] [facility] Comment on above: Performed By: #### L 500.2500, L500.3400, L100.0100, L501.2450 #### [facility] [address] [place], [address] Sodium levelOrdered By: Santosh Sorensen on 09-30-2024 Sodium [Moles/Vol] 135 mmol/L Normal 133-145 [facility] Comment on above: Performed By: #### L 500.2500, L500.3400, L100.0100, L501.2450 #### [facility] [address] [place], [address] Total proteinOrdered By: Sudhakar Sorensen on 09-30-2024 Protein [Mass/Vol] 6.5 g/dL 5.9-8.4 [facility] White blood cell (WBC) count Ordered By: Santosh Sorensen on 09-30-2024 WBC (Bld) [#/Vol] 9.3 10*3/uL 4.4-11.0 [facility] Abdomen/Pelvis W IV Cont ONL Yon 03-24-2024 Abdomen/Pelvis W IV Cont ONLY [facility] [address] [place] [address] Abdomen/Pelvis W IV Cont ONLY MR#: [id number] Acct: [id number] Name: UMU SALCIDO Rep #: [id number] : 1945 M 78 From: Rafita esparza MD PCP: Dr. Mariluz Sahu, DO Status: REG CLI Study: Abdomen/Pelvis W IV Cont ONLY Date of Exam: Exam# [id number] Ordering Dr: Mariluz Sahu DO [id number] STUDY: CT ABDOMEN AND PELVIS WITH CONTRAST REASON FOR EXAM: Male, 78 years old. ABDOMINAL PAIN DIVERTICULITIS. History of prior partial colectomy. RADIATION DOSAGE (If Supplied By Facility): CTDIvol = ( 17.06 ) mGy, DLP = ( 1350.74 ) mGycm TECHNIQUE: Transaxial images were obtained from the dome of the diaphragm to the symphysis pubis without oral contrast. IV 100mL Isovue-300 was administered. Sagittal and coronal images were reconstructed. Individualized dose optimization techniques were used for this CT. COMPARISON: None. FINDINGS: The visualized lung bases are unremarkable. Coronary artery calcification. There is decreased attenuation of the liver consistent with steatosis. Questionable small gallstones. Normal spleen. There is diffuse enlargement of the pancreas with susan-pancreatic edema suggesting acute pancreatitis. Normal bilateral adrenal glands. Normal right kidney. Normal left kidney. There is evidence of a left anterior pararenal space inflammatory changes most likely secondary to the pancreatitis. Nonspecific bilateral perinephric stranding. Normal visualized stomach. Normal small intestine. Normal colon. The appendix is visualized and appears normal. There is atherosclerotic calcification of the abdominal aorta, without a demonstrated aneurysm. Normal inferior vena cava. Normal retroperitoneum. The bladder is empty. Diffuse bladder wall thickening. Prostatic enlargement with central prostatic calcification. Normal abdominal wall. There are diffuse degenerative changes of the visualized lumbar spine. Minimal anterior listhesis of L5 on S1 without spondylolysis. CT/Abdomen/Pelvis W IV Cont ONLY IMPRESSION: Findings in keeping with noncomplicated acute pancreatitis. Fatty infiltration of the liver. Findings suggestive of small gallstones. Electronically Signed: Rafita Butts MD at 11:14 EDT , CC: Dr. Mariluz Sahu, DO Web Administrator: Signed Normal [facility] CBC W/Diff, Automatedon 10-3 Absolute Lymph 0.65 X10 3/uL Low 0.83-4.[address] [facility] Comment on above: Performed By: #### L 500.2500, L500.3400, L100.0100, L501.2450 #### [facility] [address] [place], [address] Absolute Neut 12.3 X10 3/uL High 2.0-7.[address] [facility] Comment on above: Performed By: #### L 500.2500, L500.3400, L100.0100, L501.2450 #### [facility] [address] [place], [address] Basophils/100 WBC (Bld) 0.1 % Normal 0-[address] [facility] Comment on above: Performed By: #### L 500.2500, L500.3400, L100.0100, L501.2450 #### [facility] [address] [place], [address] Eosinophils/100 WBC (Bld) 0.2 % Normal 0-[address] [facility] Comment on above: Performed By: #### L 500.2500, L500.3400, L100.0100, L501.2450 #### [facility] [address] [place], [address] Erythrocyte distribution width (RBC) [Ratio] 13.9 % Normal 11.6-14.[address] [facility] Comment on above: Performed By: #### L 500.2500, L500.3400, L100.0100, L501.2450 #### [facility] [address] [place], [address] Hematocrit (Bld) [Volume fraction] 47.2 % Normal 40-[address] [facility] Comment on above: Performed By: #### L 500.2500, L500.3400, L100.0100, L501.2450 #### [facility] [address], [address] Hemoglobin (Bld) [Mass/Vol] 15.3 g/dL Normal 13.0-16.[address] [facility] Comment on above: Performed By: #### L 500.2500, L500.3400, L100.0100, L501.2450 #### [facility] [address] [place], [address] IG% 0.600 Normal 0.0-0.[address] [facility] Comment on above: Result Comment: IG% - Immature Granulocytes (promyelocytes, myelocytes and metamyelocytes) > 1% indicates that a LEFT SHIFT is Present. Performed By: #### L 500.2500, L500.3400, L100.0100, L501.2450 #### [facility] [address] [place], [address] Lymphocytes/100 WBC (Bld) 4.8 % Low 19-[address] [facility] Comment on above: Performed By: #### L 500.2500, L500.3400, L100.0100, L501.2450 #### [facility] [address] [place], [address] MCH (RBC) [Entitic mass] 29.5 pg Normal 27.0-32.[address] [facility] Comment on above: Performed By: #### L 500.2500, L500.3400, L100.0100, L501.2450 #### [facility] [address] [place], [address] MCHC (RBC) [Mass/Vol] 32.4 g/dL Normal 32-36 [facility] Comment on above: Performed By: #### L 500.2500, L500.3400, L100.0100, L501.2450 #### [facility] [address] [place], [address] MCV (RBC) [Entitic vol] 90.9 fL Normal 80-[address] [facility] Comment on above: Performed By: #### L 500.2500, L500.3400, L100.0100, L501.2450 #### [facility] [address] [place], [address] Monocytes/100 WBC (Bld) 3.5 % Normal 0-[address] [facility] Comment on above: Performed By: #### L 500.2500, L500.3400, L100.0100, L501.2450 #### [facility] [address] [place], [address] Neutrophils/100 WBC (Bld) 90.8 % High 47-[address] [facility] Comment on above: Performed By: #### L 500.2500, L500.3400, L100.0100, L501.2450 #### [facility] [address] [place], [address] Nucleated RBC (Bld) [#/Vol] 0 10*3/uL Normal 0-[address] [facility] Comment on above: Performed By: #### L 500.2500, L500.3400, L100.0100, L501.2450 #### [facility] [address] [place], [address] Platelet mean volume (Bld) [Entitic vol] 10.1 fL Normal 6.2-12.[address] [facility] Comment on above: Performed By: #### L 500.2500, L500.3400, L100.0100, L501.2450 #### [facility] [address] [place], [address] Platelets (Bld) [#/Vol] 249 10*3/uL Normal 150-[address] [facility] Comment on above: Performed By: #### L 500.2500, L500.3400, L100.0100, L501.2450 #### [facility] [address] [place], [address] RBC (Bld) [#/Vol] 5.19 10*6/uL Normal 4.6-6.2 [facility] Comment on above: Performed By: #### L 500.2500, L500.3400, L100.0100, L501.2450 #### [facility] [address] [place], [address] RDW SD 46.4 fl High 35.1-43.[address] [facility] Comment on above: Performed By: #### L 500.2500, L500.3400, L100.0100, L501.2450 #### [facility] [address] [place], [address] WBC (Bld) [#/Vol] 13.6 10*3/uL High 4.4-11.0 [facility] Comment on above: Performed By: #### L 500.2500, L500.3400, L100.0100, L501.2450 #### [facility] [address] [place], [address] Comprehensive Metabolic [facility] 03-23-2024 Albumin [Mass/Vol] 3.2 g/dL Normal 3.2-5.0 [facility] Comment on above: Order Comment: 1 Performed By: #### L 500.2500, L500.3400, L100.0100, L501.2450 #### [facility] [address] [place], [address] Albumin/Globulin [Mass ratio] 0.8 {ratio} Low 0.9-2.[address] [facility] Comment on above: Order Comment: 1 Performed By: #### L 500.2500, L500.3400, L100.0100, L501.2450 #### [facility] [address] [place], [address] ALK P 125 U/L High 45-[address] [facility] Comment on above: Order Comment: 1 Performed By: #### L 500.2500, L500.3400, L100.0100, L501.2450 #### [facility] [address] [place], [address] ALT [Catalytic activity/Vol] 124 U/L High 16-[address] [facility] Comment on above: Order Comment: 1 Performed By: #### L 500.2500, L500.3400, L100.0100, L501.2450 #### [facility] [address] [place], [address] AST [Catalytic activity/Vol] 95 U/L High 15-[address] [facility] Comment on above: Order Comment: 1 Performed By: #### L 500.2500, L500.3400, L100.0100, L501.2450 #### [facility] [address] [place], [address] Bilirubin [Mass/Vol] 2.00 mg/dL High 0.20-1.00 [facility] Comment on above: Order Comment: 1 Result Comment: For patients on eltrombopag therapy, use of Dimension [place] TBIL is not recommended. Performed By: #### L 500.2500, L500.3400, L100.0100, L501.2450 #### [facility] [address] [place], [address] BUN/CRE 11.2 RATIO Normal 10-[address] [facility] Comment on above: Order Comment: 1 Performed By: #### L 500.2500, L500.3400, L100.0100, L501.2450 #### [facility] [address] [place], [address] CA,Total 8.9 mg/dL Normal 8.5-10.[address] [facility] Comment on above: Order Comment: 1 Performed By: #### L 500.2500, L500.3400, L100.0100, L501.2450 #### [facility] [address] [place], [address] Chloride [Moles/Vol] 99 mmol/L Normal 98-107 [facility] Comment on above: Order Comment: 1 Performed By: #### L 500.2500, L500.3400, L100.0100, L501.2450 #### [facility] [address] [place], [address] CO2 [Moles/Vol] 31.0 mmol/L Normal 21.0-32.[address] [facility] Comment on above: Order Comment: 1 Performed By: #### L 500.2500, L500.3400, L100.0100, L501.2450 #### [facility] [address] [place], [address] Creatinine [Mass/Vol] 1.34 mg/dL High 0.70-1.30 [facility] Comment on above: Order Comment: 1 Result Comment: The validity of the calculated GFR GFRAA in patients over 70 years has not been determined. Clinical correlation is essential. Performed By: #### L 500.2500, L500.3400, L100.0100, L501.2450 #### [facility] [address] [place], [address] EST GFR - AA 67 mL/min Normal >[address] [facility] Comment on above: Order Comment: 1 Result Comment: Afri can Finnish GFR Calc Performed By: #### L 500.2500, L500.3400, L100.0100, L501.2450 #### [facility] [address] [place], [address] GAP 4 Low 5-[address] [facility] Comment on above: Order Comment: 1 Performed By: #### L 500.2500, L500.3400, L100.0100, L501.2450 #### [facility] [address] [place], [address] GFR/1.73 sq M.predicted among non-blacks MDRD (S/P/Bld) [Vol rate/Area] 55 mL/min/{1.73_m2} Low >[address] [facility] Comment on above: Order Comment: 1 Result Comment: Non- GFR Calc Performed By: #### L 500.2500, L500.3400, L100.0100, L501.2450 #### [facility] [address] [place], [address] Globulin (S) [Mass/Vol] 3.8 g/dL Normal 2.2-4.[address] [facility] Comment on above: Order Comment: 1 Performed By: #### L 500.2500, L500.3400, L100.0100, L501.2450 #### [facility] [address] [place], [address] Glucose [Mass/Vol] 109 mg/dL High 74-106 [facility] Comment on above: Order Comment: 1 Result Comment: Fast ing Glucose result from 100 to 125 mg/dL suggests IMPAIRED HOMEOSTASIS per A.D.A. criteria. Performed By: #### L 500.2500, L500.3400, L100.0100, L501.2450 #### [facility] [address] [place], [address] Potassium [Moles/Vol] 4.4 mmol/L Normal 3.5-5.1 [facility] Comment on above: Order Comment: 1 Performed By: #### L 500.2500, L500.3400, L100.0100, L501.2450 #### [facility] [address] [place], [address] Sodium [Moles/Vol] 134 mmol/L Low 136-145 [facility] Comment on above: Order Comment: 1 Performed By: #### L 500.2500, L500.3400, L100.0100, L501.2450 #### [facility] [address] [place], [address] T PROT 7.0 g/dL Normal 6.4-8.[address] [facility] Comment on above: Order Comment: 1 Performed By: #### L 500.2500, L500.3400, L100.0100, L501.2450 #### [facility] [address] [place], [address] Urea nitrogen [Mass/Vol] 15 mg/dL Normal 7-[address] [facility] Comment on above: Order Comment: 1 Performed By: #### L 500.2500, L500.3400, L100.0100, L501.2450 #### [facility] [address] [place], [address] L501.4020on 03-23-2024 TROPONIN-I HS 5 pg/mL Normal 3.0-78.[address] [facility] Comment on above: Order Comment: 1 Result Comment: David mike Note: New Test Units and Gender Specific Reference Ranges. For more information see Policy Stat Procedure [place] High Sensitivity Troponin (TNIH) and attachments. Performed By: #### L 500.2500, L500.3400, L100.0100, L501.2450 #### [facility] [address] [place], [address] Lactic Acidon 03-23-2024 Lactate [Moles/Vol] 1.3 mmol/L Normal 0.4-1.9 [facility] Comment on above: Order Comment: N Performed By: #### L 500.2500, L500.3400, L100.0100, L501.2450 #### [facility] [address] [place], [address] L501.5101on 03-04-2024 GGTP 45 IU/L Normal 0-[address] [facility] Comment on above: Result Comment: Perf ormed at: - [facility] [place] [id number] [place], [place] [id number] Wrapper Dipper: Byron Ortez PhD, Phone: [phone] Performed By: #### L 500.2500, L500.3400, L100.0100, L501.2450 #### [facility] [address] [place], [address] Comprehensive Metabolic Prof ilon 03-03-2024 Albumin [Mass/Vol] 3.6 g/dL Normal 3.2-5.0 [facility] Comment on above: Performed By: #### L 500.2500, L500.3400, L100.0100, L501.2450 #### [facility] [address] [place], [address] Albumin/Globulin [Mass ratio] 0.9 {ratio} Normal 0.9-2.[address] [facility] Comment on above: Performed By: #### L 500.2500, L500.3400, L100.0100, L501.2450 #### [facility] [address] [place], [address] ALK P 83 U/L Normal 45-[address] [facility] Comment on above: Performed By: #### L 500.2500, L500.3400, L100.0100, L501.2450 #### [facility] [address] [place], [address] ALT [Catalytic activity/Vol] 14 U/L Low 16-[address] [facility] Comment on above: Performed By: #### L 500.2500, L500.3400, L100.0100, L501.2450 #### [facility] [address] [place], [address] AST [Catalytic activity/Vol] 12 U/L Low 15-[address] [facility] Comment on above: Performed By: #### L 500.2500, L500.3400, L100.0100, L501.2450 #### [facility] [address] [place], [address] Bilirubin [Mass/Vol] 1.20 mg/dL High 0.20-1.00 [facility] Comment on above: Result Comment: For patients on eltrombopag therapy, use of Dimension [place] TBIL is not recommended. Performed By: #### L 500.2500, L500.3400, L100.0100, L501.2450 #### [facility] [address] [place], [address] BUN/CRE 11.1 RATIO Normal 10-[address] [facility] Comment on above: Performed By: #### L 500.2500, L500.3400, L100.0100, L501.2450 #### [facility] [address] [place], [address] CA,Total 9.3 mg/dL Normal 8.5-10.[address] [facility] Comment on above: Performed By: #### L 500.2500, L500.3400, L100.0100, L501.2450 #### [facility] [address] [place], [address] Chloride [Moles/Vol] 102 mmol/L Normal 98-107 [facility] Comment on above: Performed By: #### L 500.2500, L500.3400, L100.0100, L501.2450 #### [facility] [address] [place], [address] CO2 [Moles/Vol] 28.0 mmol/L Normal 21.0-32.[address] [facility] Comment on above: Performed By: #### L 500.2500, L500.3400, L100.0100, L501.2450 #### [facility] [address] [place], [address] Creatinine [Mass/Vol] 1.17 mg/dL Normal 0.70-1.30 [facility] Comment on above: Result Comment: The validity of the calculated GFR GFRAA in patients over 70 years has not been determined. Clinical correlation is essential. Performed By: #### L 500.2500, L500.3400, L100.0100, L501.2450 #### [facility] [address] [place], [address] EST GFR - AA 78 mL/min Normal >[address] [facility] Comment on above: Result Comment: Afri can Finnish GFR Calc Performed By: #### L 500.2500, L500.3400, L100.0100, L501.2450 #### [facility] [address] [place], [address] GAP 6 Normal 5-[address] [facility] Comment on above: Performed By: #### L 500.2500, L500.3400, L100.0100, L501.2450 #### [facility] [address] [place], [address] GFR/1.73 sq M.predicted among non-blacks MDRD (S/P/Bld) [Vol rate/Area] 64 mL/min/{1.73_m2} Normal >[address] [facility] Comment on above: Result Comment: Non- GFR Calc Performed By: #### L 500.2500, L500.3400, L100.0100, L501.2450 #### [facility] [address] [place], [address] Globulin (S) [Mass/Vol] 3.9 g/dL Normal 2.2-4.[address] [facility] Comment on above: Performed By: #### L 500.2500, L500.3400, L100.0100, L501.2450 #### [facility] [address] [place], [address] Glucose [Mass/Vol] 101 mg/dL Normal 74-106 [facility] Comment on above: Result Comment: Fast ing Glucose result from 100 to 125 mg/dL suggests IMPAIRED HOMEOSTASIS per A.D.A. criteria. Performed By: #### L 500.2500, L500.3400, L100.0100, L501.2450 #### [facility] [address] [place], [address] Potassium [Moles/Vol] 4.1 mmol/L Normal 3.5-5.1 [facility] Comment on above: Performed By: #### L 500.2500, L500.3400, L100.0100, L501.2450 #### [facility] [address] [place], [address] Sodium [Moles/Vol] 136 mmol/L Normal 136-145 [facility] Comment on above: Performed By: #### L 500.2500, L500.3400, L100.0100, L501.2450 #### [facility] [address] [place], [address] T PROT 7.5 g/dL Normal 6.4-8.[address] [facility] Comment on above: Performed By: #### L 500.2500, L500.3400, L100.0100, L501.2450 #### [facility] [address] [place], [address] Urea nitrogen [Mass/Vol] 13 mg/dL Normal 7-[address] [facility] Comment on above: Performed By: #### L 500.2500, L500.3400, L100.0100, L501.2450 #### [facility] [address] [place], [address] L501.5101on 02-19-2024 GGTP 72 IU/L Abnormal 0-[address] [facility] Comment on above: Result Comment: Perf ormed at: - [facility] [address] [id number] Wrapper Dipper: Byron Ortez PhD, Phone: [phone] Performed By: #### L 500.2500, L500.3400, L100.0100, L501.2450 #### [facility] [address] [place], [address] Basic Metabolic Profile (BMP )on 02-18-2024 BUN/CRE 10.2 RATIO Normal 10-[address] [facility] Comment on above: Performed By: #### L 500.2500, L500.3400, L100.0100, L501.2450 #### [facility] [address] [place], [address] CA,Total 9.3 mg/dL Normal 8.5-10.[address] [facility] Comment on above: Performed By: #### L 500.2500, L500.3400, L100.0100, L501.2450 #### [facility] [address] [place], [address] Chloride [Moles/Vol] 101 mmol/L Normal 98-107 [facility] Comment on above: Performed By: #### L 500.2500, L500.3400, L100.0100, L501.2450 #### [facility] [address] [place], [address] CO2 [Moles/Vol] 26.0 mmol/L Normal 21.0-32.[address] [facility] Comment on above: Performed By: #### L 500.2500, L500.3400, L100.0100, L501.2450 #### [facility] [address] [place], [address] Creatinine [Mass/Vol] 1.37 mg/dL High 0.70-1.30 [facility] Comment on above: Result Comment: The validity of the calculated GFR GFRAA in patients over 70 years has not been determined. Clinical correlation is essential. Performed By: #### L 500.2500, L500.3400, L100.0100, L501.2450 #### [facility] [address] [place], [address] EST GFR - AA 65 mL/min Normal >[address] [facility] Comment on above: Result Comment: Afri can Finnish GFR Calc Performed By: #### L 500.2500, L500.3400, L100.0100, L501.2450 #### [facility] [address] [place], [address] GAP 7 Normal 5-[address] [facility] Comment on above: Performed By: #### L 500.2500, L500.3400, L100.0100, L501.2450 #### [facility] [address] [place], [address] GFR/1.73 sq M.predicted among non-blacks MDRD (S/P/Bld) [Vol rate/Area] 54 mL/min/{1.73_m2} Low >[address] [facility] Comment on above: Result Comment: Non- GFR Calc Performed By: #### L 500.2500, L500.3400, L100.0100, L501.2450 #### [facility] [address] [place], [address] Glucose [Mass/Vol] 98 mg/dL Normal 74-106 [facility] Comment on above: Performed By: #### L 500.2500, L500.3400, L100.0100, L501.2450 #### [facility] [address] [place], [address] Potassium [Moles/Vol] 4.1 mmol/L Normal 3.5-5.1 [facility] Comment on above: Performed By: #### L 500.2500, L500.3400, L100.0100, L501.2450 #### [facility] [address] [place], [address] Sodium [Moles/Vol] 134 mmol/L Low 136-145 [facility] Comment on above: Performed By: #### L 500.2500, L500.3400, L100.0100, L501.2450 #### [facility] [address] [place], [address] Urea nitrogen [Mass/Vol] 14 mg/dL Normal 7-[address] [facility] Comment on above: Performed By: #### L 500.2500, L500.3400, L100.0100, L501.2450 #### [facility] [address] [place], [address] Liver Profileon 02-18-2024 Albumin [Mass/Vol] 3.6 g/dL Normal 3.2-5.0 [facility] Comment on above: Performed By: #### L 500.2500, L500.3400, L100.0100, L501.2450 #### [facility] [address] [place], [address] ALK P 86 U/L Normal 45-[address] [facility] Comment on above: Performed By: #### L 500.2500, L500.3400, L100.0100, L501.2450 #### [facility] [address] [place], [address] ALT [Catalytic activity/Vol] 14 U/L Low 16-[address] [facility] Comment on above: Performed By: #### L 500.2500, L500.3400, L100.0100, L501.2450 #### [facility] [address] [place], [address] AST [Catalytic activity/Vol] 12 U/L Low 15-[address] [facility] Comment on above: Performed By: #### L 500.2500, L500.3400, L100.0100, L501.2450 #### [facility] [address] [place], [address] Bilirubin [Mass/Vol] 1.60 mg/dL High 0.20-1.00 [facility] Comment on above: Result Comment: For patients on eltrombopag therapy, use of Dimension [place] TBIL is not recommended. Performed By: #### L 500.2500, L500.3400, L100.0100, L501.2450 #### [facility] [address] [place], [address] Bilirubin.direct [Mass/Vol] 0.24 mg/dL Normal 0.00-0.[address] [facility] Comment on above: Performed By: #### L 500.2500, L500.3400, L100.0100, L501.2450 #### [facility] [address] [place], [address] Globulin (S) [Mass/Vol] 4.1 g/dL Normal 2.2-4.[address] [facility] Comment on above: Performed By: #### L 500.2500, L500.3400, L100.0100, L501.2450 #### [facility] [address] [place], [address] T PROT 7.7 g/dL Normal 6.4-8.[address] [facility] Comment on above: Performed By: #### L 500.2500, L500.3400, L100.0100, L501.2450 #### [facility] [address] [place], [address] Abdomen Limitedon 02-11-2024 Abdomen Limited [facility] [address] [place] [address] Abdomen Limited MR#: [id number] Acct: [id number] Name: UMU SALCIDO Rep #: [id number] : 1945 M 78 From: Rafita esparza MD PCP: Dr. Mariluz Sahu DO Status: REG CLI Study: Abdomen Limited Date of Exam: 02/11/24 Exam# [id number] Ordering Dr: Mariluz Sahu DO [id number] STUDY: ABDOMINAL ULTRASOUND - RIGHT UPPER QUADRANT REASON FOR VISIT: Male, 78 years old Abnormal levels of other serum enzymes TECHNIQUE: Ultrasound evaluation of the right upper quadrant was performed with real-time and static gay-scale imaging. TECHNICAL QUALITY: Limited. Examination limited due to obesity. COMPARISON: None. FINDINGS: Liver: The liver measures 14.5 cm. There is increased echogenicity consistent with fatty infiltration. The bile ducts are within normal limits. There is hepatic color flow. The direction of portal flow is hepatopetal. There is no demonstrated mass lesion. Gallbladder: Normal distended gallbladder. The gallbladder wall measures 3.2 mm. There is a negative sonographic Zapata''s sign. There is no pericholecystic fluid. There are multiple echogenic structures within the gallbladder, consistent with multiple gallstones. Common Bile Duct (C.B.D.): The common bile duct measures 4 mm. Pancreas: There is nonvisualization of the pancreas due to overlying bowel gas. Right Kidney: Normal size of the right kidney. The right kidney measures 12.8 cm x 5.2 cm x 4.4 cm. Normal renal cortex. The right cortex measures 1.6 cm. There is no demonstrated renal mass or cyst. There is no right hydronephrosis. US/Abdomen Limited IMPRESSION: Fatty infiltration of the liver. Multiple gallstones. Electronically Signed: Rafita Butts MD at 10:45 EDT , CC: Dr. Mariluz Sahu DO Web Administrator: Signed Normal [facility] CBC W/Diff, Automatedon 08-2 Absolute Lymph 1.07 X10 3/uL Normal 0.83-4.[address] [facility] Comment on above: Performed By: #### L 500.2500, L500.3400, L100.0100, L501.2450 #### [facility] [address] [place], [address] Absolute Neut 5.6 X10 3/uL Normal 2.0-7.[address] [facility] Comment on above: Performed By: #### L 500.2500, L500.3400, L100.0100, L501.2450 #### [facility] [address] [place], [address] Basophils/100 WBC (Bld) 0.4 % Normal 0-[address] [facility] Comment on above: Performed By: #### L 500.2500, L500.3400, L100.0100, L501.2450 #### [facility] [address] [place], [address] Eosinophils/100 WBC (Bld) 1.1 % Normal 0-[address] [facility] Comment on above: Performed By: #### L 500.2500, L500.3400, L100.0100, L501.2450 #### [facility] [address] [place], [address] Erythrocyte distribution width (RBC) [Ratio] 13.9 % Normal 11.6-14.[address] [facility] Comment on above: Performed By: #### L 500.2500, L500.3400, L100.0100, L501.2450 #### [facility] [address] [place], [address] Hematocrit (Bld) [Volume fraction] 46.8 % Normal 40-[address] [facility] Comment on above: Performed By: #### L 500.2500, L500.3400, L100.0100, L501.2450 #### [facility] [address] [place], [address] Hemoglobin (Bld) [Mass/Vol] 15.1 g/dL Normal 13.0-16.[address] [facility] Comment on above: Performed By: #### L 500.2500, L500.3400, L100.0100, L501.2450 #### [facility] [address] [place], [address] IG% 0.300 Normal 0.0-0.[address] [facility] Comment on above: Result Comment: IG% - Immature Granulocytes (promyelocytes, myelocytes and metamyelocytes) > 1% indicates that a LEFT SHIFT is Present. Performed By: #### L 500.2500, L500.3400, L100.0100, L501.2450 #### [facility] [address] [place], [address] Lymphocytes/100 WBC (Bld) 14.7 % Low 19-[address] [facility] Comment on above: Performed By: #### L 500.2500, L500.3400, L100.0100, L501.2450 #### [facility] [address] [place], [address] MCH (RBC) [Entitic mass] 29.5 pg Normal 27.0-32.[address] [facility] Comment on above: Performed By: #### L 500.2500, L500.3400, L100.0100, L501.2450 #### [facility] [address] [place], [address] MCHC (RBC) [Mass/Vol] 32.3 g/dL Normal 32-36 [facility] Comment on above: Performed By: #### L 500.2500, L500.3400, L100.0100, L501.2450 #### [facility] [address] [place], [address] MCV (RBC) [Entitic vol] 91.4 fL Normal 80-[address] [facility] Comment on above: Performed By: #### L 500.2500, L500.3400, L100.0100, L501.2450 #### [facility] [address] [place], [address] Monocytes/100 WBC (Bld) 6.0 % Normal 0-[address] [facility] Comment on above: Performed By: #### L 500.2500, L500.3400, L100.0100, L501.2450 #### [facility] [address] [place], [address] Neutrophils/100 WBC (Bld) 77.5 % High 47-[address] [facility] Comment on above: Performed By: #### L 500.2500, L500.3400, L100.0100, L501.2450 #### [facility] [address] [place], [address] Nucleated RBC (Bld) [#/Vol] 0 10*3/uL Normal 0-[address] [facility] Comment on above: Performed By: #### L 500.2500, L500.3400, L100.0100, L501.2450 #### [facility] [address] [place], [address] Platelet mean volume (Bld) [Entitic vol] 10.4 fL Normal 6.2-12.[address] [facility] Comment on above: Performed By: #### L 500.2500, L500.3400, L100.0100, L501.2450 #### [facility] [address] [place], [address] Platelets (Bld) [#/Vol] 225 10*3/uL Normal 150-[address] [facility] Comment on above: Performed By: #### L 500.2500, L500.3400, L100.0100, L501.2450 #### [facility] [address] [place], [address] RBC (Bld) [#/Vol] 5.12 10*6/uL Normal 4.6-6.2 [facility] Comment on above: Performed By: #### L 500.2500, L500.3400, L100.0100, L501.2450 #### [facility] [address] [place], [address] RDW SD 47.1 fl High 35.1-43.[address] [facility] Comment on above: Performed By: #### L 500.2500, L500.3400, L100.0100, L501.2450 #### [facility] [address] [place], [address] WBC (Bld) [#/Vol] 7.3 10*3/uL Normal 4.4-11.0 [facility] Comment on above: Performed By: #### L 500.2500, L500.3400, L100.0100, L501.2450 #### [facility] [address] [place], [address] Comprehensive Metabolic [facility] 01-14-2024 Albumin [Mass/Vol] 3.3 g/dL Normal 3.2-5.0 [facility] Comment on above: Performed By: #### L 500.2500, L500.3400, L100.0100, L501.2450 #### [facility] [address] [place], [address] Albumin/Globulin [Mass ratio] 0.9 {ratio} Normal 0.9-2.[address] [facility] Comment on above: Performed By: #### L 500.2500, L500.3400, L100.0100, L501.2450 #### [facility] [address] [place], [address] ALK P 91 U/L Normal 45-[address] [facility] Comment on above: Performed By: #### L 500.2500, L500.3400, L100.0100, L501.2450 #### [facility] [address] [place], [address] ALT [Catalytic activity/Vol] 67 U/L High 16-[address] [facility] Comment on above: Performed By: #### L 500.2500, L500.3400, L100.0100, L501.2450 #### [facility] [address] [place], [address] AST [Catalytic activity/Vol] 124 U/L High 15-[address] [facility] Comment on above: Performed By: #### L 500.2500, L500.3400, L100.0100, L501.2450 #### [facility] [address] [place], [address] Bilirubin [Mass/Vol] 2.20 mg/dL High 0.20-1.00 [facility] Comment on above: Result Comment: For patients on eltrombopag therapy, use of Dimension [place] TBIL is not recommended. Performed By: #### L 500.2500, L500.3400, L100.0100, L501.2450 #### [facility] [address] [place], [address] BUN/CRE 11.5 RATIO Normal 10-[address] [facility] Comment on above: Performed By: #### L 500.2500, L500.3400, L100.0100, L501.2450 #### [facility] [address] [place], [address] CA,Total 8.5 mg/dL Normal 8.5-10.[address] [facility] Comment on above: Performed By: #### L 500.2500, L500.3400, L100.0100, L501.2450 #### [facility] [address] [place], [address] Chloride [Moles/Vol] 98 mmol/L Normal 98-107 [facility] Comment on above: Performed By: #### L 500.2500, L500.3400, L100.0100, L501.2450 #### [facility] [address] [place], [address] CO2 [Moles/Vol] 25.0 mmol/L Normal 21.0-32.[address] [facility] Comment on above: Performed By: #### L 500.2500, L500.3400, L100.0100, L501.2450 #### [facility] [address] [place], [address] Creatinine [Mass/Vol] 1.13 mg/dL Normal 0.70-1.30 [facility] Comment on above: Result Comment: The validity of the calculated GFR GFRAA in patients over 70 years has not been determined. Clinical correlation is essential. Performed By: #### L 500.2500, L500.3400, L100.0100, L501.2450 #### [facility] [address] [place], [address] EST GFR - AA 81 mL/min Normal >[address] [facility] Comment on above: Result Comment: Afri can Finnish GFR Calc Performed By: #### L 500.2500, L500.3400, L100.0100, L501.2450 #### [facility] [address] [place], [address] GAP 8 Normal 5-[address] [facility] Comment on above: Performed By: #### L 500.2500, L500.3400, L100.0100, L501.2450 #### [facility] [address] [place], [address] GFR/1.73 sq M.predicted among non-blacks MDRD (S/P/Bld) [Vol rate/Area] 67 mL/min/{1.73_m2} Normal >[address] [facility] Comment on above: Result Comment: Non- GFR Calc Performed By: #### L 500.2500, L500.3400, L100.0100, L501.2450 #### [facility] [address] [place], [address] Globulin (S) [Mass/Vol] 3.8 g/dL Normal 2.2-4.[address] [facility] Comment on above: Performed By: #### L 500.2500, L500.3400, L100.0100, L501.2450 #### [facility] [address] [place], [address] Glucose [Mass/Vol] 110 mg/dL High 74-106 [facility] Comment on above: Result Comment: Fast ing Glucose result from 100 to 125 mg/dL suggests IMPAIRED HOMEOSTASIS per A.D.A. criteria. Performed By: #### L 500.2500, L500.3400, L100.0100, L501.2450 #### [facility] [address] [place], [address] Potassium [Moles/Vol] 4.2 mmol/L Normal 3.5-5.1 [facility] Comment on above: Performed By: #### L 500.2500, L500.3400, L100.0100, L501.2450 #### [facility] [address] [place], [address] Sodium [Moles/Vol] 131 mmol/L Low 136-145 [facility] Comment on above: Performed By: #### L 500.2500, L500.3400, L100.0100, L501.2450 #### [facility] [address] [place], [address] T PROT 7.1 g/dL Normal 6.4-8.[address] [facility] Comment on above: Performed By: #### L 500.2500, L500.3400, L100.0100, L501.2450 #### [facility] [address] [place], [address] Urea nitrogen [Mass/Vol] 13 mg/dL Normal 7-[address] [facility] Comment on above: Performed By: #### L 500.2500, L500.3400, L100.0100, L501.2450 #### [facility] [address] [place], [address] Free T3on 01-14-2024 Free T3 [Mass/Vol] 2.4 pg/mL Normal 2.18-3.98 [facility] Comment on above: Performed By: #### L 500.2500, L500.3400, L100.0100, L501.2450 #### [facility] [address] [place], [address] Hemoglobin A1con 01-14-2024 HbA1c (Bld) [Mass fraction] 5.5 % Normal 3.8-5.[address] [facility] Comment on above: Result Comment: Norm al < 5.7 % Prediabetic 5.7 - 6.4 % Diabetic >or= 6.5 % Please note range changes. Performed By: #### L 500.2500, L500.3400, L100.0100, L501.2450 #### [facility] [address] [place], [address] Hepatitis C Antibodyon 01-13 Hepatitis C AB Non-Reactive Normal Nonreactive [facility] Comment on above: Result Comment: Non Reactive: < 0.8 Equivocal: >/= 0.8 to < 1.0 Reactive: >/= 1.0 The CDC requires that a reactive/equivocal HCV antibody result be sent out for confirmation. HCV Quant by PCR testing. Performed By: #### L 500.2500, L500.3400, L100.0100, L501.2450 #### [facility] [address] [place], [address] Lipid Profileon 01-14-2024 Cholesterol [Mass/Vol] 169 mg/dL Normal 200 [facility] Comment on above: Result Comment: <200 mg/dL Desirable 200-240 mg/dL Borderline >240 mg/dL High Risk Performed By: #### L 500.2500, L500.3400, L100.0100, L501.2450 #### [facility] [address] [place], [address] Cholesterol in HDL [Mass/Vol] 50 mg/dL Normal [facility] Comment on above: Result Comment: The drugs N-Acetylcysteine and Metamizole may falsely depress this assay. Reference Range HDL <40 mg/dL Low HDL Cholesterol HDL >or= 60 mg/dL High HDL Cholesterol Performed By: #### L 500.2500, L500.3400, L100.0100, L501.2450 #### [facility] [address] [place], [address] Cholesterol in LDL [Mass/Vol] 100 mg/dL Normal 0-[address] [facility] Comment on above: Performed By: #### L 500.2500, L500.3400, L100.0100, L501.2450 #### [facility] [address] [place], [address] Cholesterol in VLDL [Mass/Vol] 19 mg/dL Normal 5-[address] [facility] Comment on above: Performed By: #### L 500.2500, L500.3400, L100.0100, L501.2450 #### [facility] [address] [place], [address] Triglyceride [Mass/Vol] 93 mg/dL Normal [facility] Comment on above: Result Comment: The drugs N-Acetylcysteine and Metamizole may falsely depress this assay. Serum Triglycerides Reference Interval Normal <150 mg/dL Borderline high 150 - 199 mg/dL High 200 - 499 mg/dL Very High > or = 500 mg/dL Performed By: #### L 500.2500, L500.3400, L100.0100, L501.2450 #### [facility] [address] [place], [address] PSA,Total - Annual Screenon 01-14-2024 PSA,TOT SCREEN 3.44 ng/mL Normal 0.00-4.[address] [facility] Comment on above: Result Comment: This test was performed using the TPSA assay method for the [employer] chemistry system. Values obtained with different assay methods cannot be used interchangably. When changing PSA assays in the course of monitoring a patient, additional sequential testing should be carried out to confirm baseline values. Performed By: #### L 500.2500, L500.3400, L100.0100, L501.2450 #### [facility] [address] [place], [address] T4 Free Directon 01-14-2024 T4 FREE DIRECT 1.23 ng/dL Normal 0.76-1.[address] [facility] Comment on above: Performed By: #### L 500.2500, L500.3400, L100.0100, L501.2450 #### [facility] [address] [place], [address] Thyroid Stim Hormone (TSH)on 01-14-2024 TSH 2.740 uIU/mL Normal 0.358-3.[address] [facility] Comment on above: Performed By: #### L 500.2500, L500.3400, L100.0100, L501.2450 #### [facility] [address] [place], [address] Vitamin B12on 01-14-2024 Cobalamin (Vitamin B12) [Mass/Vol] 1287 pg/mL High 211-[address] [facility] Comment on above: Performed By: #### L 500.2500, L500.3400, L100.0100, L501.2450 #### [facility] [address] [place], [address] Vitamin D,25 Hydroxyon 01-13 Vitamin D 25-OH 38.1 ng/mL Normal [facility] Comment on above: Result Comment: Suzan min D 25(OH) Status Range Deficiency <20 ng/mL (50nmol/L) Insufficiency 20 - 30 ng/mL (50 - 75 nmol/L) Sufficiency 30 - 100 ng/mL (75 - 250 nmol/L) Toxicity >100 ng/mL (>250 nmol/L) Performed By: #### L 500.2500, L500.3400, L100.0100, L501.2450 #### [facility] [place], [address] Absolute lymphocyte countOrd ered By: Mariluz Sahu on 09-09-2023 Lymphocytes Auto (Unsp spec) [#/Vol] 1.47 10*3/uL 0.83-4.[address] [facility] Automated lymphocyte count a s percentage of total leukocytesOrdered By: Mariluz Sahu on 09-09-2023 Lymphocytes/100 WBC Auto (Unsp spec) 23.5 % 19-[address] [facility] Basophil percentageOrdered B y: Mariluz Sahu on 09-09-2023 Basophils/100 WBC (Bld) 0.5 % 0-[address] [facility] Bilirubin [Mass/Vol] 1.00 mg/dL 0.20-1.00 [facility] Comment on above: For patients on eltr ombopag therapy, use of Dimension [place] TBIL is not recommended. Chloride [Moles/Vol] 103 mmol/L 98-107 [facility] Eosinophils/100 WBC (Bld) 2.4 % 0-[address] [facility] Glucose [Mass/Vol] 105 mg/dL 74-106 [facility] Comment on above: Fasting Glucose resu lt from 100 to 125 mg/dL suggests IMPAIRED HOMEOSTASIS per A.D.A. criteria. Hemoglobin (Bld) [Mass/Vol] 15.4 g/dL 13.0-16.[address] [facility] Monocytes/100 WBC (Bld) 8.5 % 0-[address] [facility] Neutrophils (Bld) [#/Vol] 4.1 10*3/uL 2.0-7.[address] [facility] Neutrophils/100 WBC (Bld) 64.8 % 47-[address] [facility] Potassium [Moles/Vol] 4.4 mmol/L 3.5-5.1 [facility] Protein [Mass/Vol] 7.4 g/dL 6.4-8.2 [facility] Sodium [Moles/Vol] 134 mmol/L 136-145 [facility] Testosterone [Mass/Vol] 508 ng/dL 264-[address] [facility] Comment on above: Adult male reference interval is based on a population ofhealthy nonobese males (BMI <30) between 19 and 39 yearsold. mary beth Hardin.al. JCEM 2017,102;6595-8410. PMID:[id number]. WBC (Bld) [#/Vol] 6.3 10*3/uL 4.4-11.0 [facility] Determination of erythrocyte mean corpuscular volume (MCV)Ordered By: Mariluz Sahu on 09-09-2023 MCV (RBC) [Entitic vol] 92.0 fL 80-[address] [facility] Erythrocyte distribution wid th ratioOrdered By: Mariluz Sahu on 09-09-2023 Erythrocyte distribution width (RBC) [Ratio] 13.8 % 11.6-14.[address] [facility] Erythrocyte distribution wid th standard deviationOrdered By: Mariluz Sahu on 09-09-2023 Erythrocyte distribution width (RBC) [Entitic vol] 47.0 fL 35.1-43.[address] [facility] Free testosterone percentage Ordered By: Mariluz Sahu on 09-09-2023 Testosterone Free/Testosterone.tota l [Mass fraction] 2.30 % 1.50-4.[address] [facility] Comment on above: Performed at: - [address] [id number] Director: Byron Ortez PhD, Phone: [phone] at: - [facility] [id number] Director: Anitha Austin MD, Phone: [phone] Hematocrit Auto (Bld) [Volum e fraction]Ordered By: Mariluz Sahu on 09-09-2023 Hematocrit (Bld) [Volume fraction] 48.5 % 40-[address] [facility] Immature granulocytes/100 WB C Auto (Bld)Ordered By: Mariluz Sahu on 09-09-2023 Immature granulocytes/100 WBC (Bld) 0.300 % 0.0-0.[address] [facility] Comment on above: IG% - Immature Granu locytes (promyelocytes, myelocytes and metamyelocytes) > 1% indicates that a LEFT SHIFT is Present. Laboratory - Chemistry and C hemistry - challengeOrdered By: Mariluz Sahu on 09-09-2023 Albumin/Globulin [Mass ratio] 0.8 {ratio} 0.9-2.[address] [facility] ALP [Catalytic activity/Vol] 84 U/L 45-[address] [facility] ALT [Catalytic activity/Vol] 17 U/L 16-[address] [facility] CO2 [Moles/Vol] 28.0 mmol/L 21.0-32.[address] [facility] Globulin (S) [Mass/Vol] 4.0 g/dL 2.2-4.[address] [facility] Urea nitrogen/Creatinine [Mass ratio] 13.6 mg/mg 10-[address] [facility] Laboratory - Hematology and Cell countsOrdered By: Mariluz Sahu on 09-09-2023 MCH (RBC) [Entitic mass] 29.2 pg 27.0-32.[address] [facility] MCHC (RBC) [Mass/Vol] 31.8 g/dL 32-36 [facility] Nucleated RBC/100 WBC (Bld) [Ratio] 0 % 0-[address] [facility] Platelet mean volume (Bld) [Entitic vol] 10.8 fL 6.2-12.[address] [facility] Platelets (Bld) [#/Vol] 244 10*3/uL 150-[address] [facility] No Panel InformationOrdered By: Mariluz Sahu on 09-09-2023 Estimated GFR (MDRD) Amer 77 mL/min >[address] [facility] Comment on above: GFR Calc Estimated GFR (MDRD) Non-Af Amer 64 mL/min >[address] [facility] Comment on above: Non- GFR Calc RBC Auto (Bld) [#/Vol]Ordere d By: Mariluz Sahu on 09-09-2023 RBC (Bld) [#/Vol] 5.27 10*6/uL 4.6-6.2 [facility] Serum or plasma calcium yessenia urement (mass/volume)Ordered By: Mariluz Sahu on 09-09-2023 Calcium [Mass/Vol] 9.2 mg/dL 8.5-10.1 [facility] Serum or plasma creatinine m easurement (mass/volume)Ordered By: Mariluz Escuderomercedes on 09-09-2023 Creatinine [Mass/Vol] 1.18 mg/dL 0.70-1.30 [facility] Comment on above: The validity of the calculated GFR & GFRAA in patients over 70 years has not been determined. Clinical correlation is essential. Serum or plasma testosterone free measurement (mass/volume)Ordered By: Mariluz Sahu on 09-09-2023 Testosterone Free [Mass/Vol] 11.68 ng/dL 5.00-21.[address] [facility] Serum or plasma urea nitroge n measurement (mass/volume)Ordered By: Mariluz Sahu on 09-09-2023 Urea nitrogen [Mass/Vol] 16 mg/dL 7-[address] [facility] Thin prep Papanicolaou smear with manual screeningOrdered By: Mariluz Sahu on 09-09-2023 Thin prep Papanicolaou smear with manual screening 3.4 g/dL 3.2-5.[address] [facility] Thin prep Papanicolaou smear with manual screening 17 U/L 15-[address] [facility] Thin prep Papanicolaou smear with manual screening 3 5-[address] [facility] MRI BRAIN WO/W IVCONon 03-10 MRI BRAIN WO/W IVCON * * *Final Report* * * DATE OF EXAM: Mar 10 2023 9:10AM [facility] 0295 - MRI BRAIN WO/W IVCON / PROCEDURE REASON: multiple diagnoses * * * * Physician Interpretation * * * * EXAMINATION: MRI BRAIN WO/W IVCON HISTORY: 77M with recurrent diplopia and slight convergence insufficiency, please exclude structural etiology TECHNIQUE: Routine orbital MRI protocol without and with contrast including diffusion and gradient echo images. M: [id number] MR Contrast: Dotarem Contrast Dose: 20 cc Route of Administration: IV COMPARISON: None. RESULT: Orbits: The optic nerves and optic chiasm are normal in size, signal intensity and enhancement characteristics. The globes are intact. The extra-ocular muscles and retrobulbar fat appear normal. No discrete mass or abnormal enhancement is identified.? Acute Change: No evidence of an acute intracranial process. Hemorrhage: No evidence of prior parenchymal hemorrhage on the susceptibility weighted sequences. Mass Lesion/ Mass Effect: No evidence of an intracranial mass or extra-axial fluid collection. No significant mass effect. Chronic Change: Scattered patchy areas of increased T2 and FLAIR signal are present in the supratentorial white matter which is a nonspecific finding but likely represents mild chronic microvascular ischemia. Parenchyma: There is moderate generalized parenchymal volume loss. The brain parenchyma is otherwise within normal limits of signal intensity and morphology. Ventricles: Ventriculomegaly corresponds to the degree of parenchymal volume loss. Skull Base: Hypothalamic and pituitary region are grossly normal. Craniocervical junction is normal. No significant marrow replacement process. Vasculature: Major intracranial arterial structures and dural venous sinuses demonstrate typical flow voids, suggesting patency by spin echo criteria. Other: There is complete opacification of the right maxillary sinus. The visualized paranasal sinuses and mastoid air cells are otherwise clear. The orbits and extracranial soft tissues are unremarkable. IMPRESSION: Orbits are within normal limits of signal and enhancement. No acute findings. No acute infarction, intracranial hemorrhage, intracranial mass lesion or abnormal intracranial enhancement. Web Administrator: [facility] Transcribe Date/Time: Mar 10 2023 10:14A Dictated by : BISHOP CHRISTIANSON MD This examination was interpreted and the report reviewed and electronically signed by: BISHOP CHRISTIANSON MD on Mar 10 2023 10:20AM EST [id number] Normal [facility] Absolute lymphocyte countOrd ered By: Mariluz Sahu on 01-12-2023 Lymphocytes Auto (Unsp spec) [#/Vol] 1.74 10*3/uL 0.83-4.[address] [facility] Basophil percentageOrdered B y: Mariluz Sahu on 01-12-2023 Basophils/100 WBC (Bld) 0.6 % 0-[address] [facility] Bilirubin [Mass/Vol] 1.20 mg/dL 0.20-1.00 [facility] Comment on above: For patients on eltr ombopag therapy, use of Dimension [place] TBIL is not recommended. Chloride [Moles/Vol] 99 mmol/L 98-107 [facility] Cholesterol [Mass/Vol] 176 mg/dL <200 [facility] Comment on above: <200 mg/dL Desirable 200-240 mg/dL Borderline >240 mg/dL High Risk Eosinophils/100 WBC (Bld) 2.3 % 0-[address] [facility] Glucose [Mass/Vol] 92 mg/dL 74-106 [facility] Neutrophils (Bld) [#/Vol] 3.9 10*3/uL 2.0-7.[address] [facility] Neutrophils/100 WBC (Bld) 60.4 % 47-[address] [facility] Potassium [Moles/Vol] 4.2 mmol/L 3.5-5.1 [facility] Protein [Mass/Vol] 7.4 g/dL 6.4-8.2 [facility] Sodium [Moles/Vol] 133 mmol/L 136-145 [facility] Triglyceride [Mass/Vol] 120 mg/dL <[address] [facility] Comment on above: The drugs N-Acetylcy steine and Metamizole may falsely depress this assay.Serum Triglycerides Reference Interval Normal <150 mg/dL Borderline high 150 - 199 mg/dL High 200 - 499 mg/dL Very High > or = 500 mg/dL WBC (Bld) [#/Vol] 6.4 10*3/uL 4.4-11.0 [facility] Blood erythrocytes count (nu mber/volume)Ordered By: Mariluz Sahu on 01-12-2023 RBC (Bld) [#/Vol] 5.24 10*6/uL 4.6-6.2 [facility] Blood hemoglobin measurement (mass/volume)Ordered By: Mariluz Sahu on 01-12-2023 Hemoglobin (Bld) [Mass/Vol] 15.8 g/dL 13.0-16.[address] [facility] Blood lymphocytes/100 leukoc ytesOrdered By: Mariluz Sahu on 01-12-2023 Lymphocytes/100 WBC (Bld) 27.1 % 19-[address] [facility] Blood monocytes/100 leukocyt esOrdered By: Mariluz Sahu on 01-12-2023 Monocytes/100 WBC (Bld) 9.3 % 0-[address] [facility] Blood platelet mean volumeOr dered By: Mariluz Sahu on 01-12-2023 Platelet mean volume (Bld) [Entitic vol] 10.2 fL 6.2-12.[address] [facility] Determination of erythrocyte mean corpuscular volume (MCV)Ordered By: Mariluz Sahu on 01-12-2023 MCV (RBC) [Entitic vol] 92.7 fL 80-[address] [facility] Hematocrit Auto (Bld) [Volum e fraction]Ordered By: Mariluz Sahu on 01-12-2023 Hematocrit (Bld) [Volume fraction] 48.6 % 40-[address] [facility] Laboratory - Chemistry and C hemistry - challengeOrdered By: Mariluz Sahu on 01-12-2023 ALP [Catalytic activity/Vol] 85 U/L 45-[address] [facility] ALT [Catalytic activity/Vol] 15 U/L 16-[address] [facility] CO2 [Moles/Vol] 30.0 mmol/L 21.0-32.[address] [facility] Globulin (S) [Mass/Vol] 4.0 g/dL 2.2-4.[address] [facility] Urea nitrogen/Creatinine [Mass ratio] 11.0 mg/mg 10-[address] [facility] Laboratory - Hematology and Cell countsOrdered By: Mariluz Sahu on 01-12-2023 Erythrocyte distribution width (RBC) [Entitic vol] 46.5 fL 35.1-43.[address] [facility] Erythrocyte distribution width (RBC) [Ratio] 13.6 % 11.6-14.[address] [facility] Immature granulocytes/100 WBC (Bld) 0.300 % 0.0-0.[address] [facility] Comment on above: IG% - Immature Granu locytes (promyelocytes, myelocytes and metamyelocytes) > 1% indicates that a LEFT SHIFT is Present. MCH (RBC) [Entitic mass] 30.2 pg 27.0-32.[address] [facility] Nucleated RBC/100 WBC (Bld) [Ratio] 0 % 0-[address] [facility] MCHC Auto (RBC) [Mass/Vol]Or dered By: Mariluz Sahu on 01-12-2023 MCHC (RBC) [Mass/Vol] 32.5 g/dL 32-36 [facility] No Panel InformationOrdered By: Mariluz Sahu on 01-12-2023 Estimated GFR (MDRD) Amer 85 mL/min >[address] [facility] Comment on above: GFR Calc Estimated GFR (MDRD) Non-Af Amer 70 mL/min >[address] [facility] Comment on above: Non- GFR Calc Prostate Specific Antigen Screen 3.23 ng/mL 0.00-4.[address] [facility] Comment on above: This test was perfor med using the TPSA assay method for the[employer] chemistry system. Values obtained with differentassay methods cannot be used interchangably.When changing PSA assays in the course of monitoring apatient, additional sequential testing should be carriedout to confirm baseline values. Platelets bldOrdered By: Jeannette Sahu on 01-12-2023 Platelets (Bld) [#/Vol] 241 10*3/uL 150-[address] [facility] Serum or plasma albumin yessenia urement (mass/volume)Ordered By: Mariluz Sahu on 01-12-2023 Albumin [Mass/Vol] 3.4 g/dL 3.2-5.0 [facility] Serum or plasma albumin/glob ulin mass ratioOrdered By: Mariluz Sahu on 01-12-2023 Albumin/Globulin [Mass ratio] 0.8 {ratio} 0.9-2.[address] [facility] Serum or plasma calcium yessenia urement (mass/volume)Ordered By: Mariluz Sahu on 01-12-2023 Calcium [Mass/Vol] 8.6 mg/dL 8.5-10.1 [facility] Serum or plasma cholesterol in HDL measurement (mass/volume)Ordered By: Mariluz Sahu on 01-12-2023 Cholesterol in HDL [Mass/Vol] 51 mg/dL >[address] [facility] Comment on above: The drugs N-Acetylcy steine and Metamizole may falsely depress this assay. Reference Range HDL <40 mg/dL Low HDL Cholesterol HDL >or= 60 mg/dL High HDL Cholesterol Serum or plasma cholesterol in VLDL measurement (mass/volume)Ordered By: Mariluz Sahu on 01-12-2023 Cholesterol in VLDL [Mass/Vol] 24 mg/dL 5-[address] [facility] Serum or plasma creatinine m easurement (mass/volume)Ordered By: Mariluz Sahu on 01-12-2023 Creatinine [Mass/Vol] 1.09 mg/dL 0.70-1.30 [facility] Comment on above: The validity of the calculated GFR & GFRAA in patients over 70 years has not been determined. Clinical correlation is essential. Serum or plasma low density lipoprotein (LDL) cholesterol measurement (mass/volume)Ordered By: Mariluz Kotamercedes on 01-12-2023 Cholesterol in LDL [Mass/Vol] 101 mg/dL 0-[address] [facility] Serum or plasma urea nitroge n measurement (mass/volume)Ordered By: Mariluz Escuderomercedes on 01-12-2023 Urea nitrogen [Mass/Vol] 12 mg/dL 7-[address] [facility] Thin prep Papanicolaou smear with manual screeningOrdered By: Mariluz Escuderomercedes on 01-12-2023 Thin prep Papanicolaou smear with manual screening 17 U/L 15-[address] [facility] Thin prep Papanicolaou smear with manual screening 4 5-[address] [facility] CNPNon 08-19-2022 CNPN Telephone (OPHTBE) -- UMU SALCIDO ([id number]) 1945 M Date Time Provider Department 08/19/22 MICHELLE GONCALVES OPHMARCELO During your visit today, we recorded the following information about you: Luciana Falk 08/19/2022 4:08 PM Signed External oph notes received from Dusty Hooks MD 3 pages Dos: 08.14.2022 Notes will be kept at my desk until an appt is scheduled. Luciana Falk 08/25/2022 11:35 AM Signed Notes will be sent to the [facility] for scanning in the pt's EMR. Allergies As of Date: 08/19/2022 (Not on File) Date Reviewed: Never Reviewed Reason for Visit: External oph notes received [Other] Problem List As Of Date: 08/19/2022 (None) Encounter Status:Closed by LUCIANA COLLINS on 08/25/22 Normal [facility] Page Basophil percentageOrdered B y: Dr. Hooks on 08-11-2022 WBC (Bld) [#/Vol] 5.7 10*3/uL 4.4-11.0 [facility] Blood erythrocytes count (nu mber/volume)Ordered By: Dr. Hooks on 08-11-2022 RBC (Bld) [#/Vol] 5.25 10*6/uL 4.6-6.2 [facility] Blood hemoglobin measurement (mass/volume)Ordered By: Dr. Hooks on 08-11-2022 Hemoglobin (Bld) [Mass/Vol] 15.7 g/dL 13.0-16.[address] [facility] Blood platelet mean volumeOr dered By: Dr. Hooks on 08-11-2022 Platelet mean volume (Bld) [Entitic vol] 10.4 fL 6.2-12.[address] [facility] Determination of erythrocyte mean corpuscular volume (MCV)Ordered By: Dr. Hooks on 08-11-2022 MCV (RBC) [Entitic vol] 91.8 fL 80-[address] [facility] Erythrocyte sedimentation ra teOrdered By: Dr. Hooks on 08-11-2022 ESR (Bld) [Velocity] 13 mm/h 0-20 [facility] Hematocrit Auto (Bld) [Volum e fraction]Ordered By: Dr. Hooks on 08-11-2022 Hematocrit (Bld) [Volume fraction] 48.2 % 40-[address] [facility] Laboratory - Hematology and Cell countsOrdered By: Dr. Hooks on 08-11-2022 Erythrocyte distribution width (RBC) [Entitic vol] 44.9 fL 35.1-43.[address] [facility] Erythrocyte distribution width (RBC) [Ratio] 13.2 % 11.6-14.[address] [facility] MCH (RBC) [Entitic mass] 29.9 pg 27.0-32.[address] [facility] MCHC Auto (RBC) [Mass/Vol]Or dered By: Dr. Hooks on 08-11-2022 MCHC (RBC) [Mass/Vol] 32.6 g/dL 32-36 [facility] No Panel InformationOrdered By: Dr. Hooks on 08-11-2022 Miscellaneous Test See comment [facility] Comment on above: TEST RESULT LIMITSAc etylcholine Receptor Ab, All AChR Binding Abs, Serum 0.04 nmol/L 0.00-0.24 Negative: 0.00 - 0.24 Borderline: 0.25 - 0.40 Positive: >0.40 AChR Blocking Abs, Serum, 15 % 0-25 Negative: 0 - 25 Borderline: 26 - 30 Positive: >30 AChR-modulating Ab, 2 % 0-45 Interpretive Information: Negative: 0 - 45% Positive: > 45% No single value for AChR-modulating antibody should be used as a sole basis for diagnosis or response to therapy. __ TESTING PERFORMED AT [facility]. ORIGINAL REPORT ON FILE IN LAB CONTAINS ADDITIONAL TEST SITE INFORMATION. Platelets bldOrdered By: Dr. Hooks on 08-11-2022 Platelets (Bld) [#/Vol] 248 10*3/uL 150-[address] [facility] Serum or plasma C reactive p rotein measurement (mass/volume)Ordered By: Dr. Hooks on 08-11-2022 CRP [Mass/Vol] 10.90 mg/L 0.0-3.[address] [facility] Comment on above: C-Reactive Protein ( CRP) provides useful information for thediagnosis, therapy and monitoring of inflammatory processesand associated diseases. For the evaluation of Relative Riskfor Cardiovascular Disease, a High Sensitivity CRP (HSCRP)should be ordered. Basophil percentageOrdered B y: Dr. Sahu on 08-07-2022 Creatinine [Mass/Vol] 1.3 mg/dL 0.70-1.30 [facility] Laboratory - Chemistry and C hemistry - challengeOrdered By: Dr. Sahu on 08-07-2022 GFR/1.73 sq M.predicted among non-blacks MDRD (S/P/Bld) [Vol rate/Area] 59.0000 mL/min/{1.73_m2} >[address] [facility] Absolute lymphocyte counton 01-08-2022 Lymphocytes Auto (Unsp spec) [#/Vol] 1.68 10*3/uL 0.83-4.[address] [facility] Work Phone: Basophil percentageon 2021 Basophils/100 WBC (Bld) 0.4 % 0-[address] [facility] Work Phone: Bilirubin [Mass/Vol] 0.80 mg/dL 0.20-1.00 [facility] Work Phone: Comment on above: For patients on eltr ombopag therapy, use of Dimension [place] TBIL is not recommended. Chloride [Moles/Vol] 99 mmol/L 98-107 [facility] Work Phone: Cholesterol [Mass/Vol] 178 mg/dL <200 [facility] Work Phone: Comment on above: <200 mg/dL Desirable 200-240 mg/dL Borderline >240 mg/dL High Risk Eosinophils/100 WBC (Bld) 2.0 % 0-[address] [facility] Work Phone: Glucose [Mass/Vol] 93 mg/dL 74-106 [facility] Work Phone: Neutrophils (Bld) [#/Vol] 4.4 10*3/uL 2.0-7.[address] [facility] Work Phone: Neutrophils/100 WBC (Bld) 63.7 % 47-[address] [facility] Work Phone: Potassium [Moles/Vol] 4.1 mmol/L 3.5-5.1 [facility] Work Phone: Protein [Mass/Vol] 7.8 g/dL 6.4-8.2 [facility] Work Phone: Sodium [Moles/Vol] 133 mmol/L 136-145 [facility] Work Phone: Triglyceride [Mass/Vol] 102 mg/dL <[address] [facility] Work Phone: Comment on above: The drugs N-Acetylcy steine and Metamizole may falsely depress this assay.Serum Triglycerides Reference Interval Normal <150 mg/dL Borderline high 150 - 199 mg/dL High 200 - 499 mg/dL Very High > or = 500 mg/dL WBC (Bld) [#/Vol] 6.9 10*3/uL 4.4-11.0 [facility] Work Phone: Blood erythrocytes count (nu mber/volume)on 01-08-2022 RBC (Bld) [#/Vol] 5.20 10*6/uL 4.6-6.2 [facility] Work Phone: Blood hemoglobin measurement (mass/volume)on 01-08-2022 Hemoglobin (Bld) [Mass/Vol] 16.0 g/dL 13.0-16.[address] [facility] Work Phone: Blood lymphocytes/100 leukoc yteson 01-08-2022 Lymphocytes/100 WBC (Bld) 24.3 % 19-[address] [facility] Work Phone: Blood monocytes/100 leukocyt eson 01-08-2022 Monocytes/100 WBC (Bld) 9.0 % 0-[address] [facility] Work Phone: Blood platelet mean volumeon 01-08-2022 Platelet mean volume (Bld) [Entitic vol] 9.8 fL 6.2-12.[address] [facility] Work Phone: [phone] Determination of erythrocyte mean corpuscular volume (MCV)on 01-08-2022 MCV (RBC) [Entitic vol] 91.3 fL 80-[address] [facility] Work Phone: Hematocrit Auto (Bld) [Volum e fraction]on 01-08-2022 Hematocrit (Bld) [Volume fraction] 47.5 % 40-[address] [facility] Work Phone: [phone] Laboratory - Chemistry and C hemistry - challengeon 01-08-2022 ALP [Catalytic activity/Vol] 80 U/L 45-[address] [facility] Work Phone: [phone] ALT [Catalytic activity/Vol] 19 U/L 16-[address] [facility] Work Phone: CO2 [Moles/Vol] 28.0 mmol/L 21.0-32.[address] [facility] Work Phone: Free T4 [Mass/Vol] 1.19 ng/dL 0.76-1.46 [facility] Work Phone: Globulin (S) [Mass/Vol] 4.5 g/dL 2.2-4.[address] [facility] Work Phone: Urea nitrogen/Creatinine [Mass ratio] 12.5 mg/mg 10-[address] [facility] Work Phone: Laboratory - Hematology and Cell countson 01-08-2022 Erythrocyte distribution width (RBC) [Entitic vol] 45.9 fL 35.1-43.[address] [facility] Work Phone: Erythrocyte distribution width (RBC) [Ratio] 13.6 % 11.6-14.[address] [facility] Work Phone: Immature granulocytes/100 WBC (Bld) 0.600 % 0.0-0.[address] [facility] Work Phone: Comment on above: IG% - Immature Granu locytes (promyelocytes, myelocytes and metamyelocytes) > 1% indicates that a LEFT SHIFT is Present. MCH (RBC) [Entitic mass] 30.8 pg 27.0-32.[address] [facility] Work Phone: Nucleated RBC/100 WBC (Bld) [Ratio] 0 % 0-[address] [facility] Work Phone: MCHC Auto (RBC) [Mass/Vol]on 01-08-2022 MCHC (RBC) [Mass/Vol] 33.7 g/dL 32-36 [facility] Work Phone: No Panel Informationon 01-08 Estimated GFR (MDRD) Amer 90 mL/min >[address] [facility] Work Phone: Comment on above: GFR Calc Estimated GFR (MDRD) Non-Af Amer 74 mL/min >[address] [facility] Work Phone: Comment on above: Non- GFR Calc Free Triiodothyronine (T3) pg/dL 2.7 pg/mL 2.18-3.[address] [facility] Work Phone: Prostate Specific Antigen Screen 3.78 ng/mL 0.00-4.[address] [facility] Work Phone: Comment on above: This test was perfor med using the TPSA assay method for [employer] chemistry system. Values obtained with differentassay methods cannot be used interchangably.When changing PSA assays in the course of monitoring apatient, additional sequential testing should be carriedout to confirm baseline values. Thyroid Stimulating Hormone (TSH) 2.52 uIU/mL 0.358-3.[address] [facility] Work Phone: Platelets bldon 01-08-2022 Platelets (Bld) [#/Vol] 262 10*3/uL 150-[address] [facility] Work Phone: Serum or plasma albumin yessenia urement (mass/volume)on 01-08-2022 Albumin [Mass/Vol] 3.3 g/dL 3.2-5.0 [facility] Work Phone: [phone] Serum or plasma albumin/glob ulin mass ratioon 01-08-2022 Albumin/Globulin [Mass ratio] 0.7 {ratio} 0.9-2.[address] [facility] Work Phone: Serum or plasma calcium yessenia urement (mass/volume)on 01-08-2022 Calcium [Mass/Vol] 8.5 mg/dL 8.5-10.1 [facility] Work Phone: Serum or plasma cholesterol in HDL measurement (mass/volume)on 01-08-2022 Cholesterol in HDL [Mass/Vol] 61 mg/dL >[address] [facility] Work Phone: Comment on above: The drugs N-Acetylcy steine and Metamizole may falsely depress this assay. Reference Range HDL <40 mg/dL Low HDL Cholesterol HDL >or= 60 mg/dL High HDL Cholesterol Serum or plasma cholesterol in VLDL measurement (mass/volume)on 01-08-2022 Cholesterol in VLDL [Mass/Vol] 20 mg/dL 5-[address] [facility] Work Phone: Serum or plasma creatinine m easurement (mass/volume)on 01-08-2022 Creatinine [Mass/Vol] 1.04 mg/dL 0.70-1.30 [facility] Work Phone: Comment on above: The validity of the calculated GFR & GFRAA in patients over 70 years has not been determined. Clinical correlation is essential. Serum or plasma low density lipoprotein (LDL) cholesterol measurement (mass/volume)on 01-08-2022 Cholesterol in LDL [Mass/Vol] 97 mg/dL 0-[address] [facility] Work Phone: Serum or plasma urea nitroge n measurement (mass/volume)on 01-08-2022 Urea nitrogen [Mass/Vol] 13 mg/dL 7-[address] [facility] Work Phone: Thin prep Papanicolaou smear with manual screeningon 01-08-2022 Thin prep Papanicolaou smear with manual screening 15 U/L 15-[address] [facility] Work Phone: Thin prep Papanicolaou smear with manual screening 6 5-[address] [facility] Work Phone: VISUAL FIELD 24-2 OU (BOTH E YES) [facility] Vital Signs Date Time Vital Sign Value Performing Clinician Faci lity 09-30-2024 23:11-0400 Body temperature 97 [degF] Dr. Mariluz Sahu DO Work Phone: [facility] 09-30-2024 23:11-0400 Diastolic blood pressure 78 mm[Hg] Dr. Mariluz Sahu DO Work Phone: [facility] 09-30-2024 23:11-0400 Heart rate 65 /min Dr. Mariluz Sahu DO Work Phone: [facility] 09-30-2024 23:11-0400 Respiratory rate 16 /min Dr. Mariluz Sahu DO Work Phone: [facility] 09-30-2024 23:11-0400 SaO2% (BldA) [Mass fraction] 97 % Dr. Mariluz Sahu DO Work Phone: [facility] 09-30-2024 23:11-0400 Systolic blood pressure 187 mm[Hg] Dr. Mariluz Sahu DO Work Phone: [facility] 09-30-2024 16:35-0400 Body height 170.[address] Mariluz Sahu DO Work Phone: [facility] 09-30-2024 16:35-0400 Body mass index (BMI) [Ratio] 45.6 kg/m2 Dr. Mariluz Sahu DO Work Phone: [facility] 09-30-2024 16:35-0400 Body weight 131.[address] Mariluz Sahu DO Work Phone: [facility] Encounters Encounter Date Encounter Type Care Provider Facility Start: 11-22-2024 End: 11-22-[address] Mariluz Sahu DO Work Phone: -Laboratory Start: 11-22-2024 End: 11-22-[address] Mariluz Sahu DO -Laboratory Work Phone: Start: 11-22-2024 End: 11-22-2024 ambulatory Mariluz Sahu Facility:[facility] Start: 10-23-2024 End: 10-23-2024 Patient encounter procedure [facility] Work Phone: SURGERY DEPARTMENT Comment on above: Status post laparosc opic cholecystectomy (Primary Dx) Start: 10-23-2024 End: 10-23-2024 ambulatory MARILUZ SAHU Facility:[facility] Start: 10-04-2024 End: 10-04-2024 Evaluation and management of inpatient SOCRATES SUBRAMANIAN Facility:[facility] Start: 10-01-2024 End: 10-05-2024 Evaluation and management of inpatient SANTOSH CERVANTES Facility:[facility] Start: 09-30-2024 End: 09-30-2024 Emergency department patient visit Dr. Mariluz Sahu DO Work Phone: -Emergency Department Work Phone: Start: 03-24-2024 End: 03-24-2024 ambulatory Mariluz Malys Facility:[facility] Start: 03-23-2024 End: 03-23-2024 ambulatory Mariluz Malys Facility:[facility] Start: 03-03-2024 End: 03-03-2024 ambulatory Mariluz Malys Facility:[facility] Start: 02-18-2024 End: 02-18-2024 ambulatory Mariluz Malys Facility:[facility] Start: 02-11-2024 End: 02-11-2024 ambulatory Mariluz Malys Facility:[facility] Start: 01-14-2024 End: 01-14-2024 ambulatory Mariluz Malys Facility:[facility] Start: 09-09-2023 End: 09-09-[address] [facility] Work Phone: Start: 09-09-2023 End: 09-09-2023 Patient encounter procedure [facility]-Chip Christianeyjaime Chung [facility] Start: 03-12-2023 End: 03-12-2023 ambulatory MARILUZ A MALYS Facility:[facility] Start: 03-10-2023 End: 03-10-2023 ambulatory MARILUZ A MALYS Facility:[facility] Start: 03-10-2023 End: 03-10-2023 Subsequent hospital visit by physician [facility] (I-Stat/1.5t) Work Phone: Radiology Comment on above: Other localized visu al field defect, bilateral [H53.453] Start: 02-12-2023 E-mail encounter fro m caregiver Kaur Kelly MD Work Phone: [facility] Start: 02-12-2023 Patient encounter procedure Kaur Kelly MD Work Phone: Ophthalmology Comment on above: Appointment Schedule d Start: 02-05-2023 End: 02-05-2023 ambulatory DUSTY HILDA HOOKS Facility:[facility] Start: 02-05-2023 End: 02-05-2023 Patient encounter procedure Kaur Kelly MD Work Phone: Ophthalmology Comment on above: Diplopia (Primary Dx ); Exophoria; Other localized visual field defect, bilateral Start: 01-12-2023 End: 01-12-[address] [facility] Work Phone: Start: 01-12-2023 End: 01-12-2023 [facility] Start: 10-06-2022 End: 10-06-2022 Patient encounter procedure [facility]-Sleep Lab Work Phone: Start: 09-15-2022 End: 09-15-[address] [facility] Work Phone: Start: 09-15-2022 End: 09-15-2022 Patient encounter procedure [facility]-Sleep Lab Start: 08-19-2022 ambulatory MICHELLE GONCALVES [facility] Start: 08-19-2022 Telephone encounter Michelle Goncalves MD Work Phone: Ophthalmology Comment on above: External oph notes r eceived Start: 08-11-2022 End: 08-11-2022 [facility] Start: 08-07-2022 End: 08-07-[address] [facility] Work Phone: Start: 08-07-2022 End: 08-07-2022 Patient encounter procedure [facility]-Cat Scan, [facility] Start: 04-30-2022 End: 04-30-2022 Patient encounter procedure [facility]-Radiology, [place] Start: 01-08-2022 End: 01-08-2022 [facility] [facility] Work Phone: Start: 01-08-2022 End: 01-08-2022 Patient encounter procedure [facility] [place] Procedures Date Procedure Procedure Detail Performing Clinician Start: 10-04-2024 History of cholecystectomy S/P laparoscopic cholecystectomy Acute 359 Work Phone: Start: 09-30-[address] Mariluz Sahu DO Work Phone: Start: 09-30-[address] Mariluz Sahu DO Work Phone: Start: 03-10-2023 Mri brain brain stem w/o w/contrast material Kaur Kelly MD Work Phone: Start: 02-05-2023 Visual field xm uni/bi w/interp extended exam Kaur Kelly MD Work Phone: Start: 08-07-2022 CT angiography of head and neck Start: 04-30-2022 X-ray of cervical spine Start: 02-09-2014 Colonoscopy Kaur Kelly MD Work Phone: History of cholecystectomy Status post laparoscopic cholecystectomy Acute 359 Work Phone: Plan of Treatment Date Care Activity Detail Author Start: 10-06-2027 Diabetes Screening Diabetes Screenin g [facility] Start: 01-22-2025 Influenza vaccination Influenz a Vaccine (Season Ended) [facility] Start: 09-30-2024 End: 09-30-[address] [facility] Start: 09-04-2024 Covid-19 Vaccine ( season) Covid-19 Vaccine ( season) [facility] Start: 05-24-2024 Advance Directive Discussion Advance Directive Discussion [facility] Start: 01-22-2023 Covid-19 Vaccine ( season) Covid-19 Vaccine ( season) [facility] Start: 01-22-2023 Influenza vaccination Influenza Vacc ine (#1) [facility] Start: 08-11-2022 Procedure [facility] Start: 2022 RSV Vaccine (1 - 1-d ose 75+ series) RSV Vaccine (1 - 1-dose 75+ series) [facility] Start: 05-24-2022 Advance Directive Discussion Advance Directive Discussion [facility] Start: 05-24-2022 Depression Assessment Depression Ass essment [facility] Start: 03-02-2022 Covid-19 Vaccine (4 - Booster for Demetrio series) Covid-19 Vaccine (4 - Booster for Demetrio series) [facility] Start: 02-09-2019 Colonoscopy Colonoscopy [facility] Start: 02-09-2019 Colorectal Cancer Screening Colorectal Cancer Screening [facility] Start: 2012 Pneumococcal Vaccine : 65+ (1 - PCV) Pneumococcal Vaccine: 65+ (1 - PCV) [facility] Start: 2007 RSV Vaccine (1 - 1-d ose 60+ series) RSV Vaccine (1 - 1-dose 60+ series) [facility] Start: 1997 Pneumococcal Vaccine : 50+ (1 of 1 - PCV) Pneumococcal Vaccine: 50+ (1 of 1 - PCV) [facility] Start: 1997 Shingrix Vaccine (1 of 2) Shingrix Vaccine (1 of 2) [facility] Start: 1992 Cologuard (FIT-DNA) Cologuard (FIT-D NA) [facility] Start: [address] COLONOGRAPHY [facility] Start: 1992 Diabetes Screening Diabetes Screenin g [facility] Start: 1992 Fecal Occult Blood Fecal Occult Bloo d [facility] Start: 1992 SIGMOIDOSCOPY SIGMOIDOSCOPY [facility] Start: 1982 Lipid 1996 panel - S roger or Plasma Lipid Screening [facility] Start: 1966 Urine microalbumin profile DTaP,Tdap,Td Vaccine (1 - Tdap) [facility] Start: 1965 Annual PCP Team Adjuster Leader maurice Disease Visit Annual PCP Team Chronic Disease Visit [facility] Start: 1965 Anxiety Screening Anxiety Screening [facility] Start: 1965 BP Controlled (<130/80) BP Controlle d (<130/80) [facility] Start: 1965 Depression Screening Depression Scre ening [facility] Start: 1965 Hepatitis C Screening [facility] Start: 1965 Hepatitis C screening [facility] End: 03-06-2024 Mri brain brain stem w/o w/contrast material MRI BRAIN WO/W IVCON Radiology Routine Other localized visual field defect, bilateral Diplopia Exophoria 1 Occurrences starting 02/05/2023 until 03/06/2024 [facility] Work Phone: Comment on above: 1 Occurrences starti ng 02/05/2023 until 03/06/2024 End: 03-06-2024 Mri orbit face & neck w/o & w/contrast matrl MRI ORBIT WO/W IVCON Radiology Routine Other localized visual field defect, bilateral Diplopia Exophoria 1 Occurrences starting 02/05/2023 until 03/06/2024 [facility] Work Phone: Comment on above: 1 Occurrences starti ng 02/05/2023 until 03/06/2024 Patient referral [facility] Work Phone: [facility] Payers Date Payer Category Payer Self-pay [id number] 2022 Medicare UHC AARP MEDICAR E [facility] MEDICARE O [id number] 2022-Present [phone] [address] [address] [place] [address] HMO [id number] 2022 Medicare (Managed Care) [facility] MEDICARE HMO [id number] 2022 Unknown [id number] 2016 Unknown [id number] 2012 Medicare MEDICARE PART A B [id number] 9 [id number] Unknown [id number] Unknown [id number] Unknown [id number] Unknown [id number] Unknown [id number] Unknown [id number] Unknown [id number] Unknown [id number] Social History Date Type Detail Facility Start: 10-02-2020 Tobacco smoking stat [facility] Unknown if ever smoked [facility] Start: 10-02-2020 Non-smoker [facility] Start: 1945 Sex Assigned At Male W [facility] Start: 1945 Sex Assigned At Not on file C [facility] Start: 02-05-2023 End: 09-30-2024 Tobacco smoking status NHIS Ex-smoker [facility] Work Phone: End: 11-28-1982 History of tobacco use Current smoker [facility] Work Phone: End: 11-28-1982 History of tobacco use Cigarette Smoker [facility] Work Phone: Start: 02-05-2023 Tobacco use and exposure Smokeless tobacco non-user [facility] Work Phone: Start: 02-05-2023 End: 03-12-2023 Alcohol intake Current drinker of alcohol (finding) [facility] Start: 02-05-2023 End: 03-12-2023 Alcohol intake [facility] Start: 02-05-2023 End: 03-12-2023 Tobacco use panel [facility] National Score (1-10 0), lower number is lower risk 50 [facility] Has the electric, ga s, oil, or ArticleAlley threatened to shut off services in your home in past 12Mo No [facility] (I/We) worried татьяна er (my/our) food would run out before (I/we) got money to buy more. Never true [facility] Medical Equipment Procedure Code Equipment Code Equipment Origin al Text Equipment Identifier Dates Colonoscopy Ligation clip, metallic [id number] FDA Start: 10-19-2023 Functional Status Date Assessment Result Facility 10-05-2024 Are you deaf, or do you have serious difficulty hearing No 10/05/2024 10:52 AM Tamra Alberto RN [facility] 10-05-2024 Are you blind, or do you have serious difficulty seeing, even when wearing glasses No 10/05/2024 10:52 AM Tamra Alberto RN [facility] 10-05-2024 Do you have serious difficulty walking or climbing stairs No 10/05/2024 10:52 AM Tamra Alberto RN [facility] 10-05-2024 Do you have difficul ty dressing or bathing No 10/05/2024 10:52 AM Tamra Alberto, JIMBO [facility] 10-05-2024 Because of a physica l, mental, or emotional condition, do you have difficulty doing errands alone such as visiting a physician's office or shopping No 10/05/2024 10:52 AM Tamra Alberto RN [facility] Mental Status Date Assessment Result Facility 10-05-2024 Because of a physica l, mental, or emotional condition, do you have serious difficulty concentrating, remembering, or making decisions No 10/05/2024 10:52 AM Tamra Alberto RN No [facility] Clinical Notes 08-25-2022 to 10-23-2024 Adri Lugo, AIYANA.GRAIN MERCHANDISER - 10/23/2024 2:00 PM Mariluz Rutledge RT(Willy) - 03/10/2023 8:40 AM Kaur Kwon MD - 02/05/2023 11:38 AM EDT Note Date & Type Note Facility 10-23-2024 History of Present illness Narrative This Team Access Model visit is a phone encounter. It required patient-provider interaction for the medical decision making as documented below. Notation of pt consent to encounter via telephone: verbal Name of all people present during telemedicine encounter and their role: June Salcido-patient; Gonzalo Lugo CNP CC or reason for telephone encounter: post operative follow up Relevant history, background and/or results: Acute gallstone pancreatitis s/p lap mookie and IOC on 10/[address] Agustin Garza FINAL DIAGNOSIS A. Gallbladder, cholecystectomy: - Cholelithiasis. - Cholesterolosis Assessment: recovering as expected Plan and next steps: follow up prn Total time spent on medical discussion: 13 minutes 02129 5-10 minutes 10134 11-20 minutes 00131 21-30 minutes If >30 minutes use two codes to cover time (45 minutes = 74512 + [id number]). I have communicated my name and active licensure. The patient's identity and physical location were verified at the time of this visit. Either the patient or their legal technical sales representative has been informed of the risks and benefits of -- and alternatives to -- treatment through a remote evaluation and consents to proceed with the evaluation remotely. documented in this encounter [facility] 10-23-2024 Note HNO ID: [id number] Author: ADRI LUGO APRN.CNP Service: ? Author Type: Nurse Practitioner Type: Progress Notes Filed: 10/23/2024 13:53 Note Text: This Team Access Model visit is a phone encounter. It required patient-provider interaction for the medical decision making as documented below. Notation of pt consent to encounter via telephone: verbal Name of all people present during telemedicine encounter and their role: June Salcido-patient; Gonzalo Lugo CNP CC or reason for telephone encounter: post operative follow up Relevant history, background and/or results: Acute gallstone pancreatitis s/p lap mookie and IOC on 10/[address] Agustin Garza FINAL DIAGNOSIS A. Gallbladder, cholecystectomy: - Cholelithiasis. - Cholesterolosis Assessment: recovering as expected Plan and next steps: follow up prn Total time spent on medical discussion: 13 minutes [id number] 5-10 minutes 95210 11-20 minutes 30111 21-30 minutes If >30 minutes use two codes to cover time (45 minutes = 81400 + [id number]). I have communicated my name and active licensure. The patient's identity and physical location were verified at the time of this visit. Either the patient or their legal technical sales representative has been informed of the risks and benefits of -- and alternatives to -- treatment through a remote evaluation and consents to proceed with the evaluation remotely. [facility] 10-05-2024 Note HNO ID: [id number] Author: SIA REYNOSO RN Service: Care Management Author Type: Registered Nurse Type: Care Mgt Progress Note Filed: 10/05/2024 10:13 Note Text: CARE MANAGEMENT DISCHARGE NOTE SERVICE DATE: October 05, 2024 SERVICE TIME: 10:12 AM Admission Date: 10/01/2024 LOS: 4 days Discharge Arrangement Discharge Arrangement: Home with Self Care Services Arranged Provider Name: home Phone: Caregiver Assessment Caregiver is ready, willing and able to meet the patient's needs as recommended by the inter-professional team: Yes Name of Caregiver: family Transportation Arrangements Transportation Arrangements: Car Handoff Communication: Additional Information: Patient discharged today, to return home with family. No CM needs identified at this time. Family to transport home. SIGNATURE: Sia Reynoso RN PATIENT NAME: Umu Salcido DATE: October 05, 2024 TIME: 10:12 AM [facility] 10-05-2024 Note HNO ID: [id number] Author: DEYSI BALBUENA APRN.ROSANNE Service: Gastroenterology Author Type: Nurse Practitioner Type: Plan of Care Filed: 10/05/2024 07:55 Note Text: GI following for gallstone pancreatitis. Medical chart reviewed and discussed with GI attending. Patient s/p ERCP 10/[address] Subramanian; see note for full report. Noted to have appropriate decrease in LFT's this morning. No further inpatient GI interventions recommended at this time. Rest of care per primary. GI will sign off. GI attending: Dr. Subramanian [facility] 10-04-2024 Note HNO ID: [id number] Author: ADIEL JARA MD Service: General Surgery Author Type: Resident Type: Plan of Care Filed: 10/04/2024 16:34 Note Text: General Surgery Plan of Care Follow-up information provided. No need for further surgical management. Okay for discharge home from surgery perspective and diet per GI recs. Please call with questions or concerns. Adiel Jara M.D. General Surgery PGY-5 10/04/2024 4:33 PM [facility] 10-04-2024 Note HNO ID: [id number] Author: ABDOULAYE ZHOU MD Service: General Internal Medicine Author Type: Physician Type: Progress Notes Filed: 10/04/2024 16:03 Note Text: DEPARTMENT OF HOSPITAL MEDICINE PROGRESS NOTE SERVICE DATE: 10/04/2024 SERVICE TIME: 3:49 PM Hospital Medicine/Primary Attending: Abdoulaye Zhou MD NIGHT AND WEEKEND COVERAGE: WEIMAR COVERAGE: After 7pm, please call cross cover pager #[phone] Subjective INTERVAL HPI: lfts elevated will recheck in am, doing well s/p ercp this am with sphincterotomy and 12mm balloon stone extraction MEDICATIONS: Reviewed Objective PHYSICAL EXAM: BP 168/84 Pulse 59 Temp (Src) 97.7 (Oral) Resp 20 Ht 5' 7.5 (1.72m) Wt 291 lb 0.1 oz (132.0kg) SpO2 95% BMI 44.88 kg/(m2). O2 Therapy: Room Air, Liters (Numeric Only): 2 Physical Exam Performed GENERAL: Alert, no distress, cooperative LUNGS: Lungs clear to auscultation, Good diaphragmatic excursion CARDIAC: Normal S1 and S2; no rubs, murmurs, or gallops ABDOMEN: Abdomen soft, non-tender, BS normal, No masses or organomegaly EXTREMITIES: Extremities normal, no deformities, edema, clubbing or skin discoloration. Good capillary refill. Lines, Drains, and Airways Line Duration Peripheral 10/03/24 0849 Left Hand 18 Gauge 1 day Peripheral 10/03/24 1045 [facility] Right Hand 18 Gauge 1 day Patient does not currently have any lines, drains or airways. DATA: Diagnostic tests reviewed for today's visit: Most recent labs and imaging results. Latest Ref Rng 10/04/2024 Protein, Total 6.3 - 8.0 g/dL 6.4 Albumin 3.9 - 4.9 g/dL 3.5 (L) Calcium 8.5 - 10.2 mg/dL 8.8 Bilirubin, Total 0.2 - 1.3 mg/dL 3.4 (H) Alkaline Phosphatase 38 - 113 U/L 269 (H) AST 14 - 40 U/L 144 (H) ALT 10 - 54 U/L 143 (H) Glucose 74 - 99 mg/dL 96 BUN 9 - 24 mg/dL 11 Creatinine 0.73 - 1.22 mg/dL 0.87 Sodium 136 - 144 mmol/L 135 (L) Potassium 3.7 - 5.1 mmol/L 4.4 Chloride 98 - 107 mmol/L 98 CO2 22 - 30 mmol/L 25 Anion Gap 8 - 15 mmol/L 12 eGFR >=60 mL/min/1.73m? 89 WBC 3.70 - 11.00 k/uL 8.54 RBC 4.20 - 6.00 m/uL 4.72 Hemoglobin 13.0 - 17.0 g/dL 14.2 Hematocrit 39.0 - 51.0 % 42.8 MCV 80.0 - 100.0 fL 90.7 MCH 26.0 - 34.0 pg 30.1 MCHC 30.5 - 36.0 g/dL 33.2 RDW-CV 11.5 - 15.0 % 13.6 Platelet Count 150 - 400 k/uL 194 MPV 9.0 - 12.7 fL 10.7 Absolute nRBC <0.01 k/uL <0.01 Legend: (L) Low (H) High Imaging: RUQ US: IMPRESSION: Sludge and stones in the gallbladder. The pancreas could not be visualized due to overlying bowel gas. Ct abd/pelvis: IMPRESSION: Findings suggestive of acute interstitial pancreatitis. 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 Trace pericholecystic fluid. This is a nonspecific finding. If there is clinical concern for gallbladder disease could consider further evaluation with right upper quadrant ultrasound. Assessment/Plan #Acute biliary pancreatitis #CBD stones #hyperbilirubinemia -RUQ US and CT abd/pel showed gallbladder stones and sludge, no CBD obstruction, acute interstitial pancreatitis noted. -lfts still elevated, re check in am - s/p laparoscopic cholecystectomy and IOC on 10/03 -s/p ERCP with sphincterotomy and 12mm balloon stone extraction #HTN , uncontrolled -continue home losartan, coreg.added amlodipine #Hyponatremia-resolved -follow trend #BPH -continue home tamsulosin #GERD -continue home PPI #Morbid obesity Dc in am Medication and Non-Pharmacologic VTE Prophylaxis/Anticoagulants Anticoagulant AND Antiplatelet Medications (From admission, onward) Start Dose Route Frequency Last Action Ordered Stop 10/01/24 0900 aspirin, enteric coated 81 mg tab(s) 81 mg ORAL DAILY Given, 10/04 0820 10/01/24 0834 -- 10/01/24 0215 activity - mobilize patient (nc,nj) VTE Prophylaxis: VTE prophylaxis appropriate Disposition: Home Plan of care discussed with: Provider, RN, Patient SIGNATURE: Abdoulaye Zhou MD PATIENT NAME: Umu Salcido DATE: October 04, 2024 TIME: 3:49 PM etx [id number] [facility] 10-04-2024 Note HNO ID: [id number] Author: TIFFANY HERNANDEZ MD, PhD Service: Anesthesiology Author Type: Anesthesiologist Type: Anesthesia Procedure Notes Filed: 10/04/2024 16:07 Note Text: ANESTHESIOLOGY PROCEDURE NOTE Airway General Information Procedure Start Time/Medication Administration: 10/04/2024 11:24 AM Procedure End Time: 10/04/2024 11:25 AM Patient location during procedure: OR (endo) Timeout Performed Pre-procedure: timeout performed Consent Obtained: Yes Patient identity confirmed: patient Staffing Anesthesiologist: Tiffany Hernandez MD, PhD BIOLOGY INTERNSHIP: Ana Maria Liang APRN.BIOLOGY INTERNSHIP Performed by: BIOLOGY INTERNSHIP Indications and Patient Condition Indications for airway management: anesthesia Preoxygenated: yes anesthesia circuit Patient position: sniffing Method: asleep Final Airway Details Final airway type: endotracheal airway Final Endotracheal Airway: ETT Cuffed: yes Successful intubation technique: video laryngoscopy Devices used: Solis and intubating stylet Endotracheal tube insertion site: oral Blade: Jose Alfredo Blade size: #4 ETT size (mm): 7.5 Measured from: lips Measurement (cm): 23 Placement verified by: chest auscultation and capnometry Cormack-Lehane Classification: grade I - full view of glottis Number of attempts at approach: 1 SIGNATURE: Michelle Monreal APRN.CRNA PATIENT NAME: Umu Salcido DATE: October 04, 2024 TIME: 11:40 AM CSN: [id number] [facility] 10-04-2024 Note HNO ID: [id number] Author: SIA REYNOSO RN Service: Care Management Author Type: Registered Nurse Type: Care Mgt Progress Note Filed: 10/04/2024 11:17 Note Text: CARE MANAGEMENT PROGRESS NOTE SERVICE DATE: 10/04/2024 SERVICE TIME: 11:15 AM LOS: 3 days Post-Acute Discharge Planning Patient Goal(s): Ambulate a little better, Ambulate without stopping, Better mobility, Increase strength, General wellness, Be able to go home [place] of Choice Explained: [place] of Choice Given: No Reason Not Given: No placements necessary Discharge Planning Participant(s): Patient Patient/Family Comments: Anticipated # of Days Until Discharge: 1 Transport at Discharge: Transportation Arrangements: Car Needs Prior to Discharge: Needs Prior to Discharge: To Be Determined Post-Acute Discharge Plan: Pt [place] for ERCP, has GI following. Anticipate home once medically ready. Family to transport. CM to follow clinical progress. SIGNATURE: Sia Reynoso RN PATIENT NAME: Umu Salcido DATE: October 04, 2024 TIME: 11:15 AM [facility] 10-03-2024 Note HNO ID: [id number] Author: TATY MATTHEWS MD Service: Hospital Medicine Author Type: Physician Type: Progress Notes Filed: 10/03/2024 14:21 Note Text: DEPARTMENT OF HOSPITAL MEDICINE Hospital Medicine/Primary Attending: Taty Matthews MD NIGHT AND WEEKEND COVERAGE: After 7pm please page [phone] Subjective: Seen and examined at bedside. No acute events reported overnight. Symptoms have improved, no pain or nausea. Patient went to OR this morning. Seen post surgery. Patient and family updated and questions answered at bedside MEDICATIONS: Current Facility-Administered Medications Medication Dose Route Frequency aluminum-magnesium hydroxide-simethicone 200-200-20 mg/5 mL 30 mL 30 mL ORAL q 6 H PRN ondansetron (PF) 4 mg injection (ZOFRAN) 4 mg INTRAVENOUS q 6 H PRN prochlorperazine 5 mg injection (COMPAZINE) 5 mg INTRAVENOUS q 6 H PRN oxyCODONE IR 5 mg tab(s) (ROXICODONE) 5 mg ORAL q 4 H PRN NaCl 0.9% iv flush bag 20 mL INTRAVENOUS PRN lactated ringers iv infusion 75 mL/hr INTRAVENOUS CONTINUOUS aspirin, enteric coated 81 mg tab(s) 81 mg ORAL DAILY carvedilol 6.25 mg tab(s) (COREG) 6.25 mg ORAL BID w MEALS losartan 100 mg tab(s) (COZAAR) 100 mg ORAL DAILY pantoprazole DR 40 mg tab(s) (PROTONIX) 40 mg ORAL DAILY (6 AM) HYDROmorphone (PF) 0.5 mg injection (DILAUDID) 0.5 mg INTRAVENOUS q 4 H PRN hydrALAZINE 10 mg injection (APRESOLINE) 10 mg INTRAVENOUS q 6 H PRN acetaminophen 1,000 mg tab(s) (TYLENOL) 1,000 mg ORAL q 6 H iv contrast (radiology procedure) INTRAVENOUS DIRECTED PRN DATA: Diagnostic tests reviewed for today's visit: Lab data: CBC: Recent Labs 10/03/2453710/02/2425210/01/24314 WBC 7.68 7.63 7.35 HB 14.1 14.7 14.5 HCT 43.5 45.4 44.3 PLT 203 188 233 MCV 90.4 91.5 91.3 RDWCV 13.5 13.5 13.3 COAG: No results for input(s): APTT, INR in the last 168 hours. BMP: Recent Labs 10/03/2453710/02/2425210/01/2455310/01/24314 GLUC 88 89 -- 141* NA 132* 136 -- 135* K 3.8 4.0 4.1 -- CHLOR 101 102 -- 102 CO2 23 24 -- 23 ANION 8 10 -- 10 BUN 10 8* -- 13 CREAT 0.81 0.77 -- 0.80 CHEM: Recent Labs 10/03/2453710/02/2425210/01/2455310/01/24314 ALB 3.4* 3.5* 3.5* 3.5* TPROT 6.2* 6.5 6.6 6.6 CA 8.6 9.1 -- 8.6 MG -- 1.8 -- 1.9 HEPATIC: Recent Labs 10/03/24 0538 10/02/24 0253 10/01/24 0554 10/01/24 0315 ALKPHOS 130* 145* 158* 152* -- ALT 66* 112* 167* 167* -- AST 29 69* 223* 218* -- TBILI 1.2 1.5* 1.6* 1.9* LIPASE -- -- 1,623* -- URINALYSIS:No results for input(s): PH, SPGR, UGLUC, UBILI, UKET, UHB, UPROT, UROBIL, UWBC, SSA in the last 168 hours. Invalid input(s): NITR CARDIAC: No results for input(s): PBNP in the last 168 hours. Problem List Abdominal pain (POA: Yes) Nausea (POA: Yes) Hyperbilirubinemia (POA: Yes) HTN (hypertension) (POA: Yes) Hyponatremia (POA: Yes) BPH (benign prostatic hyperplasia) (POA: Yes) GERD (gastroesophageal reflux disease) (POA: Yes) Morbid obesity (HCC) (POA: Yes) Acute biliary pancreatitis without infection or necrosis (HCC) (POA: Status not on file) Obesity, Class III, BMI >= 40 (POA: Status not on file) PHYSICAL EXAM: BP 182/100 Pulse 61 Temp (Src) 97.6 (Oral) Resp 18 Ht 5' 7.5 (1.72m) Wt 289 lb 0.4 oz (131.1kg) SpO2 97% BMI 44.57 kg/(m2). O2 Therapy: Nasal Cannula, Liters (Numeric Only): 2.0 Constitutional - Vitals as above, NAD Respiratory - Clear to auscultate both sides. No crackles, wheezes or rales, No labored breathing noted CVS- RRR, no murmur/gallop/rub, pulse 2+ GI- NTND, bowel sounds normally heard Morbid Obesity Class 3 HOSPITAL COURSE: 79 year old male who is transfer [facility] for reported concern for potential choledocholithiasis and pancreatitis. Complains of acute RUQ abdl pain radiating to LUQ, associated with nausea w/o vomiting. Assessment/Plan: #Acute biliary pancreatitis #CBD stones #hyperbilirubinemia -RUQ US and CT abd/pel showed gallbladder stones and sludge, no CBD obstruction, acute interstitial pancreatitis noted. -Follow LFTs-downtrending, lipase elevated. -ensure adequate pain control, s/p IV fluids for hydration -GI consulted, recommend laparoscopic cholecystectomy and IOC for gallstone pancreatitis. Plan for ERCP tomorrow based on IOC results which show CBD stones. N.p.o. after midnight. -General Surgery consulted, s/p laparoscopic cholecystectomy and IOC today #HTN -continue home losartan, coreg. Monitor vitals and adjust accordingly #Hyponatremia-resolved -follow trend #BPH -continue home tamsulosin #GERD -continue home PPI #Morbid obesity VTE Prophylaxis: Early Ambulation Disposition: Likely DC tamiko post-ERCP Plan of care discussed with: Provider, RN, Patient Medication and Non-Pharmacologic VTE Prophylaxis/Anticoagulants Anticoagulant AND Antiplatelet Medications (From admission, onward) Start Dose Rout (more content not included)... [facility] 10-03-2024 Note HNO ID: [id number] Author: GARRETT GRIFFITHS APRN.GRAIN MERCHANDISER Service: Gastroenterology Author Type: Nurse Practitioner Type: Progress Notes Filed: 10/03/2024 14:16 Note Text: GI CONSULT PROGRESS NOTE SERVICE DATE: 10/03/2024 SERVICE TIME: 1401 CONSULTING SERVICE: Gastroenterology Subjective INTERVAL HPI: GI has been following peripherally to follow results of intraoperative cholangiogram after he was admitted for gallstone pancreatitis. He underwent laparoscopic cholecystectomy today. An intraoperative cholangiogram was performed and stones were present in the common bile duct distally. On exam today he is sitting up in bed. He is on 2L nasal cannula. He is feeling well overall. He states that abdominal pain is minimal. No reports of nausea or symptoms of GERD. Current Facility-Administered Medications Medication Dose Route Frequency aluminum-magnesium hydroxide-simethicone 200-200-20 mg/5 mL 30 mL 30 mL ORAL q 6 H PRN ondansetron (PF) 4 mg injection (ZOFRAN) 4 mg INTRAVENOUS q 6 H PRN prochlorperazine 5 mg injection (COMPAZINE) 5 mg INTRAVENOUS q 6 H PRN oxyCODONE IR 5 mg tab(s) (ROXICODONE) 5 mg ORAL q 4 H PRN NaCl 0.9% iv flush bag 20 mL INTRAVENOUS PRN lactated ringers iv infusion 75 mL/hr INTRAVENOUS CONTINUOUS aspirin, enteric coated 81 mg tab(s) 81 mg ORAL DAILY carvedilol 6.25 mg tab(s) (COREG) 6.25 mg ORAL BID w MEALS losartan 100 mg tab(s) (COZAAR) 100 mg ORAL DAILY pantoprazole DR 40 mg tab(s) (PROTONIX) 40 mg ORAL DAILY (6 AM) HYDROmorphone (PF) 0.5 mg injection (DILAUDID) 0.5 mg INTRAVENOUS q 4 H PRN hydrALAZINE 10 mg injection (APRESOLINE) 10 mg INTRAVENOUS q 6 H PRN acetaminophen 1,000 mg tab(s) (TYLENOL) 1,000 mg ORAL q 6 H iv contrast (radiology procedure) INTRAVENOUS DIRECTED PRN Objective PHYSICAL EXAM: Physical Exam Performed: Physical Exam Vitals reviewed. Constitutional: General: He is not in acute distress. Appearance: He is obese. He is not toxic-appearing. HENT: Head: Normocephalic and atraumatic. Mouth/Throat: Mouth: Mucous membranes are moist. Eyes: General: No scleral icterus. Extraocular Movements: Extraocular movements intact. Conjunctiva/sclera: Conjunctivae normal. Cardiovascular: Rate and Rhythm: Normal rate. Pulmonary: Effort: Pulmonary effort is normal. No respiratory distress. Comments: On 2L nasal cannula Abdominal: General: Bowel sounds are normal. There is no distension. Palpations: Abdomen is soft. Tenderness: There is no abdominal tenderness. There is no guarding or rebound. Musculoskeletal: General: No swelling. Normal range of motion. Skin: General: Skin is warm and dry. Neurological: General: No focal deficit present. Mental Status: He is alert and oriented to person, place, and time. Psychiatric: Mood and Affect: Mood normal. Behavior: Behavior normal. BP 182/100 Pulse 61 Temp (Src) 97.6 (Oral) Resp 18 Ht 5' 7.5 (1.72m) Wt 289 lb 0.4 oz (131.1kg) SpO2 97% BMI 44.57 kg/(m2). O2 Therapy: Nasal Cannula, Liters (Numeric Only): 2.0 DATA: Diagnostic tests reviewed for today's visit: Most recent labs WBC (k/uL) Date Value 10/03/2024 7.68 RBC (m/uL) Date Value 10/03/2024 4.81 Hemoglobin (g/dL) Date Value 10/03/2024 14.1 Hematocrit (%) Date Value 10/03/2024 43.5 MCV (fL) Date Value 10/03/2024 90.4 MCH (pg) Date Value 10/03/2024 29.3 MCHC (g/dL) Date Value 10/03/2024 32.4 RDW-CV (%) Date Value 10/03/2024 13.5 Platelet Count (k/uL) Date Value 10/03/2024 203 MPV (fL) Date Value 10/03/2024 10.2 Glucose (mg/dL) Date Value 10/03/2024 88 BUN (mg/dL) Date Value 10/03/2024 10 Creatinine (mg/dL) Date Value 10/03/2024 0.81 Sodium (mmol/L) Date Value 10/03/2024 132 (L) Potassium (mmol/L) Date Value 10/03/2024 3.8 Chloride (mmol/L) Date Value 10/03/2024 101 CO2 (mmol/L) Date Value 10/03/2024 23 Protein, Total (g/dL) Date Value 10/03/2024 6.2 (L) Albumin (g/dL) Date Value 10/03/2024 3.4 (L) Calcium, Total (mg/dL) Date Value 10/03/2024 8.6 Alkaline Phosphatase (U/L) Date Value 10/03/2024 130 (H) Bilirubin, Total (mg/dL) Date Value 10/03/2024 1.2 AST (U/L) Date Value 10/03/2024 29 ALT (U/L) Date Value 10/03/2024 66 (H) Laparoscopic cholecystectomy 10/03/2024 SURGERY/PROCEDURE DETAILS: A surgical huddle was completed with the treatment team, which included confirmation of the surgical site, procedure, and antibiotic administration. After induction of General anesthesia, the patient was prepped and draped in a sterile fashion. The patient was given below antibiotics intravenously. A Huber catheter was not placed. The abdomen was prepped with a single use applicator of ChloraPrep which was allowed to dry for three minutes and draped after allowing the prep solution to dry. A time out was performed, again identifying the patient and the procedure. The skin at the midli (more content not included)... [facility] 10-03-2024 Note HNO ID: [id number] Author: SHIKHA FERGUSON APRN.CRNA Service: Anesthesiology Author Type: Nurse Outside Machinist Helper Type: Anesthesia Procedure Notes Filed: 10/03/2024 09:17 Note Text: ANESTHESIOLOGY PROCEDURE NOTE PIV General Information Procedure Start Time/Medication Administration: 10/03/2024 8:49 AM Procedure End Time: 10/03/2024 8:50 AM Patient Location: OR Staffing Anesthesiologist: Kristy Durbin MD BIOLOGY INTERNSHIP: Shikha Ferguson APRN.BIOLOGY INTERNSHIP Performed by: anesthesiologist Preparation Sterility Preparation: hand hygiene performed prior to procedure, gown used during line insertion, surgical cap used Site Prep: alcohol Procedure Details Indication: need for IV access Needle Size/Type: 18 gauge angiocath Orientation: Left Location: Wrist Imaging Guidance Used: No SIGNATURE: Shkiha Ferguson APRN.CRNA PATIENT NAME: Umu Salcido DATE: October 03, 2024 TIME: 9:16 AM CSN: [id number] [facility] 10-03-2024 Note HNO ID: [id number] Author: SHIKHA FERGUSON APRN.CRNA Service: Anesthesiology Author Type: Nurse Outside Machinist Helper Type: Anesthesia Procedure Notes Filed: 10/03/2024 09:16 Note Text: ANESTHESIOLOGY PROCEDURE NOTE Gastric Tube General Information Procedure Start Time/Medication Administration: 10/03/2024 8:46 AM Procedure End Time: 10/03/2024 8:47 AM Patient location during procedure: OR Timeout Performed Pre-procedure: timeout performed Consent Obtained: Yes Patient identity confirmed: arm band Indication: gastric decompression Staffing Anesthesiologist: Kristy Durbin MD BIOLOGY INTERNSHIP: Shikha Ferguson APRN.BIOLOGY INTERNSHIP Performed by: MATILDE Procedure Details Type: Orogastric tube Size: 18 Fr cm Distance Advanced: 60 cm Successful Placement: yes Post-Procedure Details Patient tolerated the procedure well with no immediate complications SIGNATURE: Shikha Ferguson APRN.CRNA PATIENT NAME: Umu Salcido DATE: October 03, 2024 TIME: 9:15 AM CSN: [id number] [facility] 10-03-2024 Note HNO ID: [id number] Author: SHIKHA FERGUSON APRN.BIOLOGY INTERNSHIP Service: Anesthesiology Author Type: Nurse Outside Machinist Helper Type: Anesthesia Procedure Notes Filed: 10/03/2024 09:15 Note Text: ANESTHESIOLOGY PROCEDURE NOTE Airway General Information Procedure Start Time/Medication Administration: 10/03/2024 8:43 AM Procedure End Time: 10/03/2024 8:46 AM Patient location during procedure: OR Consent Obtained: Yes Patient identity confirmed: arm band Staffing Anesthesiologist: Kristy Durbin MD BIOLOGY INTERNSHIP: Shikha Ferguson APRN.BIOLOGY INTERNSHIP Performed by: BIOLOGY INTERNSHIP Indications and Patient Condition Indications for airway management: anesthesia and airway protection Preoxygenated: yes anesthesia circuit Patient position: sniffing Method: modified rapid sequence Cricoid Pressure: Yes Manual In-Line Stabilization: No Final Airway Details Final airway type: endotracheal airway Final Endotracheal Airway: ETT Cuffed: yes Successful intubation technique: video laryngoscopy Devices used: Solis and intubating stylet Blade: Jose Alfredo Blade size: #4 ETT size (mm): 8.0 Measured from: lips Measurement (cm): 23 Placement verified by: chest auscultation and capnometry Cormack-Lehane Classification: grade I - full view of glottis Number of attempts at approach: 1 Failed airway: no Airway not difficult SIGNATURE: Shikha Ferguson APRN.BIOLOGY INTERNSHIP PATIENT NAME: Umu Salcido DATE: October 03, 2024 TIME: 9:14 AM CSN: [id number] [facility] 10-02-2024 Note HNO ID: [id number] Author: TATY MATTHEWS MD Service: Hospital Medicine Author Type: Physician Type: Progress Notes Filed: 10/02/2024 14:13 Note Text: DEPARTMENT OF HOSPITAL MEDICINE Hospital Medicine/Primary Attending: Taty Matthews MD NIGHT AND WEEKEND COVERAGE: After 7pm please page [phone] Subjective: Seen and examined at bedside. No acute events reported overnight. Symptoms have improved, no pain or nausea today. Patient was supposed to go to the OR this morning, however now surgery is rescheduled for tomorrow. Will advance diet as tolerated. Patient and family updated and questions answered at bedside MEDICATIONS: Current Facility-Administered Medications Medication Dose Route Frequency acetaminophen 650 mg tab(s) (TYLENOL) 650 mg ORAL q 4 H PRN aluminum-magnesium hydroxide-simethicone 200-200-20 mg/5 mL 30 mL 30 mL ORAL q 6 H PRN ondansetron (PF) 4 mg injection (ZOFRAN) 4 mg INTRAVENOUS q 6 H PRN prochlorperazine 5 mg injection (COMPAZINE) 5 mg INTRAVENOUS q 6 H PRN oxyCODONE IR 5 mg tab(s) (ROXICODONE) 5 mg ORAL q 4 H PRN NaCl 0.9% iv flush bag 20 mL INTRAVENOUS PRN lactated ringers iv infusion 125 mL/hr INTRAVENOUS CONTINUOUS iv contrast (radiology procedure) INTRAVENOUS DIRECTED PRN aspirin, enteric coated 81 mg tab(s) 81 mg ORAL DAILY carvedilol 6.25 mg tab(s) (COREG) 6.25 mg ORAL BID w MEALS losartan 100 mg tab(s) (COZAAR) 100 mg ORAL DAILY pantoprazole DR 40 mg tab(s) (PROTONIX) 40 mg ORAL DAILY (6 AM) HYDROmorphone (PF) 0.5 mg injection (DILAUDID) 0.5 mg INTRAVENOUS q 4 H PRN hydrALAZINE 10 mg injection (APRESOLINE) 10 mg INTRAVENOUS q 6 H PRN phosphorus 250 mg tab(s) (K PHOS NEUTRAL) 250 mg ORAL TID after MEALS DATA: Diagnostic tests reviewed for today's visit: Lab data: CBC: Recent Labs 10/02/2425210/01/24314 WBC 7.63 7.35 HB 14.7 14.5 HCT 45.4 44.3 PLT 188 233 MCV 91.5 91.3 RDWCV 13.5 13.3 COAG: No results for input(s): APTT, INR in the last 168 hours. BMP: Recent Labs 10/02/2425210/01/24 0554 10/01/24314 GLUC 89 -- 141* NA 136 -- 135* K 4.0 4.1 -- CHLOR 102 -- 102 CO2 24 -- 23 ANION 10 -- 10 BUN 8* -- 13 CREAT 0.77 -- 0.80 CHEM: Recent Labs 10/02/2425210/01/2454 10/01/24314 ALB 3.5* 3.5* 3.5* TPROT 6.5 6.6 6.6 CA 9.1 -- 8.6 MG 1.8 -- 1.9 HEPATIC: Recent Labs 10/02/24 0253 10/01/24 0554 10/01/24 0315 ALKPHOS 145* 158* 152* -- ALT 112* 167* 167* -- AST 69* 223* 218* -- TBILI 1.5* 1.6* 1.9* LIPASE -- 1,623* -- URINALYSIS:No results for input(s): PH, SPGR, UGLUC, UBILI, UKET, UHB, UPROT, UROBIL, UWBC, SSA in the last 168 hours. Invalid input(s): NITR CARDIAC: No results for input(s): PBNP in the last 168 hours. Problem List Abdominal pain (POA: Yes) Nausea (POA: Yes) Hyperbilirubinemia (POA: Yes) HTN (hypertension) (POA: Yes) Hyponatremia (POA: Yes) BPH (benign prostatic hyperplasia) (POA: Yes) GERD (gastroesophageal reflux disease) (POA: Yes) Morbid obesity (HCC) (POA: Yes) Acute biliary pancreatitis without infection or necrosis (HCC) (POA: Status not on file) Obesity, Class III, BMI >= 40 (POA: Status not on file) PHYSICAL EXAM: BP 160/120 Pulse 61 Temp (Src) 97.5 (Oral) Resp 18 Ht 5' 7.5 (1.72m) Wt 291 lb 0.1 oz (132.0kg) SpO2 96% BMI 44.88 kg/(m2). O2 Therapy: Room Air Constitutional - Vitals as above, NAD Respiratory - Clear to auscultate both sides. No crackles, wheezes or rales, No labored breathing noted CVS- RRR, no murmur/gallop/rub, pulse 2+ GI- NTND, bowel sounds normally heard Morbid Obesity Class 3 HOSPITAL COURSE: 79 year old male who is transfer fr [place] for reported concern for potential choledocholithiasis and pancreatitis. Complains of acute RUQ abdl pain radiating to LUQ, associated with nausea w/o vomiting. Assessment/Plan: #Abdominal pain / nausea / hyperbilirubinemia -RUQ US and CT abd/pel showed gallbladder stones and sludge, no CBD obstruction, acute interstitial pancreatitis noted. -Follow LFTs-downtrending, lipase elevated. -ensure adequate pain control, IV fluids for hydration -GI consulted, recommend laparoscopic cholecystectomy and IOC for gallstone pancreatitis -General Surgery consulted, plan for OR tomorrow as no schedule availability today. N.p.o. after midnight. Okay for regular diet for today. -May need ERCP if any stones noted in the bile duct. #HTN -continue home losartan, coreg. Monitor vitals and adjust accordingly #Hyponatremia-resolved -follow trend #BPH -continue home tamsulosin #GERD -continue home PPI #Morbid obesity VTE Prophylaxis: Early Ambulation Disposition: Likely DC in 1 to 2 days postsurgery Plan of care discussed with: Provider, RN, Patient Medication and Non-Pharmacologic VTE Prophylaxis/Anticoagulants Anticoagulant AND Antiplatelet Medications (From admission, onward) Start Dose Route Frequency (more content not included)... [facility] 10-02-2024 Note HNO ID: [id number] Author: SIA REYNOSO RN Service: Care Management Author Type: Registered Nurse Type: Care Mgt Initial Assessment Filed: 10/02/2024 12:09 Note Text: CARE MANAGEMENT: ASSESSMENT AND DISCHARGE PLAN SERVICE DATE: October 02, 2024 SERVICE TIME: 12:08 PM PCP: Mariluz Sahu DO Primary Contact: Extended Emergency Contact Information Primary Emergency Contact: Marianna Salcido Address: [address] [place] Relation: Spouse Admission Status: Inpatient Insurance Provider: [employer] MEDICARE HMO Discharge Planning requested by: Per Department Practice Potential Transition Plans Home Advance Directives Current Advance Directive: None Appliance Installer Attempted to Assist with AD Completion: No Current Living Arrangements and Support Lives with: Spouse/significant other Type of Residence: Private Residence (House) Does the patient have to climb stairs at home?: Yes Support: Children, Family members, Friends/neighbors, Spouse/significant other How do you manage to accomplish the following: Independent: Ambulation, Bathe/Shower, Dress, Meals/Meal Prep, Medication Management, Going to the bathroom, Transportation to appointments/community Current Services/Equipment Current Post-Acute Service(s): DME Current DME Type: Continuous Positive Airway Pressure Discharge Planning Patient Goal(s): Increase strength, General wellness, Be able to go home [place] of Choice Explained: [place] of Choice Given: No Reason Not Given: Unable to complete with this assessment - revisit Are you interested in bedside delivery of your medications? No Discharge Planning Participant(s): Patient Patient/Family Comments: Caregiver Assessment: Caregiver is ready, willing and able to meet the patient's needs as recommended by the inter-professional team: Yes Name of Caregiver: family Transport at Discharge: Transportation Arrangements: Car Needs Prior to Discharge: Needs Prior to Discharge: To Be Determined, Discharge Prescriptions, Procedure Procedure Needed: lap mookie Post-Acute Discharge Plan: Spoke with patient at bedside. Pt is from home with family, not active with any agencies, +PCP, +DME, +RX, pt independent CUTTING MACHINE OPERATOR HELPER, drives. Pt has GI and surgery following, awaiting a lap mookie. Anticipate home once medically ready. Family to transport. CM to follow clinical progress. SIGNATURE: Sia Reynoso RN PATIENT NAME: Umu Salcido DATE: October 02, 2024 TIME: 12:08 PM [facility] 10-02-2024 Note HNO ID: [id number] Author: GARRETT GRIFFITHS APRN.CNP Service: Gastroenterology Author Type: Nurse Practitioner Type: Plan of Care Filed: 10/02/2024 14:48 Note Text: GI NOTE SERVICE DATE: 10/02/2024 SERVICE TIME: 1029 CONSULTING SERVICE: Gastroenterology GI following for pancreatitis. Workup showed a lipase of 1,623, ALT of 167, AST of 223, TB of 1.6. CT Imaging showed features of acute interstitial pancreatitis with trace pericholecystic fluid and cholelithiasis. RUQ ultrasound shows gallbladder sludge and stones. No intrahepatic biliary duct dilation. CBD: 0.4 cm at the hilum. Liver appears normal with normal echotexture, echogenicity and surface contour. No liver lesions. He was seen by general surgery with plans forlaparoscopic cholecystectomy with intraoperative cholangiogram to assess for any CBD stones today. Plan: continue protonix 40mg daily for Gi prophylaxis. Supportive care in the setting of pancreatitis per primary. NPO 2/2 plan for surgery today. GI will follow peripherally to follow results of intraoperative cholangiogram. If he does have retained CBD stones, please let us know so we can arrange an ERCP with biliary sphincterotomy and stone removal. Addendum: the patient was supposed to go to surgery this morning. However, the surgery has been rescheduled for tomorrow. Will follow peripherally for now and follow the results of the intraoperative cholangiogram. If he does have retained CBD stones, please let us know so we can arrange an ERCP with biliary sphincterotomy and stone removal. Impression and plan reviewed with GI attending. GI attending Dr Subramanian can be reached by phone, pager or epic chat. SIGNATURE: Garrett Griffiths APRN.CNP PATIENT NAME: Umu Salcido DATE: October 02, 2024 TIME: 10:29 AM [facility] 10-01-2024 Note HNO ID: [id number] Author: TATY MATTHEWS MD Service: Hospital Medicine Author Type: Physician Type: Plan of Care Filed: 10/01/2024 13:20 Note Text: Patient was seen and examined at bedside this morning. present at bedside. Patient's abdominal pain and nausea has improved but still feels bloated. Will start on clear liquid diet for now. Consulted GI, discussed plan of care with on-call physician, recommend general surgery consult for gallstone pancreatitis as patient may need laparoscopic cholecystectomy with intraoperative cholangiogram versus MRCP. General surgery has been consulted. Appreciate input. Please refer to detailed assessment and plan in HANDP by my colleague. [facility] 09-30-2024 Radiology Diagnostic study note [facility] Services [address] [place], [place] [id number] Abdomen Limited MR#: [id number] Acct: [id number] Name: UMU SALCIDO Rep #: [id number] : [id number] M 79 From: Michelle Edmond MD PCP: Dr. Mariluz Sahu DO Status: REG ER Study:Abdomen Limited Date of Exam: 09/21 Exam# [id number] Ordering Dr: Santosh Sorensen DO PROCEDURE: ABDOMEN LIMITED 09/30/2024 REASON FOR EXAM: PAIN TECHNIQUE: Complete abdominal ultrasound sheehan-scale images with color doppler. PATIENT PREPARATION: Per protocol FINDINGS: Liver: Diffusely echogenic suggesting fatty infiltration. Gallbladder: There are echogenic gallstones. A sonographic Zapata sign is present. Common bile duct: Nonvisualized . Pancreas: Obscured by bowel gas. Kidneys: The right kidney measures 12.3 cm. No calculi or hydronephrosis. Peritoneal Findings: No ascites identified. US/Abdomen Limited IMPRESSION: Cholelithiasis and positive sonographic Zapata's sign, concerning for acute cholecystitis. Hepatic steatosis. No focal lesion. Reading Location: [facility] CC: Dr. Mariluz Sahu DO; Dr. Santosh Sorensen DO ~ Web Administrator: Signed [facility] 03-12-2023 Note HNO ID: [id number] Author: Kaur Kelly MD Service: ? Author Type: Physician Type: Progress Notes Filed: 03/12/2023 8:33 AM Note Text: ??This is a telemedicine visit that was performed using the [employer] virtual platform with the originating site at my work office and the distant site at the patient's home. Verbal consent to participate in a combined audio and video visit was obtained. This visit occurred during the Coronavirus (COVID-19) Public Health Emergency. The patient consented to this virtual visit. I discussed with the patient the nature of our telemedicine visits, that: - I would evaluate the patient and recommend diagnostics and treatments based on my assessment - Our sessions are not being recorded and that personal health information is protected - Our team would provide follow up care in person if/when the patient needs it I have communicated my name and active licensure. The patient's identity and physical location were verified at the time of this visit. Either the patient or their legal technical sales representative has been informed of the risks and benefits of -- and alternatives to -- treatment through a remote evaluation and consents to proceed with the evaluation remotely. Homer Salcido is a 77 year old right-handed man who presents today for follow up of recurrent diplopia. At initial consultation on February 05, 2023, the patient reported having experienced his third recurrence of binocular horizontal diplopia that resolved within a couple weeks. He first experienced diplopia back in 2019 that required prisms for a month. The patient did not report a history of childhood strabismus, patching or eye alignment surgery, preceding head injury, or thyroid disease. The patient did not report fatigable ptosis, dysarthria, dysphonia, dysphagia, dyspnea, or fatigable weakness. Regarding microvascular risk factors, the patient reported a history of hypertension and obstructive sleep apnea on CPAP. Work up included myasthenia gravis panel that he believed was negative as he never heard back. No MRI was done. The patient's ophthalmic history was otherwise notable for pseudophakia. The patient's initial neuro-ophthalmic exam on February 05, 2023 showed overall good afferent visual pathway function with only nonspecific inferior areas of decreased sensitivity. Sensorimotor exam showed full motility with only a flick of an exophoria with supraduction. Given that it had occurred three times it was hard to attribute it to a microvascular etiology, particularly without neuroimaging having been completed. I therefore ordered an MRI of the brain and orbits with and without contrast. Dependent upon exam at the time of potential recurrence, the indication to proceed with further neuromuscular testing can be assessed. 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 MRI of the brain and orbits with and without contrast was personally reviewed and my interpretation is that it did not reveal a structural etiology underlying the patient's symptoms, demonstrating mild chronic microvascular ischemic disease along with moderate generalized parenchymal volume loss. Given that he no longer has the diplopia, invasive testing was deferred at this time, however, if he were to develop recurrent diplopia or symptoms concerning for a neuromuscular process, additional testing should be considered. Patient was amenable with this plan. I otherwise recommended that the patient follow up as scheduled with his primary eye doctor for ongoing dilated eye exams. I encouraged him to please contact me if I can be of any assistance in the future. Kaur Kelly MD 8:31 AM 03/12/2023 FOR ADMINISTRATIVE PURPOSES ONLY: My impression of this case is based upon an assessment of the the patient's subacute on chronic problems listed above that pose a threat to visual and neurologic function. 31 minutes were spent on total patient care on the day of service that includes [id number]-rb-[id number] time and non. The majority of this time was spent counseling and coordinating care. I communicated with Dr. Sahu and Dr. Hooks regarding the management of this patient. The assessment and plan were discussed extensively with the patient who was amenable and voiced understanding. [facility] 03-10-2023 Note HNO ID: [id number] Author: Mariluz Nova RT(R) Service: ? Author Type: Technologist Type: Progress Notes Filed: 03/10/2023 8:45 AM Note Text: Radiology Service Progress Note DATE OF SERVICE: March 10, 2023 TIME: 8:44 AM PATIENT IDENTITY VERIFICATION COMPLETED USING TWO (2) STANDARD IDENTIFIERS: Name and Date of confirmed by patient verbally. FALL SCREENING: Has the patient had 2 falls in the last year or 1 fall with injury or currently using an Ambulatory Assistive Device (Walker, Cane, Wheelchair, Crutches, etc.)? No PATIENT GENDER DATA: Male PATIENT RELEVANT IMPLANT DATA REVIEWED: Yes ALLERGIES: Reviewed and unchanged CONTRAST ALLERGY: NO. EXAM: MRI - CONTRAST TYPE: GROUP II PERIPHERAL IV DATA: Ambulatory: A peripheral IV was started in the Right antecubital site with a Angio cath: 22 gauge. RADIOLOGY DEPARTMENT: MR; Exam(s) Completed: Head: VISUAL PATHWAY SIGNATURE: RT John(Willy) PATIENT NAME: Umu Salcido DATE: March 10, 2023 TIME: 8:[address] [facility] 03-10-2023 History of Present illness Narrative Radiology Service Progress Note DATE OF SERVICE: March 10, 2023 TIME: 8:44 AM PATIENT IDENTITY VERIFICATION COMPLETED USING TWO (2) STANDARD IDENTIFIERS: Name and Date of confirmed by patient verbally. FALL SCREENING: Has the patient had 2 falls in the last year or 1 fall with injury or currently using an Ambulatory Assistive Device (Walker, Cane, Wheelchair, Crutches, etc.)? No PATIENT GENDER DATA: Male PATIENT RELEVANT IMPLANT DATA REVIEWED: Yes ALLERGIES: Reviewed and unchanged CONTRAST ALLERGY: NO. EXAM: MRI - CONTRAST TYPE: GROUP II PERIPHERAL IV DATA: Ambulatory: A peripheral IV was started in the Right antecubital site with a Angio cath: 22 gauge. RADIOLOGY DEPARTMENT: MR; Exam(s) Completed: Head: VISUAL PATHWAY SIGNATURE: RT John(Willy) PATIENT NAME: Umu Salcido DATE: March 10, 2023 TIME: 8:44 AM documented in this encounter [facility] 02-05-2023 Note HNO ID: [id number] Author: Kaur Kelly MD Service: ? Author Type: Physician Type: Progress Notes Filed: 02/05/2023 1:41 PM Note Text: Homer Salcido is a 77 year old right-handed man who presents today for diplopia. The patient was referred by Dr. Dusty Hooks. At initial consultation on February 05, 2023, the patient reported having experienced his third recurrence of binocular horizontal diplopia that resolved within a couple weeks. He first experienced diplopia back in 2019 that required prisms for a month. The patient did not report a history of childhood strabismus, patching or eye alignment surgery, preceding head injury, or thyroid disease. The patient did not report fatigable ptosis, dysarthria, dysphonia, dysphagia, dyspnea, or fatigable weakness. Regarding microvascular risk factors, the patient reported a history of hypertension and obstructive sleep apnea on CPAP. Work up included myasthenia gravis panel that he believes was negative as he never heard back. No MRI was done. The patient's ophthalmic history is notable for pseudophakia. Thorough review of the patient's medical, family, surgical and social history was performed along with medications, allergies, labs and imaging (if applicable). 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 Sensorimotor exam showed full motility with only a flick of an exophoria with supraduction. Given that this has occurred three times it is hard to attribute it to a microvascular etiology, particularly without neuroimaging having been completed. I will therefore order an MRI of the brain and orbits with and without contrast to exclude a structural etiology underlying the patient's symptoms and exam findings. I will then review the results of this with the patient via virtual visit. Radiology scheduling can be reached at: [phone]. Dependent upon exam at the time of potential recurrence, the indication to proceed with further neuromuscular testing can be assessed. I will plan to see him back upon completion of the neuroimaging via virtual visit to review any abnormalities, unless concerns arise in the interim, for which he was provided my contact information and encouraged to reach out. ER presentation is otherwise advised for any acute onset neurological deficits. Kaur Kelly MD 1:39 PM 02/05/2023 FOR ADMINISTRATIVE PURPOSES ONLY: My impression of this case is based upon an assessment of the the patient's subacute on chronic problems listed above that pose a threat to visual and neurologic function. 65 minutes were spent on total patient care on the day of service that includes both junf-nj-diqz and ief-kipp-tt-face time. This time was separate from any of my time spent completing and interpreting the ancillary testing (such as OCT, fundus photos, visual carrington) and sensorimotor exam, if applicable. This time was broken down into: 5 minutes reviewing the patient record before the visit, 20 minutes performing a medically appropriate neuro-ophthalmic history and exam (excluding time spent on the ancillary testing and sensorimotor exam, if applicable), 10 communicating results to the patient/family, 10 minutes counseling / educating the patient, 10 minutes documenting clinical information into the electronic health record of the patient, 5 minutes ordering tests/medications/procedures, and 5 minutes coordinating care for the patient. I communicated with Dr. Hooks regarding the management of this patient. The assessment and plan were discussed extensively with the patient who was amenable and voiced understanding. [facility] 02-05-2023 History of Present illness Narrative Homer Salcido is a 77 year old right-handed man who presents today for diplopia. The patient was referred by Dr. Dusty Hooks. At initial consultation on February 05, 2023, the patient reported having experienced his third recurrence of binocular horizontal diplopia that resolved within a couple weeks. He first experienced diplopia back in 2019 that required prisms for a month. The patient did not report a history of childhood strabismus, patching or eye alignment surgery, preceding head injury, or thyroid disease. The patient did not report fatigable ptosis, dysarthria, dysphonia, dysphagia, dyspnea, or fatigable weakness. Regarding microvascular risk factors, the patient reported a history of hypertension and obstructive sleep apnea on CPAP. Work up included myasthenia gravis panel that he believes was negative as he never heard back. No MRI was done. The patient's ophthalmic history is notable for pseudophakia. Thorough review of the patient's medical, family, surgical and social history was performed along with medications, allergies, labs and imaging (if applicable). 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 Sensorimotor exam showed full motility with only a flick of an exophoria with supraduction. Given that this has occurred three times it is hard to attribute it to a microvascular etiology, particularly without neuroimaging having been completed. I will therefore order an MRI of the brain and orbits with and without contrast to exclude a structural etiology underlying the patient's symptoms and exam findings. I will then review the results of this with the patient via virtual visit. Radiology scheduling can be reached at: [phone]. Dependent upon exam at the time of potential recurrence, the indication to proceed with further neuromuscular testing can be assessed. I will plan to see him back upon completion of the neuroimaging via virtual visit to review any abnormalities, unless concerns arise in the interim, for which he was provided my contact information and encouraged to reach out. ER presentation is otherwise advised for any acute onset neurological deficits. Kaur Kelly MD 1:39 PM 02/05/2023 FOR ADMINISTRATIVE PURPOSES ONLY: My impression of this case is based upon an assessment of the the patient's subacute on chronic problems listed above that pose a threat to visual and neurologic function. 65 minutes were spent on total patient care on the day of service that includes both bgdr-jh-kvfh and rmn-irov-em-face time. This time was separate from any of my time spent completing and interpreting the ancillary testing (such as OCT, fundus photos, visual carrington) and sensorimotor exam, if applicable. This time was broken down into: 5 minutes reviewing the patient record before the visit, 20 minutes performing a medically appropriate neuro-ophthalmic history and exam (excluding time spent on the ancillary testing and sensorimotor exam, if applicable), 10 communicating results to the patient/family, 10 minutes counseling / educating the patient, 10 minutes documenting clinical information into the electronic health record of the patient, 5 minutes ordering tests/medications/procedures, and 5 minutes coordinating care for the patient. I communicated with Dr. Hooks regarding the management of this patient. The assessment and plan were discussed extensively with the patient who was amenable and voiced understanding. documented in this encounter [facility] 08-25-2022 Miscellaneous Notes Notes will be sent to the [facility] for scanning in the pt's EMR. External oph notes received from Dusty Hooks MD 3 pages Dos: 08.14.2022 Notes will be kept at my desk until an appt is scheduled. documented in this encounter [facility] Evaluation note No assessment inform ation available [facility] Work Phone: Evaluation note Diagnosis Diplopia- Primary Exophoria Other localized visual field defect, bilateral documented [facility] this encounter [facility] Diagnosis Other localized visual field defect, bilateral Diplopia Exophoria documented [facility] this encounter [facility] Diagnosis Other localized visual field defect, bilateral Diplopia Exophoria documented in this encounter [facility]* Diagnosis Status post laparoscopic cholecystectomy- Primary Other postprocedural status documented in this encounter [facility]Reason for referral (narrative)No reason for referral information availableWFirelands Regional [facility] Work Phone: Advance Directives No Advanced Directives Records Found Advance Directive Response Recorded Date/ Time Living Will No October 02, 2020 1 2:44am Power of Net Technical Architect No October 02, 2020 12:44am Advance Directive Response Recorded Date/ Time Do you have a Healthcare Power of Net Technical Architect? No September 30, 2024 4:57pm Date Activated Date Inactivated Comments 10/01/2024 5:06 AM 10/05/2024 2:27 PM Question Answer Comments Full Code Order Discussed With: Patient Chief Complaint and Reason for Visit Chief Complaint NECK PAIN POWERS, NUMB LT CHEEK, BLURRY VISION; R/O ANEURYSM Chief Complaint POWERS, NUMB LT CHEEK, B LURRY VISION; R/O ANEURYSM PANFILO Chief Complaint PANFILO; AUTO CPAP *AARON CE TAGGED Chief Complaint Admit Date ABD PAIN September 30, 2024 4:35p m Summary Purpose Family History Relationship Condition Age at Onset Recorded Date/T jessica father Hypertension Unknown Gastric ulcer Unknown mother Hypertension Unknown brother Malignant neoplasm Unknown brother Diabetes mellitus Unknown Arthritis Unknown grandfather Cardiac disease Unknown Cerebrovascular accident (CVA) Unknown daughter Multiple sclerosis Unknown No Family History Records Found Reason for Referral Specialty Diagnoses / Procedures Referred By Flor lan Referred To Contact MR IMAGING Diagnoses Other localized visual field defect, bilateral Diplopia Exophoria Procedures MRI BRAIN WO/W IVCON MRI BRAIN BRAIN STEM W/O W/CONTRAST MATERIAL Kaur Kelly MD [address] [id number] [facility] [place] [address] Referral ID Status Reason Start Date Expiration Date Visits Requested Visits Authorized [id number] Authorized Auto-Generat ed Referral 02/05/2023 03/06/2024 1 1 Specialty Diagnoses / Procedures Referred By Flor lan Referred To Contact MR IMAGING Diagnoses Other localized visual field defect, bilateral Diplopia Exophoria Procedures MRI ORBIT WO/W IVCON MRI ORBIT FACE & NECK W/O & W/CONTRAST MATRL Kaur Kelly MD [address] [place] [address] [facility] [place] [address] Referral ID Status Reason Start Date Expiration Date Visits Requested Visits Authorized [id number] Authorized Auto-Generat ed Referral 02/05/2023 03/06/2024 1 1 Referral ID Status Reason Start Date Expiration Date V isits Requested Visits Authorized [id number] Closed Auto-Generate d Referral 02/05/2023 03/06/2024 1 1 Additional Source Comments Goals (unrecognized section and content) Goals may be documented in a n alternate sectionGoals may be documented in an alternate sectionGoals may be documented in an alternate sectionGoals may be documented in an alternate sectionGoals may be documented in an alternate sectionGoals may be documented in an alternate sectionGoals may be documented in an alternate section Care Teams (unrecognized sec tion and content) Team Status: Active Member Role Status Dates Dr. Mariluz Sahu , DO Family Provider Active Dr. Mariluz Sahu , DO Primary Care Provider Active Team Status: Inactive Member Role Status Dates Dr. Mariluz Sahu DO Primary Care Provide r, Attending Provider, Referring Provider Active Team Status: Active Member Role Status Dates Dr. Mariluz Sahu DO Primary Care Provider Active Dr. Dusty Hooks MD Attending Provider, Referring Pr ovider Active Team Status: Inactive Member Role Status Dates Dr. Mariluz Sahu DO Primary Care Provider Active Dr. Dusty Hooks MD Attending Provider, Referring Pr ovider Active Team Status: Inactive Member Role Status Dates Dr. Mariluz Sahu DO Primary Care Provider, Attending P krystian Active Residential Solar Consultant Relationship Specialty Start Date End Date Mariluz Sahu DO [address] [place] [address] PCP - General Family Medicine 02/05/23 Residential Solar Consultant Relationship Specialty Start Date End Date Mariluz Sahu DO [address] [place] [address] PCP - General Family Medicine 02/05/23 Residential Solar Consultant Relationship Specialty Start Date End Date KotaMariluz long DO [address] [place] [address] PCP - General Family Medicine 02/05/23 Residential Solar Consultant Relationship Specialty Start Date End Date KotaMariluz long DO [address] [place] [address] PCP - General Family Medicine 02/05/23 Team Status: Active Member Role Status Dates Dr. Mariluz Sahu DO Primary Care Provider Active Team Status: Inactive Member Role Status Dates Dr. Mariluz Sahu DO Primary Care Provider Active Start: September 30, 2024 End: September 30, 2024 Dr. Santosh Sorensen DO Emergency Provider Active Start : September 30, 2024 End: September 30, 2024 Residential Solar Consultant Relationship Specialty Start Date End Date Mariluz Sahu DO [address] [address] PCP - General Family Medicine 02/05/23 Team Status: Active Member Role/Relationship Status Dates Dr. Mariluz Sahu DO Primary Care Provider Active Team Status: Inactive Member Role/Relationship Status Dates Dr. Mariluz Sahu DO Primary Care Provider Active Start: September 30, 2024 End: September 30, 2024 Dr. Santosh Sorensen DO Attending Provider Active Start : September 30, 2024 End: September 30, 2024 Dr. Santosh Sorensen DO Emergency Provider Active Start : September 30, 2024 End: September 30, 2024 Team Status: Inactive Member Role/Relationship Status Dates Dr. Mariluz Sahu DO Primary Care Provider Active Start: November 22, 2024 End: November 22, 2024 Dr. Mariluz Sahu DO Attending Provider Active St art: November 22, 2024 End: November 22, 2024 Dr. Mariluz Sahu DO Referring Provider Active St art: November 22, 2024 End: November 22, 2024 Source Comments (unrecognize d section and content) In the event this informatio n is protected by the Federal Confidentiality of Alcohol and Drug Abuse Patient Records regulations: The Federal rules restrict any use of the information to criminally investigate or prosecute any alcohol or drug abuse patient.[facility] HospitalIn the event this information is protected by the Federal Confidentiality of Alcohol and Drug Abuse Patient Records regulations: The Federal rules restrict any use of the information to criminally investigate or prosecute any alcohol or drug abuse patient.[facility] HospitalIn the event this information is protected by the Federal Confidentiality of Alcohol and Drug Abuse Patient Records regulations: The Federal rules restrict any use of the information to criminally investigate or prosecute any alcohol or drug abuse patient.[facility] HospitalIn the event this information is protected by the Federal Confidentiality of Alcohol and Drug Abuse Patient Records regulations: The Federal rules restrict any use of the information to criminally investigate or prosecute any alcohol or drug abuse patient.[facility] HospitalIn the event this information is protected by the Federal Confidentiality of Alcohol and Drug Abuse Patient Records regulations: The Federal rules restrict any use of the information to criminally investigate or prosecute any alcohol or drug abuse patient.[facility] HospitalIn the event this information is protected by the Federal Confidentiality of Alcohol and Drug Abuse Patient Records regulations: The Federal rules restrict any use of the information to criminally investigate or prosecute any alcohol or drug abuse patient.[facility] Reason for Visit (unrecogniz ed section and content) Reason Comments External oph notes received Reason Comments Diplopia Evaluation Specialty Diagnoses / Procedures Referred By Contac t Referred To Contact MR IMAGING Diagnoses Other localized visual field defect, bilateral Diplopia Exophoria Procedures MRI BRAIN WO/W IVCON MRI BRAIN BRAIN STEM W/O W/CONTRAST MATERIAL Kaur Kelly MD [address] [place] [address] Mr [facility] [place] [address] Referral ID Status Reason Start Date Expiration Date V isits Requested Visits Authorized [id number] Closed Auto-Generate d Referral 02/05/2023 03/06/2024 1 1 Specialty Diagnoses / Procedures Referred By Contac t Referred To Contact MR IMAGING Diagnoses Other localized visual field defect, bilateral Diplopia Exophoria Procedures MRI ORBIT WO/W IVCON MRI ORBIT FACE & NECK W/O & W/CONTRAST MATRL Kaur Kelly MD [address] [place] [id number] [id number] Referral ID Status Reason Start Date Expiration Date V isits Requested Visits Authorized [id number] Closed Auto-Generate d Referral 02/05/2023 03/06/2024 1 1 (unrecognized sect ion and content) No Status Records FoundNo Status Records FoundNo Status Records FoundNo Status Records Found INFORMATION SOURCE (unrecogn ized section and content) DATE CREATED AUTHOR 08/28/2022 [facility] DATE CREATED AUTHOR AUTHOR'S ORGANIZ ATION 03/13/2023 [facility] DATE CREATED AUTHOR AUTHOR'S ORGANIZ ATION 10/24/2024 [facility] DATE CREATED AUTHOR AUTHOR'S ORGANIZ ATION 12/01/2024 [facility] FOR RECORDS PERTAINING TO PATIENTS WHO ARE OR HAVE BEEN ENROLLED IN A CHEMICAL DEPENDENCY/SUBSTANCEABUSE PROGRAM, SOME INFORMATION MAY BE OMITTED. This clinical summary was aggregated from multiple sources. Caution should be exercised in using it in the provision of clinical care. This summary normalizes information from multiple sources, and as a consequence, information in this document may materially change the coding, format and clinical context of patient data. In addition, data may be omitted in some cases. CLINICAL DECISIONS SHOULD BE BASED ON THE PRIMARY CLINICAL RECORDS. [facility]. provides no warranty or guarantee of the accuracy or completeness of information in this document.
[2025-01-16 10:01] LABS: Hematocrit 44.0 % (40-54); Hemoglobin 14.8 g/dL (13.0-16.5); Immature Granulocytes Count 0.010 X10^3/uL (0.0-0.0); Mean Corp Hgb Conc 33.6 g/dL (32-36); Mean Corpuscular Volume 89.2 fL (80-94); Mean Platelet Vol. 9.9 fl (6.2-12.0); NRBC Flagged by Analyzer 0 % (0-5); Platelet Count 257 K/mm3 (150-450); RBC Distribution Width CV 13.4 % (11.6-14.6); RBC Distribution Width SD 44.4 fl (35.1-43.9); Red Blood Count 4.93 M/mm3 (4.6-6.2); White Blood Count 5.6 K/mm3 (4.4-11.0)
[2025-01-16 10:26] LABS: AST(SGOT) 14 U/L (<=37); Alanine Aminotransfer ALT/SGPT 6 U/L (<=46); Albumin, Serum 4.0 g/dL (3.4-4.8); Alkaline Phosphatase 91 U/L (40-129); Anion Gap 12 (5-15); BUN 14 mg/dL (4-19); BUN/Creat Ratio 12.6 RATIO (10-20); Calcium,Total 9.3 mg/dL (7.6-11.0); Carbon Dioxide 25.3 mmol/L (21.0-32.0); Chloride 99 mmol/L (98-108); Cholesterol 156 mg/dL (<=200); Globulin 3.3 g/dL (2.2-4.2); Glucose 91 mg/dL (70-99); Low Density Lipoprotein Calc. 87 mg/dL; PSA,Total - Annual Screen 3.22 ng/mL (0.02-4.00); Potassium 4.4 mmol/L (3.3-5.1); Triglycerides 85 mg/dL; Very Low Density Lipoprotein 17 mg/dL (5-40); cholesterol:hdl ratio screen 2.99
== END | disposition home or self-care (01) ==
LOC: MTLAB 07:06
PROVIDERS: PCP Family Medicine; Referring Provider Family Medicine; Visit Provider Family Medicine
DX: I10 Essential (primary) hypertension (principal); R73.01 Impaired fasting glucose; Z51.81 Encounter for therapeutic drug level monitoring; Z12.5 Encounter for screening for malignant neoplasm of prostate
CPT/HCPCS: 36415; 80053; 80061; 83036; 84153; 85025; G0103